=== PATIENT | male | born 1940 | race Caucasian/White ===

== ENCOUNTER 2023-06-21 17:24 | Emergency (ER) | payer MEDICARE, SELFPAY ==
[2023-06-21] VITALS (9 sets, daily range): BP systolic 111–124; BP diastolic 72–74; PULSE 56–84; RESP 16–24; O2SAT 83–96; BMI 40.3
--- NOTE | 2023-06-21 17:32 | ECG_ITS ---
The [facility] Test Date: 2023-06-21 Pat Name: KAEL PULIDO Department: Room: - Gender: Male Inpatient Pharmacist: : 1940 Requested By: JAKE VAUGHAN Order Number: [id number] Reading MD: JAKE VAUGHAN Measurements Intervals [place] Rate: 72 P: 21 SD: 174 QRS: 11 QRSD: 100 T: 65 QT: 404 QTc: 429 Interpretive Statements 1100 Sinus rhythm 9110 normal ECG No previous ECG available for comparison Electronically Signed On 06-23-2023 6:39:56 EST by JAKE VAUGHAN
--- NOTE | 2023-06-21 17:40 | ED_ITS ---
HPI - General Adult General Chief complaint: Neuro Symptoms/Deficit Stated complaint: poss cva Time Seen by Provider: 06/21/23 17:27 Source: patient Mode of arrival: Wheelchair History of Present Illness HPI narrative: Patient brought in by family from home, where he apparently became so weak he could not walk, his speech became slurred and slow and his behavior became altered. The patient's gives the HPI and ROS as the patient is unable. She told me that we was fine 2 days ago. Last night he was sluggish and had weakness in his legs and arms. had to help him get into bed. This morning he was still weak but the was able to help him walk and he was able to eat and move on his own and got better as the day progressed. She said that he was able to walk outside and feed the chickens and move on his own. But when he came back inside, he was confused again, speech was once again slow and he was having trouble walking or moving his arms. It got worse over time so the got him into the car and brought him to the ED for evaluation. On arrival patient is weight needing 100% assistance getting out of the car and cannot give HPI, ROS or answer questions, despite his eyes being open and him tracking his site to voice. said he had several previous strokes. Related Data Home Medications Medication Instructions Recorded Confirmed amlodipine 5 mg tablet 5 mg PO BID 06/21/23 06/21/23 glimepiride 1 mg tablet 1 mg PO DAILY 06/21/23 06/21/23 levothyroxine 50 mcg tablet 50 mcg PO DAILY 06/21/23 06/21/23 lisinopril 40 mg tablet 40 mg PO DAILY 06/21/23 06/21/23 pravastatin 40 mg tablet 40 mg PO DAILY 06/21/23 06/21/23 quetiapine 50 mg tablet 50 mg PO DAILY 06/21/23 06/21/23 Allergies Allergy/AdvReac Type Severity Reaction Status Date / Time No Known Drug Allergies Allergy Verified 06/21/23 17:39 Exam Narrative Exam Narrative: Nurses notes and vital signs reviewed and patient is not hypoxic. afebrile General: Well-appearing and in no apparent distress. Skin: Warm, dry, no pallor noted. Head: Normocephalic, atraumatic. Neck: Supple, non-tender. Eye: Pupils are equal, round and EOMI. No scleral icterus. Ears, Nose, Mouth, and Throat: Oral mucosa is moist Cardiovascular: Regular Rate and Rhythm without murmur, gallop or rub. Respiratory: No accessory muscle use or respiratory distress. Lungs are clear to auscultation, no wheezing, rales or rhonchi Musculoskeletal: normal ROM, no calf or popliteal tenderness, no lower extremity edema/swelling GI: Abdomen is soft, non-distended. Normal bowel sounds. No tenderness to palpation. No rebound, guarding, or rigidity noted. Neurological: A&O x4. No cranial nerve dysfunction observed. No truncal ataxia. Moves all extremities. Sensation intact. Psychiatric: Cooperative and interactive. Normal mood and affect. Constitutional Vital Signs, click to edit/add: Last Vital Signs Pulse 65 06/21/23 18:40 Resp 20 06/21/23 18:40 BP 111/72 06/21/23 18:31 Pulse Ox 94 L 06/21/23 18:31 O2 Del Method Room Air 06/21/23 17:29 Course Vital Signs Vital signs: Vital Signs Pulse Rate 70 06/21/23 17:29 Respiratory Rate 24 06/21/23 17:29 Blood Pressure 124/74 06/21/23 17:29 Pulse Oximetry 94 L 06/21/23 17:29 Oxygen Delivery Method Room Air 06/21/23 17:29 Pulse Rate 65 06/21/23 18:40 Respiratory Rate 20 06/21/23 18:40 Blood Pressure 111/72 06/21/23 18:31 Pulse Oximetry 94 L 06/21/23 18:31 Oxygen Delivery Method Room Air 06/21/23 17:29 Medical Decision Making [facility] Narrative Medical decision making narrative: The patient's blood glucose stick was only 46 - he received IV D50. The patient was placed on cafeteria monitor and EKG obtained. He was sent for head CT per stroke protocol. Blood drawn and sent for evaluation. After receiving IV D50, the patient returned to baseline mentation and was able to move normally. Head CT did not reveal any acute changes - he has evidence of prior CVAs. Workup otherwise notable for elevated BUN and CR, normal electrolytes, normal CBC, no evidence of worrisome findings on EKG or head CT. Patient behaving normally, able to sit up and move on his own. Patient's glucose increased to 74. He was given sugar drink in the ED and discharged home to the family who will feed him dinner. said she will watch his daily meals more closely. ED return if he worsens Lab Data Lab results reviewed: Yes I reviewed the patient's lab results Labs: Lab Results 06/21/23 06/21/23 06/21/23 Range/Units 17:32 17:55 18:34 WBC 7.4 (4.0-11.0) 10^3/uL RBC 4.24 L (4.70-6.10) 10^6/uL Hgb 14.0 (14.0-18.0) g/dL Hct 41.4 L (42.0-54.0) % MCV 97.6 H (80.0-94.0) fL MCH 33.0 (25.9-34.0) pg MCHC 33.8 (29.9-35.2) g/dL RDW 13.2 (11.0-15.0) % Plt Count 106 L (150-450) 10^3/uL MPV 10.7 (9.5-13.5) fL Neut % (Auto) 80.8 H (43.0-75.0) % Lymph % (Auto) 12.0 L (20.5-60.0) % [place] % (Auto) 6.0 (1.7-12.0) % Eos % (Auto) 0.5 L (0.9-7.0) % Baso % (Auto) 0.3 (0.2-2.0) % Neut # (Auto) 6.0 (1.4-6.5) 10^3/uL Lymph # (Auto) 0.9 L (1.2-3.8) 10^3/uL [place] # (Auto) 0.4 (0.3-0.8) 10^3/uL Eos # (Auto) 0.0 (0.0-0.7) 10^3/uL Baso # (Auto) 0.0 (0.0-0.1) 10^3/uL Abs Immat Gran (auto) 0.03 (0.00-0.03) 10^3/uL Imm/Tot Granulo (auto) 0.4 (0.0-0.5) % Sodium 144 (136-145) mmol/L Potassium 3.6 (3.5-5.1) mmol/L Chloride 108 H (98-107) mmol/L Carbon Dioxide 24.7 (21.0-32.0) mmol/L Anion Gap 14.9 BUN 36.0 H (7.0-18.0) mg/dL Creatinine 2.37 H (0.70-1.30) mg/dL Est GFR ( Amer) 32 L (>=60) Est GFR (Non-Af Amer) 26 L (>=60) BUN/Creatinine Ratio 15.2 Glucose 146 H (74-106) mg/dL Calcium 8.7 (8.5-10.1) mg/dL Total Bilirubin 0.4 (0.2-1.0) mg/dL AST 16 (15-37) U/L ALT 15 L (16-63) U/L Alkaline Phosphatase 76 (46-116) U/L Total Protein 7.1 (6.4-8.2) g/dL Albumin 3.4 (3.4-5.0) g/dL Globulin 3.7 g/dL Albumin/Globulin Ratio 0.9 POC Glucose 46 L* 72 L (74-106) mg/dL Imaging Data CT scan - head: Radiologist's impression: ITS Impressions Brain CT 06/21/23 17:50 IMPRESSION: 1. No acute intracranial process is identified. 2. Old bilateral basal ganglier and right thalamic lacunar infarcts. Old lacunar infarct left insular cortex. Mild bilateral chronic microvascular ischemic change. 3. Diffuse cerebral and cerebellar atrophy. Electronically authenticated by: CECILY KAPLAN Date: 06/21/2023 17:58 ECG Data Attestation: I personally reviewed and interpreted this ECG as follows: Interpretation: EKG interpretation: Emergency Department physician interpretation. Normal sinus rhythm at 72bpm. Normal axis, normal intervals and no ST segment elevation or depression. Normal EKG. Discharge Plan Discharge Chief Complaint: Neuro Symptoms/Deficit Clinical Impression: Hypoglycemic episode in patient with diabetes mellitus, Weakness Patient Disposition: Home, Self-Care Time of Disposition Decision: 18:55 Prescriptions / Home Meds: No Action amlodipine 5 mg tablet 5 mg PO BID glimepiride 1 mg tablet 1 mg PO DAILY levothyroxine 50 mcg tablet 50 mcg PO DAILY lisinopril 40 mg tablet 40 mg PO DAILY pravastatin 40 mg tablet 40 mg PO DAILY quetiapine 50 mg tablet 50 mg PO DAILY Instructions: Hypoglycemia in a Person with Diabetes (ED), Weakness (ED) Stand Alone Forms: Portal Instructions Referrals: Piter Chowdhury MD [Primary Care Provider] - 1 week
[2023-06-21] MEDS: DEXTROSE 50 %-WATER 25 GM/50 ML SYRINGE IV (17:41)
[2023-06-21 17:42] LABS: Glucometer 46 mg/dL (74-106)
--- NOTE | 2023-06-21 17:50 | CT_ITS ---
The [address] [address] Patient Name: KAEL PULIDO MRN: [id number] date: 1940 Sex: M Assigned Patient Location: ER Current Patient Location: ER Accession/Order Number: [id number] Exam Date: 06/21/2023 17:40 Report Date: 06/21/2023 17:58 At the request of: KELSEY NAVARRO Procedure: CT stroke head/brain wo con EXAM: CT stroke head/brain wo con HISTORY: altered mentation, weakness COMPARISON: None. TECHNIQUE: Unenhanced transaxial tomographic sections obtained from the vertex through the posterior fossa. FINDINGS: Old bilateral basal ganglia and old right thalamic lacunar infarcts. Old lacunar infarct left insular cortex. Mild bilateral chronic microvascular ischemic change. Diffuse cerebral and cerebellar atrophy. No midline shift, mass effect or intracranial hemorrhage. The mastoid air cells and visualized paranasal sinuses are clear. CT/CT stroke head/brain wo con IMPRESSION: 1. No acute intracranial process is identified. 2. Old bilateral basal ganglier and right thalamic lacunar infarcts. Old lacunar infarct left insular cortex. Mild bilateral chronic microvascular ischemic change. 3. Diffuse cerebral and cerebellar atrophy. Electronically authenticated by: CECILY KAPLAN Date: 06/21/2023 17:58
[2023-06-21] MEDS: 0.9 % SODIUM CHLORIDE 1,000 ML 999 ML IV (17:52)
[2023-06-21 18:14] LABS: Basophils Percent Auto 0.3 % (0.2-2.0); Eosinophils Percent Auto 0.5 % (0.9-7.0); Hematocrit 41.4 % (42.0-54.0); Immature Granulocytes Abs Auto 0.03 10^3/uL (0.00-0.03); Immature Granulocytes Pct Auto 0.4 % (0.0-0.5); Lymphocytes Absolute Auto 0.9 10^3/uL (1.2-3.8); Mean Corpuscular HGB Conc 33.8 g/dL (29.9-35.2); Mean Corpuscular Volume 97.6 fL (80.0-94.0); Mean Platelet Volume 10.7 fL (9.5-13.5); Monocytes Absolute Auto 0.4 10^3/uL (0.3-0.8); Neutrophils Percent Auto 80.8 % (43.0-75.0); Platelet Count 106 10^3/uL (150-450); Red Blood Count 4.24 10^6/uL (4.70-6.10); Red Cell Distribution Width 13.2 % (11.0-15.0); White Blood Count 7.4 10^3/uL (4.0-11.0)
[2023-06-21 18:26] LABS: Alanine Aminotransferase 15 U/L (16-63); Albumin Globulin Ratio 0.9; Albumin Level 3.4 g/dL (3.4-5.0); Alkaline Phosphatase 76 U/L (46-116); Anion Gap 14.9; Aspartate Amino Transferase 16 U/L (15-37); BUN Creatinine Ratio 15.2; Bilirubin Total 0.4 mg/dL (0.2-1.0); Calcium 8.7 mg/dL (8.5-10.1); Carbon Dioxide 24.7 mmol/L (21.0-32.0); Chloride 108 mmol/L (98-107); Estimated GFR (African America 32 (>=60); Estimated GFR (Non-African Ame 26 (>=60); Globulin 3.7 g/dL; Glucose 146 mg/dL (74-106); Potassium 3.6 mmol/L (3.5-5.1); Sodium 144 mmol/L (136-145); Total Protein 7.1 g/dL (6.4-8.2)
[2023-06-21 18:44] LABS: Glucometer 72 mg/dL (74-106)
== END 2023-06-21 19:19 | disposition home or self-care (01) ==
PROVIDERS: Emergency Provider Emergency Medicine; PCP Family Medicine
DX: E11.649 Type 2 diabetes mellitus with hypoglycemia without coma (principal); R53.1 Weakness; Z86.73 Personal history of transient ischemic attack (TIA), and cerebral infarction without residual deficits; Z79.899 Other long term (current) drug therapy; Z79.890 Hormone replacement therapy
CPT/HCPCS: 36415; 36416; 70450; 80053; 85025; 93005; 99285

== ENCOUNTER 2023-06-30 14:53 | Outpatient (OUT) | payer MEDICARE, SELFPAY ==
--- NOTE | 2023-06-30 15:06 | US_ITS ---
[address] [address] Patient Name: KAEL PULIDO MRN: [id number] date: 1940 Sex: M Assigned Patient Location: US Current Patient Location: Accession/Order Number: [id number] Exam Date: 06/30/2023 15:07 Report Date: 06/30/2023 15:49 At the request of: JAKE CHOWDHURY Procedure: US venous doppler UE RT EXAM: US venous doppler UE RT HISTORY: edema R60.9 COMPARISON: None. TECHNIQUE: Grayscale, color and Doppler ultrasound FINDINGS: Thrombus: Echogenic thrombus identified in the brachial vein proximal to the antecubital fossa and in the basilic vein from proximal to distal Flow: Decreased and absent flow corresponding to thrombus Compressibility: Noncompressibility corresponding to thrombus Other: Findings relayed to Dr. Chowdhury by the technologist at the time of exam US/US venous doppler UE RT IMPRESSION: Moderate amount of occlusive and nonocclusive deep vein thrombus in the brachial vein and superficial vein thrombus in the basilic vein Electronically authenticated by: RYAN FELDER Date: 06/30/2023 15:49
--- OUTSIDE RECORDS SUMMARY | 2023-06-30 15:08 | XMS_ITS | CCD ---
Author Name Unknown Address [address] [place] [address] Organization [facility] Care Team Providers Care Mobile Application Development Lead Name Role Phone REQUEST, DR ROA LISTED Attending Unavaila ble REQUEST, NONE LISTED Consulting Unavaila ble REQUEST, DR ROA LISTED Admitting Unavaila ble HOY, DR JOSEPH Primary Care Unavailable HOY, DR JOSEPH Primary Care Unavailable REQUEST, NONE LISTED Admitting Unavaila ble REQUEST, DR ROA LISTED Attending Unavaila ble REQUEST, DR ROA LISTED Consulting Unavaila ble HOY, DR JOSEPH Primary Care Unavailable HOY, DR JOSEPH Admitting Unavailable HOY, DR JOSEPH Attending Unavailable HOY, DR JOSEPH Consulting Unavailable TRAMAINE GOLDEN Admitting Unavailable ROSS, TRAMAINE Attending Unavailable TRAMAINE GOLDEN Consulting Unavailable CLEMENT, DR JOSEPH Primary Care Unavailable Problems Problem Classification Problem Date Documented Da te Episodic/Chronic Immunizations and screening for infectious disease (4 sources) Encounter for immunization; Translations: [ENCOUNTER FOR IMMUNIZATION] Onset: 04-29-2021 Episodic Results Test Name Value Interpretation Reference Range Facil ity CBC AUTO DIFFon 03-21-2021 BASO # 0.0 103/ul Normal 0.0-0.1 [facility] Comment on above: Performed By: #### C BC #### [facility] [address] [place] [address] Dr. Lukas Nino Basophils/100 WBC (Bld) 0.4 % Normal 0.2-2.0 [facility] Comment on above: Performed By: #### C BC #### [facility] [address] [place] [address] Dr. Lukas Nino EO # 0.1 103/ul Normal 0.0-0.7 [facility] Comment on above: Performed By: #### C BC #### [facility] [address] [place] [address] Dr. Lukas Nino Eosinophils/100 WBC (Bld) 1.4 % Normal 0.9-7.0 [facility] Comment on above: Performed By: #### C BC #### [facility] [address] [place] [address] Dr. Lukas Nino Erythrocyte distribution width (RBC) [Ratio] 13.0 % Normal 11.0-15.0 [facility] Comment on above: Performed By: #### C BC #### [facility] [address] [place] [address] Dr. Lukas Nino Hematocrit (Bld) [Volume fraction] 42.1 % Normal 42.0-54.0 [facility] Comment on above: Performed By: #### C BC #### [facility] [address] [place] [address] Dr. Lukas Nino Hemoglobin (Bld) [Mass/Vol] 14.5 g/dL Normal 14.0-18.0 [facility] Comment on above: Performed By: #### C BC #### [facility] [address] [place] [address] Dr. Lukas Nino IG # 0.03 10e3/ul Normal 0.00-0.03 [facility] Comment on above: Performed By: #### C BC #### [facility] [address] [place] [address] Dr. Lukas Nino IG % 0.4 % Normal 0.0-0.5 [facility] Comment on above: Performed By: #### C BC #### [facility] [address] [place] [address] Dr. Lukas Nino LYMPH # 1.7 103/ul Normal 1.2-3.8 [facility] Comment on above: Performed By: #### C BC #### [facility] [address] [place] [address] Dr. Lukas Nino Lymphocytes/100 WBC (Bld) 20.6 % Normal 20.5-60.0 [facility] Comment on above: Performed By: #### C BC #### [facility] [address] [place] [address] Dr. Lukas Nino MANUAL DIFF REQ NO Normal [facility] Comment on above: Performed By: #### C BC #### [facility] [address] [place] [address] Dr. Lukas Nino MCH (RBC) [Entitic mass] 33.0 pg Normal 25.9-34.0 [facility] Comment on above: Performed By: #### C BC #### [facility] [address] [place] [address] Dr. Lukas Nino MCHC (RBC) [Mass/Vol] 34.4 g/dL Normal 29.9-35.2 [facility] Comment on above: Performed By: #### C BC #### [facility] [address] [place] [address] Dr. Lukas Nino MCV (RBC) [Entitic vol] 95.9 fL Critically high 80.0-94.0 [facility] Comment on above: Performed By: #### C BC #### [facility] [address] [place] [address] Dr. Lukas Nino MONO # 0.6 103/ul Normal 0.3-0.8 [facility] Comment on above: Performed By: #### C BC #### [facility] [address] [place] [address] Dr. Lukas Nino Monocytes/100 WBC (Bld) 7.2 % Normal 1.7-12.0 [facility] Comment on above: Performed By: #### C BC #### [facility] [address] [place] [address] Dr. Lukas Nino NEUT # 5.6 103/ul Normal 1.4-6.5 [facility] Comment on above: Performed By: #### C BC #### [facility] [address] [place] [address] Dr. Lukas Nino Neutrophils/100 WBC (Bld) 70.0 % Normal 43.0-75.0 [facility] Comment on above: Performed By: #### C BC #### [facility] [address] [place] [address] Dr. Lukas Nino Platelet mean volume (Bld) [Entitic vol] 11.1 fL Normal 9.5-13.5 [facility] Comment on above: Performed By: #### C BC #### [facility] [address] [place] [address] Dr. Lukas Nino PLT 129 103/ul Critically low 150-450 [facility] Comment on above: Result Comment: few plt clumps Performed By: #### C BC #### [facility] [address] [address] [address] Lukas Nino RBC 4.39 106/ul Critically low 4.70-6.10 [facility] Comment on above: Performed By: #### C BC #### [facility] [address] [place] [address] Dr. Lukas Nino WBC 8.0 103/ul Normal 4.0-11.0 [facility] Comment on above: Performed By: #### C BC #### [facility] [address] [place] [address] Dr. Lukas Nino FREE THYROXINE INDEX T7on FTI 2.05 Normal [facility] Comment on above: Performed By: #### T SH, CMP, LIPID, URIC, T7 #### [facility] [address] [place] [address] Dr. Lukas Nino T3U 33.0 % Normal 23.5-40.5 [facility] Comment on above: Performed By: #### T SH, CMP, LIPID, URIC, T7 #### [facility] [address] [place] [address] Dr. Lukas Nino T4 [Mass/Vol] 6.20 ug/dL Normal 5.53-11.00 [facility] Comment on above: Performed By: #### T SH, CMP, LIPID, URIC, T7 #### [facility] [address] [place] [address] Dr. Luaks Nino GLYCOHEMOGLOBIN A1Con 2020 ADA RECOMMENDATION ADA THERAPEUTIC TARGET 6.0 - 7.0 ACTION SUGGESTED > 7.0 Normal [facility] Comment on above: Performed By: #### A 1C #### [facility] [address] [address] [address] Lukas Nino Glucose [Mass/Vol] 103 mg/dL Normal [facility] Comment on above: Performed By: #### A 1C #### [facility] [address] [place] [address] Dr. Lukas Nino HbA1c (Bld) [Mass fraction] 5.2 % Normal <=6.0 [facility] Comment on above: Performed By: #### A 1C #### [facility] [address] [place] [address] Dr. Lukas Nino LIPID PROFILEon 03-21-2021 CHOL-HDL RATIO NORM SEE BELOW Normal [facility] Comment on above: Result Comment: 3.3 - 4.4 LOW RISK 4.4 - 7.1 AVERAGE RISK 7.1 - 11.0 MODERATE RISK >11.0 HIGH RISK Performed By: #### T SH, CMP, LIPID, URIC, T7 #### [facility] [address] [address] [address] Lukas Nino Cholesterol [Mass/Vol] 121 mg/dL Normal <=200 [facility] Comment on above: Performed By: #### T SH, CMP, LIPID, URIC, T7 #### [facility] [address] [place] [address] Dr. Lukas Nino Cholesterol in HDL [Mass/Vol] 38 mg/dL Normal [facility] Comment on above: Performed By: #### T SH, CMP, LIPID, URIC, T7 #### [facility] [address] [address] [address] Lukas Nino Cholesterol in LDL [Mass/Vol] 66.4 mg/dL Normal [facility] Comment on above: Performed By: #### T SH, CMP, LIPID, URIC, T7 #### [facility] [address] [place] [address] Dr. Lukas Nino Cholesterol.total/Cho lesterol in HDL [Mass ratio] 3.2 {ratio} Normal [facility] Comment on above: Performed By: #### T SH, CMP, LIPID, URIC, T7 #### [facility] [address] [place] [address] Dr. Lukas Nino HDL NORMAL > or = 60 mg/dl - LOW CARDIOVASCULAR RISK <40 mg/dl - HIGH CARDIOVASCULAR RISK Normal [facility] Comment on above: Performed By: #### T SH, CMP, LIPID, URIC, T7 #### [facility] [address] [address] [address] Lukas Nino LDL CALC NORMAL SEE BELOW Normal [facility] Comment on above: Result Comment: <100 mg/dl OPTIMAL 100 - 129 mg/dl NEAR OR ABOVE OPTIMAL 130 - 159 mg/dl BORDERLINE HIGH 160 - 189 mg/dl HIGH >190 mg/dl VERY HIGH Performed By: #### T SH, CMP, LIPID, URIC, T7 #### [facility] [address] [address] [address] Lukas Nino Triglyceride [Mass/Vol] 83 mg/dL Normal <=150 [facility] Comment on above: Performed By: #### T SH, CMP, LIPID, URIC, T7 #### [facility] [address] [address] [address] Lukas Nino VLDL CALC 16.6 mg/dL Normal [facility] Comment on above: Performed By: #### T SH, CMP, LIPID, URIC, T7 #### [facility] [address] [address] [address] Lukas Nino PROF 14(COMP METB)on 021 Albumin [Mass/Vol] 3.7 g/dL Normal 3.5-5.0 [facility] Comment on above: Performed By: #### T SH, CMP, LIPID, URIC, T7 #### [facility] [address] [address] [address] Lukas Nino Albumin/Globulin [Mass ratio] 1.0 {ratio} Normal [facility] Comment on above: Performed By: #### T SH, CMP, LIPID, URIC, T7 #### [facility] [address] [address] [address] Lukas Nino ALP [Catalytic activity/Vol] 86 U/L Normal 38-126 [facility] Comment on above: Performed By: #### T SH, CMP, LIPID, URIC, T7 #### [facility] [address] [address] [address] Lukas Nino ALT [Catalytic activity/Vol] 18 U/L Critically low 21-72 [facility] Comment on above: Performed By: #### T SH, CMP, LIPID, URIC, T7 #### [facility] [address] [address] [address] Lukas Nino Anion gap [Moles/Vol] 9.5 mmol/L Normal [facility] Comment on above: Performed By: #### T SH, CMP, LIPID, URIC, T7 #### [facility] [address] [address] [address] Lukas Nino AST [Catalytic activity/Vol] 18 U/L Normal 17-59 [facility] Comment on above: Performed By: #### T SH, CMP, LIPID, URIC, T7 #### [facility] [address] [place] [address] Dr. Lukas Nino Bilirubin [Mass/Vol] 0.8 mg/dL Normal 0.2-1.3 [facility] Comment on above: Performed By: #### T SH, CMP, LIPID, URIC, T7 #### [facility] [address] [address] [address] Lukas Nino Calcium [Mass/Vol] 8.9 mg/dL Normal 8.4-10.2 [facility] Comment on above: Performed By: #### T SH, CMP, LIPID, URIC, T7 #### [facility] [address] [place] [address] Dr. Lukas Nino Chloride [Moles/Vol] 106 mmol/L Normal 98-107 [facility] Comment on above: Performed By: #### T SH, CMP, LIPID, URIC, T7 #### [facility] [address] [place] [address] Dr. Lukas Nino CO2 [Moles/Vol] 28.2 mmol/L Normal 22.0-30.0 [facility] Comment on above: Performed By: #### T SH, CMP, LIPID, URIC, T7 #### [facility] [address] [place] [address] Dr. Lukas Nino Creatinine [Mass/Vol] 1.26 mg/dL Critically high 0.66-1.25 [facility] Comment on above: Performed By: #### T SH, CMP, LIPID, URIC, T7 #### [facility] [address] [address] [address] Lukas Nino EGFR-AF SUDANESE >60 Normal >=60 [facility] Comment on above: Performed By: #### T SH, CMP, LIPID, URIC, T7 #### [facility] [address] [address] [address] Lukas Nino EGFR-NON AF SUDANESE 55 mL/min/1.73m2 Critically low >=60 [facility] Comment on above: Performed By: #### T SH, CMP, LIPID, URIC, T7 #### [facility] [address] [place] [address] Dr. Lukas Nino Globulin (S) [Mass/Vol] 3.7 g/dL Normal [facility] Comment on above: Performed By: #### T SH, CMP, LIPID, URIC, T7 #### [facility] [address] [address] [address] Lukas Nino Glucose [Mass/Vol] 76 mg/dL Normal 74-106 [facility] Comment on above: Performed By: #### T SH, CMP, LIPID, URIC, T7 #### [facility] [address] [address] [address] Lukas Nino Potassium [Moles/Vol] 3.7 mmol/L Normal 3.4-5.0 [facility] Comment on above: Performed By: #### T SH, CMP, LIPID, URIC, T7 #### [facility] [address] [address] [address] Lukas Nino Protein [Mass/Vol] 7.4 g/dL Normal 6.1-8.2 [facility] Comment on above: Performed By: #### T SH, CMP, LIPID, URIC, T7 #### [facility] [address] [address] [address] Lukas Nino Sodium [Moles/Vol] 140 mmol/L Normal 137-145 [facility] Comment on above: Performed By: #### T SH, CMP, LIPID, URIC, T7 #### [facility] [address] [address] [address] Lukas Nino Urea nitrogen [Mass/Vol] 15.0 mg/dL Normal 9.0-20.0 [facility] Comment on above: Performed By: #### T SH, CMP, LIPID, URIC, T7 #### [facility] [address] [address] [address] Lukas Nino Urea nitrogen/Creatinine [Mass ratio] 11.9 mg/mg Normal [facility] Comment on above: Performed By: #### T SH, CMP, LIPID, URIC, T7 #### [facility] [address] [address] [address] Lukas Nino TSHon 03-21-2021 TSH 2.594 uIU/mL Normal 0.470-4.680 [facility] Comment on above: Performed By: #### T SH, CMP, LIPID, URIC, T7 #### [facility] [address] [address] [address] Lukas Nino TSH RANGE SEE BELOW Normal [facility] Comment on above: Result Comment: <0.3 4 UIU/ml HYPERTHYROID 0.34-5.60 UIU/ml EUTHYROID >5.60 UIU/ml HYPOTHYROID Performed By: #### T SH, CMP, LIPID, URIC, T7 #### [facility] [address] [address] [address] Lukas Nino URIC ACID SERUMon 03-21-2021 Urate [Mass/Vol] 6.5 mg/dL Normal 3.5-8.5 [facility] Comment on above: Performed By: #### T SH, CMP, LIPID, URIC, T7 #### [facility] [address] [place] [address] Dr. Lukas Nino Encounters Encounter Date Encounter Type Care Provider Facility Start: 04-29-2021 End: 04-30-2021 ambulatory TRAMAINE GOLDEN Facility:[facility] Start: 03-21-2021 End: 03-21-[address] JAKE VAUGHAN Facility:[facility] Start: 08-27-2020 End: 08-28-[address] ROA LISTED REQUEST Facility:[facility] Start: 08-05-2020 End: 08-06-[address] JAKE VAUGHAN Facility:[facility] Procedures Date Procedure Procedure Detail Performing Clinician Start: 03-21-[address] ROA L ISTED REQUEST Comment on above: Performed By: #### P [facility] #### [facility] [address] [address] [address] Lukas Nino Payers Date Payer Category Payer Medicare [id number] 1958 Self-pay [id number] 1940 Unknown [id number] [id number] [id number] Unknown [id number] [id number] [id number] Unknown [id number] [id number] [id number] Unknown [id number] [id number] [id number] Summary Purpose Family History No Family History Records Found Advance Directives No Advanced Directives Records Found Additional Source Comments (unrecognized sect ion and content) No Status Records Found INFORMATION SOURCE (unrecogn ized section and content) DATE CREATED AUTHOR 05/23/2021 [facility] FOR RECORDS PERTAINING TO PATIENTS WHO ARE OR HAVE BEEN ENROLLED IN A CHEMICAL DEPENDENCY/SUBSTANCEABUSE PROGRAM, SOME INFORMATION MAY BE OMITTED. This clinical summary was aggregated from multiple sources. Caution should be exercised in using it in the provision of clinical care. This summary normalizes information from multiple sources, and as a consequence, information in this document may materially change the coding, format and clinical context of patient data. In addition, data may be omitted in some cases. CLINICAL DECISIONS SHOULD BE BASED ON THE PRIMARY CLINICAL RECORDS. [employer] provides no warranty or guarantee of the accuracy or completeness of information in this document.
== END 2023-06-30 14:54 | disposition home or self-care (01) ==
LOC: US 14:57
PROVIDERS: PCP Family Medicine; Visit Provider Family Medicine
DX: R60.0 Localized edema (principal); I82.621 Acute embolism and thrombosis of deep veins of right upper extremity
CPT/HCPCS: 93971

== ENCOUNTER 2023-10-12 12:52 | Outpatient (OUT) | payer MEDICARE, SELFPAY ==
--- NOTE | 2023-10-12 12:56 | US_ITS ---
The [address] [address] Patient Name: KAEL PULIDO MRN: [id number] date: 1940 Sex: M Assigned Patient Location: US Current Patient Location: Accession/Order Number: [id number] Exam Date: 10/12/2023 13:00 Report Date: 10/12/2023 14:46 At the request of: JAKE VAUGHAN Procedure: US venous doppler UE RT EXAMINATION: US venous doppler UE RT HISTORY: Acute Embolism and Thrombosis Deep Veins Right Extremity COMPARISON: Ultrasound venous Doppler upper extremity] 06/30/2023 FINDINGS: REGION: Right upper extremity THROMBI: None. COMPRESSIBILITY: Normal compressibility. FLOW: Normal waveform and antegrade flow between 5 and 20 cm/s. OTHER: None. US/US venous doppler UE RT IMPRESSION: 1. No deep vein thrombus within the right upper extremity. Clearing of previously seen thrombus. Electronically authenticated by: SHWETHA MARIE Date: 10/12/2023 14:46
--- OUTSIDE RECORDS SUMMARY | 2023-10-12 13:08 | XMS_ITS | CCD ---
Author Organization [facility] Care Team Providers Care Film Sound Coordinator Name Role Phone REQUEST, DR NONE LISTED Attending Unavaila ble REQUEST, NONE LISTED Consulting Unavaila ble REQUEST, NONE LISTED Admitting Unavaila ble HOY, DR JOSEPH Primary Care Unavailable HOY, DR JOSEPH Primary Care Unavailable REQUEST, NONE LISTED Admitting Unavaila ble REQUEST, NONE LISTED Attending Unavaila ble REQUEST, NONE LISTED Consulting Unavaila ble HOY, DR JOSEPH Primary Care Unavailable HOY, DR JOSEPH Admitting Unavailable HOY, DR JOSEPH Attending Unavailable HOY, DR JOSEPH Consulting Unavailable ROSSTRAMAINE Admitting Unavailable ROSS, TRAMAINE Attending Unavailable ROSS, TRAMAINE Consulting Unavailable HOY, DR JOSEPH Primary Care Unavailable Problems Problem Classification Problem Date Documented Da te Episodic/Chronic Immunizations and screening for infectious disease (4 sources) Encounter for immunization; Translations: [ENCOUNTER FOR IMMUNIZATION] Onset: 04-29-2021 Episodic Results Test Name Value Interpretation Reference Range Facil ity CBC AUTO DIFFon 03-21-2021 BASO # 0.0 103/ul Normal 0.0-0.1 [facility] Comment on above: Performed By: #### C BC #### [facility] [address] [address] [address] Lukas Nino Basophils/100 WBC (Bld) 0.4 % Normal 0.2-2.0 [facility] Comment on above: Performed By: #### C BC #### [facility] [address] [address] [address] Lukas Nino EO # 0.1 103/ul Normal 0.0-0.7 [facility] Comment on above: Performed By: #### C BC #### [facility] [address] [address] [address] Lukas Nino Eosinophils/100 WBC (Bld) 1.4 % Normal 0.9-7.0 [facility] Comment on above: Performed By: #### C BC #### [facility] [address] [place] [address] Dr. Lukas Nino Erythrocyte distribution width (RBC) [Ratio] 13.0 % Normal 11.0-15.0 [facility] Comment on above: Performed By: #### C BC #### [facility] [address] [place] [address] Dr. Lukas Nino Hematocrit (Bld) [Volume fraction] 42.1 % Normal 42.0-54.0 [facility] Comment on above: Performed By: #### C BC #### [facility] [address] [place] [address] Dr. Lukas Nino Hemoglobin (Bld) [Mass/Vol] 14.5 g/dL Normal 14.0-18.0 [facility] Comment on above: Performed By: #### C BC #### [facility] [address] [place] [address] Dr. Lukas Nino IG # 0.03 10e3/ul Normal 0.00-0.03 [facility] Comment on above: Performed By: #### C BC #### [facility] [address] [place] [address] Dr. Lukas Nino IG % 0.4 % Normal 0.0-0.5 [facility] Comment on above: Performed By: #### C BC #### [facility] [address] [place] [address] Dr. Lukas Nino LYMPH # 1.7 103/ul Normal 1.2-3.8 [facility] Comment on above: Performed By: #### C BC #### [facility] [address] [place] [address] Dr. Lukas Nino Lymphocytes/100 WBC (Bld) 20.6 % Normal 20.5-60.0 [facility] Comment on above: Performed By: #### C BC #### [facility] [address] [place] [address] Dr. Lukas Nino MANUAL DIFF REQ NO Normal [facility] Comment on above: Performed By: #### C BC #### [facility] [address] [address] [address] Lukas Nino MCH (RBC) [Entitic mass] 33.0 pg Normal 25.9-34.0 [facility] Comment on above: Performed By: #### C BC #### [facility] [address] [place] [address] Dr. Lukas Nino MCHC (RBC) [Mass/Vol] 34.4 g/dL Normal 29.9-35.2 [facility] Comment on above: Performed By: #### C BC #### [facility] [address] [place] [address] Dr. Lukas Nino MCV (RBC) [Entitic vol] 95.9 fL Critically high 80.0-94.0 [facility] Comment on above: Performed By: #### C BC #### [facility] [address] [place] [address] Dr. Lukas Nino MONO # 0.6 103/ul Normal 0.3-0.8 [facility] Comment on above: Performed By: #### C BC #### [facility] [address] [place] [address] Dr. Lukas Nino Monocytes/100 WBC (Bld) 7.2 % Normal 1.7-12.0 [facility] Comment on above: Performed By: #### C BC #### [facility] [address] [place] [address] Dr. Lukas Nino NEUT # 5.6 103/ul Normal 1.4-6.5 [facility] Comment on above: Performed By: #### C BC #### [facility] [address] [place] [address] Dr. Lukas Nino Neutrophils/100 WBC (Bld) 70.0 % Normal 43.0-75.0 [facility] Comment on above: Performed By: #### C BC #### [facility] [address] [place] [address] Dr. Lukas Nino Platelet mean volume (Bld) [Entitic vol] 11.1 fL Normal 9.5-13.5 [facility] Comment on above: Performed By: #### C BC #### [facility] [address] [address] [address] Lukas Nino PLT 129 103/ul Critically low 150-450 [facility] Comment on above: Result Comment: few plt clumps Performed By: #### C BC #### [facility] [address] [address] [address] Lukas Nino RBC 4.39 106/ul Critically low 4.70-6.10 [facility] Comment on above: Performed By: #### C BC #### [facility] [address] [address] [address] Lukas Nino WBC 8.0 103/ul Normal 4.0-11.0 [facility] Comment on above: Performed By: #### C BC #### [facility] [address] [address] [address] Lukas Nino FREE THYROXINE INDEX T7on FTI 2.05 Normal [facility] Comment on above: Performed By: #### T SH, CMP, LIPID, URIC, T7 #### [facility] [address] [address] [address] Lukas Nino T3U 33.0 % Normal 23.5-40.5 [facility] Comment on above: Performed By: #### T SH, CMP, LIPID, URIC, T7 #### [facility] [address] [address] [address] Lukas Nino T4 [Mass/Vol] 6.20 ug/dL Normal 5.53-11.00 [facility] Comment on above: Performed By: #### T SH, CMP, LIPID, URIC, T7 #### [facility] [address] [address] [address] Lukas Nino GLYCOHEMOGLOBIN A1Con 2020 ADA RECOMMENDATION ADA THERAPEUTIC TARGET 6.0 - 7.0 ACTION SUGGESTED > 7.0 Normal [facility] Comment on above: Performed By: #### A 1C #### [facility] [address] [address] [address] Lukas Nino Glucose [Mass/Vol] 103 mg/dL Normal [facility] [place] [facility] Comment on above: Performed By: #### A 1C #### [facility] [address] [address] [address] Lukas Nino HbA1c (Bld) [Mass fraction] 5.2 % Normal <=6.0 [facility] Comment on above: Performed By: #### A 1C #### [facility] [address] [address] [address] Lukas Nino LIPID PROFILEon 03-21-2021 CHOL-HDL RATIO NORM SEE BELOW Normal [facility] Comment on above: Result Comment: 3.3 - 4.4 LOW RISK 4.4 - 7.1 AVERAGE RISK 7.1 - 11.0 MODERATE RISK >11.0 HIGH RISK Performed By: #### T SH, CMP, LIPID, URIC, T7 #### [facility] [address] [place] [address] Dr. Lukas Nino Cholesterol [Mass/Vol] 121 mg/dL Normal <=200 [facility] Comment on above: Performed By: #### T SH, CMP, LIPID, URIC, T7 #### [facility] [address] [address] [address] Lukas Nino Cholesterol in HDL [Mass/Vol] 38 mg/dL Normal [facility] Comment on above: Performed By: #### T SH, CMP, LIPID, URIC, T7 #### [facility] [address] [address] [address] Lukas Nino Cholesterol in LDL [Mass/Vol] 66.4 mg/dL Normal [facility] Comment on above: Performed By: #### T SH, CMP, LIPID, URIC, T7 #### [facility] [address] [address] [address] Lukas Nino Cholesterol.total/Cho lesterol in HDL [Mass ratio] 3.2 {ratio} Normal [facility] Comment on above: Performed By: #### T SH, CMP, LIPID, URIC, T7 #### [facility] [address] [address] [address] Lukas Nino HDL NORMAL > or = 60 mg/dl - LOW CARDIOVASCULAR RISK <40 mg/dl - HIGH CARDIOVASCULAR RISK Normal [facility] Comment on above: Performed By: #### T SH, CMP, LIPID, URIC, T7 #### [facility] [address] [address] [address] Lukas Nino LDL CALC NORMAL SEE BELOW Normal [facility] Comment on above: Result Comment: <100 mg/dl OPTIMAL 100 - 129 mg/dl NEAR OR ABOVE OPTIMAL 130 - 159 mg/dl BORDERLINE HIGH 160 - 189 mg/dl HIGH >190 mg/dl VERY HIGH Performed By: #### T SH, CMP, LIPID, URIC, T7 #### [facility] [address] [address] [address] Lukas Nino Triglyceride [Mass/Vol] 83 mg/dL Normal <=150 [facility] Comment on above: Performed By: #### T SH, CMP, LIPID, URIC, T7 #### [facility] [address] [place] [address] Dr. Lukas Nino VLDL CALC 16.6 mg/dL Normal [facility] Comment on above: Performed By: #### T SH, CMP, LIPID, URIC, T7 #### [facility] [address] [place] [address] Dr. Lukas Nino PROF 14(COMP METB)on 021 Albumin [Mass/Vol] 3.7 g/dL Normal 3.5-5.0 [facility] [place] [facility] Comment on above: Performed By: #### T SH, CMP, LIPID, URIC, T7 #### [facility] [address] [place] [address] Dr. Lukas Nino Albumin/Globulin [Mass ratio] 1.0 {ratio} Normal [facility] Comment on above: Performed By: #### T SH, CMP, LIPID, URIC, T7 #### [facility] [address] [place] [address] Dr. Lukas Nino ALP [Catalytic activity/Vol] 86 U/L Normal 38-126 [facility] Comment on above: Performed By: #### T SH, CMP, LIPID, URIC, T7 #### [facility] [address] [place] [address] Dr. Lukas Nino ALT [Catalytic activity/Vol] 18 U/L Critically low 21-72 [facility] Comment on above: Performed By: #### T SH, CMP, LIPID, URIC, T7 #### [facility] [address] [address] [address] Lukas Nino Anion gap [Moles/Vol] 9.5 mmol/L Normal [facility] Comment on above: Performed By: #### T SH, CMP, LIPID, URIC, T7 #### [facility] [address] [address] [address] Lukas Nino AST [Catalytic activity/Vol] 18 U/L Normal 17-59 [facility] Comment on above: Performed By: #### T SH, CMP, LIPID, URIC, T7 #### [facility] [address] [place] [address] Dr. Lukas Nino Bilirubin [Mass/Vol] 0.8 mg/dL Normal 0.2-1.3 [facility] Comment on above: Performed By: #### T SH, CMP, LIPID, URIC, T7 #### [facility] [address] [place] [address] Dr. Lukas Nino Calcium [Mass/Vol] 8.9 mg/dL Normal 8.4-10.2 [facility] Comment on above: Performed By: #### T SH, CMP, LIPID, URIC, T7 #### [facility] [address] [place] [address] Dr. Lukas Nino Chloride [Moles/Vol] 106 mmol/L Normal 98-107 [facility] Comment on above: Performed By: #### T SH, CMP, LIPID, URIC, T7 #### [facility] [address] [place] [address] Dr. Lukas Nino CO2 [Moles/Vol] 28.2 mmol/L Normal 22.0-30.0 [facility] Comment on above: Performed By: #### T SH, CMP, LIPID, URIC, T7 #### [facility] [address] [place] [address] Dr. Lukas Nino Creatinine [Mass/Vol] 1.26 mg/dL Critically high 0.66-1.25 [facility] Comment on above: Performed By: #### T SH, CMP, LIPID, URIC, T7 #### [facility] [address] [address] [address] Lukas Nino EGFR-AF AUSTRIAN >60 Normal >=60 [facility] Comment on above: Performed By: #### T SH, CMP, LIPID, URIC, T7 #### [facility] [address] [place] [address] Dr. Lukas Nino EGFR-NON AF AUSTRIAN 55 mL/min/1.73m2 Critically low >=60 [facility] Comment on above: Performed By: #### T SH, CMP, LIPID, URIC, T7 #### [facility] [address] [place] [address] Dr. Lukas Nino Globulin (S) [Mass/Vol] 3.7 g/dL Normal [facility] Comment on above: Performed By: #### T SH, CMP, LIPID, URIC, T7 #### [facility] [address] [place] [address] Dr. Lukas Nino Glucose [Mass/Vol] 76 mg/dL Normal 74-106 [facility] Comment on above: Performed By: #### T SH, CMP, LIPID, URIC, T7 #### [facility] [address] [place] [address] Dr. Lukas Nino Potassium [Moles/Vol] 3.7 mmol/L Normal 3.4-5.0 [facility] Comment on above: Performed By: #### T SH, CMP, LIPID, URIC, T7 #### [facility] [address] [place] [address] Dr. Lukas Nino Protein [Mass/Vol] 7.4 g/dL Normal 6.1-8.2 [facility] Comment on above: Performed By: #### T SH, CMP, LIPID, URIC, T7 #### [facility] [address] [place] [address] Dr. Lukas Nino Sodium [Moles/Vol] 140 mmol/L Normal 137-145 [facility] Comment on above: Performed By: #### T SH, CMP, LIPID, URIC, T7 #### [facility] [address] [address] [address] Lukas Nino Urea nitrogen [Mass/Vol] 15.0 mg/dL Normal 9.0-20.0 [facility] Comment on above: Performed By: #### T SH, CMP, LIPID, URIC, T7 #### [facility] [address] [address] [address] Lukas Nino Urea nitrogen/Creatinine [Mass ratio] 11.9 mg/mg Normal [facility] Comment on above: Performed By: #### T SH, CMP, LIPID, URIC, T7 #### [facility] [address] [address] [address] Lukas Nino TSHon 03-21-2021 TSH 2.594 uIU/mL Normal 0.470-4.680 [facility] Comment on above: Performed By: #### T SH, CMP, LIPID, URIC, T7 #### [facility] [address] [address] [address] Lukas Nino TSH RANGE SEE BELOW Normal [facility] Comment on above: Result Comment: <0.3 4 UIU/ml HYPERTHYROID 0.34-5.60 UIU/ml EUTHYROID >5.60 UIU/ml HYPOTHYROID Performed By: #### T SH, CMP, LIPID, URIC, T7 #### [facility] [address] [address] [address] Lukas Nino URIC ACID SERUMon 03-21-2021 Urate [Mass/Vol] 6.5 mg/dL Normal 3.5-8.5 [facility] Comment on above: Performed By: #### T SH, CMP, LIPID, URIC, T7 #### [facility] [address] [address] [address] Lukas Nino Encounters Encounter Date Encounter Type Care Provider Facility Start: 04-29-2021 End: 04-30-2021 ambulatory TRAMAINE GOLDEN Facility:[facility] Start: 03-21-2021 End: 03-21-[address] JAKE VAUGHAN Facility:[facility] Start: 08-27-2020 End: 08-28-[address] ROA LISTED REQUEST Facility:[facility] Start: 08-05-2020 End: 08-06-[address] JAKE VAUGHAN Facility:[facility] Procedures Date Procedure Procedure Detail Performing Clinician Start: 03-21-[address] JANINA YITED REQUEST Comment on above: Performed By: #### P [facility] #### [facility] [address] [address] [address] Lukas Nino Payers Date Payer Category Payer Medicare [id number] 1958 Self-pay [id number] 1940 Unknown [id number] [id number] [id number] Unknown [id number] [id number] [id number] Unknown [id number] 2.16.84 [id number] Unknown [id number] [id number] [id number] Summary Purpose Family History No Family History Records Found Advance Directives No Advanced Directives Records Found Additional Source Comments (unrecognized sect ion and content) No Status Records Found INFORMATION SOURCE (unrecogn ized section and content) DATE CREATED AUTHOR 05/23/2021 [facility] FOR RECORDS PERTAINING TO PATIENTS WHO ARE [...] BE BASED ON THE PRIMARY CLINICAL RECORDS. [employer] provides no warranty or guarantee of the accuracy or completeness of information in this document.
== END 2023-10-12 12:53 | disposition home or self-care (01) ==
LOC: US 12:52
PROVIDERS: PCP Family Medicine; Visit Provider Family Medicine
DX: I82.621 Acute embolism and thrombosis of deep veins of right upper extremity (principal)
CPT/HCPCS: 93971

== ENCOUNTER 2023-11-14 17:30 | Outpatient (REF) | payer MEDICARE, SELFPAY ==
[2023-11-15 13:47] LABS: Bilirubin Urine SMALL (NEGATIVE); Blood Urine NEGATIVE (NEGATIVE); Clarity Urine SL CLOUDY (CLEAR); Color Urine DK. YELLOW (YELLOW); Glucose Urine UA NEGATIVE (NEGATIVE); Ketones Urine NEGATIVE (NEGATIVE); Leukocyte Esterase Urine TRACE (NEGATIVE); Nitrite Urine NEGATIVE (NEGATIVE); Protein Urine 30 mg/dL (NEG/TRACE); Specific Gravity Urine >=1.030 (1.005-1.025)
[2023-11-15 14:35] LABS: Bacteria Urine SMALL #/HPF (NONE SEEN); Cast Seen? NONE SEEN #/LPF (NONE SEEN); Crystals Seen? None Seen #/HPF (None Seen); Mucus Urine SMALL (NONE SEEN); RBC Urine 0-2 #/HPF (0-2); Squamous Epithelial Cell Urine MODERATE #/LPF (NONE/RARE); WBC Urine 20-50 #/HPF (NONE SEEN)
== END 2023-11-14 17:31 | disposition home or self-care (01) ==
LOC: LAB 17:30
PROVIDERS: PCP Family Medicine; Visit Provider Family Medicine
DX: R35.0 Frequency of micturition (principal)
CPT/HCPCS: 81001; 87086

== ENCOUNTER 2023-11-16 09:39 | Outpatient (OUT) | payer MEDICARE, SELFPAY ==
--- NOTE | 2023-11-16 09:41 | US_ITS ---
[address] [address] Patient Name: KAEL PULIDO MRN: [id number] date: 1940 Sex: M Assigned Patient Location: [place] Current Patient Location: Accession/Order Number: [id number] Exam Date: 11/16/2023 09:42 Report Date: 11/16/2023 10:49 At the request of: JAKE VAUGHAN Procedure: US renal bladder EXAMINATION: US renal bladder HISTORY: Urinary Frequency R35.0 COMPARISON: No relevant comparison available. TECHNIQUE: Ultrasound examination was performed of the bladder. FINDINGS: Right Kidney: Normal in size, contour and echotexture. 1.7 cm area of anechoic echogenicity upper pole, simple cyst. The cortex measures 1 cm. No solid mass or hydronephrosis. Height: 5.2 cm Length: 12.2 cm Width: 5.2 cm Left Kidney: Normal in size, contour and echotexture. 1.2 cm area of anechoic echogenicity lower pole, simple cyst. The cortex measures 0.8 cm. No solid mass or hydronephrosis Height: 4.6 cm Length: 10.7 cm Width: 4.7 cm Urinary bladder wall measures 2.8 mm. Prevoid volume 36 mL. Post void volume 3 mL Ureteral jets: Visualized bilaterally US/US renal bladder IMPRESSION: Bilateral renal cortical simple cysts Electronically authenticated by: RYAN FELDER Date: 11/16/2023 10:49
--- OUTSIDE RECORDS SUMMARY | 2023-11-16 10:03 | XMS_ITS ---
Patient Summarization (C-CDA 2.1 CCD) Created on: November 16, 2023 KAEL PULIDO : 1940 Sex: Male Author Organization Sample organization Care Team Providers Care Ged Instructor Name Role Phone REQUEST, DR NONE LISTED Attending Unavaila ble REQUEST, NONE LISTED Consulting Unavaila ble REQUEST, DR ROA LISTED Admitting Unavaila ble HOY, DR JOSEPH Primary Care Unavailable HOY, DR JOSEPH Primary Care Unavailable REQUEST, NONE LISTED Admitting Unavaila ble REQUEST, NONE LISTED Attending Unavaila ble REQUEST, DR ROA LISTED Consulting Unavaila ble HOY, DR JOSEPH Primary Care Unavailable HOY, DR JOSEPH Admitting Unavailable HOY, DR JOSEPH Attending Unavailable HOY, DR JOSEPH Consulting Unavailable ROSS, TRMAAINE Admitting Unavailable ROSS, TRAMAINE Attending Unavailable ROSS, TRAMAINE Consulting Unavailable CLEMENT, DR JOSEPH Primary Care Unavailable Encounters Encounter Date Encounter Type Care Provider Facility Start: 04-29-2021 End: 04-30-2021 ambulatory TRAMAINE GOLDEN Facility:[facility] Start: 03-21-2021 End: 03-21-[address] JAKE VAGUHAN Facility:[facility] Start: 08-27-2020 End: 08-28-[address] ROA LISTED REQUEST Facility:[facility] Start: 08-05-2020 End: 08-06-[address] JAKE VAUGHAN Facility:[facility] Payers Date Payer Category Payer Medicare [id number] 1958 Self-pay [id number] 1940 Unknown [id number] Unknown [id number] 07.23.84 [id number] Unknown [id number] Unknown [id number] 07.23.84 [id number] Problems Problem Classification Problem Date Documented Da te Episodic/Chronic Immunizations and screening for infectious disease (4 sources) Encounter for immunization; Translations: [ENCOUNTER FOR IMMUNIZATION] Onset: 04-29-2021 Episodic Procedures Date Procedure Procedure Detail Performing Clinician Start: 03-21-[address] JANINA YITED REQUEST Comment on above: Performed By: #### P SASC #### [facility] [address] [place] [address] Dr. Lukas Nino Results Test Name Value Interpretation Reference Range Facil ity CBC AUTO DIFFon 03-21-2021 BASO # 0.0 103/ul Normal 0.0-0.1 [facility] Comment on above: Performed By: #### C BC #### [facility] [address] [place] [address] Dr. Lukas Nion Basophils/100 WBC (Bld) 0.4 % Normal 0.2-2.0 [facility] Comment on above: Performed By: #### C BC #### [facility] [address] [place] [address] Dr. Lukas Nino EO # 0.1 103/ul Normal 0.0-0.7 [facility] Comment on above: Performed By: #### C BC #### [facility] [address] [address] [address] Lukas Nino Eosinophils/100 WBC (Bld) 1.4 % Normal 0.9-7.0 [facility] Comment on above: Performed By: #### C BC #### [facility] [address] [place] [address] Dr. Lukas Nino Erythrocyte distribution width (RBC) [Ratio] 13.0 % Normal 11.0-15.0 [facility] Comment on above: Performed By: #### C BC #### [facility] [address] [place] [address] Dr. Lukas Nino Hematocrit (Bld) [Volume fraction] 42.1 % Normal 42.0-54.0 [facility] Comment on above: Performed By: #### C BC #### [facility] [address] [place] [address] Dr. Lukas Nino Hemoglobin (Bld) [Mass/Vol] 14.5 g/dL Normal 14.0-18.0 [facility] Comment on above: Performed By: #### C BC #### [facility] [address] [place] [address] Dr. Lukas Nino IG # 0.03 10e3/ul Normal 0.00-0.03 [facility] Comment on above: Performed By: #### C BC #### [facility] [address] [place] [address] Dr. Lukas Nino IG % 0.4 % Normal 0.0-0.5 [facility] Comment on above: Performed By: #### C BC #### [facility] [address] [place] [address] Dr. Lukas Nino LYMPH # 1.7 103/ul Normal 1.2-3.8 [facility] Comment on above: Performed By: #### C BC #### [facility] [address] [place] [address] Dr. Lukas Nino Lymphocytes/100 WBC (Bld) 20.6 % Normal 20.5-60.0 [facility] Comment on above: Performed By: #### C BC #### [facility] [address] [place] [address] Dr. Lukas Nino MANUAL DIFF REQ NO Normal [facility] Comment on above: Performed By: #### C BC #### [facility] [address] [place] [address] Dr. Lukas Nino MCH (RBC) [Entitic mass] 33.0 pg Normal 25.9-34.0 [facility] Comment on above: Performed By: #### C BC #### [facility] [address] [place] [address] Dr. Lukas Nino MCHC (RBC) [Mass/Vol] 34.4 g/dL Normal 29.9-35.2 [facility] Comment on above: Performed By: #### C BC #### [facility] [address] [place] [address] Dr. Lukas Nino MCV (RBC) [Entitic vol] 95.9 fL Critically high 80.0-94.0 [facility] Comment on above: Performed By: #### C BC #### [facility] [address] [address] [address] Lukas Nino MONO # 0.6 103/ul Normal 0.3-0.8 [facility] Comment on above: Performed By: #### C BC #### [facility] [address] [address] [address] Lukas Nino Monocytes/100 WBC (Bld) 7.2 % Normal 1.7-12.0 [facility] Comment on above: Performed By: #### C BC #### [facility] [address] [address] [address] Lukas Nino NEUT # 5.6 103/ul Normal 1.4-6.5 [facility] Comment on above: Performed By: #### C BC #### [facility] [address] [place] [address] Dr. Lukas Nino Neutrophils/100 WBC (Bld) 70.0 % Normal 43.0-75.0 [facility] Comment on above: Performed By: #### C BC #### [facility] [address] [address] [address] Lukas Nino Platelet mean volume (Bld) [Entitic vol] 11.1 fL Normal 9.5-13.5 [facility] Comment on above: Performed By: #### C BC #### [facility] [address] [address] [address] Lukas Nino PLT 129 103/ul Critically low 150-450 [facility] Comment on above: Result Comment: few plt clumps Performed By: #### C BC #### [facility] [address] [address] [address] Lukas Nino RBC 4.39 106/ul Critically low 4.70-6.10 [facility] Comment on above: Performed By: #### C BC #### [facility] [address] [address] [address] Lukas Nino WBC 8.0 103/ul Normal 4.0-11.0 [facility] Comment on above: Performed By: #### C BC #### [facility] [address] [place] [address] Dr. Lukas Nino FREE THYROXINE INDEX T7on FTI 2.05 Normal [facility] Comment on above: Performed By: #### T SH, CMP, LIPID, URIC, T7 #### [facility] [address] [place] [address] Dr. Lukas Nino T3U 33.0 % Normal 23.5-40.5 [facility] Comment on above: Performed By: #### T SH, CMP, LIPID, URIC, T7 #### [facility] [address] [place] [address] Dr. Lukas Nino T4 [Mass/Vol] 6.20 ug/dL Normal 5.53-11.00 [facility] Comment on above: Performed By: #### T SH, CMP, LIPID, URIC, T7 #### [facility] [address] [place] [address] Dr. Lukas Nino GLYCOHEMOGLOBIN A1Con 2020 ADA RECOMMENDATION ADA THERAPEUTIC TARGET 6.0 - 7.0 ACTION SUGGESTED > 7.0 Normal [facility] Comment on above: Performed By: #### A 1C #### [facility] [address] [place] [address] Dr. Lukas Nino Glucose [Mass/Vol] 103 mg/dL Normal [facility] Comment on above: Performed By: #### A 1C #### [facility] [address] [place] [address] Dr. Lukas Nino HbA1c (Bld) [Mass fraction] 5.2 % Normal <=6.0 [facility] Comment on above: Performed By: #### A 1C #### [facility] [address] [place] [address] Dr. Lukas Nino LIPID PROFILEon 03-21-2021 CHOL-HDL RATIO NORM SEE BELOW Normal [facility] Comment on above: Result Comment: 3.3 - 4.4 LOW RISK 4.4 - 7.1 AVERAGE RISK 7.1 - 11.0 MODERATE RISK >11.0 HIGH RISK Performed By: #### T SH, CMP, LIPID, URIC, T7 #### [facility] [address] [address] [address] Lukas Nino Cholesterol [Mass/Vol] 121 mg/dL Normal <=200 [facility] Comment on above: Performed By: #### T SH, CMP, LIPID, URIC, T7 #### [facility] [address] [address] [address] Lukas Nino Cholesterol in HDL [Mass/Vol] 38 mg/dL Normal [facility] Comment on above: Performed By: #### T SH, CMP, LIPID, URIC, T7 #### [facility] [address] [address] [address] Lukas Nino Cholesterol in LDL [Mass/Vol] 66.4 mg/dL Normal [facility] Comment on above: Performed By: #### T SH, CMP, LIPID, URIC, T7 #### [facility] [address] [address] [address] Lukas Nino Cholesterol.total/Cho lesterol in HDL [Mass ratio] 3.2 {ratio} Normal [facility] Comment on above: Performed By: #### T SH, CMP, LIPID, URIC, T7 #### [facility] [address] [address] [address] Lukas Nino HDL NORMAL > or = 60 mg/dl - LOW CARDIOVASCULAR RISK <40 mg/dl - HIGH CARDIOVASCULAR RISK Normal [facility] Comment on above: Performed By: #### T SH, CMP, LIPID, URIC, T7 #### [facility] [address] [address] [address] Lukas Nino LDL CALC NORMAL SEE BELOW Normal [facility] Comment on above: Result Comment: <100 mg/dl OPTIMAL 100 - 129 mg/dl NEAR OR ABOVE OPTIMAL 130 - 159 mg/dl BORDERLINE HIGH 160 - 189 mg/dl HIGH >190 mg/dl VERY HIGH Performed By: #### T SH, CMP, LIPID, URIC, T7 #### [facility] [address] [address] [address] Lukas Nino Triglyceride [Mass/Vol] 83 mg/dL Normal <=150 [facility] Comment on above: Performed By: #### T SH, CMP, LIPID, URIC, T7 #### [facility] [address] [address] [address] Lukas Nino VLDL CALC 16.6 mg/dL Normal [facility] Comment on above: Performed By: #### T SH, CMP, LIPID, URIC, T7 #### [facility] [address] [address] [address] Lukas Nino PROF 14(COMP METB)on 021 Albumin [Mass/Vol] 3.7 g/dL Normal 3.5-5.0 [facility] Comment on above: Performed By: #### T SH, CMP, LIPID, URIC, T7 #### [facility] [address] [place] [address] Dr. Lukas Nino Albumin/Globulin [Mass ratio] 1.0 {ratio} Normal [facility] Comment on above: Performed By: #### T SH, CMP, LIPID, URIC, T7 #### [facility] [address] [place] [address] Dr. Lukas Nino ALP [Catalytic activity/Vol] 86 U/L Normal 38-126 [facility] Comment on above: Performed By: #### T SH, CMP, LIPID, URIC, T7 #### [facility] [address] [address] [address] Lukas Nino ALT [Catalytic activity/Vol] 18 U/L Critically low 21-72 [facility] Comment on above: Performed By: #### T SH, CMP, LIPID, URIC, T7 #### [facility] [address] [address] [address] Lukas Nino Anion gap [Moles/Vol] 9.5 mmol/L Normal [facility] Comment on above: Performed By: #### T SH, CMP, LIPID, URIC, T7 #### [facility] [address] [place] [address] Dr. Lukas Nino AST [Catalytic activity/Vol] 18 U/L Normal 17-59 [facility] Comment on above: Performed By: #### T SH, CMP, LIPID, URIC, T7 #### [facility] [address] [place] [address] Dr. Lukas Nino Bilirubin [Mass/Vol] 0.8 mg/dL Normal 0.2-1.3 [facility] Comment on above: Performed By: #### T SH, CMP, LIPID, URIC, T7 #### [facility] [address] [address] [address] Lukas Nino Calcium [Mass/Vol] 8.9 mg/dL Normal 8.4-10.2 [facility] Comment on above: Performed By: #### T SH, CMP, LIPID, URIC, T7 #### [facility] [address] [address] [address] Lukas Nino Chloride [Moles/Vol] 106 mmol/L Normal 98-107 [facility] Comment on above: Performed By: #### T SH, CMP, LIPID, URIC, T7 #### [facility] [address] [place] [address] Dr. Lukas Nino CO2 [Moles/Vol] 28.2 mmol/L Normal 22.0-30.0 [facility] Comment on above: Performed By: #### T SH, CMP, LIPID, URIC, T7 #### [facility] [address] [address] [address] Lukas Nino Creatinine [Mass/Vol] 1.26 mg/dL Critically high 0.66-1.25 [facility] Comment on above: Performed By: #### T SH, CMP, LIPID, URIC, T7 #### [facility] [address] [place] [address] Dr. Lukas Nino EGFR-AF [place]ER >60 Normal >=60 [facility] Comment on above: Performed By: #### T SH, CMP, LIPID, URIC, T7 #### [facility] [address] [address] [address] Lukas Nino EGFR-NON AF [place] 55 mL/min/1.73m2 Critically low >=60 [facility] Comment on above: Performed By: #### T SH, CMP, LIPID, URIC, T7 #### [facility] [address] [place] [address] Dr. Lukas Nino Globulin (S) [Mass/Vol] 3.7 g/dL Normal [facility] Comment on above: Performed By: #### T SH, CMP, LIPID, URIC, T7 #### [facility] [address] [place] [address] Dr. Lukas Nino Glucose [Mass/Vol] 76 mg/dL Normal 74-106 [facility] Comment on above: Performed By: #### T SH, CMP, LIPID, URIC, T7 #### [facility] [address] [place] [address] Dr. Lukas Nino Potassium [Moles/Vol] 3.7 mmol/L Normal 3.4-5.0 [facility] Comment on above: Performed By: #### T SH, CMP, LIPID, URIC, T7 #### [facility] [address] [place] [address] Dr. Lukas Nino Protein [Mass/Vol] 7.4 g/dL Normal 6.1-8.2 [facility] Comment on above: Performed By: #### T SH, CMP, LIPID, URIC, T7 #### [facility] [address] [place] [address] Dr. Lukas Nino Sodium [Moles/Vol] 140 mmol/L Normal 137-145 [facility] Comment on above: Performed By: #### T SH, CMP, LIPID, URIC, T7 #### [facility] [address] [place] [address] Dr. Lukas Nino Urea nitrogen [Mass/Vol] 15.0 mg/dL Normal 9.0-20.0 [facility] Comment on above: Performed By: #### T SH, CMP, LIPID, URIC, T7 #### [facility] [address] [place] [address] Dr. Lukas Nino Urea nitrogen/Creatinine [Mass ratio] 11.9 mg/mg Normal [facility] Comment on above: Performed By: #### T SH, CMP, LIPID, URIC, T7 #### [facility] [address] [place] [address] Dr. Lukas Nino TSHon 03-21-2021 TSH 2.594 uIU/mL Normal 0.470-4.680 [facility] Comment on above: Performed By: #### T SH, CMP, LIPID, URIC, T7 #### [facility] [address] [address] [address] Lukas Nino TSH RANGE SEE BELOW Normal [facility] Comment on above: Result Comment: <0.3 4 UIU/ml HYPERTHYROID 0.34-5.60 UIU/ml EUTHYROID >5.60 UIU/ml HYPOTHYROID Performed By: #### T SH, CMP, LIPID, URIC, T7 #### [facility] [address] [place], [place] [address] Dr. Lukas Nino URIC ACID SERUMon 03-21-2021 Urate [Mass/Vol] 6.5 mg/dL Normal 3.5-8.5 [facility] Comment on above: Performed By: #### T SH, CMP, LIPID, URIC, T7 #### [facility] [address] [place], [place] [address] Dr. Lukas Nino Summary Purpose Family History No Family History Records Found Advance Directives No Advanced Directives Records Found Additional Source Comments (unrecognized sect ion and content) No Status Records Found INFORMATION SOURCE (unrecogn ized section and content) DATE CREATED AUTHOR 05/23/2021 [facility] FOR RECORDS PERTAINING TO PATIENTS WHO [...] BE BASED ON THE PRIMARY CLINICAL RECORDS. [employer] provides no warranty or guarantee of the accuracy or completeness of information in this document.
== END 2023-11-16 09:40 | disposition home or self-care (01) ==
LOC: US 09:39
PROVIDERS: PCP Family Medicine; Visit Provider Family Medicine
DX: R35.0 Frequency of micturition (principal); N28.1 Cyst of kidney, acquired
CPT/HCPCS: 76770

== ENCOUNTER 2023-11-23 12:21 | Emergency (ER) | payer MEDICARE, SELFPAY ==
[2023-11-23] VITALS (55 sets, daily range): BP systolic 107–141; BP diastolic 59–95; PULSE 71–84; TEMP 37; O2SAT 89–100; BMI 29.1
--- NOTE | 2023-11-23 12:35 | CT_ITS ---
[address] [address] Patient Name: KAEL PULIDO MRN: [id number] date: 1940 Sex: M Assigned Patient Location: ER Current Patient Location: Accession/Order Number: [id number] Exam Date: 11/23/2023 12:39 Report Date: 11/23/2023 12:59 At the request of: LEDY TAN Procedure: CT stroke head/brain wo con EXAM: CT stroke head/brain wo con HISTORY: slurred speech COMPARISON: 06/21/2023 TECHNIQUE: Axial unenhanced CT images were obtained through the brain. Individualized dose optimization technique was used for the performed procedure by employing the following: Automated exposure control, adjustment of the mA and/or kV according to patient's size, and/or the use of the iterative construction technique. Coronal and sagittal reformats were performed. FINDINGS: No acute intracranial abnormality. No acute infarct, hemorrhage or mass. No midline shift. Murray-white matter differentiation is preserved. Old bilateral basal ganglia lacunar infarcts. Moderate cerebral volume loss. No acute osseous abnormality. Paranasal sinuses are clear. Mastoid air cells are open. Orbits are normal. CT/CT stroke head/brain wo con IMPRESSION: 1. No acute intracranial abnormality. No acute intracranial infarct visualized by this modality. (MRI is more sensitive). No acute intracranial hemorrhage Electronically authenticated by: ALONZO JAIMES Date: 11/23/2023 12:59
--- NOTE | 2023-11-23 12:36 | ECG_ITS ---
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
--- NOTE | 2023-11-23 12:36 | ECG_ITS ---
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
[2023-11-23 12:41] LABS: Glucometer 164 mg/dL (74-106)
[2023-11-23 13:00] LABS: Basophils Percent Auto 0.3 % (0.2-2.0); Eosinophils Absolute Auto 0.1 10^3/uL (0.0-0.7); Eosinophils Percent Auto 0.8 % (0.9-7.0); Hematocrit 39.6 % (42.0-54.0); Hemoglobin 13.4 g/dL (14.0-18.0); Immature Granulocytes Abs Auto 0.05 10^3/uL (0.00-0.03); Immature Granulocytes Pct Auto 0.5 % (0.0-0.5); Lymphocytes Absolute Auto 1.1 10^3/uL (1.2-3.8); Lymphocytes Percent Auto 9.9 % (20.5-60.0); Mean Corpuscular HGB Conc 33.8 g/dL (29.9-35.2); Mean Corpuscular Hemoglobin 32.1 pg (25.9-34.0); Mean Platelet Volume 10.5 fL (9.5-13.5); Monocytes Absolute Auto 0.5 10^3/uL (0.3-0.8); Monocytes Percent Auto 4.6 % (1.7-12.0); Neutrophils Percent Auto 83.9 % (43.0-75.0); Platelet Count 197 10^3/uL (150-450); Red Blood Count 4.17 10^6/uL (4.70-6.10); Red Cell Distribution Width 12.4 % (11.0-15.0); White Blood Count 10.7 10^3/uL (4.0-11.0)
--- NOTE | 2023-11-23 13:11 | ED.GENADUL1 ---
HPI HPI - General Adult General Chief complaint: Chest Pain Stated complaint: CHEST DISCOMFORT Time Seen by Provider: 11/23/23 13:11 Source: patient and family Mode of arrival: Wheelchair Limitations: no limitations History of Present Illness HPI narrative: This patient was brought to the emergency room by . They are at the primary care's doctor's office and they advised transporting to the emergency room for evaluation. The , who is the primary historian indicates that he has had a little bit of slurred speech recently. She also says he has been weak and has fallen a couple times last several days normally he is not that week. He denied any headache. He denied any shortness of breath. He also complained of some left-sided chest pain. Initially thought the discomfort was because the had fallen and he picked her up several days ago with his left arm and they thought that they strained the muscles on that left side. He is not running any fever. He has not had antibiotic use. He denies any abdominal discomfort but he is an extremely limited historian and does not really admit to anything being wrong. His states that he has had 4 previous strokes but she was not able to really identify any baseline problems but she says his speech seems to be a little bit different than usual. Because of this he was taken over to CT scan for imaging on his arrival here. Related Data Home Medications ?Medication ?Instructions ?Recorded ?Confirmed amlodipine 5 mg tablet 5 mg PO BID 06/21/23 11/23/23 levothyroxine 50 mcg tablet 50 mcg PO DAILY 06/21/23 11/23/23 lisinopril 40 mg tablet 40 mg PO DAILY 06/21/23 11/23/23 pravastatin 40 mg tablet 40 mg PO DAILY 06/21/23 11/23/23 quetiapine 50 mg tablet 50 mg PO DAILY 06/21/23 11/23/23 tamsulosin 0.4 mg capsule 0.4 mg PO DAILY 11/23/23 11/23/23 Allergies Allergy/AdvReac Type Severity Reaction Status Date / Time No Known Drug Allergies Allergy Verified 06/21/23 17:39 Opioid HPI Opioid Management Most Recent Opioid Data: Last Pain Scale 0 11/23/23 15:42 Last ED Pain Assessment 11/23/23 15:42 Exam Narrative Exam Narrative: Awake alert oriented x 3 not confused, not repeating himself. He does not have any teeth and his speech is very slightly slurred but I do not have a good baseline on him. On neurological examination he does not have any facial asymmetry. Cranial nerves II to XII are normal. He does not have any pronator drift. He is able to have antigravity muscles with his legs but he is quite weak bilaterally. On cardiovascular examination his lungs were clear heart sounds are regular do not hear a murmur. Do not hear rales or rhonchi on auscultation of the lungs. His pulse oximetry is 96%. Constitutional Vital Signs, click to edit/add: Last Vital Signs Temp 98.6 F 11/23/23 12:29 Pulse 84 11/23/23 12:29 Resp 28 H 11/23/23 12:29 BP 112/76 11/23/23 12:29 Pulse Ox 96 11/23/23 12:54 O2 Del Method Room Air 11/23/23 12:54 Course Vital Signs Vital signs: Vital Signs Temperature 98.6 F 11/23/23 12:29 Pulse Rate 84 11/23/23 12:29 Respiratory Rate 28 H 11/23/23 12:29 Blood Pressure 112/76 11/23/23 12:29 Pulse Oximetry 95 11/23/23 12:29 Oxygen Delivery Method Room Air 11/23/23 12:29 Temperature 98.6 F 11/23/23 12:29 Pulse Rate 84 11/23/23 12:29 Respiratory Rate 28 H 11/23/23 12:29 Blood Pressure 112/76 11/23/23 12:29 Pulse Oximetry 96 11/23/23 12:54 Oxygen Delivery Method Room Air 11/23/23 12:54 Medical Decision Making [facility] Narrative Medical decision making narrative: This patient's laboratory testing revealed that he had a markedly elevated troponin as well as some renal component. A 2-hour troponin was done and while it is trending downward it is still elevated at 950. He spoke with his primary care doctor who wanted us to consult with cardiology. [employer] was consulted and agrees with our recommendation of intravenous heparin, we have given him baby aspirin here and I have also applied a Transderm nitroglycerin patch. He is totally asymptomatic but appears he is in the subacute phase of a cardiac event. The generator worker in [place] Dr. Heard, would like him transferred up to [facility] for probable heart catheterization and further workup. This was explained to his and the patient and they are agreeable. Lab Data Labs: Lab Results 11/23/23 11/23/23 Range/Units 12:39 12:52 WBC 10.7 (4.0-11.0) 10^3/uL RBC 4.17 L (4.70-6.10) 10^6/uL Hgb 13.4 L (14.0-18.0) g/dL Hct 39.6 L (42.0-54.0) % MCV 95.0 H (80.0-94.0) fL MCH 32.1 (25.9-34.0) pg MCHC 33.8 (29.9-35.2) g/dL RDW 12.4 (11.0-15.0) % Plt Count 197 (150-450) 10^3/uL MPV 10.5 (9.5-13.5) fL Neut % (Auto) 83.9 H (43.0-75.0) % Lymph % (Auto) 9.9 L (20.5-60.0) % [place] % (Auto) 4.6 (1.7-12.0) % Eos % (Auto) 0.8 L (0.9-7.0) % Baso % (Auto) 0.3 (0.2-2.0) % Neut # (Auto) 9.0 H (1.4-6.5) 10^3/uL Lymph # (Auto) 1.1 L (1.2-3.8) 10^3/uL [place] # (Auto) 0.5 (0.3-0.8) 10^3/uL Eos # (Auto) 0.1 (0.0-0.7) 10^3/uL Baso # (Auto) 0.0 (0.0-0.1) 10^3/uL Abs Immat Gran (auto) 0.05 H (0.00-0.03) 10^3/uL Imm/Tot Granulo (auto) 0.5 (0.0-0.5) % POC Glucose 164 H (74-106) mg/dL Discharge Plan Discharge Chief Complaint: Chest Pain Clinical Impression: Non-ST elevated myocardial infarction (non-STEMI) Patient Disposition: [facility] Time of Disposition Decision: 16:14 Prescriptions / Home Meds: No Action amlodipine 5 mg tablet 5 mg PO BID levothyroxine 50 mcg tablet 50 mcg PO DAILY lisinopril 40 mg tablet 40 mg PO DAILY pravastatin 40 mg tablet 40 mg PO DAILY quetiapine 50 mg tablet 50 mg PO DAILY tamsulosin 0.4 mg capsule 0.4 mg PO DAILY Print Language: Hebrew Referrals: Piter Chowdhury MD [Primary Care Provider] - 1 week
--- NOTE | 2023-11-23 13:14 | XR_ITS ---
The [address] [address] Patient Name: KAEL PULIDO MRN: [id number] date: 1940 Sex: M Assigned Patient Location: ER Current Patient Location: ER Accession/Order Number: [id number] Exam Date: 11/23/2023 13:00 Report Date: 11/23/2023 13:51 At the request of: LEDY TAN Procedure: XR chest 1V EXAMINATION: XR chest 1V HISTORY: Weakness COMPARISON: No relevant comparison available. FINDINGS: LUNGS: Opacities obscuring the mid and lower left lung. Underexpanded lungs bilaterally. VASCULATURE: No increased pulmonary vasculature. PLEURA: No pneumothorax, effusion, or pleural thickening. CARDIAC: No cardiomegaly or cardiac silhouette abnormality. MEDIASTINUM: No visible mass or adenopathy. BONES: Degenerative change of the right acromioclavicular joint and glenohumeral joint. OTHER: Negative. XR/XR chest 1V IMPRESSION: 1. Low lung volume examination with moderate left basilar infiltrates. Follow-up chest x-ray to document clearing is recommended. Electronically authenticated by: SHWETHA MARIE Date: 11/23/2023 13:51
[2023-11-23 13:27] LABS: Alanine Aminotransferase 15 U/L (16-63); Albumin Globulin Ratio 0.5; Albumin Level 2.3 g/dL (3.4-5.0); Alkaline Phosphatase 100 U/L (46-116); Anion Gap 17.4; Aspartate Amino Transferase 23 U/L (15-37); BUN Creatinine Ratio 22.2; Bilirubin Total 0.6 mg/dL (0.2-1.0); Calcium 8.6 mg/dL (8.5-10.1); Carbon Dioxide 23.1 mmol/L (21.0-32.0); Chloride 104 mmol/L (98-107); Estimated GFR (African America 51 (>=60); Estimated GFR (Non-African Ame 42 (>=60); Globulin 4.8 g/dL; Glucose 159 mg/dL (74-106); Potassium 3.5 mmol/L (3.5-5.1); Sodium 141 mmol/L (136-145); Total Protein 7.1 g/dL (6.4-8.2)
[2023-11-23 13:31] LABS: Troponin I High Sensitivity 1042.4 pg/mL (4.0-76.1)
[2023-11-23] MEDS: 0.9 % SODIUM CHLORIDE 1,000 ML 999 ML IV (13:31)
[2023-11-23 13:47] LABS: Lactate/Lactic Acid 1.5 mmol/L (0.4-2.0)
[2023-11-23 14:01] LABS: Thyroid Stimulating Hormone 1.593 uIU/mL (0.358-3.740)
[2023-11-23] MEDS: HEPARIN SODIUM,PORCINE/D5W 25,000 UNIT/500 ML IV.SOLN 18 UNIT IV (14:14)
[2023-11-23] MEDS: HEPARIN SODIUM (PORCINE) 5,000 UNIT/ML VIAL 2700 UNIT IV (14:15)
[2023-11-23] MEDS: ASPIRIN 81 MG TAB.CHEW 162 MG PO (14:17)
[2023-11-23 14:56] LABS: Troponin I High Sensitivity 950.4 pg/mL (4.0-76.1)
[2023-11-23 14:59] LABS: Bilirubin Urine SMALL (NEGATIVE); Blood Urine NEGATIVE (NEGATIVE); Clarity Urine CLEAR (CLEAR); Color Urine YELLOW (YELLOW); Glucose Urine UA 100 mg/dL (NEGATIVE); Ketones Urine TRACE mg/dL (NEGATIVE); Leukocyte Esterase Urine NEGATIVE (NEGATIVE); Nitrite Urine NEGATIVE (NEGATIVE); Protein Urine TRACE mg/dL (NEG/TRACE); Specific Gravity Urine 1.015 (1.005-1.025); Urobilinogen Urine >=8.0 EU/dL (0.2-1.0)
[2023-11-23 15:01] LABS: Urine Microscopic Indicated NO
--- NOTE | 2023-11-23 16:07 | PC.NURSE ---
pt resting on ED cart, remains on lunchroom monitor, no distress noted. pt denies pain at this time. at bedside denies current needs.
[2023-11-23] MEDS: NITROGLYCERIN 0.1 MG/HR PATCH.TD24 1 EACH TD (16:18)
[2023-11-23 21:19] LABS: INR 1.07; Prothrombin Time 11.3 sec (9.0-11.6)
[2023-11-23 21:33] LABS: Partial Thromboplastin Time 52.1 sec (22.3-36.2)
== END 2023-11-23 23:31 | disposition short-term general hospital (02) ==
PROVIDERS: Physician Assistant; Emergency Provider Emergency Medicine Emergency Medical Services; PCP Family Medicine
DX: I21.4 Non-ST elevation (NSTEMI) myocardial infarction (principal); R47.81 Slurred speech; R53.1 Weakness; Z91.81 History of falling; Z86.73 Personal history of transient ischemic attack (TIA), and cerebral infarction without residual deficits
CPT/HCPCS: 36415; 70450; 71045; 80053; 81003; 82948; 83605; 84443; 84484; 85025; 85610; 85730; 93005; 99285; J1644

== ENCOUNTER 2023-12-03 11:58 | Outpatient (OUT) | payer MEDICARE, SELFPAY ==
--- OUTSIDE RECORDS SUMMARY | 2023-12-03 12:02 | XMS_ITS | CCD ---
Author Organization [facility] Care Team Providers Care Telegraphic Service Dispatcher Name Role Phone REQUEST, DR ROA LISTED Attending Unavaila ble REQUEST, DR ROA LISTED Consulting Unavaila ble REQUEST, DR ROA [...] Unavailable HOY, DR JOSEPH Consulting Unavailable ROSS, TRAMAINE Admitting Unavailable ROSS, TRAMAINE Attending Unavailable ROSS, TRAMAINE Consulting Unavailable HOY, DR JOSEPH Primary Care Unavailable HORANI, JOSHUA Referring Unavailable PIRKL, LESLEE Referring Unavailable CHAITANYA, FLORENTIN Referring Unavailable PIRKL, LESLEE Referring Unavailable JAYLYNMAGAN Referring Unavailable HORANI, JOSHUA Admitting Unavailable ALIYVROSE Attending Unavailable HORANI, JOSHUA Referring Unavailable HORANI, JOSHUA Referring Unavailable Allergies Allergy Classification Reported Allergen(s) Allergy Type Date of Onset Reaction(s) Facility (1 source) ALLERGIES NOT ON FILE; Translations: [ALLERGIES NOT ON FILE] Propensity to adverse reactions (disorder) [facility] Repository Problems Problem Classification Problem Date Documented Date Episodic/Chronic Coronary atherosclerosis and other heart disease (2 sources) Atherosclerotic heart disease of [place] coronary artery without angina pectoris; Translations: [Atherosclerotic heart disease of [place] coronary artery without angina pectoris] Onset: 11-24-2023 Chronic Disorders of lipid metabolism (2 sources) Hyperlipidemia, unspecified; Translations: [Hyperlipidemia, unspecified] Onset: 11-24-2023 Chronic Immunizations and screening for infectious disease (4 sources) Encounter for immunization; Translations: [ENCOUNTER FOR IMMUNIZATION] Onset: 04-29-2021 Episodic Nonspecific chest pain (2 sources) Chest pain, unspecified; Translations: [Chest pain, unspecified] Onset: 11-24-2023 Episodic Pneumonia (except that caused by tuberculosis or sexually transmitted disease) (2 sources) Pneumonia, unspecified organism; Translations: [Pneumonia, unspecified organism] Onset: 11-24-2023 Episodic Residual codes; unclassified (1 source) Pain, unspecified; Translations: [Pain, unspecified] Onset: 11-24-2023 Episodic Results Test Name Value Interpretation Reference Range Facility 30on 11-26-2023 30 Daily Case Managemen t Update Multidisciplinary rounds have been completed. Barriers to Discharge: Pending medical clearance for discharge. Patient underwent cardiac catheterization and TTE yesterday. Patient did have stent placed during cardiac cath. PT/OT evaluations and treatment ordered. Awaiting PT/OT eval's for discharge recommendations. Diet: Dietary Orders (From admission, onward) Start Ordered 11/25/23 1431 Regular Diet Heart Healthy/HTN, CABG,Stroke, (2gNA, low fat, low cholesterol) Diet effective now Question Answer Comment Room Service? Yes Fat restriction: Heart Healthy/HTN, CABG,Stroke, (2gNA, low fat, low cholesterol) 11/25/23 1430 Physician Expected Discharge Date: 11/25/2023 Discharge Delays: PT Six Click Score: 19 OT Six Click Score: PT Recommendations: OT Recommendations: Does patient understand post acute plan of care? Yes Is expected discharge disposition appropriate for patient?: Yes New Consults: Therapy Orders (From admission, onward) Start Ordered 11/26/23 0937 PT eval and treat Until therapy completed Question: Reason for PT? Answer: Discharge recommendations 11/26/23 0936 11/26/23 0937 OT eval and treat Until therapy completed Question: Reason for OT? Answer: Discharge recommendations 11/26/23 0936 Normal [facility] 30 The patient is Moderately Stable - Low risk of patient condition declining or worsening The patient's goals for the shift include Comfort The clinical goals for the shift include VSS, safety Problem: Pain - Adult Goal: Verbalizes/displays adequate comfort level or baseline comfort level Outcome: Progressing Flowsheets (Taken 11/26/2023 0720) Verbalizes/displays adequate comfort level or baseline comfort level: Encourage patient to monitor pain and request assistance Problem: Safety - Adult Goal: Free from fall injury Outcome: Progressing Flowsheets (Taken 11/26/2023 0735) Free from fall injury: Assess patient frequently for physical needs Normal [facility] APTTon 11-26-2023 ACTIVATED PARTIAL THROMBOPLASTIN TIME IN PPP BY COAGULATION ASSAY 31.6 Seconds Normal 25.0-35.0 [facility] Comment on above: Order Comment: Check aPTT every 6 hours while on heparin infusion, or per protocol. Result Comment: Clin ical significance of the APTT is questionable in the presence of heparin. Performed By: #### L [id number] #### [facility] (BEAKER) [address] [place] [address] BASIC METABOLIC PANELon 11-06 Anion gap [Moles/Vol] 12 mmol/L Normal 7-20 [facility] Comment on above: Performed By: #### L [id number] #### [facility] (BEAK[facility]) [address] [place] [address] Calcium [Mass/Vol] 8.2 mg/dL Low 8.6-10.3 [facility] Comment on above: Performed By: #### L [id number] #### [facility] (BEAKER) [address] [place] [place] [address] Chloride [Moles/Vol] 107 mmol/L Normal 98-107 [facility] Comment on above: Performed By: #### L [id number] #### [facility] ([facility]ER) [address] [place] [address] CO2 [Moles/Vol] 24 mmol/L Normal 21-31 [facility] Comment on above: Performed By: #### L [id number] #### [facility] (BEAK[facility]) [address] [place] [address] Creatinine [Mass/Vol] 1.24 mg/dL Normal 0.70-1.30 [facility] Comment on above: Performed By: #### L [id number] #### [facility] ([facility]) [address] [place] [address] GLOMERULAR FILTRATION RATE ML/MIN/1.73 SQ M.PREDICTED 58.0 mL/min/1.73m*2 Low >60.0 [facility] Comment on above: Result Comment: The [facility]???s estimated glomerular filtration rate (eGFR) will no longer include consideration of race in its calculation. The National Kidney Foundation???s eGFR Task Force developed new recommendations for the estimation of the glomerular filtration rate in the [place] They recommend immediate implementation of the new equation refit without the race variable in all laboratories because the calculation does not include race. In addition to not including race in the calculation and reporting, it included diversity in its development, and has acceptable performance characteristics and potential consequences that do not disproportionately affect any one group of individuals. Performed By: #### L [id number] #### [facility] ([facility]) [address] [place] [address] Glucose [Mass/Vol] 89 mg/dL Normal 70-100 [facility] Comment on above: Performed By: #### L [id number] #### [facility] ([facility]) [address] [place] [address] Potassium [Moles/Vol] 3.9 mmol/L Normal 3.5-5.1 [facility] Comment on above: Performed By: #### L [id number] #### [facility] ([facility]) [address] [place] [address] Sodium [Moles/Vol] 139 mmol/L Normal 136-145 [facility] Comment on above: Performed By: #### L [id number] #### [facility] ([facility]) [address] [facility] [place] [place] [address] Urea nitrogen [Mass/Vol] 17 mg/dL Normal 7-25 [facility] Comment on above: Performed By: #### L [id number] #### [facility] ([facility]) [address] [place] [address] UREA NITROGEN/CREATININE (MASS RATIO) IN SER/PLAS 13.7 Normal [facility] Comment on above: Performed By: #### L [id number] #### [facility] ([facility]) [address] [place] [address] CBC WITH AUTO DIFFERENTIALon 11-26-2023 Basophils (Bld) [#/Vol] 0.04 10*3/uL Normal 0.00-0.20 [facility] Comment on above: Performed By: #### L [id number] ####[facility] ([facility] [place] [address] Basophils/100 WBC (Bld) 0.5 % Normal 0.0-1.0 [facility] Comment on above: Performed By: #### L [id number] ####[facility] ([facility] [place] [address] Eosinophils (Bld) [#/Vol] 0.29 10*3/uL Normal 0.00-0.50 [facility] Comment on above: Performed By: #### L [id number] ####[facility] ([facility])[address] [place] [address] Eosinophils/100 WBC (Bld) 3.8 % Normal 0.0-6.0 [facility] Comment on above: Performed By: #### L [id number] ####[facility] ([facility])[address] [place] [address] Erythrocyte distribution width (RBC) [Ratio] 12.1 % Normal 11.5-15.0 [facility] Comment on above: Performed By: #### L [id number] ####[facility] ([facility] [place] [address] ERYTHROCYTE MEAN CORPUSCULAR HEMOGLOBIN CONCENTRATION (G/DL) BY AUTOMATED 34.4 g/dL Normal 32.0-35.0 [facility] Comment on above: Performed By: #### L [id number] ####[facility] ([facility] [place] [address] Hematocrit (Bld) [Volume fraction] 35.8 % Low 39.0-55.0 [facility] Comment on above: Performed By: #### L [id number] ####[facility] (BEAKER)[address] [place] [address] Hemoglobin (Bld) [Mass/Vol] 12.3 g/dL Low 13.0-17.0 [facility] Comment on above: Performed By: #### L [id number] ####[facility] ([facility]ER)[address] [place] [address] Immature granulocytes (Bld) [#/Vol] 0.20 10*3/uL Normal 0.00-0.20 [facility] Comment on above: Performed By: #### L [id number] ####[facility] (BE[facility]ER)[address] [place] [address] Immature granulocytes/100 WBC (Bld) 2.7 % High 0.0-1.0 [facility] Comment on above: Performed By: #### L [id number] ####[facility] (BE[facility]ER)[address] [place] [address] Lymphocytes (Bld) [#/Vol] 1.15 10*3/uL Low 1.20-4.00 [facility] Comment on above: Performed By: #### L [id number] ####[facility] ([facility])[address] [place] [address] Lymphocytes/100 WBC (Bld) 15.3 % Low 20.0-45.0 [facility] Comment on above: Performed By: #### L [id number] ####[facility] (BE[facility]ER)[address] [place] [address] MCH (RBC) [Entitic mass] 32.3 pg Normal 27.0-33.0 [facility] Comment on above: Performed By: #### L [id number] ####[facility] (BE[facility]ER)[address] [place] [address] MCV (RBC) [Entitic vol] 94.0 fL Normal 82.0-98.0 [facility] Comment on above: Performed By: #### L [id number] ####[facility] (BE[facility]ER)[address] [place] [address] Monocytes (Bld) [#/Vol] 0.56 10*3/uL Normal 0.10-1.00 [facility] Comment on above: Performed By: #### L [id number] ####[facility] ([facility])[address] [place] [address] Monocytes/100 WBC (Bld) 7.4 % Normal 5.0-12.0 [facility] Comment on above: Performed By: #### L [id number] ####[facility] ([facility])[address] [place] [address] Neutrophils (Bld) [#/Vol] 5.30 10*3/uL Normal 1.60-7.60 [facility] Comment on above: Performed By: #### L [id number] ####[facility] ([facility])[address] [place] [address] Neutrophils/100 WBC (Bld) 70.3 % Normal 40.0-72.0 [facility] Comment on above: Performed By: #### L [id number] ####[facility] ([facility])[address] [place] [address] NRBC (PER 100 WBCS) BY AUTOMATED COUNT 0.0 % Normal 0 [facility] Comment on above: Performed By: #### L [id number] ####[facility] ([facility])[address] [place] [address] PLATELETS (10*3/UL) IN BLOOD AUTOMATED COUNT 209 10*3/uL Normal 150-400 [facility] Comment on above: Performed By: #### L [id number] ####[facility] ([facility])[address] [place] [address] RBC (Bld) [#/Vol] 3.81 10*6/uL Low 4.20-5.70 [facility] Comment on above: Performed By: #### L [id number] ####[facility] ([facility] [place] [address] WBC (Bld) [#/Vol] 7.54 10*3/uL Normal 4.00-10.60 [facility] Comment on above: Performed By: #### L [id number] ####[facility] (BEAKER)[address] [place] [address] MAGNESIUMon 11-26-2023 Magnesium [Mass/Vol] 1.8 mg/dL Low 1.9-2.7 [facility] Comment on above: Performed By: #### L [id number] #### [facility] (BEAKER) [address] [place] [address] NURSNOTEon 11-26-2023 NURSNOTE RN informed primary FIELD ACCOUNT MANAGER Erin that PT/OT was unable to see pt for DC recommendations today. RN called family to update and was told pt would not go to SNF if recommended by PT/OT. RN spoke with pt and pt stated he would not go to a SNF regardless of recommendations and wanted to DC home. RN informed primary and told pt will DC home. Family and pt updated on plan of care. Family and pt refused SNF option. [facility] 30on 11-25-2023 30 The patient is Moderately Stable - Low risk of patient condition declining or worsening The patient's goals for the shift include comfort, rest The clinical goals for the shift include stable vitals, safety Problem: Pain - Adult Goal: Verbalizes/displays adequate comfort level or baseline comfort level Outcome: Progressing Problem: Safety - Adult Goal: Free from fall injury Outcome: Progressing Problem: Fall Risk Goal: STG-Ask for assistance before standing Outcome: Progressing Normal [facility] 30 The patient is Moderately Stable - Low risk of patient condition declining or worsening The patient's goals for the shift include Comfort The clinical goals for the shift include VSS, safety Problem: Pain - Adult Goal: Verbalizes/displays adequate comfort level or baseline comfort level Outcome: Progressing Flowsheets (Taken 11/25/2023 0725) Verbalizes/displays adequate comfort level or baseline comfort level: Encourage patient to monitor pain and request assistance Problem: Safety - Adult Goal: Free from fall injury Outcome: Progressing Flowsheets (Taken 11/25/2023 0757) Free from fall injury: Assess patient frequently for physical needs [facility] 30 Daily Case Managemen t Update Multidisciplinary rounds have been completed. Barriers to Discharge: Pending Clinical course. Direct admit from [facility] with elevated troponin and chest pain. NPO for possible Heart cath. CT head was completed due to concern with slurred speech showing no acute intracranial abnormality. History of CVA. Diet: Dietary Orders (From admission, onward) Start Ordered 11/25/23 0001 Diet NPO Diet effective midnight Comments: Sips with medications Question: Reason for NPO: Answer: Operation/Procedure 11/24/23923 Physician Expected Discharge Date: 11/25/2023 Discharge Delays: PT Six Click Score: 19 OT Six Click Score: PT Recommendations: OT Recommendations: New Consults: Ancillary Consults (From admission, onward) Start Ordered 11/24/23 0115 Inpatient consult to Social Work Once Provider: (Not yet assigned) Question Answer Comment Select all services needed for the patient [facility] (30 day convalescent stay) Please indicate your approval for this care by adding your name here: ISABELL ELLISON 11/24/23 0115 Normal [facility] APTTon 11-25-2023 ACTIVATED PARTIAL THROMBOPLASTIN TIME IN PPP BY COAGULATION ASSAY 78.4 Seconds High 25.0-35.0 [facility] Comment on above: Order Comment: Check aPTT every 6 hours while on heparin infusion, or per protocol. Result Comment: Clin ical significance of the APTT is questionable in the presence of heparin. Performed By: #### L [id number] ####[facility] ([facility])[address] [place] [address] ACTIVATED PARTIAL THROMBOPLASTIN TIME IN PPP BY COAGULATION ASSAY 80.8 Seconds High 25.0-35.0 [facility] Comment on above: Order Comment: Check aPTT every 6 hours while on heparin infusion, or per protocol. Result Comment: Clin ical significance of the APTT is questionable in the presence of heparin. Performed By: #### L [id number] #### [facility] ([facility]) [address] [place] [address] BASIC METABOLIC PANELon 11-06 Anion gap [Moles/Vol] 11 mmol/L Normal 7-20 [facility] Comment on above: Performed By: #### L [id number] #### [facility] ([facility]) [address] [place] [address] Calcium [Mass/Vol] 8.4 mg/dL Low 8.6-10.3 [facility] Comment on above: Performed By: #### L [id number] #### [facility] [address] [place] [address] Chloride [Moles/Vol] 107 mmol/L Normal 98-107 [facility] Comment on above: Performed By: #### L [id number] #### [facility] ([facility]) [address] [place] [address] CO2 [Moles/Vol] 24 mmol/L Normal 21-31 [facility] Comment on above: Performed By: #### L [id number] #### [facility] ([facility]) [address] [place] [place] [address] Creatinine [Mass/Vol] 1.24 mg/dL Normal 0.70-1.30 [facility] Comment on above: Performed By: #### L [id number] #### [facility] ([facility]) [address] [place] [address] GLOMERULAR FILTRATION RATE ML/MIN/1.73 SQ M.PREDICTED 58.0 mL/min/1.73m*2 Low >60.0 [facility] Comment on above: Result Comment: The [facility]???s estimated glomerular filtration rate (eGFR) will no longer include consideration of race in its calculation. The National Kidney Foundation???s eGFR Task Force developed new recommendations for the estimation of the glomerular filtration rate in the [place] They recommend immediate implementation of the new equation refit without the race variable in all laboratories because the calculation does not include race. In addition to not including race in the calculation and reporting, it included diversity in its development, and has acceptable performance characteristics and potential consequences that do not disproportionately affect any one group of individuals. Performed By: #### L [id number] #### [facility] ([facility]) [address] [place] [place] [address] Glucose [Mass/Vol] 97 mg/dL Normal 70-100 [facility] Comment on above: Performed By: #### L [id number] #### [facility] ([facility]) [address] [place] [address] Potassium [Moles/Vol] 3.7 mmol/L Normal 3.5-5.1 [facility] Comment on above: Performed By: #### L [id number] #### [facility] ([facility]) [address] [place] [address] Sodium [Moles/Vol] 138 mmol/L Normal 136-145 [facility] Comment on above: Performed By: #### L [id number] #### [facility] ([facility]) [address] [place] [address] Urea nitrogen [Mass/Vol] 23 mg/dL Normal 7-25 [facility] Comment on above: Performed By: #### L [id number] #### [facility] ([facility]) [address] [place] [address] UREA NITROGEN/CREATININE (MASS RATIO) IN SER/PLAS 18.5 Normal [facility] Comment on above: Performed By: #### L [id number] #### [facility] ([facility]) [address] [place] [address] CBC WITH AUTO DIFFERENTIALon 11-25-2023 Basophils (Bld) [#/Vol] 0.02 10*3/uL Normal 0.00-0.20 [facility] Comment on above: Performed By: #### L [id number] #### [facility] ([facility]) [address] [place] [address] Basophils/100 WBC (Bld) 0.2 % Normal 0.0-1.0 [facility] Comment on above: Performed By: #### L [id number] #### [facility] ([facility]) [address] [place] [address] Eosinophils (Bld) [#/Vol] 0.28 10*3/uL Normal 0.00-0.50 [facility] Comment on above: Performed By: #### L [id number] #### [facility] (BEAKER) [address] [place] [address] Eosinophils/100 WBC (Bld) 3.4 % Normal 0.0-6.0 [facility] Comment on above: Performed By: #### L [id number] #### [facility] ([facility]) [address] [place] [address] Erythrocyte distribution width (RBC) [Ratio] 12.5 % Normal 11.5-15.0 [facility] Comment on above: Performed By: #### L [id number] #### [facility] ([facility]) [address] [place] [address] ERYTHROCYTE MEAN CORPUSCULAR HEMOGLOBIN CONCENTRATION (G/DL) BY AUTOMATED 34.7 g/dL Normal 32.0-35.0 [facility] Comment on above: Performed By: #### L [id number] #### [facility] ([facility]) [address] [place] [address] Hematocrit (Bld) [Volume fraction] 35.2 % Low 39.0-55.0 [facility] Comment on above: Performed By: #### L [id number] #### [facility] (AKER) [address] [place] [address] Hemoglobin (Bld) [Mass/Vol] 12.2 g/dL Low 13.0-17.0 [facility] Comment on above: Performed By: #### L [id number] #### [facility] ([facility]ER) [address] [place] [address] Immature granulocytes (Bld) [#/Vol] 0.10 10*3/uL Normal 0.00-0.20 [facility] Comment on above: Performed By: #### L [id number] #### [facility] (BEAKER) [address] [place] [address] Immature granulocytes/100 WBC (Bld) 1.2 % High 0.0-1.0 [facility] Comment on above: Performed By: #### L [id number] #### [facility] (BEAKER) [address] [place] [address] Lymphocytes (Bld) [#/Vol] 1.57 10*3/uL Normal 1.20-4.00 [facility] Comment on above: Performed By: #### L [id number] #### [facility] [address] [place] [address] Lymphocytes/100 WBC (Bld) 18.9 % Low 20.0-45.0 [facility] Comment on above: Performed By: #### L [id number] #### [facility] ([facility]) [address] [place] [address] MCH (RBC) [Entitic mass] 32.7 pg Normal 27.0-33.0 [facility] Comment on above: Performed By: #### L [id number] #### [facility] ([facility]) [address] [place] [address] MCV (RBC) [Entitic vol] 94.4 fL Normal 82.0-98.0 [facility] Comment on above: Performed By: #### L [id number] #### [facility] ([facility] [address] [place] [address] Monocytes (Bld) [#/Vol] 0.73 10*3/uL Normal 0.10-1.00 [facility] Comment on above: Performed By: #### L [id number] #### [facility] ([facility]) [address] [place] [address] Monocytes/100 WBC (Bld) 8.8 % Normal 5.0-12.0 [facility] Comment on above: Performed By: #### L [id number] #### [facility] ([facility]) [address] [place] [address] Neutrophils (Bld) [#/Vol] 5.60 10*3/uL Normal 1.60-7.60 [facility] Comment on above: Performed By: #### L [id number] #### [facility] ([facility]) [address] [place] [address] Neutrophils/100 WBC (Bld) 67.5 % Normal 40.0-72.0 [facility] Comment on above: Performed By: #### L [id number] #### [facility] ([facility]) [address] [place] [address] NRBC (PER 100 WBCS) BY AUTOMATED COUNT 0.0 % Normal 0 [facility] Comment on above: Performed By: #### L [id number] #### [facility] ([facility]) [address] [place] [address] PLATELETS (10*3/UL) IN BLOOD AUTOMATED COUNT 209 10*3/uL Normal 150-400 [facility] Comment on above: Performed By: #### L [id number] #### [facility] ([facility]) [address] [place] [address] RBC (Bld) [#/Vol] 3.73 10*6/uL Low 4.20-5.70 [facility] Comment on above: Performed By: #### L [id number] #### [facility] ([facility]) [address] [place] [address] WBC (Bld) [#/Vol] 8.30 10*3/uL Normal 4.00-10.60 [facility] Comment on above: Performed By: #### L [id number] #### [facility] ([facility]) [address] [place] [address] HPon 11-25-2023 HP H&P reviewed. The patient was examined and there are no changes to the H&P. Would add that L Uriah test is normal, and pulses in DP and PT are strong. We discussed expected risks and benefits, he understands and consents to proceed. Normal [facility] MAGNESIUMon 11-25-2023 Magnesium [Mass/Vol] 1.7 mg/dL Low 1.9-2.7 [facility] Comment on above: Performed By: #### L [id number] ####[facility] ([facility])[address] [place] [address] 30on 11-24-2023 30 The patient is Moderately Stable - Low risk of patient condition declining or worsening The patient's goals for the shift include rest The clinical goals for the shift include VSS and comfort Over the shift, the patient did make progress toward the following goals. Barriers to progression include monitor alarms and hospital routine. Recommendations to address these barriers include give meds as ordered to assist with sleep and coordinate care with pt an acceptable routine plan for care for the night Problem: Pain - Adult Goal: Verbalizes/displays adequate comfort level or baseline comfort level Outcome: Progressing . Normal [facility] 30 The patient is Moderately Stable - Low risk of patient condition declining or worsening The patient's goals for the shift include Comfort The clinical goals for the shift include VSS, safety Problem: Pain - Adult Goal: Verbalizes/displays adequate comfort level or baseline comfort level Outcome: Progressing Flowsheets (Taken 11/24/2023 0730) Verbalizes/displays adequate comfort level or baseline comfort level: Encourage patient to monitor pain and request assistance Problem: Safety - Adult Goal: Free from fall injury Outcome: Progressing Normal [facility] 30 The patient is Moderately Stable - Low risk of patient condition declining or worsening The patient's goals for the shift include sleep The clinical goals for the shift include VSS Over the shift, the patient did make progress toward the following goals. Barriers to progression include newly admitted with monitor alarms and hospital environment. Recommendations to address these barriers include orient pt to room and maintain environment to promote sleep. Problem: Pain - Adult Goal: Verbalizes/displays adequate comfort level or baseline comfort level Outcome: Progressing Problem: Safety - Adult Goal: Free from fall injury Outcome: Progressing Problem: Discharge Planning Goal: Discharge to home or other facility with appropriate resources Outcome: Progressing Problem: Chronic Conditions and Co-morbidities Goal: Patient's chronic conditions and co-morbidity symptoms are monitored and maintained or improved Outcome: Progressing Problem: Fall Risk Goal: LTG-Increase mobility and strength Outcome: Progressing Goal: LTG-No falls Outcome: Progressing Goal: STG-Uses assitive devices properly Outcome: Progressing Goal: STG-Ask for assistance before standing Outcome: Progressing Goal: STG-Allows staff to assist prior to standing and ambulating Outcome: Progressing Goal: STG-Use call light prior to getting out of bed Outcome: Progressing Problem: Pain Goal: LTG-Verbalize decrease in pain Outcome: Progressing Goal: LTG-Demostrate that the pain does not impair ADLs Outcome: Progressing Goal: STG-Pt will verbalize decreased discomfort Outcome: Progressing Problem: Resident experiences pain/discomfort Goal: I will maintain an acceptable level of pain Outcome: Progressing Normal [facility] 30 The patient is Moderately Stable - Low risk of patient condition declining or worsening The patient's goals for the shift include sleep The clinical goals for the shift include VSS Over the shift, the patient did make progress toward the following goals. Barriers to progression include newly admitted with monitor alarms and hospital routine. Recommendations to address these barriers include orient pt to room and maintain environment to promote sleep. Normal [facility] 30 The patient is Moderately Stable - Low risk of patient condition declining or worsening The patient's goals for the shift include Go home The clinical goals for the shift include VSS Normal [facility] APTTon 11-24-2023 ACTIVATED PARTIAL THROMBOPLASTIN TIME IN PPP BY COAGULATION ASSAY 54.6 Seconds High 25.0-35.0 [facility] Comment on above: Order Comment: Check aPTT every 6 hours while on heparin infusion, or per protocol. Result Comment: Clin ical significance of the APTT is questionable in the presence of heparin. Performed By: #### L [id number] ####[facility] ([facility])[address] [place] [address] ACTIVATED PARTIAL THROMBOPLASTIN TIME IN PPP BY COAGULATION ASSAY 55.9 Seconds High 25.0-35.0 [facility] Comment on above: Order Comment: Check aPTT every 6 hours while on heparin infusion, or per protocol. Result Comment: Clin ical significance of the APTT is questionable in the presence of heparin. Performed By: #### L [id number] #### [facility] ([facility]) [address] [place] [address] ACTIVATED PARTIAL THROMBOPLASTIN TIME IN PPP BY COAGULATION ASSAY 48.6 Seconds High 25.0-35.0 [facility] Comment on above: Result Comment: Clin ical significance of the APTT is questionable in the presence of heparin. Performed By: #### L [id number] #### [facility] ([facility]) [address] [place] [address] B-TYPE NATRIURETIC PEPTIDEon 11-24-2023 Natriuretic peptide B (Bld) [Mass/Vol] 284 pg/mL High 0-100 [facility] Comment on above: Performed By: #### L [id number] #### [facility] ([facility]) [address] [place] [address] Natriuretic peptide B (Bld) [Mass/Vol] 308 pg/mL High 0-100 [facility] Comment on above: Performed By: #### L [id number] #### [facility] ([facility]) [address] [place] [address] CBC WITH AUTO DIFFERENTIALon 11-24-2023 Basophils (Bld) [#/Vol] 0.05 10*3/uL Normal 0.00-0.20 [facility] Comment on above: Performed By: #### L [id number] #### [facility] ([facility]) [address] [place] [address] Basophils/100 WBC (Bld) 0.6 % Normal 0.0-1.0 [facility] Comment on above: Performed By: #### L [id number] #### [facility] ([facility]) [address] [facility] [address] Eosinophils (Bld) [#/Vol] 0.09 10*3/uL Normal 0.00-0.50 [facility] Comment on above: Performed By: #### L [id number] #### [facility] ([facility]) [address] [place] [address] Eosinophils/100 WBC (Bld) 1.1 % Normal 0.0-6.0 [facility] Comment on above: Performed By: #### L [id number] #### [facility] ([facility]) [address] [place] [address] Erythrocyte distribution width (RBC) [Ratio] 12.6 % Normal 11.5-15.0 [facility] Comment on above: Performed By: #### L [id number] #### [facility] ([facility]) [address] [place] [address] ERYTHROCYTE MEAN CORPUSCULAR HEMOGLOBIN CONCENTRATION (G/DL) BY AUTOMATED 33.3 g/dL Normal 32.0-35.0 [facility] Comment on above: Performed By: #### L [id number] #### [facility] ([facility]) [address] [place] [address] Hematocrit (Bld) [Volume fraction] 42.6 % Normal 39.0-55.0 [facility] Comment on above: Performed By: #### L [id number] #### [facility] ([facility]) [address] [place] [address] Hemoglobin (Bld) [Mass/Vol] 14.2 g/dL Normal 13.0-17.0 [facility] Comment on above: Performed By: #### L [id number] #### [facility] ([facility]) [address] [place] [address] Immature granulocytes (Bld) [#/Vol] 0.08 10*3/uL Normal 0.00-0.20 [facility] Comment on above: Performed By: #### L [id number] #### [facility] ([facility]) [address] [place] [address] Immature granulocytes/100 WBC (Bld) 0.9 % Normal 0.0-1.0 [facility] Comment on above: Performed By: #### L [id number] #### [facility] ([facility]) [address] [place] [address] Lymphocytes (Bld) [#/Vol] 1.07 10*3/uL Low 1.20-4.00 [facility] Comment on above: Performed By: #### L [id number] #### [facility] ([facility]) [address] [place] [address] Lymphocytes/100 WBC (Bld) 12.7 % Low 20.0-45.0 [facility] Comment on above: Performed By: #### L [id number] #### [facility] ([facility]) [address] [place] [address] MCH (RBC) [Entitic mass] 32.4 pg Normal 27.0-33.0 [facility] Comment on above: Performed By: #### L [id number] #### [facility] ([facility]) [address] [place] [address] MCV (RBC) [Entitic vol] 97.3 fL Normal 82.0-98.0 [facility] Comment on above: Performed By: #### L [id number] #### [facility] ([facility]) [address] [place] [address] Monocytes (Bld) [#/Vol] 0.54 10*3/uL Normal 0.10-1.00 [facility] Comment on above: Performed By: #### L [id number] #### [facility] ([facility]) [address] [place] [address] Monocytes/100 WBC (Bld) 6.4 % Normal 5.0-12.0 [facility] Comment on above: Performed By: #### L [id number] #### [facility] ([facility]) [address] [place] [address] Neutrophils (Bld) [#/Vol] 6.60 10*3/uL Normal 1.60-7.60 [facility] Comment on above: Performed By: #### L [id number] #### [facility] ([facility]) [address] [place] [address] Neutrophils/100 WBC (Bld) 78.3 % High 40.0-72.0 [facility] Comment on above: Performed By: #### L [id number] #### [facility] ([facility]) [address] [place] [address] NRBC (PER 100 WBCS) BY AUTOMATED COUNT 0.0 % Normal 0 [facility] Comment on above: Performed By: #### L [id number] #### [facility] ([facility]) [address] [place] [address] PLATELETS (10*3/UL) IN BLOOD AUTOMATED COUNT 159 10*3/uL Normal 150-400 [facility] Comment on above: Performed By: #### L [id number] #### [facility] ([facility]) [address] [place] [address] RBC (Bld) [#/Vol] 4.38 10*6/uL Normal 4.20-5.70 [facility] Comment on above: Performed By: #### L [id number] #### [facility] ([facility]) [address] [place] [address] WBC (Bld) [#/Vol] 8.43 10*3/uL Normal 4.00-10.60 [facility] Comment on above: Performed By: #### L [id number] #### [facility] ([facility]) [address] [place] [address] COMPREHENSIVE METABOLIC PANE [facility] 11-24-2023 Albumin [Mass/Vol] 3.5 g/dL Normal 3.5-5.7 [facility] Comment on above: Performed By: #### L [id number] ####[facility] ([facility])[address] [place] [address] ALP [Catalytic activity/Vol] 87 U/L Normal 34-104 [facility] Comment on above: Performed By: #### L [id number] ####[facility] ([facility])[address] [place] [address] ALT [Catalytic activity/Vol] 16 U/L Normal 7-52 [facility] Comment on above: Performed By: #### L [id number] ####[facility] ([facility])[address] [place] [address] Anion gap [Moles/Vol] 18 mmol/L Normal 7-20 [facility] Comment on above: Performed By: #### L [id number] ####[facility] ([facility])[address] [place] [address] AST [Catalytic activity/Vol] 31 U/L Normal 13-39 [facility] Comment on above: Performed By: #### L [id number] ####[facility] ([facility])[address] [place] [address] Bilirubin [Mass/Vol] 0.6 mg/dL Normal 0.3-1.0 [facility] Comment on above: Performed By: #### L [id number] ####[facility] ([facility])[address] [place] [address] Calcium [Mass/Vol] 8.7 mg/dL Normal 8.6-10.3 [facility] Comment on above: Performed By: #### L [id number] ####[facility] ([facility])[address] [place] [address] Chloride [Moles/Vol] 108 mmol/L High 98-107 [facility] Comment on above: Performed By: #### L [id number] ####[facility] ([facility])[address] [place] [address] CO2 [Moles/Vol] 18 mmol/L Low 21-31 [facility] Comment on above: Performed By: #### L [id number] ####[facility] ([facility])[address] [place] [address] Creatinine [Mass/Vol] 1.25 mg/dL Normal 0.70-1.30 [facility] Comment on above: Performed By: #### L [id number] ####[facility] ([facility])[address] [place] [address] GLOMERULAR FILTRATION RATE ML/MIN/1.73 SQ M.PREDICTED 57.5 mL/min/1.73m*2 Low >60.0 [facility] Comment on above: Result Comment: The [facility]???s estimated glomerular filtration rate (eGFR) will no longer include consideration of race in its calculation. The National Kid[employer] Foundation???s eGFR Task Force developed new recommendations for the estimation of the glomerular filtration rate in the [place] They recommend immediate implementation of the new equation refit without the race variable in all laboratories because the calculation does not include race. In addition to not including race in the calculation and reporting, it included diversity in its development, and has acceptable performance characteristics and potential consequences that do not disproportionately affect any one group of individuals. Performed By: #### L [id number] ####[facility] ([facility])[address] [place] [address] Glucose [Mass/Vol] 97 mg/dL Normal 70-100 [facility] Comment on above: Performed By: #### L [id number] ####[facility] ([facility])[address] [place] [address] Potassium [Moles/Vol] 3.6 mmol/L Normal 3.5-5.1 [facility] Comment on above: Performed By: #### L [id number] ####[facility] ([facility])[address] [place] [address] Protein [Mass/Vol] 6.9 g/dL Normal 6.0-8.3 [facility] Comment on above: Performed By: #### L [id number] ####[facility] ([facility])[address] [place] [address] Sodium [Moles/Vol] 140 mmol/L Normal 136-145 [facility] Comment on above: Performed By: #### L [id number] ####[facility] ([facility])[address] [place] [address] Urea nitrogen [Mass/Vol] 28 mg/dL High 7-25 [facility] Comment on above: Performed By: #### L [id number] ####[facility] ([facility])[address] [place] [address] UREA NITROGEN/CREATININE (MASS RATIO) IN SER/PLAS 22.4 Normal [facility] Comment on above: Performed By: #### L [id number] ####[facility] ([facility])[address] [place] [address] CONSULTon 11-24-2023 CONSULT -- Attestation signed by Magan Bowles MD at 11/24/2023 2:21 PM I personally saw and examined the patient on the same date of service as resident/fellow Dr. Vasquez. I discussed the findings and therapeutic plan with the resident/fellow Dr. Vasquez. I agree with the documentation, except for any edits/updates below. Teaching Physician's Revisions: This is a very nice 83 years old with and stable angina. Cardiac enzymes are elevated consistent with NSTEMI. Also patient have ZAK on CKD with history of CVA. Also he had history of hypertension dyslipidemia and hypothyroidism. Based on his elevated cardiac enzyme he had NSTEMI and we are going to proceed with heart catheterization in the morning. Cardiology Consult Note REASON FOR CONSULT Reason for Consult: elevated trop SUBJECTIVE HPI: Jorgito Mayorga is a 83 y.o. male with a medical history significant for hypertension, hyperlipidemia, hypothyroidism, CVA who presented from [facility] with chief complains of central chest pain, described as sharp in character-rated at 4-5/10 in intensity, radiating to the upper chest/base of the neck, without relieving or aggravating factors. Patient reports that over the last week he has been having increased weakness and has fallen. He was seen at his PCPs office today who instructed him to go to the emergency department for further evaluation. 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 At [facility], initial labs were completed showing WBC 10.7, RBC 4.17, hemoglobin 13.4, hematocrit 39.6, platelet count 197, BUN 35, creatinine 1.58, lactate 1.5, calcium 8.6, AST 23, ALT 15, troponin 1042.4. EKG was completed showing sinus rhythm. CXR was completed showing low lung volume examination with moderate left basilar infiltrates. CT head was completed showing no acute intracranial abnormality, no acute infarct, no midline shift, garcia-white matter differentiation is preserved, old bilateral basal ganglia lacunar infarcts. Repeat troponin was completed which was still elevated at 950.4. Based on the above information, we were contacted. As per our recommendations the patient was transferred to our facility on heparin gtt and cardiac ischemia evaluation. Today, he was seen and examined this morning. Complained of mild chest heaviness. Reported feeling much better than yesterday. No dizziness, syncope/near syncope. Cardiology ROS: Review of Systems Constitutional: Positive for activity change and fatigue. Respiratory: Negative for cough, chest tightness, shortness of breath and wheezing. Cardiovascular: Positive for chest pain. Negative for palpitations and leg swelling. Gastrointestinal: Negative for abdominal distention and abdominal pain. Musculoskeletal: Negative for neck pain. Skin: Negative for pallor. Neurological: Positive for speech difficulty and weakness. Physical Examination: Physical Exam Constitutional: Appearance: Normal appearance. HENT: Head: Normocephalic and atraumatic. Mouth/Throat: Mouth: Mucous membranes are moist. Eyes: Extraocular Movements: Extraocular movements intact. Cardiovascular: Rate and Rhythm: Normal rate and regular rhythm. Pulses: Normal pulses. Heart sounds: Normal heart sounds. Pulmonary: Effort: Pulmonary effort is normal. Breath sounds: Normal breath sounds. Abdominal: General: Abdomen is flat. Palpations: Abdomen is soft. Musculoskeletal: General: Normal range of motion. Skin: General: Skin is warm. Neurological: Mental Status: He is alert. Mental status is at baseline. Psychiatric: Behavior: Behavior normal. Past Medical History He has a past medical history of Acquired hypothyroidism (11/24/2023), History of CVA (cerebrovascular accident) (11/24/2023), HLD (hyperlipidemia) (11/24/2023), and Primary hypertension (11/24/2023). Surgical History He has no past surgical history on file. Social History He reports that he has never smoked. He has never used smokeless tobacco. No history on file for alcohol use and drug use. Family History Family History Family history unknown: Yes Allergies Patient has no allergy information on record. Medications Current Outpatient Medications Medication Instructions amLODIPine (NORVASC) 5 mg, oral, Daily aspirin 81 mg, oral, Daily cefdinir (OMNICEF) 600 mg, oral, Every 24 hours levothyroxine (SYNTHROID, LEVOXYL) 50 mcg, oral, Daily before breakfast lisinopril 40 mg, oral, Daily pantoprazole (PROTONIX) 40 mg, oral, Daily before breakfast pravastatin (PRAVACHOL) 40 mg, oral, Every 24 hours QUEtiapine (SEROQUEL) 50 mg, oral, Nightly tamsulosin (FLOMAX) 0.4 mg, oral, Daily Medications Prior to Admission Medication Sig Dispense Refill Last Dose cefdinir (Omnicef) 300 mg ca (more content not included)... Normal [facility] HEMOGLOBIN A1Con 11-24-2023 Glucose [Mass/Vol] 114 mg/dL Normal [facility] Comment on above: Performed By: #### L [id number] ####[facility] ([facility])[address] [place] [address] HbA1c (Bld) [Mass fraction] 5.6 % Normal 4.0-6.0 [facility] Comment on above: Performed By: #### L [id number] ####[facility] ([facility])[address] [place] [address] HPon 11-24-2023 HP -- Attestation signed by Magan Bowles MD at 11/24/2023 2:21 PM I personally saw and examined the patient on the same date of service as resident/fellow Dr. Vasquez. I discussed the findings and therapeutic plan with the resident/fellow Dr. Vasquez. I agree with the documentation, except for any edits/updates below. Teaching Physician's Revisions: This is a very nice 83 years old with and stable angina. Cardiac enzymes are elevated consistent with NSTEMI. Also patient have ZAK on CKD with history of CVA. Also he had history of hypertension dyslipidemia and hypothyroidism. Based on his elevated cardiac enzyme he had NSTEMI and we are going to proceed with heart catheterization in the morning. Cardiology Consult Note REASON FOR CONSULT Reason for Consult: elevated trop SUBJECTIVE HPI: Jorgito Mayorga is a 83 y.o. male with a medical history significant for hypertension, hyperlipidemia, hypothyroidism, CVA who presented from [facility] with chief complains of central chest pain, described as sharp in character-rated at 4-5/10 in intensity, radiating to the upper chest/base of the neck, without relieving or aggravating factors. Patient reports that over the last week he has been having increased weakness and has fallen. He was seen at his PCPs office today who instructed him to go to the emergency department for further evaluation. 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 At [facility], initial labs were completed showing WBC 10.7, RBC 4.17, hemoglobin 13.4, hematocrit 39.6, platelet count 197, BUN 35, creatinine 1.58, lactate 1.5, calcium 8.6, AST 23, ALT 15, troponin 1042.4. EKG was completed showing sinus rhythm. CXR was completed showing low lung volume examination with moderate left basilar infiltrates. CT head was completed showing no acute intracranial abnormality, no acute infarct, no midline shift, garcia-white matter differentiation is preserved, old bilateral basal ganglia lacunar infarcts. Repeat troponin was completed which was still elevated at 950.4. Based on the above information, we were contacted. As per our recommendations the patient was transferred to our facility on heparin gtt and cardiac ischemia evaluation. Today, he was seen and examined this morning. Complained of mild chest heaviness. Reported feeling much better than yesterday. No dizziness, syncope/near syncope. Cardiology ROS: Review of Systems Constitutional: Positive for activity change and fatigue. Respiratory: Negative for cough, chest tightness, shortness of breath and wheezing. Cardiovascular: Positive for chest pain. Negative for palpitations and leg swelling. Gastrointestinal: Negative for abdominal distention and abdominal pain. Musculoskeletal: Negative for neck pain. Skin: Negative for pallor. Neurological: Positive for speech difficulty and weakness. Physical Examination: Physical Exam Constitutional: Appearance: Normal appearance. HENT: Head: Normocephalic and atraumatic. Mouth/Throat: Mouth: Mucous membranes are moist. Eyes: Extraocular Movements: Extraocular movements intact. Cardiovascular: Rate and Rhythm: Normal rate and regular rhythm. Pulses: Normal pulses. Heart sounds: Normal heart sounds. Pulmonary: Effort: Pulmonary effort is normal. Breath sounds: Normal breath sounds. Abdominal: General: Abdomen is flat. Palpations: Abdomen is soft. Musculoskeletal: General: Normal range of motion. Skin: General: Skin is warm. Neurological: Mental Status: He is alert. Mental status is at baseline. Psychiatric: Behavior: Behavior normal. Past Medical History He has a past medical history of Acquired hypothyroidism (11/24/2023), History of CVA (cerebrovascular accident) (11/24/2023), HLD (hyperlipidemia) (11/24/2023), and Primary hypertension (11/24/2023). Surgical History He has no past surgical history on file. Social History He reports that he has never smoked. He has never used smokeless tobacco. No history on file for alcohol use and drug use. Family History Family History Family history unknown: Yes Allergies Patient has no allergy information on record. Medications Current Outpatient Medications Medication Instructions amLODIPine (NORVASC) 5 mg, oral, Daily aspirin 81 mg, oral, Daily cefdinir (OMNICEF) 600 mg, oral, Every 24 hours levothyroxine (SYNTHROID, LEVOXYL) 50 mcg, oral, Daily before breakfast lisinopril 40 mg, oral, Daily pantoprazole (PROTONIX) 40 mg, oral, Daily before breakfast pravastatin (PRAVACHOL) 40 mg, oral, Every 24 hours QUEtiapine (SEROQUEL) 50 mg, oral, Nightly tamsulosin (FLOMAX) 0.4 mg, oral, Daily Medications Prior to Admission Medication Sig Dispense Refill Last Dose cefdinir (Omnicef) 300 mg ca (more content not included)... Normal [facility] LACTIC ACID, PLASMAon 2023 LACTATE (MMOL/L) IN SER/PLAS 1.0 mmol/L Normal 0.5-2.2 [facility] Comment on above: Performed By: #### L [id number] ####[facility] ([facility]AKER)[address] [place] [address] LIPID PANELon 11-24-2023 CHOL/HDL 3.4 mg/dL Normal [facility] Comment on above: Performed By: #### L [id number] ####[facility] ([facility])[address] [place] [address] Cholesterol [Mass/Vol] 71 mg/dL Low 120-200 [facility] Comment on above: Performed By: #### L [id number] ####[facility] [place] [address] Magnesium [Mass/Vol] 146 mg/dL Normal 40-149 [facility] Comment on above: Result Comment: TRIG LYCERIDE REFERENCE RANGE: 20 YEARS AND OLDER CARDIOVASCULAR RISK LESS THAN 150 mg/dL LOW RISK 150 TO 199 mg/dL BORDERLINE RISK 200 mg/dL AND GREATER HIGH RISK Performed By: #### L [id number] ####[facility] ([facility])[address] [facility] [address] Magnesium [Mass/Vol] 21 mg/dL Low 23-92 [facility] Comment on above: Performed By: #### L [id number] ####[facility] [place] [address] NON HDL CHOL. (LDL+VLDL) 50 Normal [facility] Comment on above: Performed By: #### L [id number] ####[facility] [facility] [address] TOTAL VLDL-C 29 mg/dL Normal 0-40 [facility] Comment on above: Performed By: #### L [id number] ####[facility] [place] [address] MAGNESIUMon 11-24-2023 Magnesium [Mass/Vol] 1.8 mg/dL Low 1.9-2.7 [facility] Comment on above: Performed By: #### L AB15 #### [facility] (BE[facility]ER) [address] [facility] [place] [address] Magnesium [Mass/Vol] 1.9 mg/dL Normal 1.9-2.7 [facility] Comment on above: Performed By: #### L [id number] #### [facility] ([facility]) [address] [place] [address] PHOSPHORUSon 11-24-2023 Magnesium [Mass/Vol] 2.8 mg/dL Normal 2.5-5.0 [facility] Comment on above: Performed By: #### L [id number] ####[facility] (BEAKER)[address] [place] [address] PROTIME-INRon 11-24-2023 INR IN PPP BY COAGULATION ASSAY 1.29 High 0.90-1.10 [facility] Comment on above: Result Comment: ACCC P RECOMMENDED INR FOR WARFARIN THERAPY CONDITION INR PROPHYLAXIS OF VENOUS THROMBOSIS 2-3 (HIGH-RISK SURGERY) TREATMENT OF VENOUS THROMBOSIS 2-3 TREATMENT OF PULMONARY EMBOLISM 2-3 PREVENTION OF SYSTEMIC EMBOLISM: 2-3 ACUTE MYOCARDIAL INFARCTION TISSUE HEART VALVES VALVULAR HEART DISEASE ATRIAL FIBRILLATION RECURRENT SYSTEMIC EMBOLISM MECHANICAL HEART VALVE 2.5-3.5 FROM: ORAL ANTICOAGULANTS. MECHANISM OF ACTION, CLINICAL EFFECTIVENESS, AND OPTIMAL THERAPEUTIC RANGE. CHEST 1995;108:231S-246S. Performed By: #### L [id number] ####[facility] (BEAKER)[address] [place] [address] PROTHROMBIN TIME (PT) IN PPP BY COAGULATION ASSAY 16.0 Seconds High 12.3-14.8 [facility] Comment on above: Performed By: #### L [id number] ####[facility] (BEAKER)[address] [place] [address] TROPONIN Ion 11-24-2023 Troponin I.cardiac [Mass/Vol] 0.26 ng/mL Critically high 0.00-0.04 [facility] Comment on above: Result Comment: M-CT EVIOUS CRITICAL RESULT Previous result verified on 11/24/2023 0604 on specimen/case [id number] called with component Troponin I for procedure Troponin I with value 0.35 ng/mL. Performed By: #### L [id number] ####[facility] ([facility])[address] [place] [address] Result Comment: Prev ious result verified on 11/24/2023 0604 on specimen/case [id number] called with component Troponin I for procedure Troponin I with value 0.35 ng/mL. Performed By: #### L [id number] #### [facility] ([facility]) [address] [place] [address] Troponin I.cardiac [Mass/Vol] 0.27 ng/mL Critically high 0.00-0.04 [facility] Comment on above: Result Comment: Prev ious result verified on 11/24/2023 0604 on specimen/case [id number] called with component Troponin I for procedure Troponin I with value 0.35 ng/mL. Performed By: #### L [id number] ####[facility] ([facility])[address] [place] [address] Troponin I.cardiac [Mass/Vol] 0.23 ng/mL Critically high 0.00-0.04 [facility] Comment on above: Result Comment: Prev ious result verified on 11/24/2023 0604 on specimen/case [id number] called with component Troponin I for procedure Troponin I with value 0.35 ng/mL. Performed By: #### L AB15 #### [facility] ([facility]) [address] [place] [address] Troponin I.cardiac [Mass/Vol] 0.35 ng/mL Critically high 0.00-0.04 [facility] Comment on above: Result Comment: M-TR OPONIN INITIAL CRITICAL HIGH; RESPUN AND RETESTED Performed By: #### L [id number] #### [facility] ([facility]) [address] [place] [address] CBC AUTO DIFFon 03-21-2021 BASO # 0.0 103/ul Normal 0.0-0.1 [facility] Comment on above: Performed By: #### C BC #### [facility] [address] [place] [address] Dr. Lukas Nino Basophils/100 WBC (Bld) 0.4 % Normal 0.2-2.0 [facility] Comment on above: Performed By: #### C BC #### [facility] [address] [place] [address] Dr. Lukas Nino EO # 0.1 103/ul Normal 0.0-0.7 [facility] Comment on above: Performed By: #### C BC #### [facility] [address] [place] [address] Dr. Lukas Nino Eosinophils/100 WBC (Bld) 1.4 % Normal 0.9-7.0 [facility] Comment on above: Performed By: #### C BC #### [facility] [address] [place] [address] Dr. Lukas Nino Erythrocyte distribution width (RBC) [Ratio] 13.0 % Normal 11.0-15.0 [facility] Comment on above: Performed By: #### C BC #### [facility] [address] [place] [address] Dr. Lukas Nino Hematocrit (Bld) [Volume fraction] 42.1 % Normal 42.0-54.0 [facility] Comment on above: Performed By: #### C BC #### [facility] [address] [place] [address] Dr. Lukas Nino Hemoglobin (Bld) [Mass/Vol] 14.5 g/dL Normal 14.0-18.0 [facility] Comment on above: Performed By: #### C BC #### [facility] [address] [place] [address] Dr. Lukas Nino IG # 0.03 10e3/ul Normal 0.00-0.03 [facility] Comment on above: Performed By: #### C BC #### [facility] [address] [place] [address] Dr. Lukas Nino IG % 0.4 % Normal 0.0-0.5 [facility] Comment on above: Performed By: #### C BC #### [facility] [address] [place] [address] Dr. Lukas Nino LYMPH # 1.7 103/ul Normal 1.2-3.8 [facility] Comment on above: Performed By: #### C BC #### [facility] [address] [place] [address] Dr. Lukas Nino Lymphocytes/100 WBC (Bld) 20.6 % Normal 20.5-60.0 [facility] Comment on above: Performed By: #### C BC #### [facility] [address] [place] [address] Dr. Lukas Nino MANUAL DIFF REQ NO Normal [facility] Comment on above: Performed By: #### C BC #### [facility] [address] [place] [address] Dr. Lukas Nino MCH (RBC) [Entitic mass] 33.0 pg Normal 25.9-34.0 [facility] Comment on above: Performed By: #### C BC #### [facility] [address] [place] [address] Dr. Lukas Nino MCHC (RBC) [Mass/Vol] 34.4 g/dL Normal 29.9-35.2 [facility] Comment on above: Performed By: #### C BC #### [facility] [address] [place] [address] Dr. Lukas Nino MCV (RBC) [Entitic vol] 95.9 fL Critically high 80.0-94.0 [facility] Comment on above: Performed By: #### C BC #### [facility] [address] [place] [address] Dr. Lukas Nino MONO # 0.6 103/ul Normal 0.3-0.8 [facility] Comment on above: Performed By: #### C BC #### [facility] [address] [place] [address] Dr. Lukas Nino Monocytes/100 WBC (Bld) 7.2 % Normal 1.7-12.0 [facility] Comment on above: Performed By: #### C BC #### [facility] [address] [address] [address] Lukas Nino NEUT # 5.6 103/ul Normal 1.4-6.5 [facility] Comment on above: Performed By: #### C BC #### [facility] [address] [address] [address] Lukas Nino Neutrophils/100 WBC (Bld) 70.0 % Normal 43.0-75.0 [facility] Comment on above: Performed By: #### C BC #### [facility] [address] [address] [address] Lukas Nino Platelet mean volume (Bld) [Entitic vol] 11.1 fL Normal 9.5-13.5 [facility] Comment on above: Performed By: #### C BC #### [facility] [address] [place] [address] Dr. Lukas Nino PLT 129 103/ul Critically low 150-450 [facility] Comment on above: Result Comment: few plt clumps Performed By: #### C BC #### [facility] [address] [place] [address] Dr. Lukas Nino RBC 4.39 106/ul Critically low 4.70-6.10 [facility] Comment on above: Performed By: #### C BC #### [facility] [address] [address] [address] Lukas Nino WBC 8.0 103/ul Normal 4.0-11.0 [facility] Comment on above: Performed By: #### C BC #### [facility] [address] [address] [address] Lukas Nino FREE THYROXINE INDEX T7on FTI 2.05 Normal [facility] Comment on above: Performed By: #### T SH, CMP, LIPID, URIC, T7 #### [facility] [address] [address] [address] Lukas Nino T3U 33.0 % Normal 23.5-40.5 [facility] Comment on above: Performed By: #### T SH, CMP, LIPID, URIC, T7 #### [facility] [address] [address] [address] Lukas Nino T4 [Mass/Vol] 6.20 ug/dL Normal 5.53-11.00 [facility] Comment on above: Performed By: #### T SH, CMP, LIPID, URIC, T7 #### [facility] [address] [address] [address] Lukas Nino GLYCOHEMOGLOBIN A1Con 2020 ADA RECOMMENDATION ADA THERAPEUTIC TARG ET 6.0 - 7.0 ACTION SUGGESTED > 7.0 Normal [facility] Comment on above: Performed By: #### A 1C #### [facility] [address] [place] [address] Dr. Lukas Nino Glucose [Mass/Vol] 103 mg/dL Normal [facility] Comment on above: Performed By: #### A 1C #### [facility] [address] [address] [address] Lukas Nino HbA1c (Bld) [Mass fraction] 5.2 % Normal <=6.0 [facility] Comment on above: Performed By: #### A 1C #### [facility] [address] [place] [address] Dr. Lukas Nino LIPID PROFILEon 03-21-2021 CHOL-HDL RATIO NORM SEE BELOW Normal [facility] Comment on above: Result Comment: 3.3 - 4.4 LOW RISK 4.4 - 7.1 AVERAGE RISK 7.1 - 11.0 MODERATE RISK >11.0 HIGH RISK Performed By: #### T SH, CMP, LIPID, URIC, T7 #### [facility] [address] [address] [address] Lukas Nino Cholesterol [Mass/Vol] 121 mg/dL Normal <=200 [facility] Comment on above: Performed By: #### T SH, CMP, LIPID, URIC, T7 #### [facility] [address] [address] [address] Lukas Nino Cholesterol in HDL [Mass/Vol] 38 mg/dL Normal [facility] Comment on above: Performed By: #### T SH, CMP, LIPID, URIC, T7 #### [facility] [address] [address] [address] Lukas Nino Cholesterol in LDL [Mass/Vol] 66.4 mg/dL Normal [facility] Comment on above: Performed By: #### T SH, CMP, LIPID, URIC, T7 #### [facility] [address] [address] [address] Lukas Nino Cholesterol.total/Ch olesterol in HDL [Mass ratio] 3.2 {ratio} Normal [facility] Comment on above: Performed By: #### T SH, CMP, LIPID, URIC, T7 #### [facility] [address] [address] [address] Lukas Nino HDL NORMAL > or = 60 mg/dl - LO W CARDIOVASCULAR RISK <40 mg/dl - HIGH CARDIOVASCULAR RISK Normal [facility] Comment on above: Performed By: #### T SH, CMP, LIPID, URIC, T7 #### [facility] [address] [address] [address] Lukas Nino LDL CALC NORMAL SEE BELOW Normal [facility] Comment on above: Result Comment: <100 mg/dl OPTIMAL 100 - 129 mg/dl NEAR OR ABOVE OPTIMAL 130 - 159 mg/dl BORDERLINE HIGH 160 - 189 mg/dl HIGH >190 mg/dl VERY HIGH Performed By: #### T SH, CMP, LIPID, URIC, T7 #### [facility] [address] [address] [address] Lukas Nino Triglyceride [Mass/Vol] 83 mg/dL Normal <=150 [facility] Comment on above: Performed By: #### T SH, CMP, LIPID, URIC, T7 #### [facility] [address] [address] [address] Lukas Nino VLDL CALC 16.6 mg/dL Normal [facility] Comment on above: Performed By: #### T SH, CMP, LIPID, URIC, T7 #### [facility] [address] [address] [address] Lukas Nino PROF 14(COMP METB)on 10-15-2 021 Albumin [Mass/Vol] 3.7 g/dL Normal 3.5-5.0 [facility] Comment on above: Performed By: #### T SH, CMP, LIPID, URIC, T7 #### [facility] [address] [address] [address] Lukas Nino Albumin/Globulin [Mass ratio] 1.0 {ratio} Normal [facility] Comment on above: Performed By: #### T SH, CMP, LIPID, URIC, T7 #### [facility] [address] [address] [address] Lukas Nino ALP [Catalytic activity/Vol] 86 U/L Normal 38-126 [facility] Comment on above: Performed By: #### T SH, CMP, LIPID, URIC, T7 #### [facility] [address] [place] [address] Dr. Lukas Nino ALT [Catalytic activity/Vol] 18 U/L Critically low 21-72 [facility] Comment on above: Performed By: #### T SH, CMP, LIPID, URIC, T7 #### [facility] [address] [place] [address] Dr. Lukas Nino Anion gap [Moles/Vol] 9.5 mmol/L Normal [facility] Comment on above: Performed By: #### T SH, CMP, LIPID, URIC, T7 #### [facility] [address] [place] [address] Dr. Lukas Nino AST [Catalytic activity/Vol] 18 U/L Normal 17-59 [facility] Comment on above: Performed By: #### T SH, CMP, LIPID, URIC, T7 #### [facility] [address] [place] [address] Dr. Lukas Nino Bilirubin [Mass/Vol] 0.8 mg/dL Normal 0.2-1.3 [facility] Comment on above: Performed By: #### T SH, CMP, LIPID, URIC, T7 #### [facility] [address] [place] [address] Dr. Lukas Nino Calcium [Mass/Vol] 8.9 mg/dL Normal 8.4-10.2 [facility] Comment on above: Performed By: #### T SH, CMP, LIPID, URIC, T7 #### [facility] [address] [address] [address] Lukas Nino Chloride [Moles/Vol] 106 mmol/L Normal 98-107 [facility] Comment on above: Performed By: #### T SH, CMP, LIPID, URIC, T7 #### [facility] [address] [address] [address] Lukas Nino CO2 [Moles/Vol] 28.2 mmol/L Normal 22.0-30.0 [facility] Comment on above: Performed By: #### T SH, CMP, LIPID, URIC, T7 #### [facility] [address] [place] [address] Dr. Lukas Nino Creatinine [Mass/Vol] 1.26 mg/dL Critically high 0.66-1.25 [facility] Comment on above: Performed By: #### T SH, CMP, LIPID, URIC, T7 #### [facility] [address] [address] [address] Lukas Nino EGFR-AF HAITIAN >60 Normal >=60 [facility] Comment on above: Performed By: #### T SH, CMP, LIPID, URIC, T7 #### [facility] [address] [place] [address] Dr. Lukas Nino EGFR-NON AF HAITIAN 55 mL/min/1.73m2 Critically low >=60 [facility] Comment on above: Performed By: #### T SH, CMP, LIPID, URIC, T7 #### [facility] [address] [place] [address] Dr. Lukas Nino Globulin (S) [Mass/Vol] 3.7 g/dL Normal [facility] Comment on above: Performed By: #### T SH, CMP, LIPID, URIC, T7 #### [facility] [address] [place] [address] Dr. Lukas Nino Glucose [Mass/Vol] 76 mg/dL Normal 74-106 [facility] Comment on above: Performed By: #### T SH, CMP, LIPID, URIC, T7 #### [facility] [address] [place] [address] Dr. Lukas Nino Potassium [Moles/Vol] 3.7 mmol/L Normal 3.4-5.0 [facility] Comment on above: Performed By: #### T SH, CMP, LIPID, URIC, T7 #### [facility] [address] [place] [address] Dr. Lukas Nino Protein [Mass/Vol] 7.4 g/dL Normal 6.1-8.2 [facility] Comment on above: Performed By: #### T SH, CMP, LIPID, URIC, T7 #### [facility] [address] [place] [address] Dr. Lukas Nino Sodium [Moles/Vol] 140 mmol/L Normal 137-145 [facility] Comment on above: Performed By: #### T SH, CMP, LIPID, URIC, T7 #### [facility] [address] [place] [address] Dr. Lukas Nino Urea nitrogen [Mass/Vol] 15.0 mg/dL Normal 9.0-20.0 [facility] Comment on above: Performed By: #### T SH, CMP, LIPID, URIC, T7 #### [facility] [address] [place] [address] Dr. Lukas Nino Urea nitrogen/Creatinine [Mass ratio] 11.9 mg/mg Normal [facility] Comment on above: Performed By: #### T SH, CMP, LIPID, URIC, T7 #### [facility] [address] [place] [address] Dr. Lukas Nino TSHon 03-21-2021 TSH 2.594 uIU/mL Normal 0.470-4.[address] [facility] Comment on above: Performed By: #### T SH, CMP, LIPID, URIC, T7 #### [facility] [address] [place] [address] Dr. Lukas Nino TSH RANGE SEE BELOW Normal [facility] Comment on above: Result Comment: <0.3 4 UIU/ml HYPERTHYROID 0.34-5.60 UIU/ml EUTHYROID >5.60 UIU/ml HYPOTHYROID Performed By: #### T SH, CMP, LIPID, URIC, T7 #### [facility] [address] [place], [place] [address] Dr. Lukas Nino URIC ACID SERUMon 03-21-2021 Urate [Mass/Vol] 6.5 mg/dL Normal 3.5-8.5 [facility] Comment on above: Performed By: #### T SH, CMP, LIPID, URIC, T7 #### [facility] [address] [place], [place] [address] Dr. Lukas Nino Encounters Encounter Date Encounter Type Care Provider Facility Start: 11-25-2023 Evaluation and management of inpatient FLORENTIN TAVARES [facility] Start: 11-25-2023 [facility]: 11-25-2023 Evaluation and management of inpatient [facility] Start: 11-24-2023 Evaluation and management of inpatient [facility] Start: 11-24-2023 ambulatory [facility] Start: 11-24-2023 End: 11-26-2023 Evaluation and management of inpatient ELISAJailyn Bradley [facility] Start: 04-29-2021 End: 04-30-2021 ambulatory TRAMAINE GOLDEN Facility:[facility] Start: 03-21-2021 End: 03-21-[address] JAKE CHOWDHURY Facility:[facility] Start: 08-27-2020 End: 08-28-[address] ROA LISTED REQUEST Facility:[facility] Start: 08-05-2020 End: 08-06-[address] JAKE CHOWDHURY Facility:[facility] Procedures Date Procedure Procedure Detail Performing Clinician Start: 03-21-[address] ROA L ISTED REQUEST Comment on above: Performed By: #### P SASC #### [facility] [id number] Lukas Nino Payers Date Payer Category Payer Medicare [id number] 1958 Self-pay [id number] 1940 Unknown [id number] 2.16.84 [id number] Unknown [id number] 2.16.84 [id number] Unknown [id number] 2.16.84 [id number] Unknown [id number] 2.16.84 [id number] Clinical Notes 11-24-2023 to 11-26-2023 Note Date & Type Note Facility 11-26-2023 Note Hospital Medicine Discharge Summary Final Discharge Diagnosis: Chest pain-resolved NSTEMI Coronary disease status post stent placement to LAD on 11/24 Hypertension Hyperlipidemia Acquired hypothyroidism ZAK Community acquired pneumonia Acute proximal respiratory failure-resolved Recent acute cystitis History of CVA-residual deficits of slurred speech Admission Diagnosis: Chest pain [R07.9] Hospital course: Jorgito Mayorga is an 83 y.o. male who came from home with past medical history of hypertension, hyperlipidemia, hypothyroidism, CVA presents to [facility] as a direct admission from [facility] with a chief complaint of chest pain and elevated troponin. Patient reports that over the last week he has been having increased weakness and has fallen. Patient's states that she thought she noticed some mildly garbled speech that was increased from his baseline. Patient reports that he does have some slurred speech at baseline as he has had 4 strokes in the past. Patient also reports that his had fallen a few days back and that he had helped her up from the ground. He reports that shortly after doing so he began to have left-sided, sharp chest pain without radiation. He rates the pain a 3/10. He initially thought that the pain was secondary to helping his up from the ground. He also reports associated dry cough. He was seen at his PCPs office today who instructed him to go to the emergency department for further evaluation. At [facility], initial labs were completed showing WBC 10.7, RBC 4.17, hemoglobin 13.4, hematocrit 39.6, platelet count 197, BUN 35, creatinine 1.58, lactate 1.5, calcium 8.6, AST 23, ALT 15, troponin 1042.4. EKG was completed showing sinus rhythm. CXR was completed showing low lung volume examination with moderate left basilar infiltrates. CT head was completed due to concern with slurred speech showing no acute intracranial abnormality, no acute infarct, no midline shift, garcia-white matter differentiation is preserved, old bilateral basal ganglia lacunar infarcts. Repeat troponin was completed which was still elevated at 950.4. Patient was transferred to [facility] for further cardiac workup. Patient's baseline kidney function is unknown he was administered IV fluids for his ZAK. He was evaluated by cardiology team for which he underwent cardiac catheterization on 12/02 with stent placed to his LAD without complication. Echo was also performed without any acute findings. Normal ejection fraction. Patient with recent falls at home for which PT OT was ordered, patient requested to go home on discharge with home care, he was not agreeable to any recommendations of SNF if he were to be evaluated by PT/OT. Patient was also started on low-dose beta-christian metoprolol succinate 12.5 mg daily provided his borderline bradycardia. Patient was treated with IV Rocephin during admission for pneumonia and was transition to oral antibiotics to complete his 7-day therapy. Patient was resumed on his aspirin Plavix and statin. He remained hemodynamically stable was transition to room air and discharged home in stable condition. Dear Dr. Trenton MD, Jorgito is advised to follow up with you within 1-2 weeks. Follow-up with: Cardiology Scheduled appointments: Future Appointments Date Time Provider Department Center 12/08/2023 9:20 AM Zuri Fowler NP [facility] Your medication list START taking these medications Instructions Last Dose Given Next Dose Due atorvastatin 80 mg tablet Commonly known as: Lipitor Take 1 tablet (80 mg) by mouth at bedtime. cefuroxime 500 mg tablet Commonly known as: Ceftin Take 1 tablet (500 mg) by mouth in the morning and at bedtime for 6 doses. clopidogrel 75 mg tablet Commonly known as: Plavix Start taking on: November 27, 2023 Take 1 tablet (75 mg) by mouth in the morning. Do not start before November 27, 2023. metoprolol succinate XL 25 mg 24 hr tablet Commonly known as: Toprol-XL Take 0.5 tablets (12.5 mg) by mouth in the evening. Do not crush or chew. CHANGE how you take these medications Instructions Last Dose Given Next Dose Due lisinopril 5 mg tablet Start taking on: November 27, 2023 What changed: medication strength how much to take Take 1 tablet (5 mg) by mouth in the morning for 98 doses. Do not start before November 27, 2023. CONTINUE taking these medications Instructions Last Dose Given Next Dose Due aspirin 81 mg chewable tablet levothyroxine 50 mcg tablet Commonly known as: Synthroid, Levoxyl pantoprazole 40 mg EC tablet Commonly known as: ProtoNix QUEtiapine 50 mg tablet Commonly known as: SEROquel tamsulosin 0.4 mg 24 hr capsule Commonly known as: Flomax STOP taking these medications amLODIPine 5 mg tablet Commonly known as: Norvasc cefdinir 300 mg capsule Commonly known as: Omnicef pravastatin 40 mg tablet Commonly known as: Pravachol Where to Get Your Medications (more content not included)... [facility] 11-26-2023 Note Final AVS completed, and uploaded to [employer]. Skid Man sent final AVS to [facility]. [facility] 11-26-2023 Note Hospital Medicine Daily Progress Note - 11/26/2023 1:03 PM; Room: [address] [place] [address] Admission: 11/24/2023 1:04 AM; Length of stay: 2 days THE HOSPITALIST TEAM PREFERS TO USE [employer] CHAT FOR COMMUNICATION 7AM-7PM. IF I DO NOT RESPOND WITHIN 15 MINUTES, PLEASE PAGE ME/CALL THROUGH THE FUND ACCOUNTING MANAGER. FROM 7PM-7AM, PLEASE PAGE [phone](COVR) Code Status: Full Code Barriers to Discharge: PT/OT eval Expected Discharge Date: Pending discharge location, patient cleared to discharge by cardiology team Discharge Destination: home vs snf Overview Patient is seen for evaluation and management of nstemi, cp Jorgito Mayorga is an 83 y.o. male who came from home with past medical history of hypertension, hyperlipidemia, hypothyroidism, CVA presents to [facility] as a direct admission from [facility] with a chief complaint of chest pain and elevated troponin. Subjective Patient resting in bed, he denies any overnight events, remains with some mild labored breathing, he states that he has chest pain that occurs with deep breathing, he denies any worsening shortness of breath, midsternal or left-sided chest pain or pressure, nausea, vomiting, fever, or chills. RN at bedside, without any reportable overnight concerns. Physical Exam Visit Vitals BP 131/79 (BP Location: Right arm, Patient Position: Lying) Pulse 62 Temp 36.8 ???C (98.2 ???F) (Temporal) Resp 24 Intake/Output Summary (Last 24 hours) at 11/26/2023 1303 Last data filed at 11/26/2023 0808 Gross per 24 hour Intake 707.66 ml Output 460 ml Net 247.66 ml Physical Exam Vitals and nursing note reviewed. Eyes: Pupils: Pupils are equal, round, and reactive to light. Cardiovascular: Rate and Rhythm: Normal rate and regular rhythm. Pulses: Normal pulses. Heart sounds: Normal heart sounds. Pulmonary: Breath sounds: Normal breath sounds. No wheezing. Comments: Increased work of breathing present Abdominal: General: There is no distension. Palpations: Abdomen is soft. Tenderness: There is no abdominal tenderness. Musculoskeletal: General: Normal range of motion. Cervical back: Normal range of motion. Right lower leg: No edema. Left lower leg: No edema. Skin: General: Skin is warm. Capillary Refill: Capillary refill takes less than 2 seconds. Neurological: Mental Status: He is alert and oriented to person, place, and time. Psychiatric: Speech: Speech is slurred (baseline). Estimated body mass index is 26.21 kg/m??? as calculated from the following: Height as of this encounter: 1.753 m (5' 9 ). Weight as of this encounter: 80.5 kg (177 lb 7.5 oz). Active Inpatient Problems Principal Problem: Chest pain Active Problems: Elevated troponin History of CVA (cerebrovascular accident) Primary hypertension HLD (hyperlipidemia) Acquired hypothyroidism Assessment and Plan Chest pain NSTEMI status post PCI to LAD on 11/24 Patient is without current chest pain Cardio following Lipid profil; cholesterol 71, HDL 21, LDL 21 Echocardiogram completed today; results pending Cath performed yesterday in which patient received a stent to his LAD BNP 308 Patient is on aspirin and Plavix, started on low-dose beta-christian metoprolol succinate 12.5 mg daily ZAK Unclear of patient's baseline creatinine Received fluids Creatinine 1.2; stable CAP Acute hypoxic respiratory failure requiring supplemental oxygen UTI-diagnosed outpatient by PCP-completed a total of 4-day therapy treatment for UTI Was initially prescribed Cefdinir by PCP CXR shows pneumonia Will start IV Rocephin and oral Azithromycin for CAP on chest xray rocephin will cover UTI Patient denies coughing with oral intake No productive cough, no fever patient continues with mild labored breathing Now on room air Patient can be transition to oral Cefuroxime History of CVA, residual deficits of mild slurred speech CT head negative Essential HTN Hyperlipidemia Acquired hypothyroidism Daily labs Monitor vitals closely PRN 02 to maintain sp02 >92% Protonix for GI prophylaxis Continue home seroquel, tamsulosin, atorvat PT/OT consulted, will await recommendations Addendum: Patient and family states that patient would like to be discharged home regardless of PT/OT evaluation and recommendations. Patient would refuse to go to a SNF. Will discharge patient home with home care and PT OT at home. Malnutrition Attestation: Comment: VTE Prophylaxis: IV heparin Scheduled Meds aspirin, 81 mg, oral, Daily atorvastatin, 80 mg, oral, Nightly cefuroxime, 500 mg, oral, BID clopidogrel, 75 mg, oral, Daily levothyroxine, 50 mcg, oral, Daily before breakfast lisinopril, 5 mg, oral, Daily metoprolol succinate XL, 12.5 mg, oral, q PM pantoprazole, 40 mg, oral, Daily before breakfast QUEtiapine, 50 mg, oral, Nightly tamsulosin, 0.4 mg, oral, Daily Oxygen Therapy, Pertinent Investigations Hematology: Results from last 7 days Lab (more content not included)... [facility] 11-26-2023 Note Cardiology Progress Note REASON FOR CONSULT Reason for Consult: NSTEMI SUBJECTIVE Interval History: Patient examined at bedside after coronary angiogram yesterday with successful PCI to LAD via radial artery approach. He denies cp, sob, edema, palpitations. He is eager to go home. No events to report from nursing. Tele overnight: SB/SR 59-71 bpm HPI: Jorgito Mayroga is a 83 y.o. male with a medical history significant for hypertension, hyperlipidemia, hypothyroidism, CVA who presented from [facility] with chief complains of central chest pain, described as sharp in character-rated at 4-5/10 in intensity, radiating to the upper chest/base of the neck, without relieving or aggravating factors. Patient reports that over the last week he has been having increased weakness and has fallen. He was seen at his PCPs office today who instructed him to go to the emergency department for further evaluation. 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 At [facility], initial labs were completed showing WBC 10.7, RBC 4.17, hemoglobin 13.4, hematocrit 39.6, platelet count 197, BUN 35, creatinine 1.58, lactate 1.5, calcium 8.6, AST 23, ALT 15, troponin 1042.4. EKG was completed showing sinus rhythm. CXR was completed showing low lung volume examination with moderate left basilar infiltrates. CT head was completed showing no acute intracranial abnormality, no acute infarct, no midline shift, garcia-white matter differentiation is preserved, old bilateral basal ganglia lacunar infarcts. Repeat troponin was completed which was still elevated at 950.4. OBJECTIVE Objective Objective: Visit Vitals BP 134/78 (BP Location: Right arm, Patient Position: Lying) Pulse 67 Temp 36.8 ???C (98.2 ???F) (Temporal) Resp 22 Physical Examination: Physical Exam Constitutional: Appearance: Normal appearance. HENT: Head: Normocephalic and atraumatic. Mouth/Throat: Mouth: Mucous membranes are moist. Eyes: Conjunctiva/sclera: Conjunctivae normal. Cardiovascular: Rate and Rhythm: Normal rate and regular rhythm. Pulses: Radial pulses are 2+ on the right side and 2+ on the left side. Heart sounds: Normal heart sounds. Pulmonary: Effort: Pulmonary effort is normal. Breath sounds: Normal breath sounds. Abdominal: General: Abdomen is flat. Palpations: Abdomen is soft. Musculoskeletal: Cervical back: Neck supple. Right lower leg: No edema. Left lower leg: No edema. Skin: General: Skin is dry. Capillary Refill: Capillary refill takes less than 2 seconds. Comments: Radial site post angiogram: clean, dry, soft. No hematoma or ecchymosis noted, nontender. Neurological: Mental Status: He is alert and oriented to person, place, and time. Psychiatric: Mood and Affect: Mood normal. Behavior: Behavior normal. Thought Content: Thought content normal. Current Meds: Current Facility-Administered Medications: acetaminophen (Tylenol) tablet 650 mg, 650 mg, oral, q6h PRN, Leslee Bansal NP aspirin EC tablet 81 mg, 81 mg, oral, Daily, Tessa Benavides MD, 81 mg at 11/25/23 0941 atorvastatin (Lipitor) tablet 80 mg, 80 mg, oral, Nightly, Tessa Benavides MD, 80 mg at 11/25/232117 azithromycin (Zithromax) tablet 500 mg, 500 mg, oral, Daily, [facility], 500 mg at 11/25/23 0941 cefTRIAXone (Rocephin) IVPB 2 g in NS 50 mL (Mini-Bag Plus), 2 g, intravenous, q24h, [facility], Stopped at 11/25/23 1423 clopidogrel (Plavix) tablet 75 mg, 75 mg, oral, Daily, Florentin Tavares MD levothyroxine (Synthroid, Levoxyl) tablet 50 mcg, 50 mcg, oral, Daily before breakfast, Leslee Bansal, FIELD ACCOUNT MANAGER, 50 mcg at 11/26/23 0537 magnesium nursing electrolyte replacement placeholder 1 each, 1 each, Does not apply, RX Placeholder, [facility] magnesium sulfate in D5W IVPB 1 g, 1 g, intravenous, q1h, Yvrose Catalan MD, Last Rate: 100 mL/hr at 11/26/23 0705, 1 g at 11/26/23 0705 melatonin tablet 5 mg, 5 mg, oral, Nightly PRN, Leslee Bansal NP nitroglycerin (Tridil) infusion 200 mcg/mL, 5-200 mcg/min, intravenous, Continuous, Tessa Benavides MD ondansetron ODT (Zofran-ODT) disintegrating tablet 4 mg, 4 mg, oral, q8h PRN OR ondansetron HCl (PF) (Zofran) injection 4 mg, 4 mg, intravenous, q6h PRN, Leslee Bansal NP Oxygen Therapy, , inhalation, Continuous PRN, [facility], Given at 11/24/23 1000 pantoprazole (ProtoNix) EC tablet 40 mg, 40 mg, oral, Daily before breakfast, Leslee Bansal, FIELD ACCOUNT MANAGER, 40 mg at 11/26/23 0536 potassium nursing electrolyte replacement placeholder, 1 each, Does not apply, RX Placeholder, [facility] QUEtiapine (SEROquel) tablet 50 mg, 50 mg, oral, Nightly, Leslee Bansal, FIELD ACCOUNT MANAGER, 50 mg at 11/25/238 tamsulosin (Flomax) 24 hr capsule 0.4 mg, 0.4 mg, oral, Daily, Leslee Bansal NP, 0.4 mg at 11/25/23 0941 Relevant Lab Results: Encounter Date: 11/24/23 ECG 12 lead Result Value Ventricular Rate 57 Atri (more content not included)... [facility] 11-25-2023 Note 11/25/23 1425 Referral Data Referral Source Physician Referral Reason Information Patient Information Accompanied by/Relationship /kids all at bedside. Activities of Daily Living Assistive Device Other (Comment) (Has a cane, rollator, build in shower chair.) Living Arrangement (Current/Prior to Hospitalization) Private residence (Multilevel home w/ 3+2 steps to enter. Lives on main level.) Ambulation Independent (Reports increased weakness w/ several falls recently.) Dressing Independent Feeding Independent Behavior Oriented Communication Talks;Understands speaking;Understands Vietnamese Income Information Income Source Unemployed (Retired, states he is able to afford basic needs.) Discharge Planning Support Systems Spouse/significant other;Children (Lives w/ , has 3 adult children w/ 2 being relatively local. has been falling at home as well.) Type of Residence Private residence Will patient need Precert for Post Acute needs? Yes Patient's goal for discharge Goal is home w/ HHC pending OT/PT recs. Does the patient need discharge transport arranged? Maybe Screened pt at bedside who is alert/ox4. Pt lives at home with his and has support from several children but only 1 lives nearby and they all work. Pt's has also been having mobility problems and reported several falls recently as well. Discussed w/ pt/family that OT/PT will be evaluating and there was potential they might recommend SNF placement and provided a list to review. Pt's goal is to return home and would be open to [facility] for home therapy. Family requested either [facility] or [facility]. Referrals sent. Will follow up after therapy sees pt. [facility] 11-25-2023 Note Patient: oJrgito Bhandari on Procedure Information Date/Time: 11/25/23 1210 Procedure: Coronary angiography Location: [facility] HANDBAG FRAMER 3 / [facility] (Cath) Providers: Florentin Tavares MD Clinical information reviewed: Tobacco Allergies Meds Med Hx Surg Hx Fam Hx Soc Hx Physical Exam Airway Mallampati: III TM distance: >3 FB Neck ROM: full Cardiovascular Rhythm: regular Rate: normal (-) murmur, friction rub, carotid bruits, peripheral edema, systolic click, JVD, weak pulses Dental Pulmonary Breath sounds clear to auscultation Abdominal (-) obese Abdomen: soft Bowel sounds: normal Other findings: Uriah's test normal L Pulses 2+ DP and PT Anesthesia Plan ASA 4 (Moderate sedation) Additional Equipment Requests [facility] 11-25-2023 Note ------ Attestation signed by Magan Bowles MD at 11/25/2023 2:45 PM I personally saw and examined the patient on the same date of service as resident/fellow Dr. Vasquez. I discussed the findings and therapeutic plan with the resident/fellow Dr. Vasquez. I agree with the documentation, except for any edits/updates below. Teaching Physician's Revisions: None ------ Cardiology Progress Note REASON FOR CONSULT Reason for Consult: SUBJECTIVE Interval History: Patient seen and examined at bedside. No overnight events. They have no complaints at this time and are doing well. Denied any chest pain, shortness of breath, orthopnea, pedal edema, PND. S/p C today. Patient is afebrile and hemodynamically stable. HPI: Jorgito Mayorga is a 83 y.o. male with a medical history significant for hypertension, hyperlipidemia, hypothyroidism, CVA who presented from [facility] with chief complains of central chest pain, described as sharp in character-rated at 4-5/10 in intensity, radiating to the upper chest/base of the neck, without relieving or aggravating factors. Patient reports that over the last week he has been having increased weakness and has fallen. He was seen at his PCPs office today who instructed him to go to the emergency department for further evaluation. 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 At [facility], initial labs were completed showing WBC 10.7, RBC 4.17, hemoglobin 13.4, hematocrit 39.6, platelet count 197, BUN 35, creatinine 1.58, lactate 1.5, calcium 8.6, AST 23, ALT 15, troponin 1042.4. EKG was completed showing sinus rhythm. CXR was completed showing low lung volume examination with moderate left basilar infiltrates. CT head was completed showing no acute intracranial abnormality, no acute infarct, no midline shift, garcia-white matter differentiation is preserved, old bilateral basal ganglia lacunar infarcts. Repeat troponin was completed which was still elevated at 950.4. OBJECTIVE Objective Objective: Visit Vitals BP 112/69 (BP Location: Left arm, Patient Position: Lying) Pulse 62 Temp 36.7 ???C (98.1 ???F) (Temporal) Resp 19 Physical Examination: Physical Exam Constitutional: Appearance: Normal appearance. HENT: Head: Normocephalic and atraumatic. Mouth/Throat: Mouth: Mucous membranes are moist. Cardiovascular: Rate and Rhythm: Normal rate and regular rhythm. Pulses: Normal pulses. Heart sounds: Normal heart sounds. Pulmonary: Effort: Pulmonary effort is normal. Breath sounds: Normal breath sounds. Abdominal: General: Abdomen is flat. Palpations: Abdomen is soft. Musculoskeletal: General: Normal range of motion. Skin: General: Skin is dry. Capillary Refill: Capillary refill takes less than 2 seconds. Neurological: Mental Status: He is alert and oriented to person, place, and time. Mental status is at baseline. Current Meds: Current Facility-Administered Medications: acetaminophen (Tylenol) tablet 650 mg, 650 mg, oral, q6h PRN, Leslee Bansal NP aspirin EC tablet 81 mg, 81 mg, oral, Daily, Tessa Benavides MD, 81 mg at 11/25/23 0941 atorvastatin (Lipitor) tablet 80 mg, 80 mg, oral, Nightly, Tessa Benavides MD, 80 mg at 11/24/23 3838 azithromycin (Zithromax) tablet 500 mg, 500 mg, oral, Daily, Erin Saravia CNP, 500 mg at 11/25/23 0941 cefTRIAXone (Rocephin) IVPB 2 g in NS 50 mL (Mini-Bag Plus), 2 g, intravenous, q24h, Erin Saravia CNP, Stopped at 11/24/23 1530 heparin infusion 100 units/mL in D5W, 0-28 Units/kg/hr, intravenous, Continuous, Leslee Bansal NP, Last Rate: 13.2 mL/hr at 11/24/23 2350, 16 Units/kg/hr at 11/24/23 2350 levothyroxine (Synthroid, Levoxyl) tablet 50 mcg, 50 mcg, oral, Daily before breakfast, Leslee Bansal NP, 50 mcg at 11/25/23 0530 magnesium nursing electrolyte replacement placeholder 1 each, 1 each, Does not apply, RX Placeholder, Erin Saravia CNP magnesium oxide (Mag-Ox) tablet 400 mg, 400 mg, oral, q8h, Joshua Brar MD, 400 mg at 11/25/23 0530 melatonin tablet 5 mg, 5 mg, oral, Nightly PRN, Leslee Bansal NP nitroglycerin (Tridil) infusion 200 mcg/mL, 5-200 mcg/min, intravenous, Continuous, Tessa Benavides MD ondansetron ODT (Zofran-ODT) disintegrating tablet 4 mg, 4 mg, oral, q8h PRN OR ondansetron HCl (PF) (Zofran) injection 4 mg, 4 mg, intravenous, q6h PRN, Leslee Bansal NP Oxygen Therapy, , inhalation, Continuous PRN, Erin Saravia CNP, Given at 11/24/23 1000 pantoprazole (ProtoNix) EC tablet 40 mg, 40 mg, oral, Daily before breakfast, Leslee Bansal, CANDIS, 40 mg at 11/25/23 0530 potassium nursing electrolyte replacement placeholder, 1 each, Does not apply, RX Placeholder, Erin Saravia CNP QUEtiapine (SEROquel) tablet 50 mg, 50 mg, oral, Nightly, Leslee Bansla, FIELD ACCOUNT MANAGER, 50 mg a (more content not included)... [facility] 11-25-2023 Note 11/25/23 0835 Admission Assessment Questions Verify insurance with patient Yes Do you understand medical disease or what brought you into the hospital? Yes Who is your current PCP? No PP listed-Updated PCP per pt stating his PCP is Jake Chowdhury Can I schedule a follow up appointment for you at the time of discharge? No Do you understand why you are taking your current medications? Yes Are you taking your medications as prescribed? Yes Did patient provide teach back? No Pharmacy Bedside Delivery Status Interested Does the patient have a correctional casework specialist assigned to them through their insurance? No Living Arrangement (Current/Prior to Hospitalization) Private residence Does the patient have history of HHC or SNF? No Assistive Device Cane Patient's goal for discharge return home with Was patient reminded that goal for discharge is 11am? Yes Does the patient have transportation at discharge? Yes (son) Type of Residence Private residence Is PT/OT appropriate? No Is PT/OT ordered? No Is SW consult appropriate? No Is SW consult ordered? No Do you understand the benefits of MyChart? Yes Were you able to send link and activate MyChart? Yes [facility] 11-25-2023 Note Hospital Medicine Daily Progress Note - 11/25/2023 7:23 AM; Room: [address] [place] [address] Admission: 11/24/2023 1:04 AM; Length of stay: 1 days THE HOSPITALIST TEAM PREFERS TO USE [employer] CHAT FOR COMMUNICATION 7AM-7PM. IF I DO NOT RESPOND WITHIN 15 MINUTES, PLEASE PAGE ME/CALL THROUGH THE FUND ACCOUNTING MANAGER. FROM 7PM-7AM, PLEASE PAGE [phone](COVR) Code Status: Full Code Barriers to Discharge: cath 11/24 Expected Discharge Date:pending cardio workup Discharge Destination: home Overview Patient is seen for evaluation and management of nstemi, cp Jorgito Mayorga is an 83 y.o. male who came from home with past medical history of hypertension, hyperlipidemia, hypothyroidism, CVA presents to [facility] as a direct admission from [facility] with a chief complaint of chest pain and elevated troponin. Subjective Patient resting in bed, family is at bedside. He denies any overnight chest pain or worsening shortness of breath. He remains on nasal cannula. He states he would like to go home. Discussed plan of care with family who states understanding. Physical Exam Visit Vitals BP 99/52 (BP Location: Left arm, Patient Position: Lying) Pulse 63 Temp 36.8 ???C (98.2 ???F) (Temporal) Resp 22 Intake/Output Summary (Last 24 hours) at 11/25/2023 0723 Last data filed at 11/25/2023 0500 Gross per 24 hour Intake 1240 ml Output 775 ml Net 465 ml Physical Exam Vitals and nursing note reviewed. Eyes: Pupils: Pupils are equal, round, and reactive to light. Cardiovascular: Rate and Rhythm: Normal rate and regular rhythm. Pulses: Normal pulses. Heart sounds: Normal heart sounds. Pulmonary: Breath sounds: Normal breath sounds. No wheezing. Comments: Increased work of breathing present Abdominal: General: There is no distension. Palpations: Abdomen is soft. Tenderness: There is no abdominal tenderness. Musculoskeletal: General: Normal range of motion. Cervical back: Normal range of motion. Right lower leg: No edema. Left lower leg: No edema. Skin: General: Skin is warm. Capillary Refill: Capillary refill takes less than 2 seconds. Neurological: Mental Status: He is alert and oriented to person, place, and time. Psychiatric: Speech: Speech is slurred (baseline). Estimated body mass index is 27.58 kg/m??? as calculated from the following: Height as of this encounter: 1.753 m (5' 9 ). Weight as of this encounter: 84.7 kg (186 lb 11.7 oz). Active Inpatient Problems Principal Problem: Chest pain Active Problems: Elevated troponin History of CVA (cerebrovascular accident) Primary hypertension HLD (hyperlipidemia) Acquired hypothyroidism Assessment and Plan Chest pain Elevated troponin Troponin 0.35, .23, 0.26, 0.27 Patient is without current chest pain Heparin gtt ordered Cardio following nitroglycerin gtt ordered Lipid profil; cholesterol 71, HDL 21, LDL 21 Echocardiogram completed today; results pending Cath planned for today BNP 308 ZAK Unclear of patient's baseline creatinine Received fluids Creatinine 1.2 today CAP Acute hypoxic respiratory failure requiring supplemental oxygen UTI-diagnosed outpatient by PCP Was initially prescribed Cefdinir by PCP CXR shows pneumonia Will start IV Rocephin and oral Azithromycin for CAP on chest xray rocephin will cover UTI Patient denies coughing with oral intake No productive cough, no fever patient continues with mild labored breathing On 2L nasal cannula History of CVA, residual deficits of mild slurred speech CT head negative Essential HTN Hyperlipidemia Acquired hypothyroidism Daily labs Monitor vitals closely PRN 02 to maintain sp02 >92% Protonix for GI prophylaxis Continue home seroquel, tamsulosin, atorvat Malnutrition Attestation: Comment: VTE Prophylaxis: IV heparin Scheduled Meds aspirin, 81 mg, oral, Daily atorvastatin, 80 mg, oral, Nightly azithromycin, 500 mg, oral, Daily cefTRIAXone, 2 g, intravenous, q24h levothyroxine, 50 mcg, oral, Daily before breakfast magnesium oxide, 400 mg, oral, q8h pantoprazole, 40 mg, oral, Daily before breakfast QUEtiapine, 50 mg, oral, Nightly tamsulosin, 0.4 mg, oral, Daily heparin, 0-28 Units/kg/hr, Last Rate: 16 Units/kg/hr (11/24/23 2350) nitroglycerin, 5-200 mcg/min Oxygen Therapy, Pertinent Investigations Hematology: Results from last 7 days Lab Units 11/25/23 0239 11/24/23 0440 11/24/23 0251 WBC AUTO 10*3/uL 8.30 -- 8.43 HEMOGLOBIN g/dL 12.2* -- 14.2 HEMATOCRIT % 35.2* -- 42.6 MCV fL 94.4 -- 97.3 PLATELETS AUTO 10*3/uL 209 -- 159 INR -- 1.29* -- Chemistry: Results from last 7 days Lab Units 11/25/23 0239 11/24/23 0825 11/24/23 0251 SODIUM mmol/L 138 -- 140 POTASSIUM mmol/L 3.7 -- 3.6 CHLORIDE mmol/L 107 -- 108* CO2 mmol/L 24 -- 18* BUN mg/dL 23 -- 28* CREATININE mg/dL 1.24 -- 1.25 GLUCOSE mg/dL 97 -- 97 MAGNESIUM mg/dL 1.7* 1.8* 1.9 CALCIUM mg/dL 8.4* -- 8.7 PHOSPHORUS mg/dL (more content not included)... [facility] 11-24-2023 Note Hospital Medicine Daily Progress Note - 11/24/2023 7:59 AM; Room: [address] [place] [address] Admission: 11/24/2023 1:04 AM; Length of stay: 0 days THE HOSPITALIST TEAM PREFERS TO USE [employer] FOR COMMUNICATION 7AM-7PM. IF I DO NOT RESPOND WITHIN 15 MINUTES, PLEASE PAGE ME/CALL THROUGH THE FUND ACCOUNTING MANAGER. FROM 7PM-7AM, PLEASE PAGE [phone](COVR) Code Status: Full Code Barriers to Discharge: cath 11/24 Expected Discharge Date:pending cardio workup Discharge Destination: home Overview Patient is seen for evaluation and management of nstemi, cp Jorgito Mayorga is an 83 y.o. male who came from home with past medical history of hypertension, hyperlipidemia, hypothyroidism, CVA presents to [facility] as a direct admission from [facility] with a chief complaint of chest pain and elevated troponin. Subjective Patient resting in bed, he is without any chest pain or distress. He does have labored breathing after repositioning in bed. Patient reports that he has been more fatigued lately and run down. Physical Exam Visit Vitals BP 102/59 (BP Location: Left arm, Patient Position: Lying) Pulse 66 Temp 36.2 ???C (97.2 ???F) (Temporal) Resp 20 Intake/Output Summary (Last 24 hours) at 11/24/2023 0759 Last data filed at 11/24/2023 0631 Gross per 24 hour Intake 217.58 ml Output 250 ml Net -32.42 ml Physical Exam Vitals and nursing note reviewed. Eyes: Pupils: Pupils are equal, round, and reactive to light. Cardiovascular: Rate and Rhythm: Normal rate and regular rhythm. Pulses: Normal pulses. Heart sounds: Normal heart sounds. Pulmonary: Breath sounds: Normal breath sounds. No wheezing. Comments: Increased work of breathing present Abdominal: General: There is no distension. Palpations: Abdomen is soft. Tenderness: There is no abdominal tenderness. Musculoskeletal: General: Normal range of motion. Cervical back: Normal range of motion. Right lower leg: No edema. Left lower leg: No edema. Skin: General: Skin is warm. Capillary Refill: Capillary refill takes less than 2 seconds. Neurological: Mental Status: He is alert and oriented to person, place, and time. Psychiatric: Speech: Speech is slurred (baseline). Estimated body mass index is 26.79 kg/m??? as calculated from the following: Height as of this encounter: 1.753 m (5' 9 ). Weight as of this encounter: 82.3 kg (181 lb 7 oz). Active Inpatient Problems Principal Problem: Chest pain Active Problems: Elevated troponin History of CVA (cerebrovascular accident) Primary hypertension HLD (hyperlipidemia) Acquired hypothyroidism Assessment and Plan Chest pain Elevated troponin Troponin 0.35, .23, 0.26, 0.27 Patient is without current chest pain Heparin gtt ordered Cardio following nitroglycerin gtt ordered Lipid profile Cath planned for tomorrow BNP 308 ZAK Unclear of patient's baseline creatinine Received fluids, will stop today to prevent fluid overload CAP Acute hypoxic respiratory failure requiring supplemental oxygen UTI-diagnosed outpatient by PCP Was initially prescribed Cefdinir by PCP CXR shows pneumonia Will start IV Rocephin and oral Azithromycin for CAP on chest xray rocephin will cover UTI Patient denies coughing with oral intake History of CVA, residual deficits of mild slurred speech CT head negative Essential HTN Hyperlipidemia Acquired hypothyroidism Daily labs Monitor vitals closely PRN 02 to maintain sp02 >92% Protonix for GI prophylaxis Continue home seroquel, tamsulosin, atorvat Malnutrition Attestation: Comment: VTE Prophylaxis: IV heparin Scheduled Meds amLODIPine, 5 mg, oral, Daily cefpodoxime, 200 mg, oral, BID levothyroxine, 50 mcg, oral, Daily before breakfast pantoprazole, 40 mg, oral, Daily before breakfast pravastatin, 40 mg, oral, Nightly QUEtiapine, 50 mg, oral, Nightly tamsulosin, 0.4 mg, oral, Daily heparin, 0-28 Units/kg/hr, Last Rate: 13 Units/kg/hr (11/24/23 0631) Pertinent Investigations Hematology: Results from last 7 days Lab Units 11/24/23 0440 11/24/23 0251 WBC AUTO 10*3/uL -- 8.43 HEMOGLOBIN g/dL -- 14.2 HEMATOCRIT % -- 42.6 MCV fL -- 97.3 PLATELETS AUTO 10*3/uL -- 159 INR 1.29* -- Chemistry: Results from last 7 days Lab Units 11/24/23 0251 SODIUM mmol/L 140 POTASSIUM mmol/L 3.6 CHLORIDE mmol/L 108* CO2 mmol/L 18* BUN mg/dL 28* CREATININE mg/dL 1.25 GLUCOSE mg/dL 97 MAGNESIUM mg/dL 1.9 CALCIUM mg/dL 8.7 PHOSPHORUS mg/dL 2.8 Results from last 7 days Lab Units 11/24/23 0251 AST U/L 31 ALT U/L 16 ALK PHOS U/L 87 BILIRUBIN TOTAL mg/dL 0.6 Historical Values: (Includes values prior to this admission) No results found for: PREALBUMIN , TSH , T3FREE , FREET4 , CORTISOL , FEV1 , APF6BPQ , DLCO , RVSP , HDL , LDL No results found for: RVIFZOGY60 , IRON , TIBC , C3 , C4 , RUBI , CANCA , ASO , PSA , CEA , CA125 , CA199 , AFP , CA153 Imaging (more content not included)... [facility] 11-24-2023 Note Hospital Medicine History and Physical 11/24/2023 2:05 AM THE HOSPITALIST TEAM PREFERS TO USE [employer] CHAT FOR COMMUNICATION 7AM-7PM. IF I DO NOT RESPOND WITHIN 15 MINUTES, PLEASE PAGE ME/CALL THROUGH THE FUND ACCOUNTING MANAGER. FROM 7PM-7AM, PLEASE PAGE [phone](COVR) Chief Complaint Direct admit from [facility] with elevated troponin and chest pain History of Present Illness Jorgito Mayorga is an 83 y.o. male who came from home with past medical history of hypertension, hyperlipidemia, hypothyroidism, CVA presents to [facility] as a direct admission from [facility] with a chief complaint of chest pain and elevated troponin. Patient reports that over the last week he has been having increased weakness and has fallen. Patient's states that she thought she noticed some mildly garbled speech that was increased from his baseline. Patient reports that he does have some slurred speech at baseline as he has had 4 strokes in the past. Patient also reports that his had fallen a few days back and that he had helped her up from the ground. He reports that shortly after doing so he began to have left-sided, sharp chest pain without radiation. He rates the pain a 3/10. He initially thought that the pain was secondary to helping his up from the ground. He also reports associated dry cough. He was seen at his PCPs office today who instructed him to go to the emergency department for further evaluation. At [facility], initial labs were completed showing WBC 10.7, RBC 4.17, hemoglobin 13.4, hematocrit 39.6, platelet count 197, BUN 35, creatinine 1.58, lactate 1.5, calcium 8.6, AST 23, ALT 15, troponin 1042.4. EKG was completed showing sinus rhythm. CXR was completed showing low lung volume examination with moderate left basilar infiltrates. CT head was completed due to concern with slurred speech showing no acute intracranial abnormality, no acute infarct, no midline shift, garcia-white matter differentiation is preserved, old bilateral basal ganglia lacunar infarcts. Repeat troponin was completed which was still elevated at 950.4. Cardiology team was contacted who recommended patient to be started on a heparin drip and transferred for possible cardiac cath in a.m. During my examination, patient is resting in bed comfortably and denying all chest pain and shortness of breath. He also denies fevers, chills, shortness of breath. Patient also reports that he was recently treated for a UTI, will continue his course of ABX. Review of System and Physical Exam Temp: [36.5 ???C (97.7 ???F)] 36.5 ???C (97.7 ???F) Heart Rate: [75] 75 Resp: [23] 23 BP: (133)/(82) 133/82 Physical Exam Vitals reviewed. Constitutional: Appearance: He is normal weight. HENT: Head: Normocephalic. Mouth/Throat: Mouth: Mucous membranes are dry. Pharynx: Oropharynx is clear. Eyes: Conjunctiva/sclera: Conjunctivae normal. Cardiovascular: Rate and Rhythm: Normal rate and regular rhythm. Pulmonary: Effort: Pulmonary effort is normal. Breath sounds: Normal breath sounds. Abdominal: General: Abdomen is flat. Bowel sounds are normal. Palpations: Abdomen is soft. Musculoskeletal: General: Normal range of motion. Cervical back: Normal range of motion. Skin: General: Skin is warm. Capillary Refill: Capillary refill takes less than 2 seconds. Neurological: General: No focal deficit present. Mental Status: He is alert. Mental status is at baseline. Psychiatric: Mood and Affect: Mood normal. Review of Systems Constitutional: Negative for appetite change and fatigue. HENT: Negative for congestion and dental problem. Eyes: Negative for discharge. Respiratory: Negative for chest tightness and shortness of breath. Cardiovascular: Positive for chest pain. Negative for palpitations. Gastrointestinal: Negative for abdominal pain, constipation, diarrhea, nausea and vomiting. Genitourinary: Negative for difficulty urinating and dysuria. Musculoskeletal: Negative for arthralgias and back pain. Skin: Negative for color change, pallor, rash and wound. Neurological: Positive for speech difficulty. Psychiatric/Behavioral: Negative for agitation and behavioral problems. Problem List Patient Active Problem List Diagnosis Date Noted Elevated troponin 11/24/2023 Chest pain 11/24/2023 History of CVA (cerebrovascular accident) 11/24/2023 Primary hypertension 11/24/2023 HLD (hyperlipidemia) 11/24/2023 Acquired hypothyroidism 11/24/2023 Assessment and Plan Jorgito Mayorga is an 83 y.o. male who came from home with past medical history of hypertension, hyperlipidemia, hypothyroidism, CVA presents to [facility] as a direct admission from [facility] with a chief complaint of chest pain and elevated troponin. #Elevated troponin #Chest pain -Troponin 1042.4->950.4 at OSH, repeat pending -EKG showed normal sinus rhythm -CXR showed moderate left basilar infiltrates, consider repeat CXR t (more content not included)... [facility] Summary Purpose Family History No Family History Records FoundNo Family History Records FoundNo Family History Records Found Advance Directives No Advanced Directives Records FoundNo Advanced Directives Records FoundNo Advanced Directives Records Found Additional Source Comments (unrecognized sect ion and content) No Status Records FoundNo Status Records FoundNo Status Records Found INFORMATION SOURCE (unrecogn ized section and content) DATE CREATED AUTHOR 05/23/2021 [facility] DATE CREATED AUTHOR AUTHOR'S ORGANIZ ATION 11/25/2023 [facility] DATE CREATED AUTHOR AUTHOR'S ORGANIZ ATION 11/30/2023 [facility] FOR RECORDS PERTAINING TO PATIENTS WHO ARE [...] BE BASED ON THE PRIMARY CLINICAL RECORDS. [facility] [employer]. provides no warranty or guarantee of the accuracy or completeness of information in this document.
[2023-12-03 12:32] LABS: Basophils Absolute Auto 0.1 10^3/uL (0.0-0.1); Basophils Percent Auto 0.5 % (0.2-2.0); Eosinophils Absolute Auto 0.2 10^3/uL (0.0-0.7); Eosinophils Percent Auto 2.3 % (0.9-7.0); Hematocrit 38.6 % (42.0-54.0); Hemoglobin 12.7 g/dL (14.0-18.0); Immature Granulocytes Abs Auto 0.05 10^3/uL (0.00-0.03); Immature Granulocytes Pct Auto 0.5 % (0.0-0.5); Lymphocytes Absolute Auto 1.7 10^3/uL (1.2-3.8); Lymphocytes Percent Auto 18.9 % (20.5-60.0); Mean Corpuscular HGB Conc 32.9 g/dL (29.9-35.2); Mean Corpuscular Hemoglobin 32.1 pg (25.9-34.0); Mean Corpuscular Volume 97.5 fL (80.0-94.0); Mean Platelet Volume 10.9 fL (9.5-13.5); Monocytes Absolute Auto 0.7 10^3/uL (0.3-0.8); Monocytes Percent Auto 7.7 % (1.7-12.0); Neutrophils Absolute Auto 6.4 10^3/uL (1.4-6.5); Neutrophils Percent Auto 70.1 % (43.0-75.0); Platelet Count 220 10^3/uL (150-450); Red Blood Count 3.96 10^6/uL (4.70-6.10); Red Cell Distribution Width 12.5 % (11.0-15.0); White Blood Count 9.1 10^3/uL (4.0-11.0)
[2023-12-03 13:47] LABS: Anion Gap 11.8; BUN Creatinine Ratio 17.7; Calcium 8.5 mg/dL (8.5-10.1); Carbon Dioxide 27.3 mmol/L (21.0-32.0); Chloride 105 mmol/L (98-107); Estimated GFR (African America 58 (>=60); Estimated GFR (Non-African Ame 48 (>=60); Glucose 100 mg/dL (74-106); Potassium 4.1 mmol/L (3.5-5.1); Sodium 140 mmol/L (136-145)
== END 2023-12-03 11:59 | disposition home or self-care (01) ==
LOC: LAB 11:59
PROVIDERS: PCP Family Medicine; Visit Provider Family Medicine
DX: I10 Essential (primary) hypertension (principal); I21.4 Non-ST elevation (NSTEMI) myocardial infarction
CPT/HCPCS: 36415; 80048; 85025

== ENCOUNTER 2023-12-12 13:09 | Emergency (ER) | payer MEDICARE, SELFPAY ==
[2023-12-12] VITALS (17 sets, daily range): BP systolic 110; BP diastolic 66; PULSE 48–60; TEMP 37; O2SAT 96–98; BMI 27.0
--- OUTSIDE RECORDS SUMMARY | 2023-12-12 13:16 | XMS_ITS | CCD ---
Author Organization [facility] Care Team Providers Care Temperature Control Inspector Name Role Phone REQUEST, DR ROA LISTED [...] Unavailable HOY, DR JOSEPH Primary Care Unavailable JATINDER, MARIA TERESA Attending Unavailable MAGAN DE LA O Referring Unavailable HORANI, JOSHUA Admitting Unavailable ALIYVROSE Attending Unavailable HORANI, JOSHUA Referring Unavailable HORANI, JOSHUA Referring Unavailable CHAITANYAFLORENTIN Referring Unavailable PIRKL, LESLEE Referring Unavailable HORANI, JOSHUA Referring Unavailable PIRKL, LESLEE Referring Unavailable Allergies Allergy Classification Reported Allergen(s) Allergy Type Date of Onset Reaction(s) Facility (1 source) ALLERGIES NOT ON FILE; Translations: [ALLERGIES NOT ON FILE] Propensity to adverse reactions (disorder) [facility] Repository Problems Problem Classification Problem Date Documented Date Episodic/Chronic Acute myocardial infarction (2 sources) Non-ST elevation (NSTEMI) myocardial infarction; Translations: [Non-ST elevation (NSTEMI) myocardial infarction] Onset: 12-08-2023 Chronic Coronary atherosclerosis and other heart disease (2 sources) Atherosclerotic heart disease of [place] coronary artery without angina pectoris; Translations: [Atherosclerotic heart disease of [place] coronary artery without angina pectoris] Onset: 12-08-2023 Chronic Disorders of lipid metabolism (4 sources) Mixed hyperlipidemia; Translations: [Hyperlipidemia, unspecified] Onset: 11-24-2023 Chronic Essential hypertension (2 sources) Essential (primary) hypertension; Translations: [Essential (primary) hypertension] Onset: 11-24-2023 Chronic Immunizations and screening for infectious disease (4 sources) Encounter for immunization; Translations: [ENCOUNTER FOR IMMUNIZATION] Onset: 04-29-2021 Episodic Nonspecific chest pain (2 sources) Chest pain, unspecified; Translations: [Chest pain, unspecified] Onset: 11-24-2023 Episodic Other and ill-defined heart disease (2 sources) Cardiomegaly; Translations: [Cardiomegaly] Onset: 12-08-2023 Chronic Pneumonia (except that caused by tuberculosis or sexually transmitted disease) (2 sources) Pneumonia, unspecified organism; Translations: [Pneumonia, unspecified organism] Onset: 11-24-2023 Episodic Residual codes; unclassified (1 source) Pain, unspecified; Translations: [Pain, unspecified] Onset: 11-24-2023 Episodic Results Test Name Value Interpretation Reference Range Facility 37on 12-08-2023 37 Stop lisinopril and monitor blood pressure 1-2 times a day, take 2 hours after morning medications Goal B/P is < 130/80 Call office for any concerns In 2-3 months (February or March have blood drawn to check liver function and cholesterol levels) must be fasting after midnight to get blood drawn Normal [facility] Follow-Upon 12-08-2023 Follow-Up [id number] Kamini Mayorga T 1940 M Date Provider Department Center 12/08/2023 MARIA TERESA GOLDMAN JANIE Rubio Family History Problem Relation Age of Onset No Known Problems Mother No Known Problems Father Family Status - Relation Status Age at Mother Father Level of Service:55595 MI OFFICE/OUTPATIENT ESTABLISHED MOD MDM 30 MIN Normal [facility] 30on 11-26-2023 30 Daily Case Managemen t [...] OT? Answer: Discharge recommendations 11/26/23 0936 Normal [facility] 30 The patient is Moderately [...] Assess patient frequently for physical needs Normal [facility] APTTon 11-26-2023 ACTIVATED PARTIAL THROMBOPLASTIN TIME IN PPP BY COAGULATION ASSAY 31.6 Seconds Normal 25.0-35.0 [facility] Comment on above: Order Comment: Check aPTT every 6 hours while on heparin infusion, or per protocol. Result Comment: Clin ical significance of the APTT is questionable in the presence of heparin. Performed By: #### L [id number] ####[facility] ([facility]AKER)[address] [place] [address] BASIC METABOLIC PANELon - Anion gap [Moles/Vol] 12 mmol/L Normal 7-20 [facility] Comment on above: Performed By: #### L [id number] #### [facility] (BEAKER) [address] [place] [address] Calcium [Mass/Vol] 8.2 mg/dL Low 8.6-10.3 [facility] Comment on above: Performed By: #### L [id number] #### [facility] (BEAKER) [address] [place] [address] Chloride [Moles/Vol] 107 mmol/L Normal 98-107 [facility] Comment on above: Performed By: #### L [id number] #### [facility] ([facility] [address] [place] [address] CO2 [Moles/Vol] 24 mmol/L Normal 21-31 [facility] Comment on above: Performed By: #### L [id number] #### [facility] ([facility]) [address] [place] [address] Creatinine [Mass/Vol] 1.24 mg/dL Normal 0.70-1.30 [facility] Comment on above: Performed By: #### L [id number] #### [facility] ([facility]) [address] [place] [address] GLOMERULAR FILTRATION RATE ML/MIN/1.73 SQ M.PREDICTED 58.0 mL/min/1.73m*2 Low >60.0 [facility] Comment on above: Result Comment: The [facility]???s estimated glomerular filtration rate (eGFR) [...] individuals. Performed By: #### L [id number] #### [facility] ([facility]) [address] [place] [address] Glucose [Mass/Vol] 89 mg/dL Normal 70-100 [facility] Comment on above: Performed By: #### L [id number] #### [facility] ([facility]) [address] [place] [address] Potassium [Moles/Vol] 3.9 mmol/L Normal 3.5-5.1 [facility] Comment on above: Performed By: #### L [id number] #### [facility] ([facility]) [address] [place] [address] Sodium [Moles/Vol] 139 mmol/L Normal 136-145 [facility] Comment on above: Performed By: #### L [id number] #### [facility] ([facility]) [address] [place] [address] Urea nitrogen [Mass/Vol] 17 mg/dL Normal 7-25 [facility] Comment on above: Performed By: #### L [id number] #### [facility] ([facility]) [address] [place] [address] UREA NITROGEN/CREATININE (MASS RATIO) IN SER/PLAS 13.7 Normal [facility] Comment on above: Performed By: #### L [id number] #### [facility] ([facility]) [address] [place] [address] CBC WITH AUTO DIFFERENTIALon 11-26-2023 Basophils (Bld) [#/Vol] 0.04 10*3/uL Normal 0.00-0.20 [facility] Comment on above: Performed By: #### L [id number] ####[facility] ([facility])[address] [place] [address] Basophils/100 WBC (Bld) 0.5 % Normal 0.0-1.0 [facility] Comment on above: Performed By: #### L [id number] ####[facility] ([facility])[address] [place] [address] Eosinophils (Bld) [#/Vol] 0.29 10*3/uL Normal 0.00-0.50 [facility] Comment on above: Performed By: #### L [id number] ####[facility] (BEAKER)[address] [place] [address] Eosinophils/100 WBC (Bld) 3.8 % Normal 0.0-6.0 [facility] Comment on above: Performed By: #### L [id number] ####[facility] (BEAKER)[address] [place] [address] Erythrocyte distribution width (RBC) [Ratio] 12.1 % Normal 11.5-15.0 [facility] Comment on above: Performed By: #### L [id number] ####[facility] ([facility])[address] [place] [address] ERYTHROCYTE MEAN CORPUSCULAR HEMOGLOBIN CONCENTRATION (G/DL) BY AUTOMATED 34.4 g/dL Normal 32.0-35.0 [facility] Comment on above: Performed By: #### L [id number] ####[facility] ([facility])[address] [place] [address] Hematocrit (Bld) [Volume fraction] 35.8 % Low 39.0-55.0 [facility] Comment on above: Performed By: #### L [id number] ####[facility] ([facility])[address] [place] [address] Hemoglobin (Bld) [Mass/Vol] 12.3 g/dL Low 13.0-17.0 [facility] Comment on above: Performed By: #### L [id number] ####[facility] ([facility])[address] [place] [address] Immature granulocytes (Bld) [#/Vol] 0.20 10*3/uL Normal 0.00-0.20 [facility] Comment on above: Performed By: #### L [id number] ####[facility] (BEAKER)[address] [place] [address] Immature granulocytes/100 WBC (Bld) 2.7 % High 0.0-1.0 [facility] Comment on above: Performed By: #### L [id number] ####[facility] (BE[facility]ER)[address] [place] [address] Lymphocytes (Bld) [#/Vol] 1.15 10*3/uL Low 1.20-4.00 [facility] Comment on above: Performed By: #### L [id number] ####[facility] (BEAKER)[address] [place] [address] Lymphocytes/100 WBC (Bld) 15.3 % Low 20.0-45.0 [facility] Comment on above: Performed By: #### L [id number] ####[facility] (BEAKER)[address] [place] [address] MCH (RBC) [Entitic mass] 32.3 pg Normal 27.0-33.0 [facility] Comment on above: Performed By: #### L [id number] ####[facility] (BEAKER)[address] [place] [address] MCV (RBC) [Entitic vol] 94.0 fL Normal 82.0-98.0 [facility] Comment on above: Performed By: #### L [id number] ####[facility] (BEAKER)[address] [place] [address] Monocytes (Bld) [#/Vol] 0.56 10*3/uL Normal 0.10-1.00 [facility] Comment on above: Performed By: #### L [id number] ####[facility] (BEAKER)[address] [place] [address] Monocytes/100 WBC (Bld) 7.4 % Normal 5.0-12.0 [facility] Comment on above: Performed By: #### L [id number] ####[facility] (BEAKER)[address] [place] [address] Neutrophils (Bld) [#/Vol] 5.30 10*3/uL Normal 1.60-7.60 [facility] Comment on above: Performed By: #### L [id number] ####[facility] (BEAKER)[address] [place] [address] Neutrophils/100 WBC (Bld) 70.3 % Normal 40.0-72.0 [facility] Comment on above: Performed By: #### L [id number] ####[facility] ([facility])[address] [place] [address] NRBC (PER 100 WBCS) BY AUTOMATED COUNT 0.0 % Normal 0 [facility] Comment on above: Performed By: #### L [id number] ####[facility] ([facility])[address] [place] [address] PLATELETS (10*3/UL) IN BLOOD AUTOMATED COUNT 209 10*3/uL Normal 150-400 [facility] Comment on above: Performed By: #### L [id number] ####[facility] ([facility])[address] [place] [address] RBC (Bld) [#/Vol] 3.81 10*6/uL Low 4.20-5.70 [facility] Comment on above: Performed By: #### L [id number] ####[facility] ([facility])[address] [place] [address] WBC (Bld) [#/Vol] 7.54 10*3/uL Normal 4.00-10.60 [facility] Comment on above: Performed By: #### L [id number] ####[facility] ([facility])[address] [place] [address] MAGNESIUMon 11-26-2023 Magnesium [Mass/Vol] 1.8 mg/dL Low 1.9-2.7 [facility] Comment on above: Performed By: #### L [id number] ####[facility] ([facility])[address] [place] [address] NURSNOTEon 11-26-2023 NURSNOTE RN informed primary [employer] TRAINEE Erin that PT/OT was unable to see [...] care. Family and pt refused SNF option. [facility] 30on 11-25-2023 30 The patient is Moderately [...] for assistance before standing Outcome: Progressing Normal [facility] 30 The patient is Moderately [...] injury: Assess patient frequently for physical needs [facility] 30 Daily Case Managemen t Update Multidisciplinary rounds have been completed. Barriers to Discharge: Pending Clinical course. Direct admit from [facility] with elevated troponin and chest pain. NPO [...] Ancillary Consults (From admission, onward) Start Ordered 11/24/23114 Inpatient consult to Social Work Once Provider: (Not yet assigned) Question Answer Comment Select all services needed for the patient Care Home Facility (30 day convalescent stay) Please indicate your approval for this care by adding your name here: ISABELL ELLISON 11/24/23 0115 Normal [facility] APTTon 11-25-2023 ACTIVATED PARTIAL THROMBOPLASTIN TIME IN PPP BY COAGULATION ASSAY 78.4 Seconds High 25.0-35.0 [facility] Comment on above: Order Comment: Check aPTT every 6 hours while on heparin infusion, or per protocol. Result Comment: Clin ical significance of the APTT is questionable in the presence of heparin. Performed By: #### L [id number] ####[facility] ([facility])[address] [place] [address] ACTIVATED PARTIAL THROMBOPLASTIN TIME IN PPP BY COAGULATION ASSAY 80.8 Seconds High 25.0-35.0 [facility] Comment on above: Order Comment: Check aPTT every 6 hours while on heparin infusion, or per protocol. Result Comment: Clin ical significance of the APTT is questionable in the presence of heparin. Performed By: #### L [id number] #### [facility] ([facility]) [address] [place] [address] BASIC METABOLIC PANELon 11-06 Anion gap [Moles/Vol] 11 mmol/L Normal 7-20 [facility] Comment on above: Performed By: #### L [id number] #### [facility] ([facility]) [address] [place] [address] Calcium [Mass/Vol] 8.4 mg/dL Low 8.6-10.3 [facility] Comment on above: Performed By: #### L [id number] #### [facility] ([facility]) [address] [place] [address] Chloride [Moles/Vol] 107 mmol/L Normal 98-107 [facility] Comment on above: Performed By: #### L [id number] #### [facility] ([facility]) [address] [place] [address] CO2 [Moles/Vol] 24 mmol/L Normal 21-31 [facility] Comment on above: Performed By: #### L [id number] #### [facility] ([facility]) [address] [place] [address] Creatinine [Mass/Vol] 1.24 mg/dL Normal 0.70-1.30 [facility] Comment on above: Performed By: #### L [id number] #### [facility] ([facility]) [address] [place] [address] GLOMERULAR FILTRATION RATE ML/MIN/1.73 SQ M.PREDICTED 58.0 mL/min/1.73m*2 Low >60.0 [facility] Comment on above: Result Comment: The [facility]???s estimated glomerular filtration rate (eGFR) [...] individuals. Performed By: #### L [id number] #### [facility] ([facility]) [address] [place] [address] Glucose [Mass/Vol] 97 mg/dL Normal 70-100 [facility] Comment on above: Performed By: #### L [id number] #### [facility] ([facility]) [address] [place] [address] Potassium [Moles/Vol] 3.7 mmol/L Normal 3.5-5.1 [facility] Comment on above: Performed By: #### L [id number] #### [facility] ([facility]) [address] [place] [address] Sodium [Moles/Vol] 138 mmol/L Normal 136-145 [facility] Comment on above: Performed By: #### L [id number] #### [facility] ([facility]) [address] [place] [address] Urea nitrogen [Mass/Vol] 23 mg/dL Normal 7-25 [facility] Comment on above: Performed By: #### L [id number] #### [facility] ([facility]) [address] [place] [address] UREA NITROGEN/CREATININE (MASS RATIO) IN SER/PLAS 18.5 Normal [facility] Comment on above: Performed By: #### L [id number] #### [facility] ([facility]) [address] [place] [address] CBC WITH AUTO DIFFERENTIALon 11-25-2023 Basophils (Bld) [#/Vol] 0.02 10*3/uL Normal 0.00-0.20 [facility] Comment on above: Performed By: #### L [id number] #### [facility] ([facility]) [address] [place] [address] Basophils/100 WBC (Bld) 0.2 % Normal 0.0-1.0 [facility] Comment on above: Performed By: #### L [id number] #### [facility] ([facility]) [address] [place] [address] Eosinophils (Bld) [#/Vol] 0.28 10*3/uL Normal 0.00-0.50 [facility] Comment on above: Performed By: #### L [id number] #### [facility] ([facility]) [address] [place] [address] Eosinophils/100 WBC (Bld) 3.4 % Normal 0.0-6.0 [facility] Comment on above: Performed By: #### L [id number] #### [facility] ([facility]) [address] [place] [address] Erythrocyte distribution width (RBC) [Ratio] 12.5 % Normal 11.5-15.0 [facility] Comment on above: Performed By: #### L [id number] #### [facility] ([facility]) [address] [place] [address] ERYTHROCYTE MEAN CORPUSCULAR HEMOGLOBIN CONCENTRATION (G/DL) BY AUTOMATED 34.7 g/dL Normal 32.0-35.0 [facility] Comment on above: Performed By: #### L [id number] #### [facility] (BEAKER) [address] [place] [address] Hematocrit (Bld) [Volume fraction] 35.2 % Low 39.0-55.0 [facility] Comment on above: Performed By: #### L [id number] #### [facility] (BEAKER) [address] [place] [address] Hemoglobin (Bld) [Mass/Vol] 12.2 g/dL Low 13.0-17.0 [facility] Comment on above: Performed By: #### L [id number] #### [facility] ([facility]) [address] [place] [address] Immature granulocytes (Bld) [#/Vol] 0.10 10*3/uL Normal 0.00-0.20 [facility] Comment on above: Performed By: #### L [id number] #### [facility] ([facility]) [address] [place] [address] Immature granulocytes/100 WBC (Bld) 1.2 % High 0.0-1.0 [facility] Comment on above: Performed By: #### L [id number] #### [facility] ([facility]) [address] [place] [address] Lymphocytes (Bld) [#/Vol] 1.57 10*3/uL Normal 1.20-4.00 [facility] Comment on above: Performed By: #### L [id number] #### [facility] (BEAKER) [address] [place] [address] Lymphocytes/100 WBC (Bld) 18.9 % Low 20.0-45.0 [facility] Comment on above: Performed By: #### L [id number] #### [facility] ([facility]) [address] [place] [address] MCH (RBC) [Entitic mass] 32.7 pg Normal 27.0-33.0 [facility] Comment on above: Performed By: #### L [id number] #### [facility] (BEAKER) [address] [place] [place] [address] MCV (RBC) [Entitic vol] 94.4 fL Normal 82.0-98.0 [facility] Comment on above: Performed By: #### L [id number] #### [facility] ([facility]) [address] [place] [place], [place] [address] Monocytes (Bld) [#/Vol] 0.73 10*3/uL Normal 0.10-1.00 [facility] Comment on above: Performed By: #### L [id number] #### [facility] ([facility]) [address] [place] [place] [address] Monocytes/100 WBC (Bld) 8.8 % Normal 5.0-12.0 [facility] Comment on above: Performed By: #### L [id number] #### [facility] ([facility]) [address] [place] [place] [address] Neutrophils (Bld) [#/Vol] 5.60 10*3/uL Normal 1.60-7.60 [facility] Comment on above: Performed By: #### L [id number] #### [facility] ([facility]) [address] [place] [place] [address] Neutrophils/100 WBC (Bld) 67.5 % Normal 40.0-72.0 [facility] Comment on above: Performed By: #### L [id number] #### [facility] ([facility]) [address] [place] [place] [address] NRBC (PER 100 WBCS) BY AUTOMATED COUNT 0.0 % Normal 0 [facility] Comment on above: Performed By: #### L [id number] #### [facility] ([facility]) [address] [place] [address] PLATELETS (10*3/UL) IN BLOOD AUTOMATED COUNT 209 10*3/uL Normal 150-400 [facility] Comment on above: Performed By: #### L [id number] #### [facility] ([facility]) [address] [place] [place] [address] RBC (Bld) [#/Vol] 3.73 10*6/uL Low 4.20-5.70 [facility] Comment on above: Performed By: #### L [id number] #### [facility] ([facility]) [address] [place] [address] WBC (Bld) [#/Vol] 8.30 10*3/uL Normal 4.00-10.60 [facility] Comment on above: Performed By: #### L [id number] #### [facility] ([facility]) [address] [place] [address] HPon 11-25-2023 HP H&P reviewed. The patient was examined and there are no changes to the H&P. Would add that L Uriah test is normal, and pulses in DP and PT are strong. We discussed expected risks and benefits, he understands and consents to proceed. Normal [facility] MAGNESIUMon 11-25-2023 Magnesium [Mass/Vol] 1.7 mg/dL Low 1.9-2.7 [facility] Comment on above: Performed By: #### L [id number] ####[facility] ([facility])[address] [place] [address] 30on 11-24-2023 30 The patient is Moderately [...] baseline comfort level Outcome: Progressing . Normal [facility] 30 The patient is Moderately [...] Free from fall injury Outcome: Progressing Normal [facility] 30 The patient is Moderately [...] acceptable level of pain Outcome: Progressing Normal [facility] 30 The patient is Moderately [...] and maintain environment to promote sleep. Normal [facility] 30 The patient is Moderately Stable - Low risk of patient condition declining or worsening The patient's goals for the shift include Go home The clinical goals for the shift include VSS Normal [facility] APTTon 11-24-2023 ACTIVATED PARTIAL THROMBOPLASTIN TIME IN PPP BY COAGULATION ASSAY 54.6 Seconds High 25.0-35.0 [facility] Comment on above: Order Comment: Check aPTT every 6 hours while on heparin infusion, or per protocol. Result Comment: Clin ical significance of the APTT is questionable in the presence of heparin. Performed By: #### L [id number] ####[facility] ([facility])[address] [place] [address] ACTIVATED PARTIAL THROMBOPLASTIN TIME IN PPP BY COAGULATION ASSAY 55.9 Seconds High 25.0-35.0 [facility] Comment on above: Order Comment: Check aPTT every 6 hours while on heparin infusion, or per protocol. Result Comment: Clin ical significance of the APTT is questionable in the presence of heparin. Performed By: #### L [id number] #### [facility] ([facility]) [address] [place] [address] ACTIVATED PARTIAL THROMBOPLASTIN TIME IN PPP BY COAGULATION ASSAY 48.6 Seconds High 25.0-35.0 [facility] Comment on above: Result Comment: Clin ical significance of the APTT is questionable in the presence of heparin. Performed By: #### L [id number] #### [facility] ([facility]) [address] [place] [address] B-TYPE NATRIURETIC PEPTIDEon 11-24-2023 Natriuretic peptide B (Bld) [Mass/Vol] 284 pg/mL High 0-100 [facility] Comment on above: Performed By: #### L [id number] #### [facility] ([facility]) [address] [place] [address] Natriuretic peptide B (Bld) [Mass/Vol] 308 pg/mL High 0-100 [facility] Comment on above: Performed By: #### L [id number] #### [facility] ([facility]) [address] [place] [address] CBC WITH AUTO DIFFERENTIALon 11-24-2023 Basophils (Bld) [#/Vol] 0.05 10*3/uL Normal 0.00-0.20 [facility] Comment on above: Performed By: #### L [id number] #### [facility] ([facility]) [address] [place] [address] Basophils/100 WBC (Bld) 0.6 % Normal 0.0-1.0 [facility] Comment on above: Performed By: #### L [id number] #### [facility] ([facility]) [address] [place] [address] Eosinophils (Bld) [#/Vol] 0.09 10*3/uL Normal 0.00-0.50 [facility] Comment on above: Performed By: #### L [id number] #### [facility] ([facility]) [address] [place] [address] Eosinophils/100 WBC (Bld) 1.1 % Normal 0.0-6.0 [facility] Comment on above: Performed By: #### L [id number] #### [facility] ([facility]) [address] [place] [address] Erythrocyte distribution width (RBC) [Ratio] 12.6 % Normal 11.5-15.0 [facility] Comment on above: Performed By: #### L [id number] #### [facility] ([facility]) [address] [place] [address] ERYTHROCYTE MEAN CORPUSCULAR HEMOGLOBIN CONCENTRATION (G/DL) BY AUTOMATED 33.3 g/dL Normal 32.0-35.0 [facility] Comment on above: Performed By: #### L [id number] #### [facility] ([facility]) [address] [place] [address] Hematocrit (Bld) [Volume fraction] 42.6 % Normal 39.0-55.0 [facility] Comment on above: Performed By: #### L [id number] #### [facility] ([facility]) [address] [place] [address] Hemoglobin (Bld) [Mass/Vol] 14.2 g/dL Normal 13.0-17.0 [facility] Comment on above: Performed By: #### L [id number] #### [facility] ([facility]) [address] [place] [address] Immature granulocytes (Bld) [#/Vol] 0.08 10*3/uL Normal 0.00-0.20 [facility] Comment on above: Performed By: #### L [id number] #### [facility] ([facility]) [address] [place] [address] Immature granulocytes/100 WBC (Bld) 0.9 % Normal 0.0-1.0 [facility] Comment on above: Performed By: #### L [id number] #### [facility] ([facility]) [address] [place] [address] Lymphocytes (Bld) [#/Vol] 1.07 10*3/uL Low 1.20-4.00 [facility] Comment on above: Performed By: #### L [id number] #### [facility] ([facility]) [address] [place] [address] Lymphocytes/100 WBC (Bld) 12.7 % Low 20.0-45.0 [facility] Comment on above: Performed By: #### L [id number] #### [facility] ([facility]) [address] [place] [address] MCH (RBC) [Entitic mass] 32.4 pg Normal 27.0-33.0 [facility] Comment on above: Performed By: #### L [id number] #### [facility] ([facility]) [address] [place] [address] MCV (RBC) [Entitic vol] 97.3 fL Normal 82.0-98.0 [facility] Comment on above: Performed By: #### L [id number] #### [facility] ([facility]) [address] [place] [address] Monocytes (Bld) [#/Vol] 0.54 10*3/uL Normal 0.10-1.00 [facility] Comment on above: Performed By: #### L [id number] #### [facility] ([facility]) [address] [place] [address] Monocytes/100 WBC (Bld) 6.4 % Normal 5.0-12.0 [facility] Comment on above: Performed By: #### L [id number] #### [facility] ([facility]) [address] [place] [place] [address] Neutrophils (Bld) [#/Vol] 6.60 10*3/uL Normal 1.60-7.60 [facility] Comment on above: Performed By: #### L [id number] #### [facility] ([facility]) [address] [place] [address] Neutrophils/100 WBC (Bld) 78.3 % High 40.0-72.0 [facility] Comment on above: Performed By: #### L [id number] #### [facility] ([facility]) [address] [place] [address] NRBC (PER 100 WBCS) BY AUTOMATED COUNT 0.0 % Normal 0 [facility] Comment on above: Performed By: #### L [id number] #### [facility] ([facility]) [address] [place] [address] PLATELETS (10*3/UL) IN BLOOD AUTOMATED COUNT 159 10*3/uL Normal 150-400 [facility] Comment on above: Performed By: #### L [id number] #### [facility] ([facility]) [address] [place] [place] [address] RBC (Bld) [#/Vol] 4.38 10*6/uL Normal 4.20-5.70 [facility] Comment on above: Performed By: #### L [id number] #### [facility] ([facility]) [address] [place] [place], [place] [address] WBC (Bld) [#/Vol] 8.43 10*3/uL Normal 4.00-10.60 [facility] Comment on above: Performed By: #### L [id number] #### [facility] ([facility]) [address] [place], [place] [address] COMPREHENSIVE METABOLIC PANE Chris 11-24-2023 Albumin [Mass/Vol] 3.5 g/dL Normal 3.5-5.7 [facility] Comment on above: Performed By: #### L [id number] ####[facility] ([facility])[address] [place] [address] ALP [Catalytic activity/Vol] 87 U/L Normal 34-104 [facility] Comment on above: Performed By: #### L [id number] ####[facility] ([facility])[address] [place] [address] ALT [Catalytic activity/Vol] 16 U/L Normal 7-52 [facility] Comment on above: Performed By: #### L [id number] ####[facility] ([facility])[address] [place] [address] Anion gap [Moles/Vol] 18 mmol/L Normal 7-20 [facility] Comment on above: Performed By: #### L [id number] ####[facility] ([facility])[address] [place] [address] AST [Catalytic activity/Vol] 31 U/L Normal 13-39 [facility] Comment on above: Performed By: #### L [id number] ####[facility] ([facility])[address] [place] [address] Bilirubin [Mass/Vol] 0.6 mg/dL Normal 0.3-1.0 [facility] Comment on above: Performed By: #### L [id number] ####[facility] ([facility])[address] [place] [address] Calcium [Mass/Vol] 8.7 mg/dL Normal 8.6-10.3 [facility] Comment on above: Performed By: #### L [id number] ####[facility] ([facility])[address] [place] [address] Chloride [Moles/Vol] 108 mmol/L High 98-107 [facility] Comment on above: Performed By: #### L [id number] ####[facility] ([facility])[address] [place] [address] CO2 [Moles/Vol] 18 mmol/L Low 21-31 [facility] Comment on above: Performed By: #### L [id number] ####[facility] ([facility])[address] [place] [address] Creatinine [Mass/Vol] 1.25 mg/dL Normal 0.70-1.30 [facility] Comment on above: Performed By: #### L [id number] ####[facility] ([facility])[address] [place] [address] GLOMERULAR FILTRATION RATE ML/MIN/1.73 SQ M.PREDICTED 57.5 mL/min/1.73m*2 Low >60.0 [facility] Comment on above: Result Comment: [facility]???s estimated glomerular filtration rate (eGFR) [...] of individuals. Performed By: #### L [id number] ####[facility] ([facility])[address] [place] [address] Glucose [Mass/Vol] 97 mg/dL Normal 70-100 [facility] Comment on above: Performed By: #### L [id number] ####[facility] ([facility])[address] [place] [address] Potassium [Moles/Vol] 3.6 mmol/L Normal 3.5-5.1 [facility] Comment on above: Performed By: #### L [id number] ####[facility] ([facility])[address] [place] [address] Protein [Mass/Vol] 6.9 g/dL Normal 6.0-8.3 [facility] Comment on above: Performed By: #### L [id number] ####[facility] ([facility])[address] [place] [address] Sodium [Moles/Vol] 140 mmol/L Normal 136-145 [facility] Comment on above: Performed By: #### L [id number] ####[facility] ([facility])[address] [place] [address] Urea nitrogen [Mass/Vol] 28 mg/dL High 7-25 [facility] Comment on above: Performed By: #### L [id number] ####[facility] (AKER)[address] [place] [address] UREA NITROGEN/CREATININE (MASS RATIO) IN SER/PLAS 22.4 Normal [facility] Comment on above: Performed By: #### L [id number] ####[facility] ([facility])[address] [place] [address] CONSULTon 11-24-2023 CONSULT -- Attestation signed by Mgaan De La O MD at 11/24/2023 2:21 PM I personally [...] hypertension, hyperlipidemia, hypothyroidism, CVA who presented from [facility] with chief complains of central chest pain, [...] x 4 with mild slurred speech. At [facility], initial labs were completed showing WBC [...] mg ca (more content not included)... Normal [facility] HEMOGLOBIN A1Con 11-24-2023 Glucose [Mass/Vol] 114 mg/dL Normal [facility] Comment on above: Performed By: #### L [id number] #### [facility] ([facility]) [address] [place] [address] HbA1c (Bld) [Mass fraction] 5.6 % Normal 4.0-6.0 [facility] Comment on above: Performed By: #### L [id number] #### [facility] ([facility]) [address] [place] [address] HPon 11-24-2023 -- Attestation signed by Magan De La O MD at 11/24/2023 2:21 PM I personally [...] hypertension, hyperlipidemia, hypothyroidism, CVA who presented from [facility] with chief complains of central chest pain, [...] x 4 with mild slurred speech. At [facility], initial labs were completed showing WBC [...] mg ca (more content not included)... Normal [facility] LACTIC ACID, PLASMAon 2023 LACTATE (MMOL/L) IN SER/PLAS 1.0 mmol/L Normal 0.5-2.2 [facility] Comment on above: Performed By: #### L [id number] ####[facility] ([facility])[address] [place] [address] LIPID PANELon 11-24-2023 CHOL/HDL 3.4 mg/dL Normal [facility] Comment on above: Performed By: #### L [id number] #### [facility] ([facility]) [address] [place] [address] Cholesterol [Mass/Vol] 71 mg/dL Low 120-200 [facility] Comment on above: Performed By: #### L [id number] #### [facility] ([facility]) [address] [place] [address] Magnesium [Mass/Vol] 146 mg/dL Normal 40-149 [facility] Comment on above: Result Comment: TRIG LYCERIDE REFERENCE RANGE: 20 YEARS AND OLDER CARDIOVASCULAR RISK LESS THAN 150 mg/dL LOW RISK 150 TO 199 mg/dL BORDERLINE RISK 200 mg/dL AND GREATER HIGH RISK Performed By: #### L [id number] #### [facility] ([facility]) [address] [place] [address] Magnesium [Mass/Vol] 21 mg/dL Low 23-92 [facility] Comment on above: Performed By: #### L [id number] #### [facility] ([facility]) [address] [place] [address] NON HDL CHOL. (LDL+VLDL) 50 Normal [facility] Comment on above: Performed By: #### L [id number] #### [facility] ([facility]) [address] [place] [address] TOTAL VLDL-C 29 mg/dL Normal 0-40 [facility] Comment on above: Performed By: #### L [id number] #### [facility] ([facility]) [address] [place] [address] MAGNESIUMon 11-24-2023 Magnesium [Mass/Vol] 1.8 mg/dL Low 1.9-2.7 [facility] Comment on above: Performed By: #### L [id number] #### [facility] ([facility]) [address] [place] [address] Magnesium [Mass/Vol] 1.9 mg/dL Normal 1.9-2.7 [facility] Comment on above: Performed By: #### L [id number] #### [facility] ([facility]) [address] [place] [address] PHOSPHORUSon 11-24-2023 Magnesium [Mass/Vol] 2.8 mg/dL Normal 2.5-5.0 [facility] Comment on above: Performed By: #### L [id number] ####[facility] ([facility])[address] [place] [address] PROTIME-INRon 11-24-2023 INR IN PPP BY COAGULATION ASSAY 1.29 High 0.90-1.10 [facility] Comment on above: Result Comment: [facility] P RECOMMENDED INR FOR WARFARIN THERAPY CONDITION [...] CHEST 1995;[id number]. Performed By: #### L [id number] ####[facility] Tip or [facility])[address] [place] [address] PROTHROMBIN TIME (PT) IN PPP BY COAGULATION ASSAY 16.0 Seconds High 12.3-14.8 [facility] Comment on above: Performed By: #### L [id number] ####[facility] ([facility])[address] [place] [address] TROPONIN Ion 11-24-2023 Troponin I.cardiac [Mass/Vol] 0.26 ng/mL Critically high 0.00-0.04 [facility] Comment on above: Result Comment: M-MI EVIOUS CRITICAL RESULT Previous result verified on 11/24/2023603 on specimen/case [id number] called with component Troponin I for procedure Troponin I with value 0.35 ng/mL. Performed By: #### L [id number] ####[facility] [employer])[address] [place] [address] Result Comment: Prev ious result verified on 11/24/2023603 on specimen/case [id number] called with component Troponin I for procedure Troponin I with value 0.35 ng/mL. Performed By: #### L [id number] #### [facility] Tip or [facility]) [address] [place] [address] Troponin I.cardiac [Mass/Vol] 0.27 ng/mL Critically high 0.00-0.04 [facility] Comment on above: Result Comment: Prev ious result verified on 11/24/2023 0604 on specimen/case [id number] called with component Troponin I for procedure Troponin I with value 0.35 ng/mL. Performed By: #### L [id number] ####[facility] ([facility])[address] [place] [address] Troponin I.cardiac [Mass/Vol] 0.23 ng/mL Critically high 0.00-0.04 [facility] Comment on above: Result Comment: Prev ious result verified on 11/24/2023 0604 on specimen/case [id number] called with component Troponin I for procedure Troponin I with value 0.35 ng/mL. Performed By: #### L [id number] #### [facility] ([facility]) [address] [place] [address] Troponin I.cardiac [Mass/Vol] 0.35 ng/mL Critically high 0.00-0.04 [facility] Comment on above: Result Comment: M-TR OPONIN INITIAL CRITICAL HIGH; RESPUN AND RETESTED Performed By: #### L [id number] #### [facility] ([facility]) [address] [place] [address] CBC AUTO DIFFon 03-21-2021 BASO # 0.0 103/ul Normal 0.0-0.1 [facility] Comment on above: Performed By: #### C BC #### [facility] [address] [place] [address] Dr. Lukas Nino Basophils/100 WBC (Bld) 0.4 % Normal 0.2-2.0 [facility] Comment on above: Performed By: #### C BC #### [facility] [address] [place] [address] Dr. Lukas Nino EO # 0.1 103/ul Normal 0.0-0.7 [facility] Comment on above: Performed By: #### C BC #### [facility] [address] [place] [address] Dr. Lukas Nino Eosinophils/100 WBC (Bld) 1.4 % Normal 0.9-7.0 [facility] Comment on above: Performed By: #### C BC #### [facility] [address] [place] [address] Dr. Lukas Nino Erythrocyte distribution width (RBC) [Ratio] 13.0 % Normal 11.0-15.0 [facility] Comment on above: Performed By: #### C BC #### [facility] [address] [place] [address] Dr. Lukas Nino Hematocrit (Bld) [Volume fraction] 42.1 % Normal 42.0-54.0 [facility] Comment on above: Performed By: #### C BC #### [facility] [address] [place] [address] Dr. Lukas Nino Hemoglobin (Bld) [Mass/Vol] 14.5 g/dL Normal 14.0-18.0 [facility] Comment on above: Performed By: #### C BC #### [facility] [address] [place] [address] Dr. Lukas Nino IG # 0.03 10e3/ul Normal 0.00-0.03 [facility] Comment on above: Performed By: #### C BC #### [facility] [address] [place] [address] Dr. Lukas Nino IG % 0.4 % Normal 0.0-0.5 [facility] Comment on above: Performed By: #### C BC #### [facility] [address] [place] [address] Dr. Lukas Nino LYMPH # 1.7 103/ul Normal 1.2-3.8 [facility] Comment on above: Performed By: #### C BC #### [facility] [address] [place] [address] Dr. Lukas Nino Lymphocytes/100 WBC (Bld) 20.6 % Normal 20.5-60.0 [facility] Comment on above: Performed By: #### C BC #### [facility] [address] [place] [address] Dr. Lukas Nino MANUAL DIFF REQ NO Normal [facility] Comment on above: Performed By: #### C BC #### [facility] [address] [place] [address] [address] Lukas Nino MCH (RBC) [Entitic mass] 33.0 pg Normal 25.9-34.0 [facility] Comment on above: Performed By: #### C BC #### [facility] [address] [address] [address] Lukas Nino MCHC (RBC) [Mass/Vol] 34.4 g/dL Normal 29.9-35.2 [facility] Comment on above: Performed By: #### C BC #### [facility] [address] [place] [address] Dr. Lukas Nino MCV (RBC) [Entitic vol] 95.9 fL Critically high 80.0-94.0 [facility] Comment on above: Performed By: #### C BC #### [facility] [address] [place] [address] Dr. Lukas Nino MONO # 0.6 103/ul Normal 0.3-0.8 [facility] Comment on above: Performed By: #### C BC #### [facility] [address] [place] [address] Dr. Lukas Nino Monocytes/100 WBC (Bld) 7.2 % Normal 1.7-12.0 [facility] Comment on above: Performed By: #### C BC #### [facility] [address] [place] [address] Dr. Lukas Nino NEUT # 5.6 103/ul Normal 1.4-6.5 [facility] Comment on above: Performed By: #### C BC #### [facility] [address] [place] [address] Dr. Lukas Nino Neutrophils/100 WBC (Bld) 70.0 % Normal 43.0-75.0 [facility] Comment on above: Performed By: #### C BC #### [facility] [address] [place] [address] Dr. Lukas Nino Platelet mean volume (Bld) [Entitic vol] 11.1 fL Normal 9.5-13.5 [facility] Comment on above: Performed By: #### C BC #### [facility] [address] [address] [address] Lukas Nino PLT 129 103/ul Critically low 150-450 [facility] Comment on above: Result Comment: few plt clumps Performed By: #### C BC #### [facility] [address] [address] [address] Lukas Nino RBC 4.39 106/ul Critically low 4.70-6.10 [facility] Comment on above: Performed By: #### C BC #### [facility] [address] [address] [address] Lukas Nino WBC 8.0 103/ul Normal 4.0-11.0 [facility] Comment on above: Performed By: #### C BC #### [facility] [address] [address] [address] Lukas Nino FREE THYROXINE INDEX T7on FTI 2.05 Normal [facility] Comment on above: Performed By: #### T SH, CMP, LIPID, URIC, T7 #### [facility] [address] [address] [address] Lukas Nino T3U 33.0 % Normal 23.5-40.5 [facility] Comment on above: Performed By: #### T SH, CMP, LIPID, URIC, T7 #### [facility] [address] [address] [address] Lukas Nino T4 [Mass/Vol] 6.20 ug/dL Normal 5.53-11.00 [facility] Comment on above: Performed By: #### T SH, CMP, LIPID, URIC, T7 #### [facility] [address] [address] [address] Lukas Nino GLYCOHEMOGLOBIN A1Con 2020 ADA RECOMMENDATION ADA THERAPEUTIC TARG ET 6.0 - 7.0 ACTION SUGGESTED > 7.0 Normal [facility] Comment on above: Performed By: #### A 1C #### [facility] [address] [address] [address] Lukas Nino Glucose [Mass/Vol] 103 mg/dL Normal [facility] Comment on above: Performed By: #### A 1C #### [facility] [address] [address] [address] Lukas Nino HbA1c (Bld) [Mass fraction] 5.2 % Normal <=6.0 [facility] Comment on above: Performed By: #### A 1C #### [facility] [address] [address] [address] Lukas Nino LIPID PROFILEon 03-21-2021 CHOL-HDL RATIO NORM SEE BELOW Normal [facility] Comment on above: Result Comment: 3.3 - 4.4 LOW RISK 4.4 - 7.1 AVERAGE RISK 7.1 - 11.0 MODERATE RISK >11.0 HIGH RISK Performed By: #### T SH, CMP, LIPID, URIC, T7 #### [facility] [address] [address] [address] Lukas Nino Cholesterol [Mass/Vol] 121 mg/dL Normal <=200 [facility] Comment on above: Performed By: #### T SH, CMP, LIPID, URIC, T7 #### [facility] [address] [address] [address] Lukas Nino Cholesterol in HDL [Mass/Vol] 38 mg/dL Normal [facility] Comment on above: Performed By: #### T SH, CMP, LIPID, URIC, T7 #### [facility] [address] [address] [address] Lukas Nino Cholesterol in LDL [Mass/Vol] 66.4 mg/dL Normal [facility] Comment on above: Performed By: #### T SH, CMP, LIPID, URIC, T7 #### [facility] [address] [address] [address] Lukas Nino Cholesterol.total/Ch olesterol in HDL [Mass ratio] 3.2 {ratio} Normal [facility] Comment on above: Performed By: #### T SH, CMP, LIPID, URIC, T7 #### [facility] [address] [address] [address] Lukas Nino HDL NORMAL > or = 60 mg/dl - LO W CARDIOVASCULAR RISK <40 mg/dl - HIGH CARDIOVASCULAR RISK Normal [facility] Comment on above: Performed By: #### T SH, CMP, LIPID, URIC, T7 #### [facility] [address] [address] [address] Lukas Nino LDL CALC NORMAL SEE BELOW Normal [facility] Comment on above: Result Comment: <100 mg/dl OPTIMAL 100 - 129 mg/dl NEAR OR ABOVE OPTIMAL 130 - 159 mg/dl BORDERLINE HIGH 160 - 189 mg/dl HIGH >190 mg/dl VERY HIGH Performed By: #### T SH, CMP, LIPID, URIC, T7 #### [facility] [address] [address] [address] Lukas Nino Triglyceride [Mass/Vol] 83 mg/dL Normal <=150 [facility] Comment on above: Performed By: #### T SH, CMP, LIPID, URIC, T7 #### [facility] [address] [address] [address] Lukas Nino VLDL CALC 16.6 mg/dL Normal [facility] Comment on above: Performed By: #### T SH, CMP, LIPID, URIC, T7 #### [facility] [address] [address] [address] Lukas Nino PROF 14(COMP METB)on 03-21- 021 Albumin [Mass/Vol] 3.7 g/dL Normal 3.5-5.0 [facility] Comment on above: Performed By: #### T SH, CMP, LIPID, URIC, T7 #### [facility] [address] [address] [address] Lukas Nino Albumin/Globulin [Mass ratio] 1.0 {ratio} Normal [facility] Comment on above: Performed By: #### T SH, CMP, LIPID, URIC, T7 #### [facility] [address] [address] [address] Lukas Nino ALP [Catalytic activity/Vol] 86 U/L Normal 38-126 [facility] Comment on above: Performed By: #### T SH, CMP, LIPID, URIC, T7 #### [facility] [address] [address] [address] Lukas Nino ALT [Catalytic activity/Vol] 18 U/L Critically low 21-72 [facility] Comment on above: Performed By: #### T SH, CMP, LIPID, URIC, T7 #### [facility] [address] [address] [address] Lukas Nino Anion gap [Moles/Vol] 9.5 mmol/L Normal [facility] Comment on above: Performed By: #### T SH, CMP, LIPID, URIC, T7 #### [facility] [address] [place] [address] Dr. Lukas Nino AST [Catalytic activity/Vol] 18 U/L Normal 17-59 [facility] Comment on above: Performed By: #### T SH, CMP, LIPID, URIC, T7 #### [facility] [address] [place] [address] Dr. Lukas Nino Bilirubin [Mass/Vol] 0.8 mg/dL Normal 0.2-1.3 [facility] Comment on above: Performed By: #### T SH, CMP, LIPID, URIC, T7 #### [facility] [address] [place] [address] Dr. Lukas Nino Calcium [Mass/Vol] 8.9 mg/dL Normal 8.4-10.2 [facility] Comment on above: Performed By: #### T SH, CMP, LIPID, URIC, T7 #### [facility] [address] [place] [address] Dr. Lukas Nino Chloride [Moles/Vol] 106 mmol/L Normal 98-107 [facility] Comment on above: Performed By: #### T SH, CMP, LIPID, URIC, T7 #### [facility] [address] [address] [address] Lukas Nino CO2 [Moles/Vol] 28.2 mmol/L Normal 22.0-30.0 [facility] Comment on above: Performed By: #### T SH, CMP, LIPID, URIC, T7 #### [facility] [address] [address] [address] Lukas Nino Creatinine [Mass/Vol] 1.26 mg/dL Critically high 0.66-1.25 [facility] Comment on above: Performed By: #### T SH, CMP, LIPID, URIC, T7 #### [facility] [address] [place] [address] Dr. Lukas Nino EGFR-AF AUSTRIAN >60 Normal >=60 [facility] Comment on above: Performed By: #### T SH, CMP, LIPID, URIC, T7 #### [facility] [address] [place] [address] Dr. Lukas Nino EGFR-NON AF AUSTRIAN 55 mL/min/1.73m2 Critically low >=60 [facility] Comment on above: Performed By: #### T SH, CMP, LIPID, URIC, T7 #### [facility] [address] [place] [address] Dr. Lukas Nino Globulin (S) [Mass/Vol] 3.7 g/dL Normal [facility] Comment on above: Performed By: #### T SH, CMP, LIPID, URIC, T7 #### [facility] [address] [place] [address] Dr. Lukas Nino Glucose [Mass/Vol] 76 mg/dL Normal 74-106 [facility] Comment on above: Performed By: #### T SH, CMP, LIPID, URIC, T7 #### [facility] [address] [place] [address] Dr. Lukas Nino Potassium [Moles/Vol] 3.7 mmol/L Normal 3.4-5.0 [facility] Comment on above: Performed By: #### T SH, CMP, LIPID, URIC, T7 #### [facility] [address] [place] [address] Dr. Lukas Nino Protein [Mass/Vol] 7.4 g/dL Normal 6.1-8.2 [facility] Comment on above: Performed By: #### T SH, CMP, LIPID, URIC, T7 #### [facility] [address] [place] [address] Dr. Lukas Nino Sodium [Moles/Vol] 140 mmol/L Normal 137-145 [facility] Comment on above: Performed By: #### T SH, CMP, LIPID, URIC, T7 #### [facility] [address] [address] [address] Lukas Nino Urea nitrogen [Mass/Vol] 15.0 mg/dL Normal 9.0-20.0 [facility] Comment on above: Performed By: #### T SH, CMP, LIPID, URIC, T7 #### [facility] [address] [address] [address] Lukas Nino Urea nitrogen/Creatinine [Mass ratio] 11.9 mg/mg Normal [facility] Comment on above: Performed By: #### T SH, CMP, LIPID, URIC, T7 #### [facility] [address] [address] [address] Lukas Nino TSHon 03-21-2021 TSH 2.594 uIU/mL Normal 0.470-4.680 [facility] Comment on above: Performed By: #### T SH, CMP, LIPID, URIC, T7 #### [facility] [address] [address] [address] Lukas Nino TSH RANGE SEE BELOW Normal [facility] Comment on above: Result Comment: <0.3 4 UIU/ml HYPERTHYROID 0.34-5.60 UIU/ml EUTHYROID >5.60 UIU/ml HYPOTHYROID Performed By: #### T SH, CMP, LIPID, URIC, T7 #### [facility] [address] [address] [address] Lukas Nino URIC ACID SERUMon 03-21-2021 Urate [Mass/Vol] 6.5 mg/dL Normal 3.5-8.5 [facility] Comment on above: Performed By: #### T SH, CMP, LIPID, URIC, T7 #### [facility] [address] [address] [address] Lukas Nino Encounters Encounter Date Encounter Type Care Provider Facility Start: 12-08-2023 End: 12-08-2023 ambulatory MARIA TERESA TOBIAS [facility] Start: 11-25-2023 Evaluation and management of inpatient RONALDOKENTRELL CHAITANYA [facility] Start: 11-25-2023 Evaluation and management of inpatient LESLEE PIRKL [facility] Start: 11-25-2023 Evaluation and management of inpatient JOSHUA BRAR [facility] Start: 11-24-2023 Evaluation and management of inpatient JOSHUA BRAR [facility] Start: 11-24-2023 ambulatory [facility] Start: 11-24-2023 End: 11-26-2023 Evaluation and management of inpatient MAGAN DE LA O [facility] Start: 04-29-2021 End: 04-30-2021 ambulatory TRAMAINE GOLDEN Facility:[facility] Start: 03-21-2021 End: 03-21-[address] JAKE CHOWDHURY Facility:[facility] Start: 08-27-2020 End: 08-28-[address] ROA LISTED REQUEST Facility:[facility] Start: 08-05-2020 End: 08-06-[address] JAKE CHOWDHURY Facility:[facility] Procedures Date Procedure Procedure Detail Performing Clinician Start: 03-21-[address] ROA L ISTED REQUEST Comment on above: Performed By: #### P [facility] #### [facility] [address] [place] [address] Dr. Lukas Nino Payers Date Payer Category Payer Medicare [id number] 1958 Self-pay [id number] 1940 Unknown [id number] [id number] [id number] Unknown [id number] 2.16.84 [id number] Unknown [id number] [id number] [id number] Unknown [id number] [id number] [id number] Clinical Notes 11-24-2023 to 12-08-2023 Note Date & Type Note Facility 12-08-2023 Note Will monitor with Ec hocardiogram and symptoms No fluid overload symptoms noted today [facility] 12-08-2023 Note Will repeat lipid le nalini and LFT in 2-3 months since starting lipitor as inpt from simvastatin. Of Note as inpt at [facility] Chol was 71 and LDL was 21 [facility] 12-08-2023 Note No c/o chest pain/SO B but he remains fatigued s/p NSTEMI May be r/t hypotension- will hold lisinopril [facility] 12-08-2023 Note Currently b/p is lab ile today with noted fatigue s/p hospitalization Will stop lisinopril, instructed pt and to monitor b/p at home and if > 130/80 may need lisinopril 2.5 mg added- they voiced understanding Continue toprol [facility] 12-08-2023 Note Patient here for [facility] for NSTEMI. Still weak and tired s/p hospital stay. Denies chest pain, SOB, palpitations, and lightheadedness/syncope. says the home health nurse saw him yesterday morning and said his HR was 47. He was told his BP was ok. Review of Systems Constitutional: Positive for malaise/fatigue. Respiratory: Positive for cough. Musculoskeletal: Positive for muscle weakness. Neurological: Positive for focal weakness and weakness. All other systems reviewed and are negative. [facility] 12-08-2023 Note UTP CARDIOLOGY PROGR ESS NOTE HPI: Jorgito Mayorga is a 83 y.o. male here for hospital f/U HPI 83 yo male presents today for f/U after recent hospitalization with transfer to [facility] for DC and cardiac cath with PCI to LAD. He presented initially to [facility] with chest pain and was noted to have very elevated troponin levels and then transferred to [facility]. Known past medical history of hypertension, hyperlipidemia, hypothyroidism, CVA Reports that home health nurse reported his HR was 47 yesterday, and b/p was OK. Review of Systems Constitutional: Positive for malaise/fatigue. Respiratory: Positive for cough. Musculoskeletal: Positive for muscle weakness. Neurological: Positive for focal weakness and weakness. All other systems reviewed and are negative. 11/23-11/26/23 Discharge Summary Final Discharge Diagnosis: Chest pain-resolved [...] of hypertension, hyperlipidemia, hypothyroidism, CVA presents to [facility] as a direct admission from [facility] with a chief complaint of chest [...] the emergency department for further evaluation. At [facility], initial labs were completed showing WBC [...] elevated at 950.4. Patient was transferred to [facility] for further cardiac workup. Patient's baseline kidney [...] air and discharged home in stable condition. Visit Vitals BP 94/60 (BP Location: Right arm, Patient Position: Sitting) Pulse 62 Ht 1.753 m (5' 9 ) Wt 83 kg (183 lb) Comment: stated SpO2 (!) 88% BMI 27.02 kg/m??? Smoking Status Never BSA 2.01 m??? No Known Allergies Medications: Current Outpatient Medications on File Prior to Visit Medication Sig Dispense Refill aspirin 81 mg chewable tablet Chew 81 mg in the morning. atorvastatin (Lipitor) 80 mg tablet Take 1 tablet (80 mg) by mouth at bedtime. 30 tablet 0 clopidogrel (Plavix) 75 mg tablet Take 1 tablet (75 mg) by mouth in the morning. Do not start before November 27, 2023. 30 tablet 0 levothyroxine (Synthroid, Levoxyl) 50 mcg tablet Take 50 mcg by mouth before breakfast. metoprolol succinate XL (Toprol-XL) 25 mg 24 hr tablet Take 0.5 tablets (12.5 mg) by mouth in the evening. Do not crush or chew. 15 tablet 0 pantoprazole (ProtoNix) 40 mg EC tablet Take 40 mg by mouth before breakfast. QUEtiapine (SEROquel) 50 mg tablet Take 50 mg by mouth at bedtime. t (more content not included)... [facility] 12-08-2023 Note Continue GDMT- DAPT x1 year, continue plavix x 1 year, ASA and statin lifelong- lipitor, toprol and lisinopril. continue risk factor modifications- heart healthy diet, regular exercise as tolerated and continue all medications. [facility] 11-26-2023 Note Hospital Medicine Discharge Summary Final [...] of hypertension, hyperlipidemia, hypothyroidism, CVA presents to [facility] as a direct admission from [facility] with a chief complaint of chest [...] the emergency department for further evaluation. At [facility], initial labs were completed showing WBC [...] elevated at 950.4. Patient was transferred to [facility] for further cardiac workup. Patient's baseline kidney [...] Time Provider Department Center 12/08/2023 9:20 AM Maria Teresa Tobias NP [facility] Your medication list [...] Get Your Medications (more content not included)... [facility] 11-26-2023 Note Final [facility]S completed[facility] Pe[employer]ator sent final AVS to [facility]. [facility] 11-26-2023 Note Hospital Medicine Daily Progress Note - 11/26/2023 1:03 PM; Room: [address] [place] [address] Admission: 11/24/2023 1:04 AM; Length of stay: 2 days THE HOSPITALIST TEAM PREFERS TO USE [employer] CHAT FOR COMMUNICATION 7AM-7PM. IF I DO NOT RESPOND WITHIN 15 MINUTES, PLEASE PAGE ME/CALL THROUGH THE ROTOR PILOT. FROM 7PM-7AM, PLEASE PAGE [phone](COVR) Code Status: Full Code Barriers to Discharge: PT/OT eval Expected Discharge Date: Pending discharge location, patient cleared to discharge by cardiology team Discharge Destination: home vs snf Overview Patient is seen for evaluation and management of nstemi, cp Jorgito Mayorga is an 83 y.o. male who came from home with past medical history of hypertension, hyperlipidemia, hypothyroidism, CVA presents to [facility] as a direct admission from [facility] with a chief complaint of chest [...] 7 days Lab (more content not included)... [facility] 11-26-2023 Note Cardiology Progress Note REASON FOR CONSULT Reason for Consult: NSTEMI SUBJECTIVE Interval History: Patient examined at bedside after coronary angiogram yesterday with successful PCI to LAD via radial artery approach. He denies cp, sob, edema, palpitations. He is eager to go home. No events to report from nursing. Tele overnight: SB/SR 59-71 bpm HPI: Jorgito Mayorga is a 83 y.o. male with a medical history significant for hypertension, hyperlipidemia, hypothyroidism, CVA who presented from [facility] with chief complains of central chest pain, [...] x 4 with mild slurred speech. At [facility], initial labs were completed showing WBC [...] Nightly, Tessa Benavides MD, 80 mg at 11/25/23 2118 azithromycin (Zithromax) tablet 500 mg, 500 mg, oral, Daily, [facility], 500 mg at 11/25/23 0941 cefTRIAXone (Rocephin) IVPB 2 g in NS 50 mL (Mini-Bag Plus), 2 g, intravenous, q24h, [facility], Stopped at 11/25/23 1423 clopidogrel (Plavix) tablet 75 mg, 75 mg, oral, Daily, Florentin Christie MD levothyroxine (Synthroid, Levoxyl) tablet 50 mcg, 50 mcg, oral, Daily before breakfast, Leslee Bansal NP, 50 mcg at 11/26/23 0537 magnesium nursing electrolyte replacement placeholder 1 each, 1 each, Does not apply, RX Placeholder, [facility] magnesium sulfate in D5W IVPB 1 g, 1 g, intravenous, q1h, Yvrose Catalan MD, Last Rate: 100 mL/hr at 11/26/23 0705, 1 g at 11/26/23 0705 melatonin tablet 5 mg, 5 mg, oral, Nightly PRN, Leslee Bansal, [employer] nitroglycerin (Tridil) infusion 200 mcg/mL, 5-200 mcg/min, intravenous, Continuous, Tessa Benavides MD ondansetron ODT (Zofran-ODT) disintegrating tablet 4 mg, 4 mg, oral, q8h PRN OR ondansetron HCl (PF) (Zofran) injection 4 mg, 4 mg, intravenous, q6h PRN, Leslee Bansal, [employer] Oxygen Therapy, , inhalation, Continuous PRN, Erin Saravia CNP, Given at 11/24/23 1000 pantoprazole (ProtoNix) EC tablet 40 mg, 40 mg, oral, Daily before breakfast, Leslee Pirkl, [employer], 40 mg at 11/26/23 0536 potassium nursing electrolyte replacement placeholder, 1 each, Does not apply, RX Placeholder, Erin Saravia CNP QUEtiapine (SEROquel) tablet 50 mg, 50 mg, oral, Nightly, Leslee Pirkl, [employer], 50 mg at 11/25/23 2118 tamsulosin (Flomax) 24 hr capsule 0.4 mg, 0.4 mg, oral, Daily, Leslee Pirkl, [employer], 0.4 mg at 11/25/23 0941 Relevant Lab Results: Encounter Date: 11/24/23 ECG 12 lead Result Value Ventricular Rate 57 Atri (more content not included)... [facility] 11-25-2023 Note 11/25/23 1425 Referral [...] Feeding Independent Behavior Oriented Communication Talks;Understands speaking;Understands [place] Income Information Income Source Unemployed (Retired, states [...] return home and would be open to [facility] for home therapy. Family requested either [facility] or [facility]. Referrals sent. Will follow up after therapy sees pt. [facility] 11-25-2023 Note Patient: Jorgito Bhandari on Procedure Information Date/Time: 11/25/23 1210 Procedure: Coronary angiography Location: [facility] / [facility] (Cath) Providers: Florentin Christie MD Clinical information reviewed: Tobacco Allergies Meds [...] ASA 4 (Moderate sedation) Additional Equipment Requests [facility] 11-25-2023 Note ------ Attestation signed by Magan De La O MD at 11/25/2023 2:45 PM I personally [...] of breath, orthopnea, pedal edema, PND. S/p LHC today. Patient is afebrile and hemodynamically stable. HPI: Jorgito Mayorga is a 83 y.o. male with a medical history significant for hypertension, hyperlipidemia, hypothyroidism, CVA who presented from [facility] with chief complains of central chest pain, [...] x 4 with mild slurred speech. At [facility], initial labs were completed showing WBC [...] Tessa Benavides MD, 80 mg at 11/24/23 2137 azithromycin (Zithromax) tablet 500 mg, 500 mg, [...] mg, 5 mg, oral, Nightly PRN, Leslee Bansal, [employer] nitroglycerin (Tridil) infusion 200 mcg/mL, 5-200 mcg/min, intravenous, Continuous, Tessa Benavides MD ondansetron ODT (Zofran-ODT) disintegrating tablet 4 mg, 4 mg, oral, q8h PRN OR ondansetron HCl (PF) (Zofran) injection 4 mg, 4 mg, intravenous, q6h PRN, Leslee Bansal, [employer] Oxygen Therapy, , inhalation, Continuous PRN, Erin Sarvaia CNP, Given at 11/24/23 1000 pantoprazole (ProtoNix) EC tablet 40 mg, 40 mg, oral, Daily before breakfast, Leslee Bansal, [employer], 40 mg at 11/25/23 0530 potassium nursing electrolyte replacement placeholder, 1 each, Does not apply, RX Placeholder, Erin Saravia CNP QUEtiapine (SEROquel) tablet 50 mg, 50 mg, oral, Nightly, Leslee Bansal, [employer], 50 mg a (more content not included)... [facility] 11-25-2023 Note 11/25/23 0835 Admission [...] Status Interested Does the patient have a case management coordinator assigned to them through their insurance? No [...] to send link and activate MyChart? Yes [facility] 11-25-2023 Note Hospital Medicine Daily Progress Note - 11/25/2023 7:23 AM; Room: 3185/3185-01 Admission: 11/24/2023 1:04 AM; Length of stay: 1 days THE HOSPITALIST TEAM PREFERS TO USE [employer] CHAT FOR COMMUNICATION 7AM-7PM. IF I DO NOT RESPOND WITHIN 15 MINUTES, PLEASE PAGE ME/CALL THROUGH THE ROTOR PILOT. FROM 7PM-7AM, PLEASE PAGE [phone](COVR) Code Status: Full Code Barriers to Discharge: cath 11/24 Expected Discharge Date:pending cardio workup Discharge Destination: home Overview Patient is seen for evaluation and management of nstemi, cp Jorgito Mayorga is an 83 y.o. male who came from home with past medical history of hypertension, hyperlipidemia, hypothyroidism, CVA presents to [facility] as a direct admission from [facility] with a chief complaint of chest [...] from last 7 days Lab Units 11/25/23 02311/24/23 0440 11/24/23 0251 WBC AUTO 10*3/uL 8.30 [...] 8.7 PHOSPHORUS mg/dL (more content not included)... [facility] 11-24-2023 Note Hospital Medicine Daily Progress Note - 11/24/2023 7:59 AM; Room: [address] [place] [address] Admission: 11/24/2023 1:04 AM; Length of stay: 0 days THE HOSPITALIST TEAM PREFERS TO USE [employer] CHAT FOR COMMUNICATION 7AM-7PM. IF I DO NOT RESPOND WITHIN 15 MINUTES, PLEASE PAGE ME/CALL THROUGH THE ROTOR PILOT. FROM 7PM-7AM, PLEASE PAGE [phone](COVR) Code Status: Full Code Barriers to Discharge: cath 11/24 Expected Discharge Date:pending cardio workup Discharge Destination: home Overview Patient is seen for evaluation and management of nstemi, cp Jorgito Mayorga is an 83 y.o. male who came from home with past medical history of hypertension, hyperlipidemia, hypothyroidism, CVA presents to [facility] as a direct admission from [facility] with a chief complaint of chest [...] , FREET4 , CORTISOL , FEV1 , XFC2IAK , DLCO , RVSP , HDL , LDL No results found for: ABAUCFCT00 , IRON , TIBC , C3 , C4 , RUBI , CANCA , ASO , PSA , CEA , CA125 , CA199 , AFP , CA153 Imaging (more content not included)... [facility] 11-24-2023 Note Hospital Medicine History and Physical 11/24/2023 2:05 AM THE HOSPITALIST TEAM PREFERS TO USE [employer] CHAT FOR COMMUNICATION 7AM-7PM. IF I DO NOT RESPOND WITHIN 15 MINUTES, PLEASE PAGE ME/CALL THROUGH THE ROTOR PILOT. FROM 7PM-7AM, PLEASE PAGE [phone](COVR) Chief Complaint Direct admit from [facility] with elevated troponin and chest pain History of Present Illness Jorgito Mukesh is an 83 y.o. male who came from home with past medical history of hypertension, hyperlipidemia, hypothyroidism, CVA presents to [facility] as a direct admission from [facility] with a chief complaint of chest [...] the emergency department for further evaluation. At [facility], initial labs were completed showing WBC [...] of hypertension, hyperlipidemia, hypothyroidism, CVA presents to [facility] as a direct admission from [facility] with a chief complaint of chest pain and elevated troponin. #Elevated troponin #Chest pain -Troponin 1042.4->950.4 at OSH, repeat pending -EKG showed normal sinus rhythm -CXR showed moderate left basilar infiltrates, consider repeat CXR t (more content not included)... [facility] Summary Purpose Family History No [...] and content) DATE CREATED AUTHOR 05/23/2021 [facility] DATE CREATED AUTHOR AUTHOR'S ORGANIZ ATION 11/25/2023 [facility] DATE CREATED AUTHOR AUTHOR'S ORGANIZ ATION 12/09/2023 [facility] FOR RECORDS PERTAINING TO PATIENTS WHO [...] BE BASED ON THE PRIMARY CLINICAL RECORDS. [employer] [facility]. provides no warranty or guarantee of the accuracy or completeness of information in this document.
--- NOTE | 2023-12-12 14:35 | ECG_ITS ---
The [facility] Test Date: 2023-12-12 Pat Name: KAEL PULIDO Department: Room: - Gender: Male [employer]: : 1940 Requested By: JAKE VAUGHAN Order Number: [id number] Reading MD: JAKE VAUGHAN Measurements Intervals [place] Rate: 49 P: 8 PA: 158 QRS: 28 QRSD: 96 T: 45 QT: 438 QTc: 407 Interpretive Statements 1130 Sinus bradycardia 9140 abnormal rhythm ECG Compared to ECG 11/23/2023 16:04:00 Sinus rhythm no longer present Electronically Signed On 12-13-2023 7:46:37 EDT by JAKE VAUGHAN
--- NOTE | 2023-12-12 14:35 | XR_ITS ---
The [address] [address] Patient Name: KAEL PULIDO MRN: [id number] date: 1940 Sex: M Assigned Patient Location: ER Current Patient Location: ER Accession/Order Number: [id number] Exam Date: 12/12/2023 15:00 Report Date: 12/12/2023 15:26 At the request of: DANNIELLE WASHINGTON Procedure: XR foot RT min 3V EXAM: XR foot RT min 3V HISTORY: swelling COMPARISON: Right ankle x-ray 12/12/2023 TECHNIQUE: AP, oblique, lateral x-ray right foot. FINDINGS: No fracture or healing fracture. No bony erosion or destruction or periosteal reaction. Joints unremarkable. Distal phalanges and mid phalanges somewhat difficult to visualize in profile but appeared normal on the lateral view. Minor spurring including small posterior plantar calcaneal spurs. Dorsal soft tissue swelling at the metatarsal level.. Body. XR/XR foot RT min 3V IMPRESSION: Dorsal soft tissue injury without fracture or bony destruction. No foreign body. Minor spurring. Electronically authenticated by: TRACI GALLAGHER Date: 12/12/2023 15:26
--- NOTE | 2023-12-12 14:35 | XR_ITS ---
The [address] [address] Patient Name: KAEL PULIDO MRN: [id number] date: 1940 Sex: M Assigned Patient Location: ER Current Patient Location: ER Accession/Order Number: [id number] Exam Date: 12/12/2023 15:00 Report Date: 12/12/2023 15:28 At the request of: DANNIELLE WASHINGTON Procedure: XR ankle RT min 3V EXAM: XR ankle RT min 3V HISTORY: pain COMPARISON: Right foot x-ray 12/12/2023. TECHNIQUE: AP, oblique, lateral x-ray right ankle. FINDINGS: No fracture or healing fracture. Normal symmetric mortise. Minor spurring. Edema noted medially and laterally. XR/XR ankle RT min 3V IMPRESSION: Negative for fracture. Medial and lateral edema. Calcaneal spurs. Electronically authenticated by: TRACI GALLAGHER Date: 12/12/2023 15:28
[2023-12-12 15:13] LABS: Basophils Percent Auto 0.5 % (0.2-2.0); Eosinophils Absolute Auto 0.2 10^3/uL (0.0-0.7); Eosinophils Percent Auto 2.6 % (0.9-7.0); Hematocrit 37.9 % (42.0-54.0); Hemoglobin 12.8 g/dL (14.0-18.0); Immature Granulocytes Abs Auto 0.03 10^3/uL (0.00-0.03); Immature Granulocytes Pct Auto 0.4 % (0.0-0.5); Lymphocytes Absolute Auto 1.4 10^3/uL (1.2-3.8); Lymphocytes Percent Auto 18.2 % (20.5-60.0); Mean Corpuscular HGB Conc 33.8 g/dL (29.9-35.2); Mean Corpuscular Hemoglobin 32.4 pg (25.9-34.0); Mean Corpuscular Volume 95.9 fL (80.0-94.0); Mean Platelet Volume 11.3 fL (9.5-13.5); Monocytes Absolute Auto 0.7 10^3/uL (0.3-0.8); Monocytes Percent Auto 9.7 % (1.7-12.0); Neutrophils Absolute Auto 5.2 10^3/uL (1.4-6.5); Neutrophils Percent Auto 68.6 % (43.0-75.0); Platelet Count 132 10^3/uL (150-450); Red Blood Count 3.95 10^6/uL (4.70-6.10); Red Cell Distribution Width 13.1 % (11.0-15.0); White Blood Count 7.6 10^3/uL (4.0-11.0)
[2023-12-12 15:14] LABS: Alanine Aminotransferase 16 U/L (16-63); Albumin Globulin Ratio 0.7; Albumin Level 2.8 g/dL (3.4-5.0); Alkaline Phosphatase 117 U/L (46-116); Anion Gap 12.1; Aspartate Amino Transferase 18 U/L (15-37); BUN Creatinine Ratio 14.3; Bilirubin Total 0.6 mg/dL (0.2-1.0); Calcium 8.4 mg/dL (8.5-10.1); Carbon Dioxide 25.9 mmol/L (21.0-32.0); Chloride 107 mmol/L (98-107); Estimated GFR (African America >60 (>=60); Estimated GFR (Non-African Ame 51 (>=60); Globulin 3.9 g/dL; Glucose 131 mg/dL (74-106); Sodium 141 mmol/L (136-145); Total Protein 6.7 g/dL (6.4-8.2)
--- NOTE | 2023-12-12 16:07 | ED_ITS ---
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 spring and he stopped taking his anticoagulation after his primary care told him he does not need it anymore, is coming to the ER with this right foot pain and swelling that he noted over the last 3 to 4 days, there is mild tenderness on movement and the patient denies any fall or trauma He also had a history of stent placement in the left lower extremity not long time ago No chest pain no shortness of breath Related Data Home Medications ?Medication ?Instructions ?Recorded ?Confirmed levothyroxine 50 mcg tablet 50 mcg PO DAILY 06/21/23 12/12/23 lisinopril 40 mg tablet 40 mg PO DAILY 06/21/23 12/12/23 pravastatin 40 mg tablet 40 mg PO DAILY 06/21/23 12/12/23 quetiapine 50 mg tablet 50 mg PO DAILY 06/21/23 12/12/23 tamsulosin 0.4 mg capsule 0.4 mg PO DAILY 11/23/23 12/12/23 clopidogrel 75 mg tablet 75 mg PO DAILY 12/12/23 12/12/23 metoprolol succinate 25 mg 25 mg PO DAILY 12/12/23 12/12/23 tablet,extended release 24 hr Previous Rx's ?Medication ?Instructions ?Recorded acetaminophen 650 mg 650 mg PO Q8H PRN pain #20 tabs 12/12/23 tablet,extended release (Tylenol 8 Hour) prednisone 20 mg tablet 40 mg (2 x 20 mg) PO DAILY 3 days 12/12/23 #6 tabs Allergies Allergy/AdvReac Type Severity Reaction Status Date / Time No Known Drug Allergies Allergy Verified 12/12/23 13:34 Review of Systems ROS Status of ROS 10 or more systems reviewed and unremark able except as noted in history and below Exam Narrative Exam Narrative: Nurses notes and vital signs reviewed and patient is not hypoxic. General: Well-appearing and in no apparent distress. Skin: Warm, dry, no pallor noted. No rash. Head: Normocephalic, atraumatic. Neck: Supple, non-tender. Eye: Pupils are equal, round and EOMI. No scleral icterus. Ears, Nose, Mouth, and Throat: TM are clear, no nasal mucosal hypertrophy. Oral mucosa is moist, no posterior oropharynx erythema, uvula is mid-line Cardiovascular: Regular Rate and Rhythm without murmur, gallop or rub. Respiratory: No accessory muscle use or respiratory distress. Lungs are clear to auscultation, no wheezing, rales or rhonchi Chest Wall: no tenderness Back: No midline thoracic or lumbar vertebral tenderness. No CVA tenderness Musculoskeletal: The patient have Doppler pulses in both lower extremities and no signs of vascular injury, It was noted that the patient have tenderness upon palpation of the right foot mostly toward the ankle as well at the foot approximately. There is no redness no hotness Mild swelling up to the calf area but no tenderness to palpation of the calf and the patient have a good femoral pulse bilaterally and equal GI: Abdomen is soft, non-distended. Normal bowel sounds. No masses appreciated. No tenderness to palpation. No rebound, guarding, or rigidity noted. Neurological: A&O x4. No cranial nerve dysfunction observed. No truncal ataxia. Moves all extremities. Sensation intact. Psychiatric: Cooperative and interactive. Normal mood and affect. Constitutional Vital Signs, click to edit/add: Last Vital Signs Temp 98.6 F 12/12/23 13:31 Pulse 52 L 12/12/23 15:50 Resp 24 H 12/12/23 15:50 BP 110/66 12/12/23 13:31 Pulse Ox 96 12/12/23 14:03 O2 Del Method Room Air 12/12/23 13:31 Course Vital Signs Vital signs: Vital Signs Temperature 98.6 F 12/12/23 13:31 Pulse Rate 51 L 12/12/23 13:31 Respiratory Rate 18 12/12/23 13:31 Blood Pressure 110/66 12/12/23 13:31 Pulse Oximetry 98 12/12/23 13:31 Oxygen Delivery Method Room Air 12/12/23 13:31 Temperature 98.6 F 12/12/23 13:31 Pulse Rate 52 L 12/12/23 15:50 Respiratory Rate 24 H 12/12/23 15:50 Blood Pressure 110/66 12/12/23 13:31 Pulse Oximetry 96 12/12/23 14:03 Oxygen Delivery Method Room Air 12/12/23 13:31 MDM - Extremity (Nontraumatic) MDM Narrative Medical decision making narrative: The patient EKG showing sinus bradycardia with a heart rate of [address] elevation or depression CBC and chemistry showed only elevated D-dimer With the patient presentation and the fact that he does not have any chest pain or shortness of breath The patient will be covered with Lovenox for possible DVT although less likely but he will have a duplex done tomorrow The patient result will be referred to the primary care The patient also was provided with a steroid. For possible gout or inflammation Discharged home with Jack wrap Tylenol as well as prednisone for the next few days The patient is to follow up with primary care physician in next 2-3 days or to return to the emergency department should any of the signs or symptoms worsen or new symptoms develop. The patient agrees with the following Diagnosis and Treatment plan and the patient will be discharged home. Lab Data Labs: Lab Results 12/12/23 Range/Units 14:30 WBC 7.6 (4.0-11.0) 10^3/uL RBC 3.95 L (4.70-6.10) 10^6/uL Hgb 12.8 L (14.0-18.0) g/dL Hct 37.9 L (42.0-54.0) % MCV 95.9 H (80.0-94.0) fL MCH 32.4 (25.9-34.0) pg MCHC 33.8 (29.9-35.2) g/dL RDW 13.1 (11.0-15.0) % Plt Count 132 L (150-450) 10^3/uL MPV 11.3 (9.5-13.5) fL Neut % (Auto) 68.6 (43.0-75.0) % Lymph % (Auto) 18.2 L (20.5-60.0) % Saunders % (Auto) 9.7 (1.7-12.0) % Eos % (Auto) 2.6 (0.9-7.0) % Baso % (Auto) 0.5 (0.2-2.0) % Neut # (Auto) 5.2 (1.4-6.5) 10^3/uL Lymph # (Auto) 1.4 (1.2-3.8) 10^3/uL Saunders # (Auto) 0.7 (0.3-0.8) 10^3/uL Eos # (Auto) 0.2 (0.0-0.7) 10^3/uL Baso # (Auto) 0.0 (0.0-0.1) 10^3/uL Abs Immat Gran (auto) 0.03 (0.00-0.03) 10^3/uL Imm/Tot Granulo (auto) 0.4 (0.0-0.5) % D-Dimer 4.10 H* (<=0.59) mg/L FEU Sodium 141 (136-145) mmol/L Potassium 4.0 (3.5-5.1) mmol/L Chloride 107 (98-107) mmol/L Carbon Dioxide 25.9 (21.0-32.0) mmol/L Anion Gap 12.1 BUN 19.0 H (7.0-18.0) mg/dL Creatinine 1.33 H (0.70-1.30) mg/dL Est GFR ( Amer) >60 (>=60) Est GFR (Non-Af Amer) 51 L (>=60) BUN/Creatinine Ratio 14.3 Glucose 131 H (74-106) mg/dL Calcium 8.4 L (8.5-10.1) mg/dL Total Bilirubin 0.6 (0.2-1.0) mg/dL AST 18 (15-37) U/L ALT 16 (16-63) U/L Alkaline Phosphatase 117 H (46-116) U/L Total Protein 6.7 (6.4-8.2) g/dL Albumin 2.8 L (3.4-5.0) g/dL Globulin 3.9 g/dL Albumin/Globulin Ratio 0.7 Discharge Plan Discharge Stand Alone Forms: Portal Instructions Chief Complaint: Extremity Problem, Nontraumatic Clinical Impression: Leg swelling Acute foot pain Qualifiers: Laterality: right Qualified Code(s): M79.671 - Pain in right foot Patient Disposition: Home, Self-Care Time of Disposition Decision: 16:08 Condition: Good Prescriptions / Home Meds: New prednisone 20 mg tablet 40 mg PO DAILY 3 Days Qty: 6 0RF acetaminophen [Tylenol 8 Hour] 650 mg tablet extended release 650 mg PO Q8H PRN (Reason: pain) Qty: 20 0RF No Action clopidogrel 75 mg tablet 75 mg PO DAILY metoprolol succinate 25 mg tablet extended release 24 hr 25 mg PO DAILY levothyroxine 50 mcg tablet 50 mcg PO DAILY lisinopril 40 mg tablet 40 mg PO DAILY pravastatin 40 mg tablet 40 mg PO DAILY quetiapine 50 mg tablet 50 mg PO DAILY tamsulosin 0.4 mg capsule 0.4 mg PO DAILY Print Language: Bengali Instructions: Arthralgia (ED) Referrals: Piter Chowdhury MD [Primary Care Provider] - 1 week
[2023-12-12] MEDS: METHYLPREDNISOLONE SOD SUCC PF 40 MG/ML VIAL IVP (16:20)
[2023-12-12] MEDS: ENOXAPARIN SODIUM 80 MG/0.8 ML SYRINGE SUBQ (16:20)
== END 2023-12-12 16:40 | disposition home or self-care (01) ==
PROVIDERS: Emergency Provider Emergency Medicine; PCP Family Medicine
DX: M79.89 Other specified soft tissue disorders (principal); M79.671 Pain in right foot; Z86.718 Personal history of other venous thrombosis and embolism
CPT/HCPCS: 36415; 73610; 73630; 80053; 85025; 85378; 93005; 96372; 96374; 99285; J1650; J2919

== ENCOUNTER 2023-12-13 07:53 | Outpatient (OUT) | payer MEDICARE, SELFPAY ==
--- NOTE | 2023-12-13 07:57 | US_ITS ---
[place] [id number] Patient Name: KAEL PULIDO MRN: [id number] date: 1940 Sex: M Assigned Patient Location: RAD Current Patient Location: [facility] Accession/Order Number: [id number] Exam Date: 12/13/2023 08:00 Report Date: 12/13/2023 09:35 At the request of: JAKE VAUGHAN Procedure: US venous doppler LE RT EXAM: US venous doppler LE RT HISTORY: Right Leg Pain COMPARISON: None. TECHNIQUE: Grayscale, color and Doppler FINDINGS: Region: Right leg Thrombus: None Flow: Normal Augmentation: Normal Compressibility: Normal US/US venous doppler LE RT IMPRESSION: No deep or superficial vein thrombus identified in the right leg Electronically authenticated by: RYAN FELDER Date: 12/13/2023 09:35
--- OUTSIDE RECORDS SUMMARY | 2023-12-13 07:58 | XMS_ITS ---
Patient Summarization (C-CDA 2.1 CCD) Created on: December 13, 2023 JORGITO MAYORGA : 1940 Sex: Male Author Organization Sample organization Care Team Providers Care School Psychological Examiner Name Role Phone REQUEST, DR NONE LISTED [...] Unavailable HOY, DR JOSEPH Primary Care Unavailable JATINDERMARIA TERESA Attending Unavailable MAGAN DE LA O Referring Unavailable HORANI, JOSHUA Admitting Unavailable ALI, YVROSE D ELA CRUZ Attending Unavailable HORANI, JOSHUA Referring Unavailable HORANI, JOSHUA Referring Unavailable CHAITANYA, FLORENTIN Referring Unavailable PIRKL, LESLEE Referring Unavailable HORANI, JOSHUA Referring Unavailable PIRKL, LESLEE Referring Unavailable Allergies Allergy Classification Reported Allergen(s) Allergy Type Date of Onset Reaction(s) Facility (1 source) ALLERGIES NOT ON FILE; Translations: [ALLERGIES NOT ON FILE] Propensity to adverse reactions (disorder) [facility] Repository Encounters Encounter Date Encounter Type Care Provider Facility Start: 12-08-2023 End: 12-08-2023 amb[address]AS [facility] Start: 11-25-2023 Evaluation and management of inpatient FLORENTIN TAVARES [facility] Start: 11-25-2023 Evaluation and management of inpatient LESLEE PIRKL [facility] Start: 11-25-2023 Evaluation and management of inpatient JOSHUA HORANI [facility] Start: 11-24-2023 Evaluation and management of inpatient JOSHUA BRAR [facility] Start: 11-24-2023 ambulatory [facility] Start: 11-24-2023 End: 11-26-2023 Evaluation and management of inpatient MAGAN DE LA O [facility] Start: 04-29-2021 End: 04-30-2021 ambulatory TRAMAINE CHANTEL Facility:[facility] Start: 03-21-2021 End: 03-21-[address] JAKE CHOWDHURY Facility:[facility] Start: 08-27-2020 End: 08-28-2020 ambulatory NONE LISTED REQUEST Facility:[facility] Start: 08-05-2020 End: 08-06-[address] JAKE CHOWDHURY Facility:[facility]1 Payers Date Payer Category Payer Medicare [id number] 1958 Self-pay [id number] 1940 Unknown [id number] [id number] Unknown [id number] [id number] [id number] Unknown [id number] [id number] [id number] Unknown [id number] [id number] [id number] Problems Problem Classification Problem Date Documented Date Episodic/Chronic Acute myocardial infarction (2 sources) Non-ST elevation (NSTEMI) myocardial infarction; Translations: [Non-ST elevation (NSTEMI) myocardial infarction] Onset: 12-08-2023 Chronic 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 Lukas Nino Results Test Name Value [...] after midnight to get blood drawn Normal [facility] Follow-Upon 12-08-2023 Follow-Up [id number] Kamini Mayorga T 1940 M Date Provider Department Center 12/08/2023 MARIA TERESA GOLDMAN [facility] Family History Problem Relation Age of Onset No Known Problems Mother No Known Problems Father Family Status - Relation Status Age at Mother Father Level of Service:35690 [place] OFFICE/OUTPATIENT ESTABLISHED MOD MDM [address] [facility] 30on 11-26-2023 30 The patient is Moderately Stable - [...] Assess patient frequently for physical needs Normal [facility] 30 Daily Case Managemen t Update Multidisciplinary [...] OT? Answer: Discharge recommendations 11/26/[address] [facility] APTTon 11-26-2023 ACTIVATED PARTIAL THROMBOPLASTIN TIME IN PPP BY COAGULATION ASSAY 31.6 Seconds Normal 25.0-35.0 [facility] Comment on above: Order Comment: Check aPTT every 6 hours while on heparin infusion, or per protocol. Result Comment: Clin ical significance of the APTT is questionable in the presence of heparin. Performed By: #### L [id number] ####[facility] ([employer])[address] [place] [address] BASIC METABOLIC PANELon 11-06 Anion gap [Moles/Vol] 12 mmol/L Normal 7-20 [facility] Comment on above: Performed By: #### L [id number] #### [facility] ([employer]) [address] [place] [address] Calcium [Mass/Vol] 8.2 mg/dL Low 8.6-10.3 [facility] Comment on above: Performed By: #### L [id number] #### [facility] ([facility]) [address] [place] [place] [address] Chloride [Moles/Vol] 107 mmol/L Normal 98-107 [facility] Comment on above: Performed By: #### L [id number] #### [facility] ([facility]) [address] [place] [place] [address] CO2 [Moles/Vol] 24 mmol/L Normal 21-31 [facility] Comment on above: Performed By: #### L [id number] #### [facility] ([facility]) [address] [place] [place] [address] Creatinine [Mass/Vol] 1.24 mg/dL Normal 0.70-1.30 [facility] Comment on above: Performed By: #### L [id number] #### [facility] ([facility]) [address] [place] [place] [address] GLOMERULAR FILTRATION RATE ML/MIN/1.73 SQ M.PREDICTED 58.0 mL/min/1.73m*2 Low >60.0 [facility] Comment on above: Result Comment: The [facility]???s estimated glomerular filtration rate (eGFR) will [...] individuals. Performed By: #### L [id number] #### [facility] ([facility]) [address] [place] [place] [address] Glucose [Mass/Vol] 89 mg/dL Normal 70-100 [facility] Comment on above: Performed By: #### L [id number] #### [facility] ([facility]) [address] [place] [address] Potassium [Moles/Vol] 3.9 mmol/L Normal 3.5-5.1 [facility] Comment on above: Performed By: #### L [id number] #### [facility] ([facility]) [address] [place] [address] Sodium [Moles/Vol] 139 mmol/L Normal 136-145 [facility] Comment on above: Performed By: #### L [id number] #### [facility] ([facility]) [address] [place] [address] Urea nitrogen [Mass/Vol] 17 mg/dL Normal 7-25 [facility] Comment on above: Performed By: #### L [id number] #### [facility] ([facility]) [address] [place] [address] UREA NITROGEN/CREATININE (MASS RATIO) IN SER/PLAS 13.[address] [facility] Comment on above: Performed By: #### L [id number] #### [facility] ([facility]) [address] [place] [address] CBC WITH AUTO DIFFERENTIALon 11-26-2023 Basophils (Bld) [#/Vol] 0.04 10*3/uL Normal 0.00-0.20 [facility] Comment on above: Performed By: #### L [id number] ####[facility] ([facility])[address] [place] [address] Basophils/100 WBC (Bld) 0.5 % Normal 0.0-1.0 [facility] Comment on above: Performed By: #### L [id number] ####[facility] ([facility])[address] [place] [address] Eosinophils (Bld) [#/Vol] 0.29 10*3/uL Normal 0.00-0.50 [facility] Comment on above: Performed By: #### L [id number] ####[facility] ([facility])[address] [place] [address] Eosinophils/100 WBC (Bld) 3.8 % Normal 0.0-6.0 [facility] Comment on above: Performed By: #### L [id number] ####[facility] ([facility])[address] [place] [address] Erythrocyte distribution width (RBC) [Ratio] 12.1 % Normal 11.5-15.0 [facility] Comment on above: Performed By: #### L [id number] ####[facility] ([facility])[address] [place] [address] ERYTHROCYTE MEAN CORPUSCULAR HEMOGLOBIN CONCENTRATION (G/DL) BY AUTOMATED 34.4 g/dL Normal 32.0-35.0 [facility] Comment on above: Performed By: #### L [id number] ####[facility] ([facility])[address] [place] [address] Hematocrit (Bld) [Volume fraction] 35.8 % Low 39.0-55.0 [facility] Comment on above: Performed By: #### L [id number] ####[facility] ([facility])[address] [place] [address] Hemoglobin (Bld) [Mass/Vol] 12.3 g/dL Low 13.0-17.0 [facility] Comment on above: Performed By: #### L [id number] ####[facility] ([facility])[address] [place] [address] Immature granulocytes (Bld) [#/Vol] 0.20 10*3/uL Normal 0.00-0.20 [facility] Comment on above: Performed By: #### L [id number] ####[facility] ([facility])[address] [place] [address] Immature granulocytes/100 WBC (Bld) 2.7 % High 0.0-1.0 [facility] Comment on above: Performed By: #### L [id number] ####[facility] ([facility])[address] [place] [address] Lymphocytes (Bld) [#/Vol] 1.15 10*3/uL Low 1.20-4.00 [facility] Comment on above: Performed By: #### L [id number] ####[facility] ([facility])[address] [place] [address] Lymphocytes/100 WBC (Bld) 15.3 % Low 20.0-45.0 [facility] Comment on above: Performed By: #### L [id number] ####[facility] ([facility])[address] [place] [address] MCH (RBC) [Entitic mass] 32.3 pg Normal 27.0-33.0 [facility] Comment on above: Performed By: #### L [id number] ####[facility] ([facility])[address] [place] [address] MCV (RBC) [Entitic vol] 94.0 fL Normal 82.0-98.0 [facility] Comment on above: Performed By: #### L [id number] ####[facility] ([facility])[address] [place] [address] Monocytes (Bld) [#/Vol] 0.56 10*3/uL Normal 0.10-1.00 [facility] Comment on above: Performed By: #### L [id number] ####[facility] ([facility])[address] [place] [address] Monocytes/100 WBC (Bld) 7.4 % Normal 5.0-12.0 [facility] Comment on above: Performed By: #### L [id number] ####[facility] ([facility])[address] [place] [address] Neutrophils (Bld) [#/Vol] 5.30 10*3/uL Normal 1.60-7.60 [facility] Comment on above: Performed By: #### L [id number] ####[facility] ([facility])[address] [place] [address] Neutrophils/100 WBC (Bld) 70.3 % Normal 40.0-72.0 [facility] Comment on above: Performed By: #### L [id number] ####[facility] ([facility])[address] [place] [address] NRBC (PER 100 WBCS) BY AUTOMATED COUNT 0.0 % Normal 0 [facility] Comment on above: Performed By: #### L [id number] ####[facility] ([facility])[address] [place] [address] PLATELETS (10*3/UL) IN BLOOD AUTOMATED COUNT 209 10*3/uL Normal 150-400 [facility] Comment on above: Performed By: #### L [id number] ####[facility] ([facility])[address] [place] [address] RBC (Bld) [#/Vol] 3.81 10*6/uL Low 4.20-5.70 [facility] Comment on above: Performed By: #### L [id number] ####[facility] ([facility])[address] [place] [address] WBC (Bld) [#/Vol] 7.54 10*3/uL Normal 4.00-10.60 [facility] Comment on above: Performed By: #### L [id number] ####[facility] ([facility])[address] [place] [address] MAGNESIUMon 11-26-2023 Magnesium [Mass/Vol] 1.8 mg/dL Low 1.9-2.7 [facility] Comment on above: Performed By: #### L [id number] ####[facility] ([facility])[address] [place] [address] NURSNOTEon 11-26-2023 NURSNOTE RN informed primary RETIREMENT BENEFITS SPECIALIST Erin that PT/OT was unable to see [...] care. Family and pt refused SNF option. Normal [facility] 30on 11-25-2023 30 Daily Case Managemen t Update Multidisciplinary rounds have been completed. Barriers to Discharge: Pending Clinical course. Direct admit from [facility] with elevated troponin and chest pain. [...] Select all services needed for the patient Senior Care Facility (30 day convalescent stay) Please indicate your approval for this care by adding your name here: ISABELL ELLISON 11/24/23 0115 [facility] 30 The patient is Moderately Stable [...] injury: Assess patient frequently for physical needs [facility] 30 The patient is Moderately Stable [...] STG-Ask for assistance before standing Outcome: Progressing [facility] APTTon 11-25-2023 ACTIVATED PARTIAL THROMBOPLASTIN TIME IN PPP BY COAGULATION ASSAY 80.8 Seconds High 25.0-35.0 [facility] Comment on above: Order Comment: Check aPTT every 6 hours while on heparin infusion, or per protocol. Result Comment: Clin ical significance of the APTT is questionable in the presence of heparin. Performed By: #### L [id number] #### [facility] ([facility]) [address] [place] [address] ACTIVATED PARTIAL THROMBOPLASTIN TIME IN PPP BY COAGULATION ASSAY 78.4 Seconds High 25.0-35.0 [facility] Comment on above: Order Comment: Check aPTT every 6 hours while on heparin infusion, or per protocol. Result Comment: Clin ical significance of the APTT is questionable in the presence of heparin. Performed By: #### L [id number] ####[facility] ([facility])[address] [place] [address] BASIC METABOLIC PANELon 06-2 Anion gap [Moles/Vol] 11 mmol/L Normal 7-20 [facility] Comment on above: Performed By: #### L [id number] #### [facility] ([facility]) [address] [place] [address] Calcium [Mass/Vol] 8.4 mg/dL Low 8.6-10.3 [facility] Comment on above: Performed By: #### L [id number] #### [facility] ([facility]) [address] [place] [address] Chloride [Moles/Vol] 107 mmol/L Normal 98-107 [facility] Comment on above: Performed By: #### L [id number] #### [facility] ([facility]) [address] [place] [address] CO2 [Moles/Vol] 24 mmol/L Normal 21-31 [facility] Comment on above: Performed By: #### L [id number] #### [facility] ([facility]) [address] [place] [address] Creatinine [Mass/Vol] 1.24 mg/dL Normal 0.70-1.30 [facility] Comment on above: Performed By: #### L [id number] #### [facility] ([facility]) [address] [place] [address] GLOMERULAR FILTRATION RATE ML/MIN/1.73 SQ M.PREDICTED 58.0 mL/min/1.73m*2 Low >60.0 [facility] Comment on above: Result Comment: [facility]???s estimated glomerular filtration rate (eGFR) will [...] individuals. Performed By: #### L [id number] #### [facility] ([facility]) [address] [place] [address] Glucose [Mass/Vol] 97 mg/dL Normal 70-100 [facility] Comment on above: Performed By: #### L [id number] #### [facility] ([facility]) [address] [place] [address] Potassium [Moles/Vol] 3.7 mmol/L Normal 3.5-5.1 [facility] Comment on above: Performed By: #### L [id number] #### [facility] ([facility]) [address] [facility] [place] [address] Sodium [Moles/Vol] 138 mmol/L Normal 136-145 [facility] Comment on above: Performed By: #### L [id number] #### [facility] ([facility]) [address] [place] [address] Urea nitrogen [Mass/Vol] 23 mg/dL Normal 7-25 [facility] Comment on above: Performed By: #### L [id number] #### [facility] ([facility]) [address] [place] [address] UREA NITROGEN/CREATININE (MASS RATIO) IN SER/PLAS 18.[address] [facility] Comment on above: Performed By: #### L [id number] #### [facility] ([facility]) [address] [place] [place] [address] CBC WITH AUTO DIFFERENTIALon 11-25-2023 Basophils (Bld) [#/Vol] 0.02 10*3/uL Normal 0.00-0.20 [facility] Comment on above: Performed By: #### L [id number] #### [facility] ([facility]) [address] [place] [place] [address] Basophils/100 WBC (Bld) 0.2 % Normal 0.0-1.0 [facility] Comment on above: Performed By: #### L [id number] #### [facility] ([facility]) [address] [place] [place] [address] Eosinophils (Bld) [#/Vol] 0.28 10*3/uL Normal 0.00-0.50 [facility] Comment on above: Performed By: #### L [id number] #### [facility] ([facility]) [address] [place] [place] [address] Eosinophils/100 WBC (Bld) 3.4 % Normal 0.0-6.0 [facility] Comment on above: Performed By: #### L [id number] #### [facility] ([facility]) [address] [place] [place] [address] Erythrocyte distribution width (RBC) [Ratio] 12.5 % Normal 11.5-15.0 [facility] Comment on above: Performed By: #### L [id number] #### [facility] ([facility]) [address] [place] [address] ERYTHROCYTE MEAN CORPUSCULAR HEMOGLOBIN CONCENTRATION (G/DL) BY AUTOMATED 34.7 g/dL Normal 32.0-35.0 [facility] Comment on above: Performed By: #### L [id number] #### [facility] ([facility]) [address] [place] [place] [address] Hematocrit (Bld) [Volume fraction] 35.2 % Low 39.0-55.0 [facility] Comment on above: Performed By: #### L [id number] #### [facility] ([facility]) [address] [place] [place] [address] Hemoglobin (Bld) [Mass/Vol] 12.2 g/dL Low 13.0-17.0 [facility] Comment on above: Performed By: #### L [id number] #### [facility] ([facility]) [address] [place] [address] Immature granulocytes (Bld) [#/Vol] 0.10 10*3/uL Normal 0.00-0.20 [facility] Comment on above: Performed By: #### L [id number] #### [facility] ([facility]) [address] [place] [address] Immature granulocytes/100 WBC (Bld) 1.2 % High 0.0-1.0 [facility] Comment on above: Performed By: #### L [id number] #### [facility] ([facility]) [address] [place] [address] Lymphocytes (Bld) [#/Vol] 1.57 10*3/uL Normal 1.20-4.00 [facility] Comment on above: Performed By: #### L [id number] #### [facility] ([facility]) [address] [place] [place] [address] Lymphocytes/100 WBC (Bld) 18.9 % Low 20.0-45.0 [facility] Comment on above: Performed By: #### L [id number] #### [facility] ([facility]) [address] [place] [address] MCH (RBC) [Entitic mass] 32.7 pg Normal 27.0-33.0 [facility] Comment on above: Performed By: #### L [id number] #### [facility] ([facility]) [address] [place] [address] MCV (RBC) [Entitic vol] 94.4 fL Normal 82.0-98.0 [facility] Comment on above: Performed By: #### L [id number] #### [facility] ([facility]) [address] [place] [place] [address] Monocytes (Bld) [#/Vol] 0.73 10*3/uL Normal 0.10-1.00 [facility] Comment on above: Performed By: #### L [id number] #### [facility] ([facility]) [address] [place] [place] [address] Monocytes/100 WBC (Bld) 8.8 % Normal 5.0-12.0 [facility] Comment on above: Performed By: #### L [id number] #### [facility] ([facility]) [address] [place] [place] [address] Neutrophils (Bld) [#/Vol] 5.60 10*3/uL Normal 1.60-7.60 [facility] Comment on above: Performed By: #### L [id number] #### [facility] ([facility]) [address] [place] [place] [address] Neutrophils/100 WBC (Bld) 67.5 % Normal 40.0-72.0 [facility] Comment on above: Performed By: #### L [id number] #### [facility] ([facility]) [address] [place] [place] [address] NRBC (PER 100 WBCS) BY AUTOMATED COUNT 0.0 % Normal 0 [facility] Comment on above: Performed By: #### L [id number] #### [facility] ([facility]) [address] [place] [address] PLATELETS (10*3/UL) IN BLOOD AUTOMATED COUNT 209 10*3/uL Normal 150-400 [facility] Comment on above: Performed By: #### L [id number] #### [facility] ([facility]) [address] [place] [place] [address] RBC (Bld) [#/Vol] 3.73 10*6/uL Low 4.20-5.70 [facility] Comment on above: Performed By: #### L [id number] #### [facility] ([facility]) [address] [place] [address] WBC (Bld) [#/Vol] 8.30 10*3/uL Normal 4.00-10.60 [facility] Comment on above: Performed By: #### L [id number] #### [facility] ([facility]) [address] [place] [address] HPon 11-25-2023 HP H&P reviewed. The patient was examined and there are no changes to the H&P. Would add that L Uriah test is normal, and pulses in DP and PT are strong. We discussed expected risks and benefits, he understands and consents to proceed. Normal [facility] MAGNESIUMon 11-25-2023 Magnesium [Mass/Vol] 1.7 mg/dL Low 1.9-2.7 [facility] Comment on above: Performed By: #### L [id number] ####[facility] ([facility])[address] [place] [address] 30on 11-24-2023 30 The patient is Moderately Stable - Low risk of patient condition declining or worsening The patient's goals for the shift include Go home The clinical goals for the shift include VSS Normal [facility] 30 The patient is Moderately Stable [...] and maintain environment to promote sleep. Normal [facility] 30 The patient is Moderately Stable [...] acceptable level of pain Outcome: Progressing Normal [facility] 30 The patient is Moderately Stable [...] Free from fall injury Outcome: Progressing Normal [facility] 30 The patient is Moderately Stable [...] baseline comfort level Outcome: Progressing . Normal [facility] APTTon 11-24-2023 ACTIVATED PARTIAL THROMBOPLASTIN TIME IN PPP BY COAGULATION ASSAY 48.6 Seconds High 25.0-35.0 [facility] Comment on above: Result Comment: Clin ical significance of the APTT is questionable in the presence of heparin. Performed By: #### L [id number] #### [facility] ([facility]) [address] [place] [address] ACTIVATED PARTIAL THROMBOPLASTIN TIME IN PPP BY COAGULATION ASSAY 55.9 Seconds High 25.0-35.0 [facility] Comment on above: Order Comment: Check aPTT every 6 hours while on heparin infusion, or per protocol. Result Comment: Clin ical significance of the APTT is questionable in the presence of heparin. Performed By: #### L [id number] #### [facility] ([facility]) [address] [place] [address] ACTIVATED PARTIAL THROMBOPLASTIN TIME IN PPP BY COAGULATION ASSAY 54.6 Seconds High 25.0-35.0 [facility] Comment on above: Order Comment: Check aPTT every 6 hours while on heparin infusion, or per protocol. Result Comment: Clin ical significance of the APTT is questionable in the presence of heparin. Performed By: #### L [id number] ####[facility] ([facility])[address] [place] [address] B-TYPE NATRIURETIC PEPTIDEon 11-24-2023 Natriuretic peptide B (Bld) [Mass/Vol] 308 pg/mL High 0-100 [facility] Comment on above: Performed By: #### L [id number] #### [facility] ([facility]) [address] [place] [address] Natriuretic peptide B (Bld) [Mass/Vol] 284 pg/mL High 0-100 [facility] Comment on above: Performed By: #### L [id number] #### [facility] ([facility]) [address] [place] [address] CBC WITH AUTO DIFFERENTIALon 11-24-2023 Basophils (Bld) [#/Vol] 0.05 10*3/uL Normal 0.00-0.20 [facility] Comment on above: Performed By: #### L [id number] #### [facility] ([facility]) [address] [place] [address] Basophils/100 WBC (Bld) 0.6 % Normal 0.0-1.0 [facility] Comment on above: Performed By: #### L [id number] #### [facility] ([facility]) [address] [place] [address] Eosinophils (Bld) [#/Vol] 0.09 10*3/uL Normal 0.00-0.50 [facility] Comment on above: Performed By: #### L [id number] #### [facility] ([facility]) [address] [place] [address] Eosinophils/100 WBC (Bld) 1.1 % Normal 0.0-6.0 [facility] Comment on above: Performed By: #### L [id number] #### [facility] ([facility]) [address] [place] [address] Erythrocyte distribution width (RBC) [Ratio] 12.6 % Normal 11.5-15.0 [facility] Comment on above: Performed By: #### L [id number] #### [facility] ([facility]) [address] [place] [address] ERYTHROCYTE MEAN CORPUSCULAR HEMOGLOBIN CONCENTRATION (G/DL) BY AUTOMATED 33.3 g/dL Normal 32.0-35.0 [facility] Comment on above: Performed By: #### L [id number] #### [facility] ([facility]) [address] [place] [address] Hematocrit (Bld) [Volume fraction] 42.6 % Normal 39.0-55.0 [facility] Comment on above: Performed By: #### L [id number] #### [facility] ([facility]) [address] [place] [address] Hemoglobin (Bld) [Mass/Vol] 14.2 g/dL Normal 13.0-17.0 [facility] Comment on above: Performed By: #### L [id number] #### [facility] ([facility]) [address] [place] [address] Immature granulocytes (Bld) [#/Vol] 0.08 10*3/uL Normal 0.00-0.20 [facility] Comment on above: Performed By: #### L [id number] #### [facility] ([facility]) [address] [place] [address] Immature granulocytes/100 WBC (Bld) 0.9 % Normal 0.0-1.0 [facility] Comment on above: Performed By: #### L [id number] #### [facility] ([facility]) [address] [place] [address] Lymphocytes (Bld) [#/Vol] 1.07 10*3/uL Low 1.20-4.00 [facility] Comment on above: Performed By: #### L [id number] #### [facility] ([facility]) [address] [place] [address] Lymphocytes/100 WBC (Bld) 12.7 % Low 20.0-45.0 [facility] Comment on above: Performed By: #### L [id number] #### [facility] ([facility]) [address] [place] [address] MCH (RBC) [Entitic mass] 32.4 pg Normal 27.0-33.0 [facility] Comment on above: Performed By: #### L [id number] #### [facility] ([facility]) [address] [place] [address] MCV (RBC) [Entitic vol] 97.3 fL Normal 82.0-98.0 [facility] Comment on above: Performed By: #### L [id number] #### [facility] ([facility]) [address] [place] [address] Monocytes (Bld) [#/Vol] 0.54 10*3/uL Normal 0.10-1.00 [facility] Comment on above: Performed By: #### L [id number] #### [facility] ([facility]) [address] [place] [address] Monocytes/100 WBC (Bld) 6.4 % Normal 5.0-12.0 [facility] Comment on above: Performed By: #### L [id number] #### [facility] ([facility]) [address] [place] [address] Neutrophils (Bld) [#/Vol] 6.60 10*3/uL Normal 1.60-7.60 [facility] Comment on above: Performed By: #### L [id number] #### [facility] ([facility]) [address] [place] [place] [address] Neutrophils/100 WBC (Bld) 78.3 % High 40.0-72.0 [facility] Comment on above: Performed By: #### L [id number] #### [facility] ([facility]) [address] [place], [place] [address] NRBC (PER 100 WBCS) BY AUTOMATED COUNT 0.0 % Normal 0 [facility] Comment on above: Performed By: #### L [id number] #### [facility] ([facility]) [address] [place], [place] [address] PLATELETS (10*3/UL) IN BLOOD AUTOMATED COUNT 159 10*3/uL Normal 150-400 [facility] Comment on above: Performed By: #### L [id number] #### [facility] ([facility]) [address] [place], [place] [address] RBC (Bld) [#/Vol] 4.38 10*6/uL Normal 4.20-5.70 [facility] Comment on above: Performed By: #### L [id number] #### [facility] ([facility]) [address] [place], [place] [address] WBC (Bld) [#/Vol] 8.43 10*3/uL Normal 4.00-10.60 [facility] Comment on above: Performed By: #### L [id number] #### [facility] ([facility]) [address] [place] [address] COMPREHENSIVE METABOLIC PANE Chris 11-24-2023 Albumin [Mass/Vol] 3.5 g/dL Normal 3.5-5.7 [facility] Comment on above: Performed By: #### L [id number] ####[facility] ([facility])[address] [place] [address] ALP [Catalytic activity/Vol] 87 U/L Normal 34-104 [facility] Comment on above: Performed By: #### L [id number] ####[facility] ([facility])[address] [place] [address] ALT [Catalytic activity/Vol] 16 U/L Normal 7-52 [facility] Comment on above: Performed By: #### L [id number] ####[facility] ([facility])[address] [place] [address] Anion gap [Moles/Vol] 18 mmol/L Normal 7-20 [facility] Comment on above: Performed By: #### L [id number] ####[facility] ([facility])[address] [place] [address] AST [Catalytic activity/Vol] 31 U/L Normal 13-39 [facility] Comment on above: Performed By: #### L [id number] ####[facility] ([facility])[address] [place] [address] Bilirubin [Mass/Vol] 0.6 mg/dL Normal 0.3-1.0 [facility] Comment on above: Performed By: #### L [id number] ####[facility] ([facility])[address] [place] [address] Calcium [Mass/Vol] 8.7 mg/dL Normal 8.6-10.3 [facility] Comment on above: Performed By: #### L [id number] ####[facility] ([facility])[address] [place] [address] Chloride [Moles/Vol] 108 mmol/L High 98-107 [facility] Comment on above: Performed By: #### L [id number] ####[facility] ([facility])[address] [place] [address] CO2 [Moles/Vol] 18 mmol/L Low 21-31 [facility] Comment on above: Performed By: #### L [id number] ####[facility] ([facility])[address] [place] [address] Creatinine [Mass/Vol] 1.25 mg/dL Normal 0.70-1.30 [facility] Comment on above: Performed By: #### L [id number] ####[facility] ([facility])[address] [place] [address] GLOMERULAR FILTRATION RATE ML/MIN/1.73 SQ M.PREDICTED 57.5 mL/min/1.73m*2 Low >60.0 [facility] Comment on above: Result Comment: [facility]???s estimated glomerular filtration rate (eGFR) will [...] of individuals. Performed By: #### L [id number] ####[facility] ([facility])[address] [place] [address] Glucose [Mass/Vol] 97 mg/dL Normal 70-100 [facility] Comment on above: Performed By: #### L [id number] ####[facility] ([facility])[address] [place] [address] Potassium [Moles/Vol] 3.6 mmol/L Normal 3.5-5.1 [facility] Comment on above: Performed By: #### L [id number] ####[facility] ([facility])[address] [place] [address] Protein [Mass/Vol] 6.9 g/dL Normal 6.0-8.3 [facility] Comment on above: Performed By: #### L [id number] ####[facility] ([facility])[address] [place] [address] Sodium [Moles/Vol] 140 mmol/L Normal 136-145 [facility] Comment on above: Performed By: #### L [id number] ####[facility] ([facility])[address] [facility] [place] [address] Urea nitrogen [Mass/Vol] 28 mg/dL High 7-25 [facility] Comment on above: Performed By: #### L [id number] ####[facility] ([facility])[address] [place] [address] UREA NITROGEN/CREATININE (MASS RATIO) IN SER/PLAS 22.[address] [facility] Comment on above: Performed By: #### L [id number] ####[facility] ([facility])[address] [place] [address] CONSULTon 11-24-2023 CONSULT -- Attestation signed by Magan De La [...] hypertension, hyperlipidemia, hypothyroidism, CVA who presented from [facility] with chief complains of central chest pain, [...] x 4 with mild slurred speech. At [facility], initial labs were completed showing WBC [...] mg ca (more content not included)... Normal [facility] HEMOGLOBIN A1Con 11-24-2023 Glucose [Mass/Vol] 114 mg/dL Normal [facility] Comment on above: Performed By: #### L [id number] #### [facility] ([facility]) [address] [place] [address] HbA1c (Bld) [Mass fraction] 5.6 % Normal 4.0-6.0 [facility] Comment on above: Performed By: #### L [id number] #### [facility] ([facility]) [address] [place] [address] HPon 11-24-2023 HP -- Attestation signed by Magan De La [...] hypertension, hyperlipidemia, hypothyroidism, CVA who presented from [facility] with chief complains of central chest pain, [...] x 4 with mild slurred speech. At [facility], initial labs were completed showing WBC [...] mg ca (more content not included)... Normal [facility] LACTIC ACID, PLASMAon 2023 LACTATE (MMOL/L) IN SER/PLAS 1.0 mmol/L Normal 0.5-2.2 [facility] Comment on above: Performed By: #### L AB95 ####[facility] ([facility])[address] [place] [address] LIPID PANELon 11-24-2023 CHOL/HDL 3.4 mg/dL Normal [facility] Comment on above: Performed By: #### L [id number] #### [facility] ([facility]) [address] [place] [address] Cholesterol [Mass/Vol] 71 mg/dL Low 120-200 [facility] Comment on above: Performed By: #### L [id number] #### [facility] ([facility]) [address] [place] [address] Magnesium [Mass/Vol] 146 mg/dL Normal 40-149 [facility] Comment on above: Result Comment: TRIG LYCERIDE REFERENCE RANGE: 20 YEARS AND OLDER CARDIOVASCULAR RISK LESS THAN 150 mg/dL LOW RISK 150 TO 199 mg/dL BORDERLINE RISK 200 mg/dL AND GREATER HIGH RISK Performed By: #### L [id number] #### [facility] ([facility]) [address] [place] [address] Magnesium [Mass/Vol] 21 mg/dL Low 23-92 [facility] Comment on above: Performed By: #### L [id number] #### [facility] ([facility]) [address] [place] [address] NON HDL CHOL. (LDL+VLDL) [address] [facility] Comment on above: Performed By: #### L [id number] #### [facility] ([facility]) [address] [place] [address] TOTAL VLDL-C 29 mg/dL Normal 0-40 [facility] Comment on above: Performed By: #### L [id number] #### [facility] ([facility]) [address] [place] [address] MAGNESIUMon 11-24-2023 Magnesium [Mass/Vol] 1.9 mg/dL Normal 1.9-2.7 [facility] Comment on above: Performed By: #### L [id number] #### [facility] ([facility]) [address] [place] [address] Magnesium [Mass/Vol] 1.8 mg/dL Low 1.9-2.7 [facility] Comment on above: Performed By: #### L [id number] #### [facility] ([facility]) [address] [place] [address] PHOSPHORUSon 11-24-2023 Magnesium [Mass/Vol] 2.8 mg/dL Normal 2.5-5.0 [facility] Comment on above: Performed By: #### L [id number] ####[facility] ([facility])[address] [place] [address] PROTIME-INRon 11-24-2023 INR IN PPP BY COAGULATION ASSAY 1.29 High 0.90-1.10 [facility] Comment on above: Result Comment: ACCC [...] CHEST 1995;[id number]. Performed By: #### L [id number] ####[facility] ([facility])[address] [place] [address] PROTHROMBIN TIME (PT) IN PPP BY COAGULATION ASSAY 16.0 Seconds High 12.3-14.8 [facility] Comment on above: Performed By: #### L [id number] ####[facility] ([facility])[address] [place] [address] TROPONIN Ion 11-24-2023 Troponin I.cardiac [Mass/Vol] 0.35 ng/mL Critically high 0.00-0.04 [facility] Comment on above: Result Comment: MAKAYLA MIRELES INITIAL CRITICAL HIGH; RESPUN AND RETESTED Performed By: #### L [id number] #### [facility] [place] [facility] [address] [place] [address] Troponin I.cardiac [Mass/Vol] 0.23 ng/mL Critically high 0.00-0.04 [facility] Comment on above: Result Comment: Prev ious result verified on 11/24/2023 0604 on specimen/case [id number] called with component Troponin I for procedure Troponin I with value 0.35 ng/mL. Performed By: #### L [id number] #### [facility] ([facility]) [address] [place] [address] Troponin I.cardiac [Mass/Vol] 0.27 ng/mL Critically high 0.00-0.04 [facility] Comment on above: Result Comment: Prev ious result verified on 11/24/2023 0604 on specimen/case [id number] called with component Troponin I for procedure Troponin I with value 0.35 ng/mL. Performed By: #### L [id number] ####[facility] ([facility])[address] [place] [address] Troponin I.cardiac [Mass/Vol] 0.26 ng/mL Critically high 0.00-0.04 [facility] Comment on above: Result Comment: M-VA EVIOUS CRITICAL RESULT Previous result verified on 11/24/2023 0604 on specimen/case [id number] called with component Troponin I for procedure Troponin I with value 0.35 ng/mL. Performed By: #### L [id number] ####[facility] ([facility])[address] [place] [address] Result Comment: Prev ious result verified on 11/24/2023 0604 on specimen/case [id number] called with component Troponin I for procedure Troponin I with value 0.35 ng/mL. Performed By: #### L [id number] #### [facility] ([facility]) [address] [place] [address] CBC AUTO DIFFon 03-21-2021 BASO # 0.0 103/ul Normal 0.0-0.1 [facility] Comment on above: Performed By: #### C BC #### [facility] [address] [place] [address] Dr. Lukas Nino Basophils/100 WBC (Bld) 0.4 % Normal 0.2-2.0 [facility] Comment on above: Performed By: #### C BC #### [facility] [address] [place] [address] Dr. Lukas Nino EO # 0.1 103/ul Normal 0.0-0.7 [facility] Comment on above: Performed By: #### C BC #### [facility] [address] [place] [address] Dr. Lukas Nino Eosinophils/100 WBC (Bld) 1.4 % Normal 0.9-7.0 [facility] Comment on above: Performed By: #### C BC #### [facility] [address] [place] [address] Dr. Lukas Nino Erythrocyte distribution width (RBC) [Ratio] 13.0 % Normal 11.0-15.0 [facility] Comment on above: Performed By: #### C BC #### [facility] [address] [place] [address] Dr. Lukas Nino Hematocrit (Bld) [Volume fraction] 42.1 % Normal 42.0-54.0 [facility] Comment on above: Performed By: #### C BC #### [facility] [address] [place] [address] Dr. Lukas Nino Hemoglobin (Bld) [Mass/Vol] 14.5 g/dL Normal 14.0-18.0 [facility] Comment on above: Performed By: #### C BC #### [facility] [address] [place] [address] Dr. Lukas Nino IG # 0.03 10e3/ul Normal 0.00-0.03 [facility] Comment on above: Performed By: #### C BC #### [facility] [address] [place] [address] Dr. Lukas Nino IG % 0.4 % Normal 0.0-0.5 [facility] Comment on above: Performed By: #### C BC #### [facility] [address] [place] [address] Dr. Lukas Nino LYMPH # 1.7 103/ul Normal 1.2-3.8 [facility] Comment on above: Performed By: #### C BC #### [facility] [address] [place] [address] Dr. Lukas Nino Lymphocytes/100 WBC (Bld) 20.6 % Normal 20.5-60.0 [facility] Comment on above: Performed By: #### C BC #### [facility] [address] [place] [address] Dr. Lukas Nino MANUAL DIFF REQ NO Normal [facility] Comment on above: Performed By: #### C BC #### [facility] [address] [address] [address] Lukas Nino MCH (RBC) [Entitic mass] 33.0 pg Normal 25.9-34.0 [facility] Comment on above: Performed By: #### C BC #### [facility] [address] [place] [address] Dr. Lukas Nino MCHC (RBC) [Mass/Vol] 34.4 g/dL Normal 29.9-35.2 [facility] Comment on above: Performed By: #### C BC #### [facility] [address] [place] [address] Dr. Lukas Nino MCV (RBC) [Entitic vol] 95.9 fL Critically high 80.0-94.0 [facility] Comment on above: Performed By: #### C BC #### [facility] [address] [place] [address] Dr. Lukas Nino MONO # 0.6 103/ul Normal 0.3-0.8 [facility] Comment on above: Performed By: #### C BC #### [facility] [address] [place] [address] Dr. Lukas Nino Monocytes/100 WBC (Bld) 7.2 % Normal 1.7-12.0 [facility] Comment on above: Performed By: #### C BC #### [facility] [address] [place] [address] Dr. Lukas Nino NEUT # 5.6 103/ul Normal 1.4-6.5 [facility] Comment on above: Performed By: #### C BC #### [facility] [address] [place] [address] Dr. Lukas Nino Neutrophils/100 WBC (Bld) 70.0 % Normal 43.0-75.0 [facility] Comment on above: Performed By: #### C BC #### [facility] [address] [place] [address] Dr. Lukas Nino Platelet mean volume (Bld) [Entitic vol] 11.1 fL Normal 9.5-13.5 [facility] Comment on above: Performed By: #### C BC #### [facility] [address] [address] [address] Lukas Nino PLT 129 103/ul Critically low 150-450 [facility] Comment on above: Result Comment: few plt clumps Performed By: #### C BC #### [facility] [address] [address] [address] Lukas Nino RBC 4.39 106/ul Critically low 4.70-6.10 [facility] Comment on above: Performed By: #### C BC #### [facility] [address] [address] [address] Lukas Nino WBC 8.0 103/ul Normal 4.0-11.0 [facility] Comment on above: Performed By: #### C BC #### [facility] [address] [address] [address] Lukas Nino FREE THYROXINE INDEX T7on FTI 2.05 Normal [facility] Comment on above: Performed By: #### T SH, CMP, LIPID, URIC, T7 #### [facility] [address] [address] [address] Lukas Nino T3U 33.0 % Normal 23.5-40.5 [facility] Comment on above: Performed By: #### T SH, CMP, LIPID, URIC, T7 #### [facility] [address] [address] [address] Lukas Nino T4 [Mass/Vol] 6.20 ug/dL Normal 5.53-11.00 [facility] Comment on above: Performed By: #### T SH, CMP, LIPID, URIC, T7 #### [facility] [address] [address] [address] Lukas Nino GLYCOHEMOGLOBIN A1Con 2020 ADA RECOMMENDATION ADA THERAPEUTIC TARG ET 6.0 - 7.0 ACTION SUGGESTED > 7.0 Normal [facility] Comment on above: Performed By: #### A 1C #### [facility] [address] [address] [address] Lukas Nino Glucose [Mass/Vol] 103 mg/dL Normal [facility] Comment on above: Performed By: #### A 1C #### [facility] [address] [address] [address] Lukas Nino HbA1c (Bld) [Mass fraction] 5.2 % Normal <=6.0 [facility] Comment on above: Performed By: #### A 1C #### [facility] [address] [address] [address] Lukas Nino LIPID PROFILEon 03-21-2021 CHOL-HDL RATIO NORM SEE BELOW Normal [facility] Comment on above: Result Comment: 3.3 - 4.4 LOW RISK 4.4 - 7.1 AVERAGE RISK 7.1 - 11.0 MODERATE RISK >11.0 HIGH RISK Performed By: #### T SH, CMP, LIPID, URIC, T7 #### [facility] [address] [place] [address] Dr. Lukas Nino Cholesterol [Mass/Vol] 121 mg/dL Normal <=200 [facility] Comment on above: Performed By: #### T SH, CMP, LIPID, URIC, T7 #### [facility] [address] [address] [address] Lukas Nino Cholesterol in HDL [Mass/Vol] 38 mg/dL Normal [facility] Comment on above: Performed By: #### T SH, CMP, LIPID, URIC, T7 #### [facility] [address] [address] [address] Lukas Nino Cholesterol in LDL [Mass/Vol] 66.4 mg/dL Normal [facility] Comment on above: Performed By: #### T SH, CMP, LIPID, URIC, T7 #### [facility] [address] [address] [address] Lukas Nino Cholesterol.total/Ch olesterol in HDL [Mass ratio] 3.2 {ratio} Normal [facility] Comment on above: Performed By: #### T SH, CMP, LIPID, URIC, T7 #### [facility] [address] [address] [address] Lukas Nino HDL NORMAL > or = 60 mg/dl - LO W CARDIOVASCULAR RISK <40 mg/dl - HIGH CARDIOVASCULAR RISK Normal [facility] Comment on above: Performed By: #### T SH, CMP, LIPID, URIC, T7 #### [facility] [address] [address] [address] Lukas Nino LDL CALC NORMAL SEE BELOW Normal [facility] Comment on above: Result Comment: <100 mg/dl OPTIMAL 100 - 129 mg/dl NEAR OR ABOVE OPTIMAL 130 - 159 mg/dl BORDERLINE HIGH 160 - 189 mg/dl HIGH >190 mg/dl VERY HIGH Performed By: #### T SH, CMP, LIPID, URIC, T7 #### [facility] [address] [address] [address] Lukas Nino Triglyceride [Mass/Vol] 83 mg/dL Normal <=150 [facility] Comment on above: Performed By: #### T SH, CMP, LIPID, URIC, T7 #### [facility] [address] [address] [address] Lukas Nino VLDL CALC 16.6 mg/dL Normal [facility] Comment on above: Performed By: #### T SH, CMP, LIPID, URIC, T7 #### [facility] [address] [address] [address] Lukas Nino PROF 14(COMP METB)on 021 Albumin [Mass/Vol] 3.7 g/dL Normal 3.5-5.0 [facility] Comment on above: Performed By: #### T SH, CMP, LIPID, URIC, T7 #### [facility] [address] [address] [address] Lukas Nino Albumin/Globulin [Mass ratio] 1.0 {ratio} Normal [facility] Comment on above: Performed By: #### T SH, CMP, LIPID, URIC, T7 #### [facility] [address] [address] [address] Lukas Nino ALP [Catalytic activity/Vol] 86 U/L Normal 38-126 [facility] Comment on above: Performed By: #### T SH, CMP, LIPID, URIC, T7 #### [facility] [address] [address] [address] Lukas Nino ALT [Catalytic activity/Vol] 18 U/L Critically low 21-72 [facility] Comment on above: Performed By: #### T SH, CMP, LIPID, URIC, T7 #### [facility] [address] [address] [address] Lukas Nino Anion gap [Moles/Vol] 9.5 mmol/L Normal [facility] Comment on above: Performed By: #### T SH, CMP, LIPID, URIC, T7 #### [facility] [address] [place] [address] Dr. Lukas Nino AST [Catalytic activity/Vol] 18 U/L Normal 17-59 [facility] Comment on above: Performed By: #### T SH, CMP, LIPID, URIC, T7 #### [facility] [address] [place] [address] Dr. Lukas Nino Bilirubin [Mass/Vol] 0.8 mg/dL Normal 0.2-1.3 [facility] Comment on above: Performed By: #### T SH, CMP, LIPID, URIC, T7 #### [facility] Laboratory [address] [place] [address] Dr. Lukas Nino Calcium [Mass/Vol] 8.9 mg/dL Normal 8.4-10.2 [facility] Comment on above: Performed By: #### T SH, CMP, LIPID, URIC, T7 #### [facility] [address] [place] [address] Dr. Lukas Nino Chloride [Moles/Vol] 106 mmol/L Normal 98-107 The [facility] Comment on above: Performed By: #### T SH, CMP, LIPID, URIC, T7 #### [facility] [address] [place] [address] Dr. Lukas Nino CO2 [Moles/Vol] 28.2 mmol/L Normal 22.0-30.0 The [facility] Comment on above: Performed By: #### T SH, CMP, LIPID, URIC, T7 #### [facility] [address] [place] [address] Dr. Lukas Nino Creatinine [Mass/Vol] 1.26 mg/dL Critically high 0.66-1.25 [facility] Comment on above: Performed By: #### T SH, CMP, LIPID, URIC, T7 #### [facility] [address] [place] [address] Dr. Lukas Nino EGFR-AF KAZAKH >60 Normal >=60 [facility] Comment on above: Performed By: #### T SH, CMP, LIPID, URIC, T7 #### [facility] [address] [place] [address] Dr. Lukas Nino EGFR-NON AF KAZAKH 55 mL/min/1.73m2 Critically low >=60 The [facility] Comment on above: Performed By: #### T SH, CMP, LIPID, URIC, T7 #### [facility] [address] [place] [address] Dr. Lukas Nino Globulin (S) [Mass/Vol] 3.7 g/dL Normal [facility] Comment on above: Performed By: #### T SH, CMP, LIPID, URIC, T7 #### [facility] [address] [place] [address] Dr. Lukas Nino Glucose [Mass/Vol] 76 mg/dL Normal 74-106 [facility] Comment on above: Performed By: #### T SH, CMP, LIPID, URIC, T7 #### [facility] [address] [place] [address] Dr. Lukas Nino Potassium [Moles/Vol] 3.7 mmol/L Normal 3.4-5.0 [facility] Comment on above: Performed By: #### T SH, CMP, LIPID, URIC, T7 #### [facility] [address] [place] [address] Dr. Lukas Nino Protein [Mass/Vol] 7.4 g/dL Normal 6.1-8.2 [facility] Comment on above: Performed By: #### T SH, CMP, LIPID, URIC, T7 #### [facility] [address] [place] [address] Dr. Lukas Nino Sodium [Moles/Vol] 140 mmol/L Normal 137-145 [facility] Comment on above: Performed By: #### T SH, CMP, LIPID, URIC, T7 #### [facility] [address] [address] [address] Lukas Nino Urea nitrogen [Mass/Vol] 15.0 mg/dL Normal 9.0-20.0 The [facility] Comment on above: Performed By: #### T SH, CMP, LIPID, URIC, T7 #### [facility] [address] [address] [address] Lukas Nino Urea nitrogen/Creatinine [Mass ratio] 11.9 mg/mg Normal The [facility] Comment on above: Performed By: #### T SH, CMP, LIPID, URIC, T7 #### [facility] [address] [address] [address] Luaks Nino TSHon 03-21-2021 TSH 2.594 uIU/mL Normal 0.470-4.680 [facility] Comment on above: Performed By: #### T SH, CMP, LIPID, URIC, T7 #### [facility] [address] [place] [address] Dr. Lukas Nino TSH RANGE SEE BELOW Normal The [facility] Comment on above: Result Comment: <0.3 4 UIU/ml HYPERTHYROID 0.34-5.60 UIU/ml EUTHYROID >5.60 UIU/ml HYPOTHYROID Performed By: #### T SH, CMP, LIPID, URIC, T7 #### [facility] [address] [place] [address] Dr. Lukas Nino URIC ACID SERUMon 03-21-2021 Urate [Mass/Vol] 6.5 mg/dL Normal 3.5-8.5 [facility] Comment on above: Performed By: #### T SH, CMP, LIPID, URIC, T7 #### [facility] [address] [address] [address] Lukas Nino Clinical Notes 11-24-2023 to 12-08-2023 Note Date & Type Note Facility 12-08-2023 Note Will monitor with Ec hocardiogram and symptoms No fluid overload symptoms noted today [facility] 12-08-2023 Note Will repeat lipid le nalini and LFT in 2-3 months since starting lipitor as inpt from simvastatin. Of Note as inpt at [facility] Chol was 71 and LDL was 21 [facility] 12-08-2023 Note No c/o chest pain/SO B but he remains fatigued s/p NSTEMI May be r/t hypotension- will hold lisinopril [facility] 12-08-2023 Note Currently b/p is lab ile today with noted fatigue s/p hospitalization Will stop lisinopril, instructed pt and to monitor b/p at home and if > 130/80 may need lisinopril 2.5 mg added- they voiced understanding Continue toprol [facility] 12-08-2023 Note Patient here for [facility] for NSTEMI. Still weak and tired s/p [...] All other systems reviewed and are negative. [facility] 12-08-2023 Note UTP CARDIOLOGY PROGR ESS NOTE HPI: Jorgito Mayorga is a 83 y.o. male here for hospital f/U HPI 83 yo male presents today for f/U after recent hospitalization with transfer to [facility] for IL and cardiac cath with PCI to LAD. He presented initially to [facility] with chest pain and was noted to have very elevated troponin levels and then transferred to [facility]. Known past medical history of hypertension, hyperlipidemia, [...] of hypertension, hyperlipidemia, hypothyroidism, CVA presents to [facility] as a direct admission from [facility] with a chief complaint of chest [...] the emergency department for further evaluation. At [facility], initial labs were completed showing WBC [...] elevated at 950.4. Patient was transferred to [facility] for further cardiac workup. Patient's baseline kidney [...] at bedtime. t (more content not included)... [facility] 12-08-2023 Note Continue GDMT- DAPT x1 year, continue plavix x 1 year, ASA and statin lifelong- lipitor, toprol and lisinopril. continue risk factor modifications- heart healthy diet, regular exercise as tolerated and continue all medications. [facility] 11-26-2023 Note Hospital Medicine Discharge Summary [...] of hypertension, hyperlipidemia, hypothyroidism, CVA presents to [facility] as a direct admission from [facility] with a chief complaint of chest [...] the emergency department for further evaluation. At [facility], initial labs were completed showing WBC [...] elevated at 950.4. Patient was transferred to [facility] for further cardiac workup. Patient's baseline kidney [...] Get Your Medications (more content not included)... [facility] 11-26-2023 Note Final AVS completed, and uploaded to [facility]. [employer] sent final AVS to [facility]. [facility] 11-26-2023 Note Hospital Medicine Daily Progress Note - 11/26/2023 1:03 PM; Room: [address] [place] [address] Admission: 11/24/2023 1:04 AM; Length of stay: 2 days THE HOSPITALIST TEAM PREFERS TO USE [employer] CHAT FOR COMMUNICATION 7AM-7PM. IF I DO NOT RESPOND WITHIN 15 MINUTES, PLEASE PAGE ME/CALL THROUGH THE PURCHASING MANAGER/SALES. FROM 7PM-7AM, PLEASE PAGE [phone](COVR) Code Status: Full Code Barriers to Discharge: PT/OT eval Expected Discharge Date: Pending discharge location, patient cleared to discharge by cardiology team Discharge Destination: home vs snf Overview Patient is seen for evaluation and management of nstemi, cp Jorgito Myaorga is an 83 y.o. male who came from home with past medical history of hypertension, hyperlipidemia, hypothyroidism, CVA presents to [facility] as a direct admission from [facility] with a chief complaint of chest [...] 7 days Lab (more content not included)... [facility] 11-26-2023 Note Cardiology Progress Note REASON [...] hypertension, hyperlipidemia, hypothyroidism, CVA who presented from [facility] with chief complains of central chest pain, [...] x 4 with mild slurred speech. At [facility], initial labs were completed showing WBC [...] tablet 500 mg, 500 mg, oral, Daily, [facility], 500 mg at 11/25/23 0941 cefTRIAXone (Rocephin) IVPB 2 g in NS 50 mL (Mini-Bag Plus), 2 g, intravenous, q24h, [facility], Stopped at 11/25/23 1423 clopidogrel (Plavix) tablet 75 mg, 75 mg, oral, Daily, Florentin Tavares MD levothyroxine (Synthroid, Levoxyl) tablet 50 mcg, 50 mcg, oral, Daily before breakfast, Leslee Bansal NP, 50 mcg at 11/26/23 0537 magnesium nursing electrolyte replacement placeholder 1 each, 1 each, Does not apply, RX Placeholder, [facility] magnesium sulfate in D5W IVPB 1 g, 1 g, intravenous, q1h, Yvrose Catalan MD, Last Rate: 100 mL/hr at 11/26/23 0705, 1 g at 11/26/23 0705 melatonin tablet 5 mg, 5 mg, oral, Nightly PRN, Leslee Bansal, RETIREMENT BENEFITS SPECIALIST nitroglycerin (Tridil) infusion 200 mcg/mL, 5-200 mcg/min, intravenous, Continuous, Tessa Benavides MD ondansetron ODT (Zofran-ODT) disintegrating tablet 4 mg, 4 mg, oral, q8h PRN OR ondansetron HCl (PF) (Zofran) injection 4 mg, 4 mg, intravenous, q6h PRN, Leslee Bansal, RETIREMENT BENEFITS SPECIALIST Oxygen Therapy, , inhalation, Continuous PRN, Erin Saravia CNP, Given at 11/24/23 1000 pantoprazole (ProtoNix) EC tablet 40 mg, 40 mg, oral, Daily before breakfast, Leslee Pirkl, RETIREMENT BENEFITS SPECIALIST, 40 mg at 11/26/23 0536 potassium nursing electrolyte replacement placeholder, 1 each, Does not apply, RX Placeholder, Erin Saravia CNP QUEtiapine (SEROquel) tablet 50 mg, 50 mg, oral, Nightly, Leslee Pirkl, RETIREMENT BENEFITS SPECIALIST, 50 mg at 11/25/23 2118 tamsulosin (Flomax) 24 hr capsule 0.4 mg, 0.4 mg, oral, Daily, Leslee Pirkl, RETIREMENT BENEFITS SPECIALIST, 0.4 mg at 11/25/23 0941 Relevant Lab Results: Encounter Date: 11/24/23 ECG 12 lead Result Value Ventricular Rate 57 Atri (more content not included)... [facility] 11-25-2023 Note 11/25/23 1425 Referral Data [...] Feeding Independent Behavior Oriented Communication Talks;Understands speaking;Understands Congolese Income Information Income Source Unemployed (Retired, states [...] return home and would be open to [facility] for home therapy. Family requested either [facility] or [facility]. Referrals sent. Will follow up after therapy sees pt. [facility] 11-25-2023 Note Patient: Jorgito Bhandari on Procedure Information Date/Time: 11/25/23 1210 Procedure: Coronary angiography Location: [facility]ESP[facility] JEWELRY 3 / [facility] (Cath) Providers: Florentin Tavares MD [...] ASA 4 (Moderate sedation) Additional Equipment Requests [facility] 11-25-2023 Note ------ Attestation signed by [...] hypertension, hyperlipidemia, hypothyroidism, CVA who presented from [facility] with chief complains of central chest pain, [...] x 4 with mild slurred speech. At [facility], initial labs were completed showing WBC [...] Does not apply, RX Placeholder, Erin Saravia [facility] magnesium oxide (Mag-Ox) tablet 400 mg, 400 mg, oral, q8h, Joshua Brar MD, 400 mg at 11/25/23 0530 melatonin tablet 5 mg, 5 mg, oral, Nightly PRN, Leslee Bansal, RETIREMENT BENEFITS SPECIALIST nitroglycerin (Tridil) infusion 200 mcg/mL, 5-200 mcg/min, intravenous, Continuous, Tessa Benavides MD ondansetron ODT (Zofran-ODT) disintegrating tablet 4 mg, 4 mg, oral, q8h PRN OR ondansetron HCl (PF) (Zofran) injection 4 mg, 4 mg, intravenous, q6h PRN, Leslee Bansal RETIREMENT BENEFITS SPECIALIST Oxygen Therapy, , inhalation, Continuous PRN, Erin Saravia CNP, Given at 11/24/23 1000 pantoprazole (ProtoNix) EC tablet 40 mg, 40 mg, oral, Daily before breakfast, Leslee Bansal, RETIREMENT BENEFITS SPECIALIST, 40 mg at 11/25/23 0530 potassium nursing electrolyte replacement placeholder, 1 each, Does not apply, RX Placeholder, Erin Saravia CNP QUEtiapine (SEROquel) tablet 50 mg, 50 mg, oral, Nightly, Leslee Bansal, RETIREMENT BENEFITS SPECIALIST, 50 mg a (more content not included)... [facility] 11-25-2023 Note 11/25/23 0835 Admission Assessment [...] Status Interested Does the patient have a social work case manager assigned to them through their insurance? No [...] you able to send link and activate [employer]? Yes [facility] 11-25-2023 Note Hospital Medicine Daily Progress Note - 11/25/2023 7:23 AM; Room: 3185/3185-01 Admission: 11/24/2023 1:04 AM; Length of stay: 1 days THE HOSPITALIST TEAM PREFERS TO USE [employer] CHAT FOR COMMUNICATION 7AM-7PM. IF I DO NOT RESPOND WITHIN 15 MINUTES, PLEASE PAGE ME/CALL THROUGH THE PURCHASING MANAGER/SALES. FROM 7PM-7AM, PLEASE PAGE [phone](COVR) Code Status: Full Code Barriers to Discharge: cath 11/24 Expected Discharge Date:pending cardio workup Discharge Destination: home Overview Patient is seen for evaluation and management of nstemi, cp Jorgito Mayorga is an 83 y.o. male who came from home with past medical history of hypertension, hyperlipidemia, hypothyroidism, CVA presents to [facility] as a direct admission from [facility] with a chief complaint of chest [...] 8.7 PHOSPHORUS mg/dL (more content not included)... [facility] 11-24-2023 Note Hospital Medicine Daily Progress Note - 11/24/2023 7:59 AM; Room: [facility] Admission: 11/24/2023 1:04 AM; Length of stay: 0 days THE HOSPITALIST TEAM PREFERS TO USE [employer] CH[employer] FOR COMMUNICATION 7AM-7PM. IF I DO NOT RESPOND WITHIN 15 MINUTES, PLEASE PAGE ME/CALL THROUGH THE PURCHASING MANAGER/SALES. FROM 7PM-7AM, PLEASE PAGE [phone](COVR) Code Status: Full Code Barriers to Discharge: cath 11/24 Expected Discharge Date:pending cardio workup Discharge Destination: home Overview Patient is seen for evaluation and management of nstemi, cp Jorgito Mayorga is an 83 y.o. male who came from home with past medical history of hypertension, hyperlipidemia, hypothyroidism, CVA presents to [facility] as a direct admission from [facility] with a chief complaint of chest [...] , FREET4 , CORTISOL , FEV1 , PKC8WWS , DLCO , RVSP , HDL , LDL No results found for: [id number] , IRON , TIBC , C3 , C4 , RUBI , CANCA , ASO , PSA , CEA , CA125 , CA199 , AFP , CA153 Imaging (more content not included)... [facility] 11-24-2023 Note Hospital Medicine History and Physical 11/24/2023 2:05 AM THE HOSPITALIST TEAM PREFERS TO USE [employer] CH[employer] FOR COMMUNICATION 7AM-7PM. IF I DO NOT RESPOND WITHIN 15 MINUTES, PLEASE PAGE ME/CALL THROUGH THE PURCHASING MANAGER/SALES. FROM 7PM-7AM, PLEASE PAGE [phone](COVR) Chief Complaint Direct admit from [facility] with elevated troponin and chest pain History of Present Illness Jorgito Mukesh is an 83 y.o. male who came from home with past medical history of hypertension, hyperlipidemia, hypothyroidism, CVA presents to [facility] as a direct admission from [facility] with a chief complaint of chest [...] the emergency department for further evaluation. At [facility], initial labs were completed showing WBC [...] of hypertension, hyperlipidemia, hypothyroidism, CVA presents to [facility] as a direct admission from [facility] with a chief complaint of chest pain and elevated troponin. #Elevated troponin #Chest pain -Troponin 1042.4->950.4 at OSH, repeat pending -EKG showed normal sinus rhythm -CXR showed moderate left basilar infiltrates, consider repeat CXR t (more content not included)... [facility] Summary Purpose Family History No Family History Records FoundNo Family History Records FoundNo Family History Records Found Advance Directives No Advanced Directives Records FoundNo Advanced Directives Records FoundNo Advanced Directives Records Found Additional Source Comments (unrecognized sect ion and content) No Status Records FoundNo Status Records FoundNo Status Records Found INFORMATION SOURCE (unrecogn ized section and content) DATE CREATED AUTHOR 05/23/2021 [facility] DATE CREATED AUTHOR AUTHOR'S ORGANIZ ATION 11/25/2023 [facility] DATE CREATED AUTHOR AUTHOR'S ORGANIZ ATION 12/09/[address] [facility] FOR RECORDS PERTAINING TO PATIENTS WHO [...] BE BASED ON THE PRIMARY CLINICAL RECORDS. [facility] [employer] [facility]. provides no warranty or guarantee of the accuracy or completeness of information in this document.
== END 2023-12-13 07:54 | disposition home or self-care (01) ==
LOC: RAD 07:53
PROVIDERS: PCP Family Medicine; Visit Provider Family Medicine
DX: M79.604 Pain in right leg (principal); Z86.718 Personal history of other venous thrombosis and embolism
CPT/HCPCS: 93971

== ENCOUNTER 2023-12-30 12:34 | Outpatient (OUT) | payer MEDICARE, SELFPAY ==
--- OUTSIDE RECORDS SUMMARY | 2023-12-30 12:47 | XMS_ITS | CCD ---
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; Translations: [Atherosclerotic heart disease of hoh coronary artery without angina pectoris] Onset: 12-08-2023 [...] after midnight to get blood drawn Normal [facility] Follow-Upon 12-08-2023 Follow-Up [id number] Kamini Mayorga T 1940 M Date Provider Department Center 12/08/2023 MARIA TERESA GOLDMAN JANIE Rubio Family History Problem Relation Age of Onset No Known Problems Mother No Known Problems Father Family Status - Relation Status Age at Mother Father Level of Service:19527 OK OFFICE/OUTPATIENT ESTABLISHED MOD MDM 30 MIN Normal [facility] 30on 11-26-2023 30 Daily Case Managemen t [...] OT? Answer: Discharge recommendations 11/26/23 0936 Normal [facility] 30 The patient is Moderately Stable - [...] Assess patient frequently for physical needs Normal [facility] APTTon 11-26-2023 ACTIVATED PARTIAL THROMBOPLASTIN TIME IN PPP BY COAGULATION ASSAY 31.6 Seconds Normal 25.0-35.0 [facility] Comment on above: Order Comment: Check aPTT every 6 hours while on heparin infusion, or per protocol. Result Comment: Clin ical significance of the APTT is questionable in the presence of heparin. Performed By: #### L [id number] ####[facility] ([facility]AKER)[address] [place] [address] BASIC METABOLIC PANELon - Anion gap [Moles/Vol] 12 mmol/L Normal 7-20 [facility] Comment on above: Performed By: #### L [id number] #### [facility] ([facility]) [address] [place] [address] Calcium [Mass/Vol] 8.2 mg/dL Low 8.6-10.3 [facility] Comment on above: Performed By: #### L [id number] #### [facility] ([facility]) [address] [place] [address] Chloride [Moles/Vol] 107 mmol/L Normal 98-107 [facility] Comment on above: Performed By: #### L [id number] #### [facility] ([facility] [address] [place] [address] CO2 [Moles/Vol] 24 mmol/L Normal 21-31 [facility] Comment on above: Performed By: #### L [id number] #### [facility] ([facility] [address] [place] [address] Creatinine [Mass/Vol] 1.24 mg/dL Normal 0.70-1.30 [facility] Comment on above: Performed By: #### L [id number] #### [facility] ([facility]) [address] [place] [address] GLOMERULAR FILTRATION RATE ML/MIN/1.73 SQ M.PREDICTED 58.0 mL/min/1.73m*2 Low >60.0 [facility] Comment on above: Result Comment: The [facility]???s estimated glomerular filtration rate (eGFR) will no [...] individuals. Performed By: #### L [id number] #### [facility] ([facility] [address] [place] [address] Glucose [Mass/Vol] 89 mg/dL Normal 70-100 [facility] Comment on above: Performed By: #### L [id number] #### [facility] ([facility]) [address] [place] [address] Potassium [Moles/Vol] 3.9 mmol/L Normal 3.5-5.1 [facility] Comment on above: Performed By: #### L [id number] #### [facility] ([facility]) [address] [place] [address] Sodium [Moles/Vol] 139 mmol/L Normal 136-145 [facility] Comment on above: Performed By: #### L [id number] #### [facility] ([facility]) [address] [place] [address] Urea nitrogen [Mass/Vol] 17 mg/dL Normal 7-25 [facility] Comment on above: Performed By: #### L [id number] #### [facility] ([facility]) [address] [place] [address] UREA NITROGEN/CREATININE (MASS RATIO) IN SER/PLAS 13.7 Normal [facility] Comment on above: Performed By: #### L [id number] #### [facility] ([facility]) [address] [place] [address] CBC WITH AUTO DIFFERENTIALon 11-26-2023 Basophils (Bld) [#/Vol] 0.04 10*3/uL Normal 0.00-0.20 [facility] Comment on above: Performed By: #### L [id number] ####[facility] ([facility])[address] [place] [address] Basophils/100 WBC (Bld) 0.5 % Normal 0.0-1.0 [facility] Comment on above: Performed By: #### L [id number] ####[facility] ([facility])[address] [place] [address] Eosinophils (Bld) [#/Vol] 0.29 10*3/uL Normal 0.00-0.50 [facility] Comment on above: Performed By: #### L [id number] ####[facility] (BEAKER)[address] [place] [address] Eosinophils/100 WBC (Bld) 3.8 % Normal 0.0-6.0 [facility] Comment on above: Performed By: #### L [id number] ####[facility] (BEAKER)[address] [place] [address] Erythrocyte distribution width (RBC) [Ratio] 12.1 % Normal 11.5-15.0 [facility] Comment on above: Performed By: #### L [id number] ####[facility] ([facility] [place] [address] ERYTHROCYTE MEAN CORPUSCULAR HEMOGLOBIN CONCENTRATION (G/DL) BY AUTOMATED 34.4 g/dL Normal 32.0-35.0 [facility] Comment on above: Performed By: #### L [id number] ####[facility] ([facility])[address] [place] [address] Hematocrit (Bld) [Volume fraction] 35.8 % Low 39.0-55.0 [facility] Comment on above: Performed By: #### L [id number] ####[facility] ([facility] [place] [address] Hemoglobin (Bld) [Mass/Vol] 12.3 g/dL Low 13.0-17.0 [facility] Comment on above: Performed By: #### L [id number] ####[facility] ([facility] [place] [address] Immature granulocytes (Bld) [#/Vol] 0.20 10*3/uL Normal 0.00-0.20 [facility] Comment on above: Performed By: #### L [id number] ####[facility] (BEAKER)[address] [place] [address] Immature granulocytes/100 WBC (Bld) 2.7 % High 0.0-1.0 [facility] Comment on above: Performed By: #### L [id number] ####[facility] ([facility]ER)[address] [place] [address] Lymphocytes (Bld) [#/Vol] 1.15 10*3/uL Low 1.20-4.00 [facility] Comment on above: Performed By: #### L [id number] ####[facility] (BEAKER)[address] [place] [address] Lymphocytes/100 WBC (Bld) 15.3 % Low 20.0-45.0 [facility] Comment on above: Performed By: #### L [id number] ####[facility] (BEAKER)[address] [place] [address] MCH (RBC) [Entitic mass] 32.3 pg Normal 27.0-33.0 [facility] Comment on above: Performed By: #### L [id number] ####[facility] (BEAKER)[address] [place] [address] MCV (RBC) [Entitic vol] 94.0 fL Normal 82.0-98.0 [facility] Comment on above: Performed By: #### L [id number] ####[facility] (BEAKER)[address] [place] [address] Monocytes (Bld) [#/Vol] 0.56 10*3/uL Normal 0.10-1.00 [facility] Comment on above: Performed By: #### L [id number] ####[facility] (BEAKER)[address] [place] [address] Monocytes/100 WBC (Bld) 7.4 % Normal 5.0-12.0 [facility] Comment on above: Performed By: #### L [id number] ####[facility] (BEAKER)[address] [place] [address] Neutrophils (Bld) [#/Vol] 5.30 10*3/uL Normal 1.60-7.60 [facility] Comment on above: Performed By: #### L [id number] ####[facility] (BEAKER)[address] [place] [address] Neutrophils/100 WBC (Bld) 70.3 % Normal 40.0-72.0 [facility] Comment on above: Performed By: #### L [id number] ####[facility] ([facility])[address] [place] [address] NRBC (PER 100 WBCS) BY AUTOMATED COUNT 0.0 % Normal 0 [facility] Comment on above: Performed By: #### L [id number] ####[facility] ([facility])[address] [place] [address] PLATELETS (10*3/UL) IN BLOOD AUTOMATED COUNT 209 10*3/uL Normal 150-400 [facility] Comment on above: Performed By: #### L [id number] ####[facility] ([facility])[address] [place] [address] RBC (Bld) [#/Vol] 3.81 10*6/uL Low 4.20-5.70 [facility] Comment on above: Performed By: #### L [id number] ####[facility] ([facility])[address] [place] [address] WBC (Bld) [#/Vol] 7.54 10*3/uL Normal 4.00-10.60 [facility] Comment on above: Performed By: #### L [id number] ####[facility] ([facility])[address] [place] [address] MAGNESIUMon 11-26-2023 Magnesium [Mass/Vol] 1.8 mg/dL Low 1.9-2.7 [facility] Comment on above: Performed By: #### L [id number] ####[facility] ([facility])[address] [place] [address] NURSNOTEon 11-26-2023 NURSNOTE RN informed primary FINISHING MACHINE OPERATOR AUTOMATIC Erin that PT/OT was unable to see [...] care. Family and pt refused SNF option. [facility] 30on 11-25-2023 30 The patient is Moderately [...] for assistance before standing Outcome: Progressing Normal [facility] 30 The patient is Moderately Stable - [...] injury: Assess patient frequently for physical needs [facility] 30 Daily Case Managemen t Update Multidisciplinary rounds have been completed. Barriers to Discharge: Pending Clinical course[facility] and [facility] pain. [...] Select all services needed for the patient [facility] (30 day convalescent stay) Please indicate your approval for this care by adding your name here: ISABELL ELLISON 11/24/23 0115 Normal [facility] APTTon 11-25-2023 ACTIVATED PARTIAL THROMBOPLASTIN TIME IN PPP BY COAGULATION ASSAY 78.4 Seconds High 25.0-35.0 [facility] Comment on above: Order Comment: Check aPTT every 6 hours while on heparin infusion, or per protocol. Result Comment: Clin ical significance of the APTT is questionable in the presence of heparin. Performed By: #### L [id number] ####[facility] ([facility])[address] [place] [address] ACTIVATED PARTIAL THROMBOPLASTIN TIME IN PPP BY COAGULATION ASSAY 80.8 Seconds High 25.0-35.0 [facility] Comment on above: Order Comment: Check aPTT every 6 hours while on heparin infusion, or per protocol. Result Comment: Clin ical significance of the APTT is questionable in the presence of heparin. Performed By: #### L [id number] #### [facility] ([facility]) [address] [place] [address] BASIC METABOLIC PANELon 11-06 Anion gap [Moles/Vol] 11 mmol/L Normal 7-20 [facility] Comment on above: Performed By: #### L [id number] #### [facility] ([facility]) [address] [place] [address] Calcium [Mass/Vol] 8.4 mg/dL Low 8.6-10.3 [facility] Comment on above: Performed By: #### L [id number] #### [facility] ([facility]) [address] [place] [address] Chloride [Moles/Vol] 107 mmol/L Normal 98-107 [facility] Comment on above: Performed By: #### L [id number] #### [facility] ([facility]) [address] [place] [address] CO2 [Moles/Vol] 24 mmol/L Normal 21-31 [facility] Comment on above: Performed By: #### L [id number] #### [facility] ([facility]) [address] [place] [address] Creatinine [Mass/Vol] 1.24 mg/dL Normal 0.70-1.30 [facility] Comment on above: Performed By: #### L [id number] #### [facility] ([facility]) [address] [place] [address] GLOMERULAR FILTRATION RATE ML/MIN/1.73 SQ M.PREDICTED 58.0 mL/min/1.73m*2 Low >60.0 [facility] Comment on above: Result Comment: The [facility]???s estimated glomerular filtration rate (eGFR) will no [...] individuals. Performed By: #### L [id number] #### [facility] ([facility]) [address] [place] [address] Glucose [Mass/Vol] 97 mg/dL Normal 70-100 [facility] Comment on above: Performed By: #### L [id number] #### [facility] ([facility]) [address] [place] [address] Potassium [Moles/Vol] 3.7 mmol/L Normal 3.5-5.1 [facility] Comment on above: Performed By: #### L [id number] #### [facility] ([facility]) [address] [place] [address] Sodium [Moles/Vol] 138 mmol/L Normal 136-145 [facility] Comment on above: Performed By: #### L [id number] #### [facility] ([facility]) [address] [facility] [place] [address] Urea nitrogen [Mass/Vol] 23 mg/dL Normal 7-25 [facility] Comment on above: Performed By: #### L [id number] #### [facility] ([facility] [address] [place] [address] UREA NITROGEN/CREATININE (MASS RATIO) IN SER/PLAS 18.5 Normal [facility] Comment on above: Performed By: #### L [id number] #### [facility] ([facility]) [address] [place] [address] CBC WITH AUTO DIFFERENTIALon 11-25-2023 Basophils (Bld) [#/Vol] 0.02 10*3/uL Normal 0.00-0.20 [facility] Comment on above: Performed By: #### L [id number] #### [facility] ([facility]) [address] [place] [address] Basophils/100 WBC (Bld) 0.2 % Normal 0.0-1.0 [facility] Comment on above: Performed By: #### L [id number] #### [facility] ([facility]) [address] [place] [place] [address] Eosinophils (Bld) [#/Vol] 0.28 10*3/uL Normal 0.00-0.50 [facility] Comment on above: Performed By: #### L [id number] #### [facility] ([facility]) [address] [place] [address] Eosinophils/100 WBC (Bld) 3.4 % Normal 0.0-6.0 [facility] Comment on above: Performed By: #### L [id number] #### [facility] ([facility]) [address] [place] [address] Erythrocyte distribution width (RBC) [Ratio] 12.5 % Normal 11.5-15.0 [facility] Comment on above: Performed By: #### L [id number] #### [facility] ([facility]) [address] [place] [address] ERYTHROCYTE MEAN CORPUSCULAR HEMOGLOBIN CONCENTRATION (G/DL) BY AUTOMATED 34.7 g/dL Normal 32.0-35.0 [facility] Comment on above: Performed By: #### L [id number] #### [facility] (BEAKER) [address] [place] [address] Hematocrit (Bld) [Volume fraction] 35.2 % Low 39.0-55.0 [facility] Comment on above: Performed By: #### L [id number] #### [facility] ([facility]ER) [address] [place] [address] Hemoglobin (Bld) [Mass/Vol] 12.2 g/dL Low 13.0-17.0 [facility] Comment on above: Performed By: #### L [id number] #### [facility] [address] [place] [address] Immature granulocytes (Bld) [#/Vol] 0.10 10*3/uL Normal 0.00-0.20 [facility] Comment on above: Performed By: #### L [id number] #### [facility] ([facility]) [address] [place] [address] Immature granulocytes/100 WBC (Bld) 1.2 % High 0.0-1.0 [facility] Comment on above: Performed By: #### L [id number] #### [facility] ([facility]) [address] [place] [address] Lymphocytes (Bld) [#/Vol] 1.57 10*3/uL Normal 1.20-4.00 [facility] Comment on above: Performed By: #### L [id number] #### [facility] ([facility]) [address] [place] [address] Lymphocytes/100 WBC (Bld) 18.9 % Low 20.0-45.0 [facility] Comment on above: Performed By: #### L [id number] #### [facility] ([facility] [address] [place] [address] MCH (RBC) [Entitic mass] 32.7 pg Normal 27.0-33.0 [facility] Comment on above: Performed By: #### L [id number] #### [facility] ([facility]AKER) [address] [place] [place], [place] [address] MCV (RBC) [Entitic vol] 94.4 fL Normal 82.0-98.0 [facility] Comment on above: Performed By: #### L [id number] #### [facility] ([facility] [address] [place] [place], [place] [address] Monocytes (Bld) [#/Vol] 0.73 10*3/uL Normal 0.10-1.00 [facility] Comment on above: Performed By: #### L [id number] #### [facility] ([facility]) [address] [place] [place], [place] [address] Monocytes/100 WBC (Bld) 8.8 % Normal 5.0-12.0 [facility] Comment on above: Performed By: #### L [id number] #### [facility] ([facility]) [address] [place], [place] [address] Neutrophils (Bld) [#/Vol] 5.60 10*3/uL Normal 1.60-7.60 [facility] Comment on above: Performed By: #### L [id number] #### [facility] ([facility]) [address] [place], [place] [address] Neutrophils/100 WBC (Bld) 67.5 % Normal 40.0-72.0 [facility] Comment on above: Performed By: #### L [id number] #### [facility] ([facility]) [address] [place], [place] [address] NRBC (PER 100 WBCS) BY AUTOMATED COUNT 0.0 % Normal 0 [facility] Comment on above: Performed By: #### L [id number] #### [facility] ([facility]) [address] [place], [place] [address] PLATELETS (10*3/UL) IN BLOOD AUTOMATED COUNT 209 10*3/uL Normal 150-400 [facility] Comment on above: Performed By: #### L [id number] #### [facility] [address] [place], [place] [address] RBC (Bld) [#/Vol] 3.73 10*6/uL Low 4.20-5.70 [facility] Comment on above: Performed By: #### L [id number] #### [facility] ([facility]) [address] [place] [address] WBC (Bld) [#/Vol] 8.30 10*3/uL Normal 4.00-10.60 [facility] Comment on above: Performed By: #### L [id number] #### [facility] ([facility]) [address] [place] [address] HPon 11-25-2023 HP H&P reviewed. The patient was examined and there are no changes to the H&P. Would add that L Uriah test is normal, and pulses in DP and PT are strong. We discussed expected risks and benefits, he understands and consents to proceed. Normal [facility] MAGNESIUMon 11-25-2023 Magnesium [Mass/Vol] 1.7 mg/dL Low 1.9-2.7 [facility] Comment on above: Performed By: #### L [id number] ####[facility] ([facility])[address] [place] [address] 30on 11-24-2023 30 The patient is Moderately [...] baseline comfort level Outcome: Progressing . Normal [facility] 30 The patient is Moderately Stable - [...] Free from fall injury Outcome: Progressing Normal [facility] 30 The patient is Moderately Stable - [...] acceptable level of pain Outcome: Progressing Normal [facility] 30 The patient is Moderately Stable - [...] and maintain environment to promote sleep. Normal [facility] 30 The patient is Moderately Stable - Low risk of patient condition declining or worsening The patient's goals for the shift include Go home The clinical goals for the shift include VSS Normal [facility] APTTon 11-24-2023 ACTIVATED PARTIAL THROMBOPLASTIN TIME IN PPP BY COAGULATION ASSAY 54.6 Seconds High 25.0-35.0 [facility] Comment on above: Order Comment: Check aPTT every 6 hours while on heparin infusion, or per protocol. Result Comment: Clin ical significance of the APTT is questionable in the presence of heparin. Performed By: #### L [id number] ####[facility] ([facility])[address] [place] [address] ACTIVATED PARTIAL THROMBOPLASTIN TIME IN PPP BY COAGULATION ASSAY 55.9 Seconds High 25.0-35.0 [facility] Comment on above: Order Comment: Check aPTT every 6 hours while on heparin infusion, or per protocol. Result Comment: Clin ical significance of the APTT is questionable in the presence of heparin. Performed By: #### L [id number] #### [facility] ([facility]) [address] [place] [address] ACTIVATED PARTIAL THROMBOPLASTIN TIME IN PPP BY COAGULATION ASSAY 48.6 Seconds High 25.0-35.0 [facility] Comment on above: Result Comment: Clin ical significance of the APTT is questionable in the presence of heparin. Performed By: #### L [id number] #### [facility] ([facility]) [address] [place] [address] B-TYPE NATRIURETIC PEPTIDEon 11-24-2023 Natriuretic peptide B (Bld) [Mass/Vol] 284 pg/mL High 0-100 [facility] Comment on above: Performed By: #### L [id number] #### [facility] ([facility]) [address] [place] [address] Natriuretic peptide B (Bld) [Mass/Vol] 308 pg/mL High 0-100 [facility] Comment on above: Performed By: #### L [id number] #### [facility] ([facility]) [address] [place] [place], [place] [address] CBC WITH AUTO DIFFERENTIALon 11-24-2023 Basophils (Bld) [#/Vol] 0.05 10*3/uL Normal 0.00-0.20 [facility] Comment on above: Performed By: #### L [id number] #### [facility] ([facility]) [address] [place] [address] Basophils/100 WBC (Bld) 0.6 % Normal 0.0-1.0 [facility] Comment on above: Performed By: #### L [id number] #### [facility] [address] [place] [address] Eosinophils (Bld) [#/Vol] 0.09 10*3/uL Normal 0.00-0.50 [facility] Comment on above: Performed By: #### L [id number] #### [facility] ([facility]) [address] [place] [address] Eosinophils/100 WBC (Bld) 1.1 % Normal 0.0-6.0 [facility] Comment on above: Performed By: #### L [id number] #### [facility] ([facility]) [address] [place] [address] Erythrocyte distribution width (RBC) [Ratio] 12.6 % Normal 11.5-15.0 [facility] Comment on above: Performed By: #### L [id number] #### [facility] ([facility]) [address] [place] [address] ERYTHROCYTE MEAN CORPUSCULAR HEMOGLOBIN CONCENTRATION (G/DL) BY AUTOMATED 33.3 g/dL Normal 32.0-35.0 [facility] Comment on above: Performed By: #### L [id number] #### [facility] ([facility]) [address] [place] [address] Hematocrit (Bld) [Volume fraction] 42.6 % Normal 39.0-55.0 [facility] Comment on above: Performed By: #### L [id number] #### [facility] ([facility] [address] [place] [address] Hemoglobin (Bld) [Mass/Vol] 14.2 g/dL Normal 13.0-17.0 [facility] Comment on above: Performed By: #### L [id number] #### [facility] ([facility]) [address] [place] [address] Immature granulocytes (Bld) [#/Vol] 0.08 10*3/uL Normal 0.00-0.20 [facility] Comment on above: Performed By: #### L [id number] #### [facility] ([facility]) [address] [place] [address] Immature granulocytes/100 WBC (Bld) 0.9 % Normal 0.0-1.0 [facility] Comment on above: Performed By: #### L [id number] #### [facility] ([facility]) [address] [place] [address] Lymphocytes (Bld) [#/Vol] 1.07 10*3/uL Low 1.20-4.00 [facility] Comment on above: Performed By: #### L [id number] #### [facility] ([facility]) [address] [place] [address] Lymphocytes/100 WBC (Bld) 12.7 % Low 20.0-45.0 [facility] Comment on above: Performed By: #### L [id number] #### [facility] ([facility]) [address] [place] [address] MCH (RBC) [Entitic mass] 32.4 pg Normal 27.0-33.0 [facility] Comment on above: Performed By: #### L [id number] #### [facility] ([facility]) [address] [place] [address] MCV (RBC) [Entitic vol] 97.3 fL Normal 82.0-98.0 [facility] Comment on above: Performed By: #### L [id number] #### [facility] ([facility]) [address] [place] [address] Monocytes (Bld) [#/Vol] 0.54 10*3/uL Normal 0.10-1.00 [facility] Comment on above: Performed By: #### L [id number] #### [facility] ([facility]) [address] [place] [address] Monocytes/100 WBC (Bld) 6.4 % Normal 5.0-12.0 [facility] Comment on above: Performed By: #### L [id number] #### [facility] ([facility]) [address] [place] [address] Neutrophils (Bld) [#/Vol] 6.60 10*3/uL Normal 1.60-7.60 [facility] Comment on above: Performed By: #### L [id number] #### [facility] ([facility]) [address] [place] [address] Neutrophils/100 WBC (Bld) 78.3 % High 40.0-72.0 [facility] Comment on above: Performed By: #### L [id number] #### [facility] ([facility]) [address] [place] [address] NRBC (PER 100 WBCS) BY AUTOMATED COUNT 0.0 % Normal 0 [facility] Comment on above: Performed By: #### L [id number] #### [facility] ([facility]) [address] [place] [address] PLATELETS (10*3/UL) IN BLOOD AUTOMATED COUNT 159 10*3/uL Normal 150-400 [facility] Comment on above: Performed By: #### L [id number] #### [facility] ([facility]) [address] [place] [address] RBC (Bld) [#/Vol] 4.38 10*6/uL Normal 4.20-5.70 [facility] Comment on above: Performed By: #### L [id number] #### [facility] ([facility]) [address], [place] [address] WBC (Bld) [#/Vol] 8.43 10*3/uL Normal 4.00-10.60 [facility] Comment on above: Performed By: #### L [id number] #### [facility] ([facility]) [address] [place], [place] [address] COMPREHENSIVE METABOLIC PANE Chris 11-24-2023 Albumin [Mass/Vol] 3.5 g/dL Normal 3.5-5.7 [facility] Comment on above: Performed By: #### L [id number] ####[facility] ([facility] [place] [address] ALP [Catalytic activity/Vol] 87 U/L Normal 34-104 [facility] Comment on above: Performed By: #### L [id number] ####[facility] ([facility])[address] [place] [address] ALT [Catalytic activity/Vol] 16 U/L Normal 7-52 [facility] Comment on above: Performed By: #### L [id number] ####[facility] ([facility])[address] [place] [address] Anion gap [Moles/Vol] 18 mmol/L Normal 7-20 [facility] Comment on above: Performed By: #### L [id number] ####[facility] ([facility])[address] [place] [address] AST [Catalytic activity/Vol] 31 U/L Normal 13-39 [facility] Comment on above: Performed By: #### L [id number] ####[facility] ([facility])[address] [place] [address] Bilirubin [Mass/Vol] 0.6 mg/dL Normal 0.3-1.0 [facility] Comment on above: Performed By: #### L [id number] ####[facility] ([facility])[address] [place] [address] Calcium [Mass/Vol] 8.7 mg/dL Normal 8.6-10.3 [facility] Comment on above: Performed By: #### L [id number] ####[facility] ([facility])[address] [place] [address] Chloride [Moles/Vol] 108 mmol/L High 98-107 [facility] Comment on above: Performed By: #### L [id number] ####[facility] [place] [address] CO2 [Moles/Vol] 18 mmol/L Low 21-31 [facility] Comment on above: Performed By: #### L [id number] ####[facility] ([facility] [place] [address] Creatinine [Mass/Vol] 1.25 mg/dL Normal 0.70-1.30 [facility] Comment on above: Performed By: #### L [id number] ####[facility] ([facility])[address] [place] [address] GLOMERULAR FILTRATION RATE ML/MIN/1.73 SQ M.PREDICTED 57.5 mL/min/1.73m*2 Low >60.0 [facility] Comment on above: Result Comment: The [facility]???s estimated glomerular filtration rate (eGFR) will no [...] of individuals. Performed By: #### L [id number] ####[facility] ([facility])[address] [place] [address] Glucose [Mass/Vol] 97 mg/dL Normal 70-100 [facility] Comment on above: Performed By: #### L [id number] ####[facility] ([facility])[address] [place] [address] Potassium [Moles/Vol] 3.6 mmol/L Normal 3.5-5.1 [facility] Comment on above: Performed By: #### L [id number] ####[facility] ([facility] [place] [address] Protein [Mass/Vol] 6.9 g/dL Normal 6.0-8.3 [facility] Comment on above: Performed By: #### L [id number] ####[facility] ([facility] [place] [address] Sodium [Moles/Vol] 140 mmol/L Normal 136-145 [facility] Comment on above: Performed By: #### L [id number] ####[facility] ([facility])[address] [place] [address] Urea nitrogen [Mass/Vol] 28 mg/dL High 7-25 [facility] Comment on above: Performed By: #### L [id number] ####[facility] ([facility])[address] [place] [address] UREA NITROGEN/CREATININE (MASS RATIO) IN SER/PLAS 22.4 Normal [facility] Comment on above: Performed By: #### L [id number] ####[facility] ([facility])[address] [place] [address] CONSULTon 11-24-2023 CONSULT -- Attestation signed by [...] hypertension, hyperlipidemia, hypothyroidism, CVA who presented from [facility] with chief complains of central chest pain, [...] x 4 with mild slurred speech. At [facility], initial labs were completed showing WBC [...] mg ca (more content not included)... Normal [facility] HEMOGLOBIN A1Con 11-24-2023 Glucose [Mass/Vol] 114 mg/dL Normal [facility] Comment on above: Performed By: #### L [id number] #### [facility] ([facility]) [address] [place] [address] HbA1c (Bld) [Mass fraction] 5.6 % Normal 4.0-6.0 [facility] Comment on above: Performed By: #### L [id number] #### [facility] ([facility]) [address] [place] [address] HPon 11-24-2023 -- Attestation signed by Magan [...] hypertension, hyperlipidemia, hypothyroidism, CVA who presented from [facility] with chief complains of central chest pain, [...] x 4 with mild slurred speech. At [facility], initial labs were completed showing WBC [...] mg ca (more content not included)... Normal [facility] LACTIC ACID, PLASMAon 2023 LACTATE (MMOL/L) IN SER/PLAS 1.0 mmol/L Normal 0.5-2.2 [facility] Comment on above: Performed By: #### L [id number] ####[facility] ([facility])[address] [place] [address] LIPID PANELon 11-24-2023 CHOL/HDL 3.4 mg/dL Normal [facility] Comment on above: Performed By: #### L [id number] #### [facility] ([facility]) [address] [place] [address] Cholesterol [Mass/Vol] 71 mg/dL Low 120-200 [facility] Comment on above: Performed By: #### L [id number] #### [facility] ([facility] [address] [place] [address] Magnesium [Mass/Vol] 146 mg/dL Normal 40-149 [facility] Comment on above: Result Comment: TRIG LYCERIDE REFERENCE RANGE: 20 YEARS AND OLDER CARDIOVASCULAR RISK LESS THAN 150 mg/dL LOW RISK 150 TO 199 mg/dL BORDERLINE RISK 200 mg/dL AND GREATER HIGH RISK Performed By: #### L [id number] #### [facility] ([facility]) [address] [place] [address] Magnesium [Mass/Vol] 21 mg/dL Low 23-92 [facility] Comment on above: Performed By: #### L [id number] #### [facility] ([facility]) [address] [place] [address] NON HDL CHOL. (LDL+VLDL) 50 Normal [facility] Comment on above: Performed By: #### L [id number] #### [facility] ([facility]) [address] [place] [address] TOTAL VLDL-C 29 mg/dL Normal 0-40 [facility] Comment on above: Performed By: #### L [id number] #### [facility] ([facility]) [address] [place] [address] MAGNESIUMon 11-24-2023 Magnesium [Mass/Vol] 1.8 mg/dL Low 1.9-2.7 [facility] Comment on above: Performed By: #### L [id number] #### [facility] ([facility]) [address] [place] [address] Magnesium [Mass/Vol] 1.9 mg/dL Normal 1.9-2.7 [facility] Comment on above: Performed By: #### L [id number] #### [facility] ([facility]) [address] [address] PHOSPHORUSon 11-24-2023 Magnesium [Mass/Vol] 2.8 mg/dL Normal 2.5-5.0 [facility] Comment on above: Performed By: #### L [id number] ####[facility] ([facility])[address] [place] [address] PROTIME-INRon 11-24-2023 INR IN PPP BY COAGULATION ASSAY 1.29 High 0.90-1.10 [facility] Comment on above: Result Comment: [facility] P RECOMMENDED INR FOR WARFARIN THERAPY [...] 1995;108:[id number]. Performed By: #### L [id number] ####[facility] [place] [address] PROTHROMBIN TIME (PT) IN PPP BY COAGULATION ASSAY 16.0 Seconds High 12.3-14.8 [facility] Comment on above: Performed By: #### L [id number] ####[facility] ([facility])[address] [place] [address] TROPONIN Ion 11-24-2023 Troponin I.cardiac [Mass/Vol] 0.26 ng/mL Critically high 0.00-0.04 [facility] Comment on above: Result Comment: M-OK EVIOUS CRITICAL RESULT Previous result verified on 11/24/2023603 on specimen/case [id number] called with component Troponin I for procedure Troponin I with value 0.35 ng/mL. Performed By: #### L [id number] ####[facility] [employer])[address] [place] [address] Result Comment: Prev ious result verified on 11/24/2023603 on specimen/case [id number] called with component Troponin I for procedure Troponin I with value 0.35 ng/mL. Performed By: #### L [id number] #### [facility] [address] [place] [address] Troponin I.cardiac [Mass/Vol] 0.27 ng/mL Critically high 0.00-0.04 [facility] Comment on above: Result Comment: Prev ious result verified on 11/24/2023 0604 on specimen/case [id number] called with component Troponin I for procedure Troponin I with value 0.35 ng/mL. Performed By: #### L [id number] ####[facility] ([facility])[address] [place] [address] Troponin I.cardiac [Mass/Vol] 0.23 ng/mL Critically high 0.00-0.04 [facility] Comment on above: Result Comment: Prev ious result verified on 11/24/2023 0604 on specimen/case [id number] called with component Troponin I for procedure Troponin I with value 0.35 ng/mL. Performed By: #### L [id number] #### [facility] ([facility]) [address] [place] [address] Troponin I.cardiac [Mass/Vol] 0.35 ng/mL Critically high 0.00-0.04 [facility] Comment on above: Result Comment: M-TR OPONIN INITIAL CRITICAL HIGH; RESPUN AND RETESTED Performed By: #### L [id number] #### [facility] ([facility]) [address] [place] [address] CBC AUTO DIFFon 03-21-2021 BASO # 0.0 103/ul Normal 0.0-0.1 [facility] Comment on above: Performed By: #### C BC #### [facility] [address] [place] [address] Dr. Lukas Nino Basophils/100 WBC (Bld) 0.4 % Normal 0.2-2.0 [facility] Comment on above: Performed By: #### C BC #### [facility] [address] [place] [address] Dr. Lukas Nino EO # 0.1 103/ul Normal 0.0-0.7 [facility] Comment on above: Performed By: #### C BC #### [facility] [address] [place] [address] Dr. Lukas Nino Eosinophils/100 WBC (Bld) 1.4 % Normal 0.9-7.0 [facility] Comment on above: Performed By: #### C BC #### [facility] [address] [place] [address] Dr. Lukas Nino Erythrocyte distribution width (RBC) [Ratio] 13.0 % Normal 11.0-15.0 [facility] Comment on above: Performed By: #### C BC #### [facility] [address] [place] [address] Dr. Lukas Nino Hematocrit (Bld) [Volume fraction] 42.1 % Normal 42.0-54.0 [facility] Comment on above: Performed By: #### C BC #### [facility] [address] [place] [address] Dr. Lukas Nino Hemoglobin (Bld) [Mass/Vol] 14.5 g/dL Normal 14.0-18.0 [facility] Comment on above: Performed By: #### C BC #### [facility] [address] [place] [address] Dr. Lukas Nino IG # 0.03 10e3/ul Normal 0.00-0.03 [facility] Comment on above: Performed By: #### C BC #### [facility] [address] [place] [address] Dr. Lukas Nino IG % 0.4 % Normal 0.0-0.5 [facility] Comment on above: Performed By: #### C BC #### [facility] [address] [place] [address] Dr. Lukas Nino LYMPH # 1.7 103/ul Normal 1.2-3.8 [facility] Comment on above: Performed By: #### C BC #### [facility] [address] [place] [address] Dr. Lukas Nino Lymphocytes/100 WBC (Bld) 20.6 % Normal 20.5-60.0 [facility] Comment on above: Performed By: #### C BC #### [facility] [address] [place] [address] Dr. Lukas Nino MANUAL DIFF REQ NO Normal [facility] Comment on above: Performed By: #### C BC #### [facility] [address] [address] [address] Lukas Nino MCH (RBC) [Entitic mass] 33.0 pg Normal 25.9-34.0 [facility] Comment on above: Performed By: #### C BC #### [facility] [address] [address] [address] Lukas Nino MCHC (RBC) [Mass/Vol] 34.4 g/dL Normal 29.9-35.[address] [facility] Comment on above: Performed By: #### C BC #### [facility] [address] [place] [address] Dr. Lukas Nino MCV (RBC) [Entitic vol] 95.9 fL Critically high 80.0-94.0 [facility] Comment on above: Performed By: #### C BC #### [facility] [address] [place] [address] Dr. Lukas Nino MONO # 0.6 103/ul Normal 0.3-0.[address] [facility] Comment on above: Performed By: #### C BC #### [facility] [address] [place] [address] Dr. Lukas Nino Monocytes/100 WBC (Bld) 7.2 % Normal 1.7-12.0 [facility] Comment on above: Performed By: #### C BC #### [facility] [address] [place] [address] Dr. Lukas Nino NEUT # 5.6 103/ul Normal 1.4-6.[address] [facility] Comment on above: Performed By: #### C BC #### [facility] [address] [place] [address] Dr. Lukas Nino Neutrophils/100 WBC (Bld) 70.0 % Normal 43.0-75.[address] [facility] Comment on above: Performed By: #### C BC #### [facility] [address] [place] [address] Dr. Lukas Nino Platelet mean volume (Bld) [Entitic vol] 11.1 fL Normal 9.5-13.[address] [facility] Comment on above: Performed By: #### C BC #### [facility] [address] [address] [address] Lukas Nino PLT 129 103/ul Critically low 150-450 [facility] Comment on above: Result Comment: few plt clumps Performed By: #### C BC #### [facility] [address] [address] [address] Lukas Nino RBC 4.39 106/ul Critically low 4.70-6.10 [facility] Comment on above: Performed By: #### C BC #### [facility] [address] [address] [address] Lukas Nino WBC 8.0 103/ul Normal 4.0-11.0 [facility] Comment on above: Performed By: #### C BC #### [facility] [address] [address] [address] Lukas Nino FREE THYROXINE INDEX T7on FTI 2.05 Normal [facility] Comment on above: Performed By: #### T SH, CMP, LIPID, URIC, T7 #### [facility] [address] [address] [address] Lukas Nino T3U 33.0 % Normal 23.5-40.[address] [facility] Comment on above: Performed By: #### T SH, CMP, LIPID, URIC, T7 #### [facility] [address] [address] [address] Lukas Nino T4 [Mass/Vol] 6.20 ug/dL Normal 5.53-11.00 [facility] Comment on above: Performed By: #### T SH, CMP, LIPID, URIC, T7 #### [facility] [address] [address] [address] Lukas Nino GLYCOHEMOGLOBIN A1Con 2020 ADA RECOMMENDATION ADA THERAPEUTIC TARG ET 6.0 - 7.0 ACTION SUGGESTED > 7.0 Normal [facility] Comment on above: Performed By: #### A 1C #### [facility] [address] [address] [address] Lukas Nino Glucose [Mass/Vol] 103 mg/dL Normal [facility] Comment on above: Performed By: #### A 1C #### [facility] [address] [address] [address] Lukas Nino HbA1c (Bld) [Mass fraction] 5.2 % Normal <=6.0 [facility] Comment on above: Performed By: #### A 1C #### [facility] [address] [address] [address] Lukas Nino LIPID PROFILEon 03-21-2021 CHOL-HDL RATIO NORM SEE BELOW Normal [facility] Comment on above: Result Comment: 3.3 - 4.4 LOW RISK 4.4 - 7.1 AVERAGE RISK 7.1 - 11.0 MODERATE RISK >11.0 HIGH RISK Performed By: #### T SH, CMP, LIPID, URIC, T7 #### [facility] [address] [address] [address] Lukas Nino Cholesterol [Mass/Vol] 121 mg/dL Normal <=200 [facility] Comment on above: Performed By: #### T SH, CMP, LIPID, URIC, T7 #### [facility] [address] [address] [address] Lukas Nino Cholesterol in HDL [Mass/Vol] 38 mg/dL Normal [facility] Comment on above: Performed By: #### T SH, CMP, LIPID, URIC, T7 #### [facility] [address] [address] [address] Lukas Nino Cholesterol in LDL [Mass/Vol] 66.4 mg/dL Normal [facility] Comment on above: Performed By: #### T SH, CMP, LIPID, URIC, T7 #### [facility] [address] [address] [address] Lukas Nino Cholesterol.total/Ch olesterol in HDL [Mass ratio] 3.2 {ratio} Normal [facility] Comment on above: Performed By: #### T SH, CMP, LIPID, URIC, T7 #### [facility] [address] [address] [address] Lukas Nino HDL NORMAL > or = 60 mg/dl - LO W CARDIOVASCULAR RISK <40 mg/dl - HIGH CARDIOVASCULAR RISK Normal [facility] Comment on above: Performed By: #### T SH, CMP, LIPID, URIC, T7 #### [facility] [address] [address] [address] Lukas Nino LDL CALC NORMAL SEE BELOW Normal [facility] Comment on above: Result Comment: <100 mg/dl OPTIMAL 100 - 129 mg/dl NEAR OR ABOVE OPTIMAL 130 - 159 mg/dl BORDERLINE HIGH 160 - 189 mg/dl HIGH >190 mg/dl VERY HIGH Performed By: #### T SH, CMP, LIPID, URIC, T7 #### [facility] [address] [address] [address] Lukas Nino Triglyceride [Mass/Vol] 83 mg/dL Normal <=150 [facility] Comment on above: Performed By: #### T SH, CMP, LIPID, URIC, T7 #### [facility] [address] [address] [address] Lukas Nino VLDL CALC 16.6 mg/dL Normal [facility] Comment on above: Performed By: #### T SH, CMP, LIPID, URIC, T7 #### [facility] [address] [address] [address] Lukas Nino PROF 14(COMP METB)on 03-21- 021 Albumin [Mass/Vol] 3.7 g/dL Normal 3.5-5.0 [facility] Comment on above: Performed By: #### T SH, CMP, LIPID, URIC, T7 #### [facility] [address] [address] [address] Lukas Nino Albumin/Globulin [Mass ratio] 1.0 {ratio} Normal [facility] Comment on above: Performed By: #### T SH, CMP, LIPID, URIC, T7 #### [facility] [address] [address] [address] Lukas Nino ALP [Catalytic activity/Vol] 86 U/L Normal 38-126 [facility] Comment on above: Performed By: #### T SH, CMP, LIPID, URIC, T7 #### [facility] [address] [address] [address] Lukas Nino ALT [Catalytic activity/Vol] 18 U/L Critically low 21-72 [facility] Comment on above: Performed By: #### T SH, CMP, LIPID, URIC, T7 #### [facility] [address] [address] [address] Lukas Nino Anion gap [Moles/Vol] 9.5 mmol/L Normal [facility] Comment on above: Performed By: #### T SH, CMP, LIPID, URIC, T7 #### [facility] [address] [place] [address] Dr. Lukas Nino AST [Catalytic activity/Vol] 18 U/L Normal 17-59 [facility] Comment on above: Performed By: #### T SH, CMP, LIPID, URIC, T7 #### [facility] [address] [place] [address] Dr. Lukas Nino Bilirubin [Mass/Vol] 0.8 mg/dL Normal 0.2-1.[address] [facility] Comment on above: Performed By: #### T SH, CMP, LIPID, URIC, T7 #### [facility] [address] [place] [address] Dr. Lukas Nino Calcium [Mass/Vol] 8.9 mg/dL Normal 8.4-10.2 [facility] Comment on above: Performed By: #### T SH, CMP, LIPID, URIC, T7 #### [facility] [address] [place] [address] Dr. Lukas Nino Chloride [Moles/Vol] 106 mmol/L Normal 98-[address] [facility] Comment on above: Performed By: #### T SH, CMP, LIPID, URIC, T7 #### [facility] [address] [address] [address] Lukas Nino CO2 [Moles/Vol] 28.2 mmol/L Normal 22.0-30.0 [facility] Comment on above: Performed By: #### T SH, CMP, LIPID, URIC, T7 #### [facility] [address] [address] [address] Lukas Nino Creatinine [Mass/Vol] 1.26 mg/dL Critically high 0.66-1.25 [facility] Comment on above: Performed By: #### T SH, CMP, LIPID, URIC, T7 #### [facility] [address] [place] [address] Dr. Lukas Nino EGFR-AF NEW ZEALANDER >60 Normal >=60 [facility] Comment on above: Performed By: #### T SH, CMP, LIPID, URIC, T7 #### [facility] [address] [place] [address] Dr. Lukas Nino EGFR-NON AF NEW ZEALANDER 55 mL/min/1.73m2 Critically low >=[address] [facility] Comment on above: Performed By: #### T SH, CMP, LIPID, URIC, T7 #### [facility] [address] [place] [address] Dr. Lukas Nino Globulin (S) [Mass/Vol] 3.7 g/dL Normal [facility] Comment on above: Performed By: #### T SH, CMP, LIPID, URIC, T7 #### [facility] [address] [place] [address] Dr. Lukas Nino Glucose [Mass/Vol] 76 mg/dL Normal 74-106 The [facility] Comment on above: Performed By: #### T SH, CMP, LIPID, URIC, T7 #### [facility] [address] [place] [address] Dr. Lukas Nino Potassium [Moles/Vol] 3.7 mmol/L Normal 3.4-5.0 [facility] Comment on above: Performed By: #### T SH, CMP, LIPID, URIC, T7 #### [facility] [address] [place] [address] Dr. Lukas Nino Protein [Mass/Vol] 7.4 g/dL Normal 6.1-8.2 The [facility] Comment on above: Performed By: #### T SH, CMP, LIPID, URIC, T7 #### [facility] [address] [place] [address] Dr. Lukas Nino Sodium [Moles/Vol] 140 mmol/L Normal 137-145 [facility] Comment on above: Performed By: #### T SH, CMP, LIPID, URIC, T7 #### [facility] [address] [address] [address] Lukas Nino Urea nitrogen [Mass/Vol] 15.0 mg/dL Normal 9.0-20.0 [facility] Comment on above: Performed By: #### T SH, CMP, LIPID, URIC, T7 #### [facility] [address] [address] [address] Lukas Nino Urea nitrogen/Creatinine [Mass ratio] 11.9 mg/mg Normal [facility] Comment on above: Performed By: #### T SH, CMP, LIPID, URIC, T7 #### [facility] [address] [address] [address] Lukas Nino TSHon 03-21-2021 TSH 2.594 uIU/mL Normal 0.470-4.680 [facility] Comment on above: Performed By: #### T SH, CMP, LIPID, URIC, T7 #### [facility] [address] [address] [address] Lukas Nino TSH RANGE SEE BELOW Normal The [facility] Comment on above: Result Comment: <0.3 4 UIU/ml HYPERTHYROID 0.34-5.60 UIU/ml EUTHYROID >5.60 UIU/ml HYPOTHYROID Performed By: #### T SH, CMP, LIPID, URIC, T7 #### [facility] [address] [address] [address] Lukas Nino URIC ACID SERUMon 03-21-2021 Urate [Mass/Vol] 6.5 mg/dL Normal 3.5-8.5 [facility] Comment on above: Performed By: #### T SH, CMP, LIPID, URIC, T7 #### [facility] [address] [address] [address] Lukas Nino Encounters Encounter Date Encounter Type Care Provider Facility Start: 12-08-2023 End: 12-08-2023 ambulatory MARIA TERESA TOBIAS [facility] Start: 11-25-2023 Evaluation and management of inpatient RONALDOKENTRELL CHAITANYA [facility] Start: 11-25-2023 Evaluation and management of inpatient LESLEE PIRKL [facility] Start: 11-25-2023 Evaluation and management of inpatient JOSHUA BRAR [facility] Start: 11-24-2023 Evaluation and management of inpatient JOSHUA BRAR [facility] Start: 11-24-2023 ambulatory [facility] Start: 11-24-2023 End: 11-26-2023 Evaluation and management of inpatient MAGAN DE LA O [facility] Start: 04-29-2021 End: 04-30-2021 ambulatory TRAMAINE GOLDEN Facility:[facility] Start: 03-21-2021 End: 03-21-[address] JAKE CHOWDHURY Facility:[facility] Start: 08-27-2020 End: 08-28-[address] ROA LISTED REQUEST Facility:[facility] Start: 08-05-2020 End: 08-06-[address] JAKE CHOWDHURY Facility:[facility] Procedures Date Procedure Procedure Detail Performing Clinician Start: 03-21-[address] ROA L ISTED REQUEST Comment on above: Performed By: #### [facility] #### [facility] [address] [place] [address] Dr. Lukas Nino Payers Date Payer Category Payer Medicare [id number] 1958 Self-pay [id number] 1940 Unknown [id number] [id number] [id number] Unknown [id number] [id number] [id number] Unknown [id number] [id number] [id number] Unknown [id number] [id number] [id number] Clinical Notes 11-24-2023 to 12-08-2023 Note Date & Type Note Facility 12-08-2023 Note Will monitor with Ec hocardiogram and symptoms No fluid overload symptoms noted today [facility] 12-08-2023 Note Will repeat lipid le nalini and LFT in 2-3 months since starting lipitor as inpt from simvastatin. Of Note as inpt at [facility] Chol was 71 and LDL was 21 [facility] 12-08-2023 Note No c/o chest pain/SO B but he remains fatigued s/p NSTEMI May be r/t hypotension- will hold lisinopril [facility] 12-08-2023 Note Currently b/p is lab ile today with noted fatigue s/p hospitalization Will stop lisinopril, instructed pt and to monitor b/p at home and if > 130/80 may need lisinopril 2.5 mg added- they voiced understanding Continue toprol [facility] 12-08-2023 Note Patient here for [facility] for NSTEMI. Still weak and tired [...] All other systems reviewed and are negative. [facility] 12-08-2023 Note UTP CARDIOLOGY PROGR ESS NOTE HPI: Jorgito Mayorga is a 83 y.o. male here for hospital f/U HPI 83 yo male presents today for f/U after recent hospitalization with transfer to [facility] for DC and cardiac cath with PCI to LAD. He presented initially to [facility] with chest pain and was noted to [...] [facility] as a direct admission from [facility] with a chief complaint of chest [...] the emergency department for further evaluation. At [facility], initial labs were completed showing WBC [...] at bedtime. t (more content not included)... [facility] 12-08-2023 Note Continue GDMT- DAPT x1 year, continue plavix x 1 year, ASA and statin lifelong- lipitor, toprol and lisinopril. continue risk factor modifications- heart healthy diet, regular exercise as tolerated and continue all medications. [facility] 11-26-2023 Note Hospital Medicine Discharge Summary Final [...] [facility] as a direct admission from [facility] with a chief complaint of chest [...] the emergency department for further evaluation. At [facility], initial labs were completed showing WBC [...] Get Your Medications (more content not included)... [facility] 11-26-2023 Note Final AVS completed, and [facility] Occupational Therapy Program Director sent final AVS to [facility]. [facility] 11-26-2023 Note Hospital Medicine Daily Progress Note - 11/26/2023 1:03 PM; Room: [address] [place] [address] Admission: 11/24/2023 1:04 AM; Length of stay: 2 days THE HOSPITALIST TEAM PREFERS TO USE [employer] CHAT FOR COMMUNICATION 7AM-7PM. IF I DO NOT RESPOND WITHIN 15 MINUTES, PLEASE PAGE ME/CALL THROUGH THE AUTOMOBILE UPHOLSTERER APPRENTICE. FROM 7PM-7AM, PLEASE PAGE [phone](COVR) Code Status: Full Code Barriers to Discharge: [...] [facility] as a direct admission from [facility] with a chief complaint of chest [...] 7 days Lab (more content not included)... [facility] 11-26-2023 Note Cardiology Progress Note REASON FOR [...] hypertension, hyperlipidemia, hypothyroidism, CVA who presented from [facility] with chief complains of central chest pain, [...] x 4 with mild slurred speech. At [facility], initial labs were completed showing WBC [...] tablet 500 mg, 500 mg, oral, Daily, [facility], 500 mg at 11/25/23 0941 cefTRIAXone (Rocephin) IVPB 2 g in NS 50 mL (Mini-Bag Plus), 2 g, intravenous, q24h, [facility], Stopped at 11/25/23 1423 clopidogrel (Plavix) tablet 75 mg, 75 mg, oral, Daily, Florentin Christie MD levothyroxine (Synthroid, Levoxyl) tablet 50 mcg, 50 mcg, oral, Daily before breakfast, Leslee Bansal NP, 50 mcg at 11/26/23 0537 magnesium nursing electrolyte replacement placeholder 1 each, 1 each, Does not apply, RX Placeholder, [facility] magnesium sulfate in D5W IVPB 1 g, 1 g, intravenous, q1h, Yvrose Catalan MD, Last Rate: 100 mL/hr at 11/26/23 0705, 1 g at 11/26/23 0705 melatonin tablet 5 mg, 5 mg, oral, Nightly PRN, Leslee Bansal, FINISHING MACHINE OPERATOR AUTOMATIC nitroglycerin (Tridil) infusion 200 mcg/mL, 5-200 mcg/min, intravenous, Continuous, Tessa Benavides MD ondansetron ODT (Zofran-ODT) disintegrating tablet 4 mg, 4 mg, oral, q8h PRN OR ondansetron HCl (PF) (Zofran) injection 4 mg, 4 mg, intravenous, q6h PRN, Leslee Bansal, FINISHING MACHINE OPERATOR AUTOMATIC Oxygen Therapy, , inhalation, Continuous PRN, Erin Saravia CNP, Given at 11/24/23 1000 pantoprazole (ProtoNix) EC tablet 40 mg, 40 mg, oral, Daily before breakfast, Leslee Pirkl, FINISHING MACHINE OPERATOR AUTOMATIC, 40 mg at 11/26/23 0536 potassium nursing electrolyte replacement placeholder, 1 each, Does not apply, RX Placeholder, Erin Saravia CNP QUEtiapine (SEROquel) tablet 50 mg, 50 mg, oral, Nightly, Leslee Pirkl, FINISHING MACHINE OPERATOR AUTOMATIC, 50 mg at 11/25/23 2118 tamsulosin (Flomax) 24 hr capsule 0.4 mg, 0.4 mg, oral, Daily, Leslee Pirkl, FINISHING MACHINE OPERATOR AUTOMATIC, 0.4 mg at 11/25/23 0941 Relevant Lab Results: Encounter Date: 11/24/23 ECG 12 lead Result Value Ventricular Rate 57 Atri (more content not included)... [facility] 11-25-2023 Note 11/25/23 1425 Referral Data Referral [...] Feeding Independent Behavior Oriented Communication Talks;Understands speaking;Understands Beninese Income Information Income Source Unemployed (Retired, states [...] return home and would be open to [facility] for home therapy. Family requested either [facility] or [facility]. Referrals sent. Will follow up after therapy sees pt. [facility] 11-25-2023 Note Patient: Jorgito Bhandari on Procedure Information Date/Time: 11/25/23 1210 Procedure: Coronary angiography Location: [facility] 3 / [facility] (Cath) Providers: Florentin Christie [...] ASA 4 (Moderate sedation) Additional Equipment Requests [facility] 11-25-2023 Note ------ Attestation signed by Magan [...] hypertension, hyperlipidemia, hypothyroidism, CVA who presented from [facility] with chief complains of central chest pain, [...] x 4 with mild slurred speech. At [facility], initial labs were completed showing WBC [...] 5 mg, oral, Nightly PRN, Leslee Bansal, FINISHING MACHINE OPERATOR AUTOMATIC nitroglycerin (Tridil) infusion 200 mcg/mL, 5-200 mcg/min, intravenous, Continuous, Tessa Benavides MD ondansetron ODT (Zofran-ODT) disintegrating tablet 4 mg, 4 mg, oral, q8h PRN OR ondansetron HCl (PF) (Zofran) injection 4 mg, 4 mg, intravenous, q6h PRN, Leslee Bansal, FINISHING MACHINE OPERATOR AUTOMATIC Oxygen Therapy, , inhalation, Continuous PRN, Erin Saravia CNP, Given at 11/24/23 1000 pantoprazole (ProtoNix) EC tablet 40 mg, 40 mg, oral, Daily before breakfast, Leslee Bansal, FINISHING MACHINE OPERATOR AUTOMATIC, 40 mg at 11/25/23 0530 potassium nursing electrolyte replacement placeholder, 1 each, Does not apply, RX Placeholder, Erin Saravia CNP QUEtiapine (SEROquel) tablet 50 mg, 50 mg, oral, Nightly, Leslee Bansal, FINISHING MACHINE OPERATOR AUTOMATIC, 50 mg a (more content not included)... [facility] 11-25-2023 Note 11/25/23 0835 Admission Assessment Questions [...] Interested Does the patient have a case assembler assigned to them through their insurance? No [...] to send link and activate MyChart? Yes [facility] 11-25-2023 Note Hospital Medicine Daily Progress Note - 11/25/2023 7:23 AM; Room: 3185/3185-01 Admission: 11/24/2023 1:04 AM; Length of stay: 1 days THE HOSPITALIST TEAM PREFERS TO USE [employer] CHAT FOR COMMUNICATION 7AM-7PM. IF I DO NOT RESPOND WITHIN 15 MINUTES, PLEASE PAGE ME/CALL THROUGH THE AUTOMOBILE UPHOLSTERER APPRENTICE. FROM 7PM-7AM, PLEASE PAGE [phone](COVR) Code Status: Full Code Barriers to Discharge: cath 11/24 Expected Discharge Date:pending cardio workup Discharge Destination: home Overview Patient is seen for evaluation and management of nstemi, cp Jorgito Mayorga is an 83 y.o. male who came from home with past medical history of hypertension, hyperlipidemia, hypothyroidism, CVA presents to [facility] as a direct admission from [facility] with a chief complaint of chest [...] 8.7 PHOSPHORUS mg/dL (more content not included)... [facility] 11-24-2023 Note Hospital Medicine Daily Progress Note - 11/24/2023 7:59 AM; Room: [address] [place] [address] Admission: 11/24/2023 1:04 AM; Length of stay: 0 days THE HOSPITALIST TEAM PREFERS TO USE [employer] CHAT FOR COMMUNICATION 7AM-7PM. IF I DO NOT RESPOND WITHIN 15 MINUTES, PLEASE PAGE ME/CALL THROUGH THE AUTOMOBILE UPHOLSTERER APPRENTICE. FROM 7PM-7AM, PLEASE PAGE [phone](COVR) Code Status: Full Code Barriers to Discharge: cath 11/24 Expected Discharge Date:pending cardio workup Discharge Destination: home Overview Patient is seen for evaluation and management of nstemi, cp Jorgito Mayorga is an 83 y.o. male who came from home with past medical history of hypertension, hyperlipidemia, hypothyroidism, CVA presents to [facility] as a direct admission from [facility] with a chief complaint of chest [...] , FREET4 , CORTISOL , FEV1 , [id number] , DLCO , RVSP , HDL , LDL No results found for: [id number] , IRON , TIBC , C3 , C4 , RUBI , CANCA , ASO , PSA , CEA , CA125 , CA199 , AFP , CA153 Imaging (more content not included)... [facility] 11-24-2023 Note Hospital Medicine History and Physical 11/24/2023 2:05 AM THE HOSPITALIST TEAM PREFERS TO USE [employer] CHAT FOR COMMUNICATION 7AM-7PM. IF I DO NOT RESPOND WITHIN 15 MINUTES, PLEASE PAGE ME/CALL THROUGH THE AUTOMOBILE UPHOLSTERER APPRENTICE. FROM 7PM-7AM, PLEASE PAGE [phone](COVR) Chief Complaint Direct admit from [facility] with elevated troponin and chest pain History of Present Illness Jorgito Mukesh is an 83 y.o. male who came from home with past medical history of hypertension, hyperlipidemia, hypothyroidism, CVA presents to [facility] as a direct admission from [facility] with a chief complaint of chest [...] the emergency department for further evaluation. At [facility], initial labs were completed showing WBC [...] [facility] as a direct admission from [facility] with a chief complaint of chest pain and elevated troponin. #Elevated troponin #Chest pain -Troponin 1042.4->950.4 at OSH, repeat pending -EKG showed normal sinus rhythm -CXR showed moderate left basilar infiltrates, consider repeat CXR t (more content not included)... [facility] Summary Purpose Family History No Family History [...] DATE CREATED AUTHOR AUTHOR'S ORGANIZ ATION 12/09/2023 [facility] FOR RECORDS PERTAINING TO PATIENTS WHO [...] BE BASED ON THE PRIMARY CLINICAL RECORDS. [employer] [facility]. provides no warranty or guarantee of the accuracy or completeness of information in this document.
[2023-12-30 13:41] LABS: Anion Gap 16.3; BUN Creatinine Ratio 17.1; Carbon Dioxide 22.3 mmol/L (21.0-32.0); Chloride 104 mmol/L (98-107); Estimated GFR (African America >60 (>=60); Estimated GFR (Non-African Ame >60 (>=60); Glucose 105 mg/dL (74-106); Potassium 3.6 mmol/L (3.5-5.1); Sodium 139 mmol/L (136-145)
== END 2023-12-30 12:35 | disposition home or self-care (01) ==
LOC: LAB 12:36
PROVIDERS: PCP Family Medicine; Visit Provider Nurse Practitioner
DX: I51.7 Cardiomegaly (principal); I50.32 Chronic diastolic (congestive) heart failure
CPT/HCPCS: 36415; 80048

== ENCOUNTER 2024-05-09 15:56 | Outpatient (OUT) | payer MEDICARE, SELFPAY ==
--- OUTSIDE RECORDS SUMMARY | 2024-05-09 16:10 | XMS_ITS | CCD ---
Author Organization [facility] Care Team Providers Care Journal Entry Audit Clerk Name Role Phone REQUEST, NONE LISTED Attending Unavaila ble REQUEST, [...] DR JOSEPH Primary Care Unavailable HORANI, JOSHUA Admitting Unavailable JAYLYN, MAGAN Bradley Referring Unavailable ALIYVROSE Attending Unavailable HORANI, JOSHUA Referring Unavailable JATINDER, MARIA TERESA Attending Unavailable JATINDER, MARIA TERESA Attending Unavailable PIRKL, LESLEE Referring Unavailable HORANI, JOSHUA Referring Unavailable PIRKL, LESLEE Referring Unavailable CHAITANYA, FLORENTIN Referring Unavailable HORANI, JOSHUA Referring Unavailable Allergies Allergy Classification Reported Allergen(s) Allergy Type Date of Onset Reaction(s) Facility (1 source) ALLERGIES NOT ON FILE; Translations: [ALLERGIES NOT ON FILE] Propensity to adverse reactions (disorder) 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 Orders Onlyon 12-30-2023 Orders Only [id number] Kamini Mayorga T 1940 M Date Provider Department Center 12/30/[address] Family History Problem Relation Age of Onset No Known Problems Mother No Known Problems Father Family Status - Relation Status Age at Mother Father Normal [facility] 37on 12-08-2023 37 Stop lisinopril and monitor blood pressure 1-2 times a day, take 2 hours after morning medications Goal B/P is < 130/80 Call office for any concerns In 2-3 months (February or March have blood drawn to check liver function and cholesterol levels) must be fasting after midnight to get blood drawn Normal [facility] Follow-Upon 12-08-2023 Follow-Up [id number] Kamini Mayorga er T 1940 M Date Provider Department Center 12/08/2023 MARIA TERESA GOLDMAN [facility] Family History Problem Relation Age of Onset No Known Problems Mother No Known Problems Father Family Status - Relation Status Age at Mother Father Level of Service:52460 MO OFFICE/OUTPATIENT ESTABLISHED MOD MDM 30 MIN [facility] 30on 11-26-2023 30 Daily Case Managemen [...] Answer: Discharge recommendations 11/26/[address] [facility] 30 The patient is Moderately Stable [...] patient frequently for physical needs Normal [facility] APTTon 11-26-2023 ACTIVATED PARTIAL THROMBOPLASTIN TIME IN PPP BY COAGULATION ASSAY 31.6 Seconds Normal 25.0-35.0 [facility] Comment on above: Order Comment: Check aPTT every 6 hours while on heparin infusion, or per protocol. Result Comment: Clin ical significance of the APTT is questionable in the presence of heparin. Performed By: #### L [id number] ####[facility] (BEAKER)[address] [place] [address] BASIC METABOLIC PANELon 11-06 Anion gap [Moles/Vol] 12 mmol/L Normal 7-20 [facility] Comment on above: Performed By: #### L [id number] #### [facility] (BEAKER) [address] [place] [address] Calcium [Mass/Vol] 8.2 mg/dL Low 8.6-10.3 [facility] Comment on above: Performed By: #### L [id number] #### [facility] (BEAKER) [address] [place] [address] Chloride [Moles/Vol] 107 mmol/L Normal 98-107 [facility] Comment on above: Performed By: #### L [id number] #### [facility] (BEAKER) [address] [place] [address] CO2 [Moles/Vol] 24 mmol/L Normal 21-31 [facility] Comment on above: Performed By: #### L [id number] #### [facility] (BEAKER) [address] [place] [address] Creatinine [Mass/Vol] 1.24 mg/dL Normal 0.70-1.30 [facility] Comment on above: Performed By: #### L [id number] #### [facility] (BEAKER) [address] [place] [address] GLOMERULAR FILTRATION RATE ML/MIN/1.73 SQ M.PREDICTED 58.0 mL/min/1.73m*2 Low >60.0 [facility] Comment on above: Result Comment: [facility]???s estimated glomerular filtration rate (eGFR) will [...] individuals. Performed By: #### L [id number] #### [facility] ([facility]) [address] [place] [address] Glucose [Mass/Vol] 89 mg/dL Normal 70-100 [facility] Comment on above: Performed By: #### L [id number] #### [facility] ([facility]) [address] [place] [address] Potassium [Moles/Vol] 3.9 mmol/L Normal 3.5-5.1 [facility] Comment on above: Performed By: #### L [id number] #### [facility] ([facility]) [address] [place] [address] Sodium [Moles/Vol] 139 mmol/L Normal 136-145 [facility] Comment on above: Performed By: #### L [id number] #### [facility] ([facility]) [address] [place] [address] Urea nitrogen [Mass/Vol] 17 mg/dL Normal 7-25 [facility] Comment on above: Performed By: #### L [id number] #### [facility] ([facility]) [address] [place] [address] UREA NITROGEN/CREATININE (MASS RATIO) IN SER/PLAS 13.[address] [facility] Comment on above: Performed By: #### L [id number] #### [facility] ([facility]) [address] [place] [address] CBC WITH AUTO DIFFERENTIALon 11-26-2023 Basophils (Bld) [#/Vol] 0.04 10*3/uL Normal 0.00-0.20 [facility] Comment on above: Performed By: #### L [id number] ####[facility] (BEAKER)[address] [place] [address] Basophils/100 WBC (Bld) 0.5 % Normal 0.0-1.0 [facility] Comment on above: Performed By: #### L [id number] ####[facility] (BEAKER)[address] [place] [address] Eosinophils (Bld) [#/Vol] 0.29 10*3/uL Normal 0.00-0.50 [facility] Comment on above: Performed By: #### L [id number] ####[facility] (BEAKER)[address] [place] [address] Eosinophils/100 WBC (Bld) 3.8 % Normal 0.0-6.0 [facility] Comment on above: Performed By: #### L [id number] ####[facility] (BEAKER)[address] [place] [address] Erythrocyte distribution width (RBC) [Ratio] 12.1 % Normal 11.5-15.0 [facility] Comment on above: Performed By: #### L [id number] ####[facility] (BEAKER)[address] [place] [address] ERYTHROCYTE MEAN CORPUSCULAR HEMOGLOBIN CONCENTRATION (G/DL) BY AUTOMATED 34.4 g/dL Normal 32.0-35.0 [facility] Comment on above: Performed By: #### L [id number] ####[facility] (BEAKER)[address] [place] [address] Hematocrit (Bld) [Volume fraction] 35.8 % Low 39.0-55.0 [facility] Comment on above: Performed By: #### L [id number] ####[facility] (BEAKER)[address] [place] [address] Hemoglobin (Bld) [Mass/Vol] 12.3 g/dL Low 13.0-17.0 [facility] Comment on above: Performed By: #### L [id number] ####[facility] (BEAKER)[address] [place] [address] Immature granulocytes (Bld) [#/Vol] 0.20 10*3/uL Normal 0.00-0.20 [facility] Comment on above: Performed By: #### L [id number] ####[facility] (BEAKER)[address] [place] [address] Immature granulocytes/100 WBC (Bld) 2.7 % High 0.0-1.0 [facility] Comment on above: Performed By: #### L [id number] ####[facility] (BEAKER)[address] [place] [address] Lymphocytes (Bld) [#/Vol] 1.15 10*3/uL Low 1.20-4.00 [facility] Comment on above: Performed By: #### L [id number] ####[facility] (BEAKER)[address] [place] [address] Lymphocytes/100 WBC (Bld) 15.3 % Low 20.0-45.0 [facility] Comment on above: Performed By: #### L [id number] ####[facility] (BEAKER)[address] [place] [address] MCH (RBC) [Entitic mass] 32.3 pg Normal 27.0-33.0 [facility] Comment on above: Performed By: #### L [id number] ####[facility] (BEAKER)[address] [place] [address] MCV (RBC) [Entitic vol] 94.0 fL Normal 82.0-98.0 [facility] Comment on above: Performed By: #### L [id number] ####[facility] (BEAKER)[address] [place] [address] Monocytes (Bld) [#/Vol] 0.56 10*3/uL Normal 0.10-1.00 [facility] Comment on above: Performed By: #### L [id number] ####[facility] ([facility])[address] [place] [address] Monocytes/100 WBC (Bld) 7.4 % Normal 5.0-12.0 [facility] Comment on above: Performed By: #### L [id number] ####[facility] ([facility])[address] [address] Neutrophils (Bld) [#/Vol] 5.30 10*3/uL Normal 1.60-7.60 [facility] Comment on above: Performed By: #### L [id number] ####[facility] ([facility])[address] [place] [address] Neutrophils/100 WBC (Bld) 70.3 % Normal 40.0-72.0 [facility] Comment on above: Performed By: #### L [id number] ####[facility] ([facility])[address] [place] [address] NRBC (PER 100 WBCS) BY AUTOMATED COUNT 0.0 % Normal 0 [facility] Comment on above: Performed By: #### L [id number] ####[facility] ([facility])[address] [address] PLATELETS (10*3/UL) IN BLOOD AUTOMATED COUNT 209 10*3/uL Normal 150-400 [facility] Comment on above: Performed By: #### L [id number] ####[facility] ([facility])[address] [place] [address] RBC (Bld) [#/Vol] 3.81 10*6/uL Low 4.20-5.70 [facility] Comment on above: Performed By: #### L [id number] ####[facility] ([facility])[address] [place] [address] WBC (Bld) [#/Vol] 7.54 10*3/uL Normal 4.00-10.60 [facility] Comment on above: Performed By: #### L [id number] ####[facility] (BEAKER)[address] [place] [address] MAGNESIUMon 11-26-2023 Magnesium [Mass/Vol] 1.8 mg/dL Low 1.9-2.7 [facility] Comment on above: Performed By: #### L [id number] #### [facility] (BEAKER) [address] [place] [address] NURSNOTEon 11-26-2023 NURSNOTE RN informed primary LIEUTENANT COLONEL Erin that PT/OT was unable to see [...] care. Family and pt refused SNF option. [facility] 30on 11-25-2023 30 The patient is Moderately [...] for assistance before standing Outcome: Progressing Normal [facility] 30 The patient is Moderately Stable [...] injury: Assess patient frequently for physical needs [facility] 30 Daily Case Managemen t Update Multidisciplinary rounds have been completed. Barriers to Discharge: Pending Clinical course. Direct admit from [facility] with elevated troponin and chest pain. NPO [...] Consults (From admission, onward) Start Ordered 11/24/23 011 Inpatient consult to Social Work Once Provider: (Not yet assigned) Question Answer Comment Select all services needed for the patient Residential Facility (30 day convalescent stay) Please indicate your approval for this care by adding your name here: ISABELL ELLISON 11/24/[address] [facility] APTTon 11-25-2023 ACTIVATED PARTIAL THROMBOPLASTIN TIME IN PPP BY COAGULATION ASSAY 78.4 Seconds High 25.0-35.0 [facility] Comment on above: Order Comment: Check aPTT every 6 hours while on heparin infusion, or per protocol. Result Comment: Clin ical significance of the APTT is questionable in the presence of heparin. Performed By: #### L [id number] ####[facility] ([facility])[address] [place] [address] ACTIVATED PARTIAL THROMBOPLASTIN TIME IN PPP BY COAGULATION ASSAY 80.8 Seconds High 25.0-35.0 [facility] Comment on above: Order Comment: Check aPTT every 6 hours while on heparin infusion, or per protocol. Result Comment: Clin ical significance of the APTT is questionable in the presence of heparin. Performed By: #### L [id number] #### [facility] (Q.ME) [address] [place] [address] BASIC METABOLIC PANELon 11-06 Anion gap [Moles/Vol] 11 mmol/L Normal -20 [facility] Comment on above: Performed By: #### L [id number] ####[facility] ([facility])[address] [place] [address] Calcium [Mass/Vol] 8.4 mg/dL Low 8.6-10.3 [facility] Comment on above: Performed By: #### L [id number] ####[facility] ([facility])[address] [place] [address] Chloride [Moles/Vol] 107 mmol/L Normal 98-107 [facility] Comment on above: Performed By: #### L [id number] ####[facility] ([facility])[address] [place] [address] CO2 [Moles/Vol] 24 mmol/L Normal 21-31 [facility] Comment on above: Performed By: #### L [id number] ####[facility] ([facility])[address] [place] [address] Creatinine [Mass/Vol] 1.24 mg/dL Normal 0.70-1.30 [facility] Comment on above: Performed By: #### L [id number] ####[facility] ([facility])[address] [place] [address] GLOMERULAR FILTRATION RATE ML/MIN/1.73 SQ M.PREDICTED 58.0 mL/min/1.73m*2 Low >60.0 [facility] Comment on above: Result Comment: [facility]???s estimated glomerular filtration rate (eGFR) will [...] of individuals. Performed By: #### L [id number] ####[facility] ([facility])[address] [place] [address] Glucose [Mass/Vol] 97 mg/dL Normal 70-100 [facility] Comment on above: Performed By: #### L [id number] ####[facility] [place] [address] Potassium [Moles/Vol] 3.7 mmol/L Normal 3.5-5.1 [facility] Comment on above: Performed By: #### L [id number] ####[facility] ([facility])[address] [place] [address] Sodium [Moles/Vol] 138 mmol/L Normal 136-145 [facility] Comment on above: Performed By: #### L [id number] ####[facility] ([facility])[address] [place] [address] Urea nitrogen [Mass/Vol] 23 mg/dL Normal 7-25 [facility] Comment on above: Performed By: #### L [id number] ####[facility] ([facility])[address] [place] [address] UREA NITROGEN/CREATININE (MASS RATIO) IN SER/PLAS 18.[address] [facility] Comment on above: Performed By: #### L [id number] ####[facility] ([facility])[address] [place] [address] CBC WITH AUTO DIFFERENTIALon 11-25-2023 Basophils (Bld) [#/Vol] 0.02 10*3/uL Normal 0.00-0.20 [facility] Comment on above: Performed By: #### L [id number] #### [facility] ([facility]) [address] [place] [address] Basophils/100 WBC (Bld) 0.2 % Normal 0.0-1.0 [facility] Comment on above: Performed By: #### L [id number] #### [facility] [address] [place] [address] Eosinophils (Bld) [#/Vol] 0.28 10*3/uL Normal 0.00-0.50 [facility] Comment on above: Performed By: #### L [id number] #### [facility] [address] [place] [address] Eosinophils/100 WBC (Bld) 3.4 % Normal 0.0-6.0 [facility] Comment on above: Performed By: #### L [id number] #### [facility] ([facility]) [address] [place] [place] [address] Erythrocyte distribution width (RBC) [Ratio] 12.5 % Normal 11.5-15.0 [facility] Comment on above: Performed By: #### L [id number] #### [facility] ([facility]) [address] [place] [place] [address] ERYTHROCYTE MEAN CORPUSCULAR HEMOGLOBIN CONCENTRATION (G/DL) BY AUTOMATED 34.7 g/dL Normal 32.0-35.0 [facility] Comment on above: Performed By: #### L [id number] #### [facility] ([facility]) [address] [place] [place] [address] Hematocrit (Bld) [Volume fraction] 35.2 % Low 39.0-55.0 [facility] Comment on above: Performed By: #### L [id number] #### [facility] ([facility]) [address] [place] [address] Hemoglobin (Bld) [Mass/Vol] 12.2 g/dL Low 13.0-17.0 [facility] Comment on above: Performed By: #### L [id number] #### [facility] ([facility]) [address] [place] [place] [address] Immature granulocytes (Bld) [#/Vol] 0.10 10*3/uL Normal 0.00-0.20 [facility] Comment on above: Performed By: #### L [id number] #### [facility] ([facility]) [address] [place] [place] [address] Immature granulocytes/100 WBC (Bld) 1.2 % High 0.0-1.0 [facility] Comment on above: Performed By: #### L [id number] #### [facility] [address] [place] [place] [address] Lymphocytes (Bld) [#/Vol] 1.57 10*3/uL Normal 1.20-4.00 [facility] Comment on above: Performed By: #### L [id number] #### [facility] ([facility]) [address] [place] [place] [address] Lymphocytes/100 WBC (Bld) 18.9 % Low 20.0-45.0 [facility] Comment on above: Performed By: #### L [id number] #### [facility] ([facility]) [address] [place] [place] [address] MCH (RBC) [Entitic mass] 32.7 pg Normal 27.0-33.0 [facility] Comment on above: Performed By: #### L [id number] #### [facility] ([facility]) [address] [place] [place] [address] MCV (RBC) [Entitic vol] 94.4 fL Normal 82.0-98.0 [facility] Comment on above: Performed By: #### L [id number] #### [facility] ([facility]) [address] [place] [place] [address] Monocytes (Bld) [#/Vol] 0.73 10*3/uL Normal 0.10-1.00 [facility] Comment on above: Performed By: #### L [id number] #### [facility] ([facility]) [address] [place] [place] [address] Monocytes/100 WBC (Bld) 8.8 % Normal 5.0-12.0 [facility] Comment on above: Performed By: #### L [id number] #### [facility] ([facility]) [address] [place] [place] [address] Neutrophils (Bld) [#/Vol] 5.60 10*3/uL Normal 1.60-7.60 [facility] Comment on above: Performed By: #### L [id number] #### [facility] [address] [place] [place] [address] Neutrophils/100 WBC (Bld) 67.5 % Normal 40.0-72.0 [facility] Comment on above: Performed By: #### L [id number] #### [facility] ([facility]) [address] [place] [place] [address] NRBC (PER 100 WBCS) BY AUTOMATED COUNT 0.0 % Normal 0 [facility] Comment on above: Performed By: #### L [id number] #### [facility] ([facility]) [address] [place] [place] [address] PLATELETS (10*3/UL) IN BLOOD AUTOMATED COUNT 209 10*3/uL Normal 150-400 [facility] Comment on above: Performed By: #### L [id number] #### [facility] ([facility]) [address] [place] [place] [address] RBC (Bld) [#/Vol] 3.73 10*6/uL Low 4.20-5.70 [facility] Comment on above: Performed By: #### L [id number] #### [facility] ([facility]) [address] [place] [address] WBC (Bld) [#/Vol] 8.30 10*3/uL Normal 4.00-10.60 [facility] Comment on above: Performed By: #### L [id number] #### [facility] ([facility]) [address] [place] [address] HPon 11-25-2023 HP H&P reviewed. The patient was examined and there are no changes to the H&P. Would add that L Uriah test is normal, and pulses in DP and PT are strong. We discussed expected risks and benefits, he understands and consents to proceed. Normal [facility] MAGNESIUMon 11-25-2023 Magnesium [Mass/Vol] 1.7 mg/dL Low 1.9-2.7 [facility] Comment on above: Performed By: #### L [id number] ####[facility] ([facility])[address] [place] [address] 30on 11-24-2023 30 The patient is Moderately [...] comfort level Outcome: Progressing . Normal [facility] 30 The patient is Moderately Stable - Low risk of patient condition declining or worsening The patient's goals for the shift include Comfort The clinical goals for the shift include VSS, safety Problem: Pain - Adult Goal: Verbalizes/displays adequate comfort level or baseline comfort level Outcome: Progressing Flowsheets (Taken 11/24/2023 8230) Verbalizes/displays adequate comfort level or baseline comfort level: Encourage patient to monitor pain and request assistance Problem: Safety - Adult Goal: Free from fall injury Outcome: Progressing Normal [facility] 30 The patient is Moderately Stable [...] level of pain Outcome: Progressing Normal [facility] 30 The patient is Moderately Stable [...] maintain environment to promote sleep. Normal [facility] 30 The patient is Moderately Stable - Low risk of patient condition declining or worsening The patient's goals for the shift include Go home The clinical goals for the shift include VSS Normal [facility] APTTon 11-24-2023 ACTIVATED PARTIAL THROMBOPLASTIN TIME IN PPP BY COAGULATION ASSAY 54.6 Seconds High 25.0-35.0 [facility] Comment on above: Order Comment: Check aPTT every 6 hours while on heparin infusion, or per protocol. Result Comment: Clin ical significance of the APTT is questionable in the presence of heparin. Performed By: #### L [id number] ####[facility] ([facility])[address] [place] [address] ACTIVATED PARTIAL THROMBOPLASTIN TIME IN PPP BY COAGULATION ASSAY 55.9 Seconds High 25.0-35.0 [facility] Comment on above: Order Comment: Check aPTT every 6 hours while on heparin infusion, or per protocol. Result Comment: Clin ical significance of the APTT is questionable in the presence of heparin. Performed By: #### L [id number] #### [facility] ([facility]) [address] [place] [address] ACTIVATED PARTIAL THROMBOPLASTIN TIME IN PPP BY COAGULATION ASSAY 48.6 Seconds High 25.0-35.0 [facility] Comment on above: Result Comment: Clin ical significance of the APTT is questionable in the presence of heparin. Performed By: #### L [id number] #### [facility] ([facility]) [address] [place] [address] B-TYPE NATRIURETIC PEPTIDEon 11-24-2023 Natriuretic peptide B (Bld) [Mass/Vol] 284 pg/mL High 0-100 [facility] Comment on above: Performed By: #### L [id number] ####[facility] ([facility])[address] [place] [address] Natriuretic peptide B (Bld) [Mass/Vol] 308 pg/mL High 0-100 [facility] Comment on above: Performed By: #### L [id number] #### [facility] ([facility]) [address] [place] [address] CBC WITH AUTO DIFFERENTIALon 11-24-2023 Basophils (Bld) [#/Vol] 0.05 10*3/uL Normal 0.00-0.20 [facility] Comment on above: Performed By: #### L [id number] #### [facility] ([facility]) [address] [place] [address] Basophils/100 WBC (Bld) 0.6 % Normal 0.0-1.0 [facility] Comment on above: Performed By: #### L [id number] #### [facility] ([facility]) [address] [place] [address] Eosinophils (Bld) [#/Vol] 0.09 10*3/uL Normal 0.00-0.50 [facility] Comment on above: Performed By: #### L [id number] #### [facility] ([facility]) [address] [place] [address] Eosinophils/100 WBC (Bld) 1.1 % Normal 0.0-6.0 [facility] Comment on above: Performed By: #### L [id number] #### [facility] ([facility]) [address] [place] [address] Erythrocyte distribution width (RBC) [Ratio] 12.6 % Normal 11.5-15.0 [facility] Comment on above: Performed By: #### L [id number] #### [facility] [address] [place] [address] ERYTHROCYTE MEAN CORPUSCULAR HEMOGLOBIN CONCENTRATION (G/DL) BY AUTOMATED 33.3 g/dL Normal 32.0-35.0 [facility] Comment on above: Performed By: #### L [id number] #### [facility] ([facility]) [address] [place] [address] Hematocrit (Bld) [Volume fraction] 42.6 % Normal 39.0-55.0 [facility] Comment on above: Performed By: #### L [id number] #### [facility] ([facility]) [address] [place] [address] Hemoglobin (Bld) [Mass/Vol] 14.2 g/dL Normal 13.0-17.0 [facility] Comment on above: Performed By: #### L [id number] #### [facility] ([facility]) [address] [place] [place] [address] Immature granulocytes (Bld) [#/Vol] 0.08 10*3/uL Normal 0.00-0.20 [facility] Comment on above: Performed By: #### L [id number] #### [facility] ([facility]) [address] [place] [address] Immature granulocytes/100 WBC (Bld) 0.9 % Normal 0.0-1.0 [facility] Comment on above: Performed By: #### L [id number] #### [facility] [address] [place] [address] Lymphocytes (Bld) [#/Vol] 1.07 10*3/uL Low 1.20-4.00 [facility] Comment on above: Performed By: #### L [id number] #### [facility] ([facility] [address] [place] [address] Lymphocytes/100 WBC (Bld) 12.7 % Low 20.0-45.0 [facility] Comment on above: Performed By: #### L [id number] #### [facility] ([facility]) [address] [place] [address] MCH (RBC) [Entitic mass] 32.4 pg Normal 27.0-33.0 [facility] Comment on above: Performed By: #### L [id number] #### [facility] ([facility]) [address] [place] [place] [address] MCV (RBC) [Entitic vol] 97.3 fL Normal 82.0-98.0 [facility] Comment on above: Performed By: #### L [id number] #### [facility] ([facility]) [address] [place] [place] [address] Monocytes (Bld) [#/Vol] 0.54 10*3/uL Normal 0.10-1.00 [facility] Comment on above: Performed By: #### L [id number] #### [facility] ([facility]) [address] [place] [place] [address] Monocytes/100 WBC (Bld) 6.4 % Normal 5.0-12.0 [facility] Comment on above: Performed By: #### L [id number] #### [facility] ([facility]) [address] [place] [place] [address] Neutrophils (Bld) [#/Vol] 6.60 10*3/uL Normal 1.60-7.60 [facility] Comment on above: Performed By: #### L [id number] #### [facility] ([facility]) [address] [place] [place] [address] Neutrophils/100 WBC (Bld) 78.3 % High 40.0-72.0 [facility] Comment on above: Performed By: #### L [id number] #### [facility] ([facility]) [address] [place] [address] NRBC (PER 100 WBCS) BY AUTOMATED COUNT 0.0 % Normal 0 [facility] Comment on above: Performed By: #### L [id number] #### [facility] ([facility]) [address] [place] [address] PLATELETS (10*3/UL) IN BLOOD AUTOMATED COUNT 159 10*3/uL Normal 150-400 [facility] Comment on above: Performed By: #### L [id number] #### [facility] ([facility]) [address] [place] [place] [address] RBC (Bld) [#/Vol] 4.38 10*6/uL Normal 4.20-5.70 [facility] Comment on above: Performed By: #### L [id number] #### [facility] ([facility]) [address] [place] [place] [address] WBC (Bld) [#/Vol] 8.43 10*3/uL Normal 4.00-10.60 [facility] Comment on above: Performed By: #### L [id number] #### [facility] ([facility]) [address] [place] [address] COMPREHENSIVE METABOLIC PANE Chris 11-24-2023 Albumin [Mass/Vol] 3.5 g/dL Normal 3.5-5.7 [facility] Comment on above: Performed By: #### L [id number] #### [facility] ([facility]) [address] [place] [place] [address] ALP [Catalytic activity/Vol] 87 U/L Normal 34-104 [facility] Comment on above: Performed By: #### L [id number] #### [facility] ([facility]) [address] [place] [address] ALT [Catalytic activity/Vol] 16 U/L Normal 7-52 [facility] Comment on above: Performed By: #### L [id number] #### [facility] ([facility]) [address] [place] [address] Anion gap [Moles/Vol] 18 mmol/L Normal 7-20 [facility] Comment on above: Performed By: #### L [id number] #### [facility] ([facility]) [address] [place] [address] AST [Catalytic activity/Vol] 31 U/L Normal 13-39 [facility] Comment on above: Performed By: #### L [id number] #### [facility] ([facility]) [address] [place] [address] Bilirubin [Mass/Vol] 0.6 mg/dL Normal 0.3-1.0 [facility] Comment on above: Performed By: #### L [id number] #### [facility] ([facility]) [address] [place] [address] Calcium [Mass/Vol] 8.7 mg/dL Normal 8.6-10.3 [facility] Comment on above: Performed By: #### L [id number] #### [facility] ([facility]) [address] [place] [address] Chloride [Moles/Vol] 108 mmol/L High 98-107 [facility] Comment on above: Performed By: #### L [id number] #### [facility] ([facility]) [address] [facility] [place] [address] CO2 [Moles/Vol] 18 mmol/L Low 21-31 [facility] Comment on above: Performed By: #### L [id number] #### [facility] ([facility]) [address] [place] [address] Creatinine [Mass/Vol] 1.25 mg/dL Normal 0.70-1.30 [facility] Comment on above: Performed By: #### L [id number] #### [facility] ([facility]) [address] [place] [address] GLOMERULAR FILTRATION RATE ML/MIN/1.73 SQ M.PREDICTED 57.5 mL/min/1.73m*2 Low >60.0 [facility] Comment on above: Result Comment: [facility]???s estimated glomerular filtration rate (eGFR) will [...] of individuals. Performed By: #### L [id number] #### [facility] ([facility]) [address] [place] [place] [address] Glucose [Mass/Vol] 97 mg/dL Normal 70-100 [facility] Comment on above: Performed By: #### L [id number] #### [facility] ([facility]) [address] [place] [place] [address] Potassium [Moles/Vol] 3.6 mmol/L Normal 3.5-5.1 [facility] Comment on above: Performed By: #### L [id number] #### [facility] ([facility]) [address] [place] [address] Protein [Mass/Vol] 6.9 g/dL Normal 6.0-8.3 [facility] Comment on above: Performed By: #### L [id number] #### [facility] ([facility]) [address] [place] [address] Sodium [Moles/Vol] 140 mmol/L Normal 136-145 [facility] Comment on above: Performed By: #### L [id number] #### [facility] ([facility]) [address] [place] [place] [address] Urea nitrogen [Mass/Vol] 28 mg/dL High 7-25 [facility] Comment on above: Performed By: #### L [id number] #### [facility] ([facility]) [address] [place] [place] [address] UREA NITROGEN/CREATININE (MASS RATIO) IN SER/PLAS 22.[address] [facility] Comment on above: Performed By: #### L [id number] #### [facility] ([facility]) [address] [place] [address] CONSULTon 11-24-2023 CONSULT -- Attestation signed by [...] hypertension, hyperlipidemia, hypothyroidism, CVA who presented from [facility] with chief complains of central chest pain, [...] x 4 with mild slurred speech. At [facility], initial labs were completed showing WBC [...] ca (more content not included)... Normal [facility] HEMOGLOBIN A1Con 11-24-2023 Glucose [Mass/Vol] 114 mg/dL Normal [facility] Comment on above: Performed By: #### L [id number] #### [facility] ([facility]) [address] [place] [address] HbA1c (Bld) [Mass fraction] 5.6 % Normal 4.0-6.0 [facility] Comment on above: Performed By: #### L [id number] #### [facility] ([facility]) [address] [place] [address] HPon 11-24-2023 HP -- Attestation signed by [...] hypertension, hyperlipidemia, hypothyroidism, CVA who presented from [facility] with chief complains of central chest pain, [...] x 4 with mild slurred speech. At [facility], initial labs were completed showing WBC [...] ca (more content not included)... Normal [facility] LACTIC ACID, PLASMAon 2023 LACTATE (MMOL/L) IN SER/PLAS 1.0 mmol/L Normal 0.5-2.2 [facility] Comment on above: Performed By: #### L [id number] ####[facility] ([facility])[address] [place] [address] LIPID PANELon 11-24-2023 CHOL/HDL 3.4 mg/dL Normal [facility] Comment on above: Performed By: #### L [id number] #### [facility] ([facility]) [address] [place] [address] Cholesterol [Mass/Vol] 71 mg/dL Low 120-200 [facility] Comment on above: Performed By: #### L [id number] #### [facility] ([facility]) [address] [place] [address] Magnesium [Mass/Vol] 146 mg/dL Normal 40-149 [facility] Comment on above: Result Comment: TRIG LYCERIDE REFERENCE RANGE: 20 YEARS AND OLDER CARDIOVASCULAR RISK LESS THAN 150 mg/dL LOW RISK 150 TO 199 mg/dL BORDERLINE RISK 200 mg/dL AND GREATER HIGH RISK Performed By: #### L [id number] #### [facility] ([facility]) [address] [place] [address] Magnesium [Mass/Vol] 21 mg/dL Low 23-92 [facility] Comment on above: Performed By: #### L [id number] #### [facility] ([facility]) [address] [place] [address] NON HDL CHOL. (LDL+VLDL) [address] [facility] Comment on above: Performed By: #### L [id number] #### [facility] ([facility]) [address] [place] [address] TOTAL VLDL-C 29 mg/dL Normal 0-40 [facility] Comment on above: Performed By: #### L [id number] #### [facility] ([facility]) [address] [place] [address] MAGNESIUMon 11-24-2023 Magnesium [Mass/Vol] 1.8 mg/dL Low 1.9-2.7 [facility] Comment on above: Performed By: #### L [id number] #### [facility] [address] [place] [address] Magnesium [Mass/Vol] 1.9 mg/dL Normal 1.9-2.7 [facility] Comment on above: Performed By: #### L [id number] ####[facility] (Q.ME)[address] [place] [address] PHOSPHORUSon 11-24-2023 Magnesium [Mass/Vol] 2.8 mg/dL Normal 2.5-5.0 [facility] Comment on above: Performed By: #### L [id number] #### [facility] (Q.ME) [address] [place] [address] PROTIME-INRon 11-24-2023 INR IN PPP BY COAGULATION ASSAY 1.29 High 0.90-1.10 [facility] Comment on above: Result Comment: ACCC [...] CHEST 1995;108:[id number]. Performed By: #### L [id number] ####[facility] (Q.ME)[address] [place] [address] PROTHROMBIN TIME (PT) IN PPP BY COAGULATION ASSAY 16.0 Seconds High 12.3-14.8 [facility] Comment on above: Performed By: #### L [id number] ####[facility] ([facility])[address] [place] [address] TROPONIN Ion 11-24-2023 Troponin I.cardiac [Mass/Vol] 0.26 ng/mL Critically high 0.00-0.04 [facility] Comment on above: Result Comment: M-MO EVIOUS CRITICAL RESULT Previous result verified on 11/24/2023 0604 on specimen/case [id number] called with component Troponin I for procedure Troponin I with value 0.35 ng/mL. Performed By: #### L [id number] ####[facility] ([facility])[address] [place] [address] Result Comment: Prev ious result verified on 11/24/2023 0604 on specimen/case [id number] called with component Troponin I for procedure Troponin I with value 0.35 ng/mL. Performed By: #### L [id number] #### [facility] ([facility]) [address] [place] [address] Troponin I.cardiac [Mass/Vol] 0.27 ng/mL Critically high 0.00-0.04 [facility] Comment on above: Result Comment: Prev ious result verified on 11/24/2023 0604 on specimen/case [id number] called with component Troponin I for procedure Troponin I with value 0.35 ng/mL. Performed By: #### L [id number] ####[facility] ([facility])[address] [place] [address] Troponin I.cardiac [Mass/Vol] 0.23 ng/mL Critically high 0.00-0.04 [facility] Comment on above: Result Comment: Prev ious result verified on 11/24/2023 0604 on specimen/case [id number] called with component Troponin I for procedure Troponin I with value 0.35 ng/mL. Performed By: #### L [id number] #### [facility] ([facility]) [address] [place] [address] Troponin I.cardiac [Mass/Vol] 0.35 ng/mL Critically high 0.00-0.04 [facility] Comment on above: Result Comment: M-TR OPONIN INITIAL CRITICAL HIGH; RESPUN AND RETESTED Performed By: #### L [id number] #### [facility] ([facility]) [address] [place] [address] CBC AUTO DIFFon 03-21-2021 BASO # 0.0 103/ul Normal 0.0-0.1 [facility] Comment on above: Performed By: #### C BC #### [facility] [address] [place] [address] Dr. Lukas Nino Basophils/100 WBC (Bld) 0.4 % Normal 0.2-2.0 [facility] Comment on above: Performed By: #### C BC #### [facility] [address] [place] [address] Dr. Lukas Nino EO # 0.1 103/ul Normal 0.0-0.7 [facility] Comment on above: Performed By: #### C BC #### [facility] [address] [place] [address] Dr. Lukas Nino Eosinophils/100 WBC (Bld) 1.4 % Normal 0.9-7.0 [facility] Comment on above: Performed By: #### C BC #### [facility] [address] [place] [address] Dr. Lukas Nino Erythrocyte distribution width (RBC) [Ratio] 13.0 % Normal 11.0-15.0 [facility] Comment on above: Performed By: #### C BC #### [facility] [address] [place] [address] Dr. Lukas Nino Hematocrit (Bld) [Volume fraction] 42.1 % Normal 42.0-54.0 [facility] Comment on above: Performed By: #### C BC #### [facility] [address] [place] [address] Dr. Lukas Nino Hemoglobin (Bld) [Mass/Vol] 14.5 g/dL Normal 14.0-18.0 [facility] Comment on above: Performed By: #### C BC #### [facility] [address] [place] [address] Dr. Lukas Nino IG # 0.03 10e3/ul Normal 0.00-0.03 [facility] Comment on above: Performed By: #### C BC #### [facility] [address] [place] [address] Dr. Lukas Nino IG % 0.4 % Normal 0.0-0.5 [facility] Comment on above: Performed By: #### C BC #### [facility] [address] [place] [address] Dr. Lukas Nino LYMPH # 1.7 103/ul Normal 1.2-3.8 [facility] Comment on above: Performed By: #### C BC #### [facility] [address] [place] [address] Dr. Lukas Nino Lymphocytes/100 WBC (Bld) 20.6 % Normal 20.5-60.0 [facility] Comment on above: Performed By: #### C BC #### [facility] [address] [place] [address] Dr. Lukas Nnio MANUAL DIFF REQ NO [facility] Comment on above: Performed By: #### C BC #### [facility] [address] [place] [address] Dr. Lukas Nino MCH (RBC) [Entitic mass] 33.0 pg Normal 25.9-34.0 [facility] Comment on above: Performed By: #### C BC #### [facility] [address] [place] [address] Dr. Lukas Nino MCHC (RBC) [Mass/Vol] 34.4 g/dL Normal 29.9-35.2 [facility] Comment on above: Performed By: #### C BC #### [facility] [address] [place] [address] Dr. Lukas Nino MCV (RBC) [Entitic vol] 95.9 fL Critically high 80.0-94.0 [facility] Comment on above: Performed By: #### C BC #### [facility] [address] [place] [address] Dr. Lukas Nino MONO # 0.6 103/ul Normal 0.3-0.8 [facility] Comment on above: Performed By: #### C BC #### [facility] [address] [address] [address] Lukas Nino Monocytes/100 WBC (Bld) 7.2 % Normal 1.7-12.0 [facility] Comment on above: Performed By: #### C BC #### [facility] [address] [address] [address] Lukas Nino NEUT # 5.6 103/ul Normal 1.4-6.5 [facility] Comment on above: Performed By: #### C BC #### [facility] [address] [address] [address] Lukas Nino Neutrophils/100 WBC (Bld) 70.0 % Normal 43.0-75.0 [facility] Comment on above: Performed By: #### C BC #### [facility] [address] [place] [address] Dr. Lukas Nino Platelet mean volume (Bld) [Entitic vol] 11.1 fL Normal 9.5-13.5 [facility] Comment on above: Performed By: #### C BC #### [facility] [address] [address] [address] Lukas Nino PLT 129 103/ul Critically low 150-450 [facility] Comment on above: Result Comment: few plt clumps Performed By: #### C BC #### [facility] [address] [address] [address] Lukas Nino RBC 4.39 106/ul Critically low 4.70-6.10 [facility] Comment on above: Performed By: #### C BC #### [facility] [address] [address] [address] Lukas Nino WBC 8.0 103/ul Normal 4.0-11.0 [facility] Comment on above: Performed By: #### C BC #### [facility] [address] [address] [address] Lukas Nino FREE THYROXINE INDEX T7on FTI 2.05 Normal [facility] Comment on above: Performed By: #### T SH, CMP, LIPID, URIC, T7 #### [facility] [address] [address] [address] Lukas Nino T3U 33.0 % Normal 23.5-40.5 [facility] Comment on above: Performed By: #### T SH, CMP, LIPID, URIC, T7 #### [facility] [address] [place] [address] Dr. Lukas Nino T4 [Mass/Vol] 6.20 ug/dL Normal 5.53-11.00 [facility] Comment on above: Performed By: #### T SH, CMP, LIPID, URIC, T7 #### [facility] [address] [address] [address] Lukas Nino GLYCOHEMOGLOBIN A1Con 2020 ADA RECOMMENDATION ADA THERAPEUTIC TARG ET 6.0 - 7.0 ACTION SUGGESTED > 7.0 Normal [facility] Comment on above: Performed By: #### A 1C #### [facility] [address] [place] [address] Dr. Lukas Nino Glucose [Mass/Vol] 103 mg/dL Normal [facility] Comment on above: Performed By: #### A 1C #### [facility] [address] [place] [address] Dr. Lukas Nino HbA1c (Bld) [Mass fraction] 5.2 % Normal <=6.0 [facility] Comment on above: Performed By: #### A 1C #### [facility] [address] [place] [address] Dr. Lukas Nino LIPID PROFILEon 03-21-2021 CHOL-HDL RATIO NORM SEE BELOW Normal [facility] Comment on above: Result Comment: 3.3 - 4.4 LOW RISK 4.4 - 7.1 AVERAGE RISK 7.1 - 11.0 MODERATE RISK >11.0 HIGH RISK Performed By: #### T SH, CMP, LIPID, URIC, T7 #### [facility] [address] [place] [address] Dr. Lukas Nino Cholesterol [Mass/Vol] 121 mg/dL Normal <=200 [facility] Comment on above: Performed By: #### T SH, CMP, LIPID, URIC, T7 #### [facility] [address] [address] [address] Lukas Nino Cholesterol in HDL [Mass/Vol] 38 mg/dL Normal [facility] Comment on above: Performed By: #### T SH, CMP, LIPID, URIC, T7 #### [facility] [address] [address] [address] Lukas Nino Cholesterol in LDL [Mass/Vol] 66.4 mg/dL Normal [facility] Comment on above: Performed By: #### T SH, CMP, LIPID, URIC, T7 #### [facility] [address] [address] [address] Lukas Nino Cholesterol.total/Ch olesterol in HDL [Mass ratio] 3.2 {ratio} Normal [facility] Comment on above: Performed By: #### T SH, CMP, LIPID, URIC, T7 #### [facility] [address] [address] [address] Lukas Nino HDL NORMAL > or = 60 mg/dl - LO W CARDIOVASCULAR RISK <40 mg/dl - HIGH CARDIOVASCULAR RISK Normal [facility] Comment on above: Performed By: #### T SH, CMP, LIPID, URIC, T7 #### [facility] [address] [address] [address] Lukas Nino LDL CALC NORMAL SEE BELOW Normal [facility] Comment on above: Result Comment: <100 mg/dl OPTIMAL 100 - 129 mg/dl NEAR OR ABOVE OPTIMAL 130 - 159 mg/dl BORDERLINE HIGH 160 - 189 mg/dl HIGH >190 mg/dl VERY HIGH Performed By: #### T SH, CMP, LIPID, URIC, T7 #### [facility] [address] [address] [address] Lukas Nino Triglyceride [Mass/Vol] 83 mg/dL Normal <=150 [facility] Comment on above: Performed By: #### T SH, CMP, LIPID, URIC, T7 #### [facility] [address] [address] [address] Lukas Nino VLDL CALC 16.6 mg/dL Normal [facility] Comment on above: Performed By: #### T SH, CMP, LIPID, URIC, T7 #### [facility] [address] [place] [address] Dr. Lukas Nino PROF 14(COMP METB)on 021 Albumin [Mass/Vol] 3.7 g/dL Normal 3.5-5.0 [facility] Comment on above: Performed By: #### T SH, CMP, LIPID, URIC, T7 #### [facility] [address] [place] [address] Dr. Lukas Nino Albumin/Globulin [Mass ratio] 1.0 {ratio} Normal [facility] Comment on above: Performed By: #### T SH, CMP, LIPID, URIC, T7 #### [facility] [address] [place] [address] Dr. Lukas Nino ALP [Catalytic activity/Vol] 86 U/L Normal 38-126 [facility] Comment on above: Performed By: #### T SH, CMP, LIPID, URIC, T7 #### [facility] [address] [place] [address] Dr. Lukas Nino ALT [Catalytic activity/Vol] 18 U/L Critically low 21-72 [facility] Comment on above: Performed By: #### T SH, CMP, LIPID, URIC, T7 #### [facility] [address] [place] [address] Dr. Lukas Nino Anion gap [Moles/Vol] 9.5 mmol/L Normal [facility] Comment on above: Performed By: #### T SH, CMP, LIPID, URIC, T7 #### [facility] [address] [place] [address] Dr. Lukas Nino AST [Catalytic activity/Vol] 18 U/L Normal 17-59 [facility] Comment on above: Performed By: #### T SH, CMP, LIPID, URIC, T7 #### [facility] [address] [place] [address] Dr. Lukas Nino Bilirubin [Mass/Vol] 0.8 mg/dL Normal 0.2-1.3 [facility] Comment on above: Performed By: #### T SH, CMP, LIPID, URIC, T7 #### [facility] [address] [address] [address] Lukas Nino Calcium [Mass/Vol] 8.9 mg/dL Normal 8.4-10.2 [facility] Comment on above: Performed By: #### T SH, CMP, LIPID, URIC, T7 #### [facility] [address] [place] [address] Dr. Lukas Nino Chloride [Moles/Vol] 106 mmol/L Normal 98-107 [facility] Comment on above: Performed By: #### T SH, CMP, LIPID, URIC, T7 #### [facility] [address] [place] [address] Dr. Lukas Nino CO2 [Moles/Vol] 28.2 mmol/L Normal 22.0-30.0 [facility] Comment on above: Performed By: #### T SH, CMP, LIPID, URIC, T7 #### [facility] [address] [place] [address] Dr. Lukas Nion Creatinine [Mass/Vol] 1.26 mg/dL Critically high 0.66-1.25 [facility] Comment on above: Performed By: #### T SH, CMP, LIPID, URIC, T7 #### [facility] [address] [place] [address] Dr. Lukas Nino EGFR-AF AUSTRALIAN >60 Normal >=60 [facility] Comment on above: Performed By: #### T SH, CMP, LIPID, URIC, T7 #### [facility] [address] [place] [address] Dr. Lukas Nino EGFR-NON AF AUSTRALIAN 55 mL/min/1.73m2 Critically low >=60 [facility] Comment on above: Performed By: #### T SH, CMP, LIPID, URIC, T7 #### [facility] [address] [place] [address] Dr. Lukas Nino Globulin (S) [Mass/Vol] 3.7 g/dL Normal [facility] Comment on above: Performed By: #### T SH, CMP, LIPID, URIC, T7 #### [facility] [address] [place] [address] Dr. Lukas Nino Glucose [Mass/Vol] 76 mg/dL Normal 74-106 [facility] Comment on above: Performed By: #### T SH, CMP, LIPID, URIC, T7 #### [facility] [address] [address] [address] Lukas Nino Potassium [Moles/Vol] 3.7 mmol/L Normal 3.4-5.0 [facility] Comment on above: Performed By: #### T SH, CMP, LIPID, URIC, T7 #### [facility] [address] [place] [address] Dr. Lukas Nino Protein [Mass/Vol] 7.4 g/dL Normal 6.1-8.2 [facility] Comment on above: Performed By: #### T SH, CMP, LIPID, URIC, T7 #### [facility] [address] [place] [address] Dr. Lukas Nino Sodium [Moles/Vol] 140 mmol/L Normal 137-145 [facility] Comment on above: Performed By: #### T SH, CMP, LIPID, URIC, T7 #### [facility] [address] [place] [address] Dr. Lukas Nino Urea nitrogen [Mass/Vol] 15.0 mg/dL Normal 9.0-20.0 [facility] Comment on above: Performed By: #### T SH, CMP, LIPID, URIC, T7 #### [facility] [address] [address] [address] Lukas Nino Urea nitrogen/Creatinine [Mass ratio] 11.9 mg/mg Normal [facility] Comment on above: Performed By: #### T SH, CMP, LIPID, URIC, T7 #### [facility] [address] [address] [address] Lukas Nino TSHon 03-21-2021 TSH 2.594 uIU/mL Normal 0.470-4.680 [facility] Comment on above: Performed By: #### T SH, CMP, LIPID, URIC, T7 #### [facility] [address] [place] [address] Dr. Lukas Nino TSH RANGE SEE BELOW Normal [facility] Comment on above: Result Comment: <0.3 4 UIU/ml HYPERTHYROID 0.34-5.60 UIU/ml EUTHYROID >5.60 UIU/ml HYPOTHYROID Performed By: #### T SH, CMP, LIPID, URIC, T7 #### [facility] [address] [place], [place] [address] Dr. Lukas Nino URIC ACID SERUMon 03-21-2021 Urate [Mass/Vol] 6.5 mg/dL Normal 3.5-8.5 [facility] Comment on above: Performed By: #### T SH, CMP, LIPID, URIC, T7 #### [facility] [address] [address] [address] Lukas Nino Encounters Encounter Date Encounter Type Care Provider Facility Start: 01-07-2024 End: 01-07-2024 ambulatory [facility] Start: 12-08-2023 End: 12-08-2023 ambulatory [facility] Start: 11-25-2023 Evaluation and management of inpatient FLORENTIN [facility] Start: 11-25-2023 [facility]: 11-25-2023 Evaluation and management of inpatient [facility] Start: 11-24-2023 Evaluation and management of inpatient [facility] Start: 11-24-2023 ambulatory [facility] Start: 11-24-2023 End: 11-26-2023 Evaluation and management of inpatient [facility] Start: 04-29-2021 End: 04-30-2021 ambulatory TRAMAINE GOLDEN Facility:[facility] Start: 03-21-2021 End: 03-21-[address] JAKE CHOWDHURY Facility:[facility] Start: 08-27-2020 End: 08-28-[address] ROA LISTED REQUEST Facility:[facility] Start: 08-05-2020 End: 08-06-[address] JAKE CHOWDHURY Facility:[facility] Procedures Date Procedure Procedure Detail Performing Clinician Start: 03-21-[address] ROA L ISTED REQUEST Comment on above: Performed By: #### P [facility] #### [facility] [address] [address] [address] Lukas Nino Payers Date Payer Category Payer Medicare [id number] 1958 Self-pay [id number] 1940 Unknown [id number] [id number] [id number] Unknown [id number] 2.16.84 [id number] Unknown [id number] 2.16.84 [id number] Unknown [id number] [id number] [id number] Clinical Notes 11-24-2023 to 01-07-2024 Note Date & Type Note Facility 01-07-2024 Note [facility]- currently e uvolemic without exacerbation. Continue GDMT- Lasix 40 mg daily- Diuretic therapy Renal function remains normal- CR 1.11 Monitor daily weights, I&O, fluid restriction 1.5-2L/day, renal function and electrolytes- *Continue heart healthy diet and low sodium diet. *Monitor daily weights, fluid restriction 1.5-2Liters/day, lab work to check kidney/renal function and electrolytes *Call office for weight gain of 2 pounds in 1 day or 5 pounds in 1 week, increased leg swelling, shortness of breath or shortness of breath at night and having to sleep sitting up taller/more pillows than normal or in recliner. [facility] 01-07-2024 Note Coronary artery dise ase is unchanged. Overall pt is doing well s/p recent NSTEMI and PCI to LAD. Will remain on DAPT- ASA and plavix x1 year, monitor for bleeding tendencies and he voiced understanding Continue GDMT- ASA, plavix, lipitor, toprol Continue current treatment regimen. Regular aerobic exercise. Continue current medications. Cardiac status will be reassessed in [address] [facility] 01-07-2024 Note Coronary artery dise ase is unchanged. Tolerating Cardiac rehab 3 days a week well Denied any activity limiting symptoms, just states he wishes strength would get better faster. Continue current treatment regimen. Regular aerobic exercise. Continue current medications. Cardiac status will be reassessed in [address] [facility] 01-07-2024 Note Hypertension is unch anged. Currently well controlled 130/76 Continue toprol and lasix Continue current treatment regimen. Regular aerobic exercise. Continue current medications. Blood pressure will be reassessed in [address] [facility] 01-07-2024 Note Patient here for 1 m o follow up NSTEMI, hypertension, and hyperlipidemia. Doing well at cardiac rehab he says. Still trying to regain his strength. Denies chest pain, SOB, palpitations, and lightheadedness/syncope. Had BMP last week. Review of Systems Constitutional: Positive for malaise/fatigue. Cardiovascular: Positive for leg swelling. Musculoskeletal: Positive for muscle weakness. Neurological: Positive for focal weakness and weakness. All other systems reviewed and are negative. [facility] 01-07-2024 Note [facility] CARDIOLOGY PROGR ESS NOTE HPI: Jorgito Mayorga is a 83 y.o. male here for routine 1 month f/U after recent NSTEMI- card cath with PCI to LAD HPI 83 yo male presents today for f/U 1 month post NSTEM and PCI to LAD. Recent hospitalization with transfer to [facility] for CT and cardiac cath with PCI to LAD. He presented initially to [facility] with chest pain and was noted to have very elevated troponin levels and then transferred to [facility]. Known past medical history of hypertension, hyperlipidemia, hypothyroidism, CVA Doing well at cardiac rehab he says. Still trying to regain his strength. Denies chest pain, SOB, palpitations, and lightheadedness/syncope. Had BMP last week. Review of Systems All other systems reviewed and are negative. Review of Systems Constitutional: Positive for malaise/fatigue. Cardiovascular: Positive for leg swelling. Musculoskeletal: Positive for muscle weakness. Neurological: Positive for focal weakness and weakness. All other systems reviewed and are negative. Visit Vitals BP 130/76 (BP Location: Left arm, Patient Position: Sitting) Pulse 73 Ht 1.753 m (5' 9 ) Wt 83.5 kg (184 lb) SpO2 97% BMI 27.17 kg/m??? Smoking Status Never BSA 2.02 m??? No Known Allergies Medications: Current Outpatient [...] before November 27, 2023. 30 tablet 0 furosemide (Lasix) 40 mg tablet Take 1 tablet (40 mg) by mouth in the morning. 30 tablet 11 levothyroxine (Synthroid, Levoxyl) 50 mcg tablet Take 50 mcg by mouth before breakfast. metoprolol succinate XL (Toprol-XL) 25 mg 24 hr tablet Take 0.5 tablets (12.5 mg) by mouth in the evening. Do not crush or chew. 15 tablet 0 pantoprazole (ProtoNix) 40 mg EC tablet Take 40 mg by mouth before breakfast. potassium chloride CR (Klor-Con M10) 10 mEq ER tablet Take 1 tablet (10 mEq) by mouth in the morning. Do not crush or chew. 30 tablet 11 QUEtiapine (SEROquel) 50 mg tablet Take 50 mg by mouth at bedtime. tamsulosin (Flomax) 0.4 mg 24 hr capsule Take 0.4 mg by mouth in the morning. No current facility-administered medications on file prior to visit. Physical Exam: Constitutional: Appearance: Normal appearance. Without apparent distress, chronically ill HENT: Head: Normocephalic and atraumatic. Nose: Nose normal. Mouth/Throat: Mouth: Mucous membranes are moist. Eyes: Extraocular Movements: Extraocular movements intact. Conjunctiva/sclera: Conjunctivae normal. Neck: Vascular: No JVD. Cardiovascular: Rate and Rhythm: Normal rate and regular rhythm. Pulses: Dorsalis pedis pulses are 3 on the right side and 3on the left side. Posterior tibial pulses are 3 on the right side and 3 on the left side. Heart sounds: Normal heart sounds, S1 normal and S2 normal. Pulmonary: Effort: Pulmonary effort is normal. Breath sounds: Normal breath sounds. Abdominal: General: Bowel sounds are normal. Palpations: Abdomen is soft. Musculoskeletal: General: Normal range of motion. Cervical back: Normal range of motion. Right lower leg: No edema. Left lower leg: No edema. Skin: General: Skin is warm and dry. Capillary Refill: Capillary refill takes less than 2 seconds. Neurological: General: No focal deficit present. Mental Status: he is alert and oriented to person, place, and time. Psychiatric: Mood and Affect: Mood normal. Behavior: Behavior normal. Thought Content: Thought content normal. Judgment: Judgment normal. Labs: 12/30/23 - reviewed with pt - no acute concerns K+ 3.6 normal NA 139- Normal BUN 19, CR 1.11- normal 12/12/23 Liver function normal 11/24/23 Lipids well controlled Component Ref Range & Units 1 mo ago Triglycerides 40 - 149 mg/dL 146 Comment: TRIGLYCERIDE REFERENCE RANGE: 20 YEARS AND OLDER CARDIOVASCULAR RISK LESS THAN 150 mg/dL LOW RISK 150 TO 199 mg/dL BORDERLINE RISK 200 mg/dL AND GREATER HIGH RISK Cholesterol 120 - 200 mg/dL 71 Low LDL Calculated 0 - 160 mg/dL 21 HDL 23 - 92 mg/dL 21 Low Non HDL Cholesterol 50 Total VLDL-C 0 - 40 mg/dL 29 Cholesterol/HDL Ratio mg/dL 3.4 Last lab values have been reviewed CV Testing: Cardiac cath 11/25/23 Conclusion PROCEDURE PHYSICIAN: Florentin Christie MD Clinical Presentation: 83 y.o. Male with history of anginal chest pain and a non-ST elevation myocardial infarction Final Impression: 1) successful PCI of the mid-left anterior descending from 70 to 0% with a single drug-eluting stent Recommendation: 1) optimal med therapy for CAD 2) Aspirin and plavix DAPT for 1-year 3) high intensity statin therapy Coronary Angiogram: Left main: Normal LAD: Prior to the procedure there was a proximal (more content not included)... [facility] 12-30-2023 Note Starting diuresis to day in light of fluid overload and edema noted in cardiac rehab Scripts sent [facility] 12-30-2023 Note Coronary artery disease is uncha nged. [facility] 12-30-2023 Note Pt is in cardiac jacob ab today and provider called regarding BLE edema/swelling noted Ordered BMP to check renal function and electrolytes today and again next week before our appt Start lasix 40 mg daily and potassium daily RTC next Wednesday as scheduled [facility] 12-30-2023 Note Diagnoses and all or ders for this visit: Coronary artery disease involving reno-sparks coronary artery of reno-sparks heart without angina pectoris - Basic metabolic panel; Future - potassium chloride CR (Klor-Con M10) 10 mEq ER tablet; Take 1 tablet (10 mEq) by mouth in the morning. Do not crush or chew. Enlarged RV (right ventricle) - furosemide (Lasix) 40 mg tablet; Take 1 tablet (40 mg) by mouth in the morning. - potassium chloride CR (Klor-Con M10) 10 mEq ER tablet; Take 1 tablet (10 mEq) by mouth in the morning. Do not crush or chew. - Basic metabolic panel; Future Chronic diastolic congestive heart failure (CMS/HCC) - furosemide (Lasix) 40 mg tablet; Take 1 tablet (40 mg) by mouth in the morning. - potassium chloride CR (Klor-Con M10) 10 mEq ER tablet; Take 1 tablet (10 mEq) by mouth in the morning. Do not crush or chew. - Basic metabolic panel; Future Maria Teresaadam Fowler [facility] Available 7a-5pm via [employer] Chat Pager [phone] [facility] 12-08-2023 Note Will monitor with Ec hocardiogram and symptoms No fluid overload symptoms noted today [facility] 12-08-2023 Note Will repeat lipid le nalini and LFT in 2-3 months since starting lipitor as inpt from simvastatin. Of Note as inpt at [facility] Chol was 71 and LDL was 21 [facility] 12-08-2023 Note No c/o chest pain/SO B but he remains fatigued s/p NSTEMI May be r/t hypotension- will hold lisinopril [facility] 12-08-2023 Note Currently b/p is lab ile today with noted fatigue s/p hospitalization Will stop lisinopril, instructed pt and to monitor b/p at home and if > 130/80 may need lisinopril 2.5 mg added- they voiced understanding Continue toprol [facility] 12-08-2023 Note Patient here for [facility] for NSTEMI. Still weak and [...] other systems reviewed and are negative. [facility] 12-08-2023 Note [facility]TP CARDIOLOGY PROGR ESS NOTE HPI: Jorgito Mayorga is a 83 y.o. male here for hospital f/U HPI 83 yo male presents today for f/U after recent hospitalization with transfer to [facility] for CT and cardiac cath with PCI to LAD. He presented initially to [facility] with chest pain and was noted to have very elevated troponin levels and then transferred to [facility]. Known past medical history of hypertension, hyperlipidemia, [...] of hypertension, hyperlipidemia, hypothyroidism, CVA presents to [facility] as a direct admission from [facility] with a chief complaint of chest [...] the emergency department for further evaluation. At [facility], initial labs were completed showing WBC [...] elevated at 950.4. Patient was transferred to [facility] for further cardiac workup. Patient's baseline kidney [...] bedtime. t (more content not included)... [facility] 12-08-2023 Note Continue GDMT- DAPT x1 year, continue plavix x 1 year, ASA and statin lifelong- lipitor, toprol and lisinopril. continue risk factor modifications- heart healthy diet, regular exercise as tolerated and continue all medications. [facility] 11-26-2023 Note Hospital Medicine Discharge Summary [...] of hypertension, hyperlipidemia, hypothyroidism, CVA presents to [facility] as a direct admission from [facility] with a chief complaint of chest [...] the emergency department for further evaluation. At [facility], initial labs were completed showing WBC [...] elevated at 950.4. Patient was transferred to [facility] for further cardiac workup. Patient's baseline kidney [...] Department Center 12/08/2023 9:20 AM Maria Teresa Fowler NP [facility] Your medication [...] Your Medications (more content not included)... [facility] 11-26-2023 Note Final AVS completed, and uploaded to [employer]. Port Surveyor sent final AVS to [facility]. [facility] 11-26-2023 Note Hospital Medicine Daily Progress Note - 11/26/2023 1:03 PM; Room: [address] [place] [address] Admission: 11/24/2023 1:04 AM; Length of stay: 2 days THE HOSPITALIST TEAM PREFERS TO USE [employer] CHAT FOR COMMUNICATION 7AM-7PM. IF I DO NOT RESPOND WITHIN 15 MINUTES, PLEASE PAGE ME/CALL THROUGH THE INSTRUCTIONAL SUPPORT SERVICES DIRECTOR. FROM 7PM-7AM, PLEASE PAGE [phone](COVR) Code Status: Full Code Barriers to Discharge: PT/OT eval Expected Discharge Date: Pending discharge location, patient cleared to discharge by cardiology team Discharge Destination: home vs snf Overview Patient is seen for evaluation and management of nstemi, cp Jorgito Mayorga is an 83 y.o. male who came from home with past medical history of hypertension, hyperlipidemia, hypothyroidism, CVA presents to [facility] as a direct admission from [facility] with a chief complaint of chest [...] days Lab (more content not included)... [facility] 11-26-2023 Note Cardiology Progress Note REASON [...] hypertension, hyperlipidemia, hypothyroidism, CVA who presented from [facility] with chief complains of central chest pain, [...] x 4 with mild slurred speech. At [facility], initial labs were completed showing WBC [...] tablet 500 mg, 500 mg, oral, Daily, [facility], 500 mg at 11/25/23 0941 cefTRIAXone (Rocephin) IVPB 2 g in NS 50 mL (Mini-Bag Plus), 2 g, intravenous, q24h, [facility], Stopped at 11/25/23 1423 clopidogrel (Plavix) tablet 75 mg, 75 mg, oral, Daily, Florentin Christie MD levothyroxine (Synthroid, Levoxyl) tablet 50 mcg, 50 mcg, oral, Daily before breakfast, Leslee Bansal NP, 50 mcg at 11/26/23 0537 magnesium nursing electrolyte replacement placeholder 1 each, 1 each, Does not apply, RX Placeholder, [facility] magnesium sulfate in D5W IVPB [...] NP Oxygen Therapy, , inhalation, Continuous PRN, [facility], Given at 11/24/23 1000 pantoprazole (ProtoNix) EC tablet 40 mg, 40 mg, oral, Daily before breakfast, Leslee Bansal NP, 40 mg at 11/26/23 0536 potassium nursing electrolyte replacement placeholder, 1 each, Does not apply, RX Placeholder, Erin Saravia, ROLANDO QUEtiapine (SEROquel) tablet 50 mg, 50 mg, oral, Nightly, Leslee Pirkl, LIEUTENANT COLONEL, 50 mg at 11/25/232117 tamsulosin (Flomax) 24 hr capsule 0.4 mg, 0.4 mg, oral, Daily, Leslee Pirkl, LIEUTENANT COLONEL, 0.4 mg at 11/25/23 0941 Relevant Lab Results: Encounter Date: 11/24/23 ECG 12 lead Result Value Ventricular Rate 57 Atri (more content not included)... [facility] 11-25-2023 Note 11/25/23 1425 Referral Data [...] Feeding Independent Behavior Oriented Communication Talks;Understands speaking;Understands [place] Income Information Income Source Unemployed (Retired, states [...] return home and would be open to [facility] for home therapy. Family requested either [facility] or [facility]. Referrals sent. Will follow up after therapy sees pt. [facility] 11-25-2023 Note Patient: Jorgito starr Procedure Information Date/Time: 11/25/23 1210 Procedure: Coronary angiography Location: [facility] FILM LIBRARIAN 3 / [facility] VASCULAR LAB (Cath) Providers: Florentin Christie MD [...] 4 (Moderate sedation) Additional Equipment Requests [facility] 11-25-2023 Note ------ Attestation signed by [...] hypertension, hyperlipidemia, hypothyroidism, CVA who presented from [facility] with chief complains of central chest pain, [...] x 4 with mild slurred speech. At [facility], initial labs were completed showing WBC [...] tablet 500 mg, 500 mg, oral, Daily, [facility], 500 mg at 11/25/23 0941 cefTRIAXone (Rocephin) IVPB 2 g in NS 50 mL (Mini-Bag Plus), 2 g, intravenous, q24h, [facility], Stopped at 11/24/23 1530 heparin infusion 100 units/mL in D5W, 0-28 Units/kg/hr, intravenous, Continuous, Leslee Bansal NP, Last Rate: 13.2 mL/hr at 11/24/23 2350, 16 Units/kg/hr at 11/24/23 2350 levothyroxine (Synthroid, Levoxyl) tablet 50 mcg, 50 mcg, oral, Daily before breakfast, Leslee Bansal NP, 50 mcg at 11/25/23 0530 magnesium nursing electrolyte replacement placeholder 1 each, 1 each, Does not apply, RX Placeholder, [facility] magnesium oxide (Mag-Ox) tablet 400 mg, 400 [...] NP Oxygen Therapy, , inhalation, Continuous PRN, [facility], Given at 11/24/23 1000 pantoprazole (ProtoNix) EC tablet 40 mg, 40 mg, oral, Daily before breakfast, Leslee Bansal NP, 40 mg at 11/25/23 0530 potassium nursing electrolyte replacement placeholder, 1 each, Does not apply, RX Placeholder, Erin Saravia, ROLANDO QUEtiapine (SEROquel) tablet 50 mg, 50 mg, oral, Nightly, Leslee Bansal NP, 50 mg a (more content not included)... [facility] 11-25-2023 Note 11/25/23 0835 Admission Assessment [...] Status Interested Does the patient have a special education case manager assigned to them through their [...] to send link and activate MyChart? Yes [facility] 11-25-2023 Note Hospital Medicine Daily Progress Note - 11/25/2023 7:23 AM; Room: [address] [place] [address] Admission: 11/24/2023 1:04 AM; Length of stay: 1 days THE HOSPITALIST TEAM PREFERS TO USE [employer] CHAT FOR COMMUNICATION 7AM-7PM. IF I DO NOT RESPOND WITHIN 15 MINUTES, PLEASE PAGE ME/CALL THROUGH THE INSTRUCTIONAL SUPPORT SERVICES DIRECTOR. FROM 7PM-7AM, PLEASE PAGE [phone](COVR) Code Status: Full Code Barriers to Discharge: cath 11/24 Expected Discharge Date:pending cardio workup Discharge Destination: home Overview Patient is seen for evaluation and management of nstemi, cp Jorgito Mayorga is an 83 y.o. male who came from home with past medical history of hypertension, hyperlipidemia, hypothyroidism, CVA presents to [facility] as a direct admission from [facility] with a chief complaint of chest [...] PHOSPHORUS mg/dL (more content not included)... [facility] 11-24-2023 Note Hospital Medicine Daily Progress Note - 11/24/2023 7:59 AM; Room: 3185/3185-01 Admission: 11/24/2023 1:04 AM; Length of stay: 0 days THE HOSPITALIST TEAM PREFERS TO USE [employer] CHAT FOR COMMUNICATION 7AM-7PM. IF I DO NOT RESPOND WITHIN 15 MINUTES, PLEASE PAGE ME/CALL THROUGH THE INSTRUCTIONAL SUPPORT SERVICES DIRECTOR. FROM 7PM-7AM, PLEASE PAGE [phone](COVR) Code Status: Full Code Barriers to Discharge: cath 11/24 Expected Discharge Date:pending cardio workup Discharge Destination: home Overview Patient is seen for evaluation and management of nstemi, cp Jorgito Mayorga is an 83 y.o. male who came from home with past medical history of hypertension, hyperlipidemia, hypothyroidism, CVA presents to [facility] as a direct admission from [facility] with a chief complaint of chest [...] , FREET4 , CORTISOL , FEV1 , VUB9EHG , DLCO , RVSP , HDL , LDL No results found for: LSLTSMYH12 , IRON , TIBC , C3 , C4 , RUBI , CANCA , ASO , PSA , CEA , CA125 , CA199 , AFP , CA153 Imaging (more content not included)... [facility] 11-24-2023 Note Hospital Medicine History and Physical 11/24/2023 2:05 AM THE HOSPITALIST TEAM PREFERS TO USE [employer] CHAT FOR COMMUNICATION 7AM-7PM. IF I DO NOT RESPOND WITHIN 15 MINUTES, PLEASE PAGE ME/CALL THROUGH THE INSTRUCTIONAL SUPPORT SERVICES DIRECTOR. FROM 7PM-7AM, PLEASE PAGE [phone](COVR) Chief Complaint Direct admit from [facility] with elevated troponin and chest pain History of Present Illness Jorgito Mayorga is an 83 y.o. male who came from home with past medical history of hypertension, hyperlipidemia, hypothyroidism, CVA presents to [facility] as a direct admission from [facility] with a chief complaint of chest [...] the emergency department for further evaluation. At [facility], initial labs were completed showing WBC [...] of hypertension, hyperlipidemia, hypothyroidism, CVA presents to [facility] as a direct admission from [facility] with a chief complaint of chest pain and elevated troponin. #Elevated troponin #Chest pain -Troponin 1042.4->950.4 at OSH, repeat pending -EKG showed normal sinus rhythm -CXR showed moderate left basilar infiltrates, consider repeat CXR t (more content not included)... [facility] Summary Purpose Family History No Family History Records FoundNo Family History Records FoundNo Family History Records Found Advance Directives No Advanced Directives Records FoundNo Advanced Directives Records FoundNo Advanced Directives Records Found Additional Source Comments (unrecognized sect ion and content) No Status Records FoundNo Status Records FoundNo Status Records Found INFORMATION SOURCE (unrecogn ized section and content) DATE CREATED AUTHOR 05/23/2021 [facility] DATE CREATED AUTHOR AUTHOR'S ORGANIZ ATION 11/25/2023 [facility] DATE CREATED AUTHOR AUTHOR'S ORGANIZ ATION 01/09/2024 [facility] FOR RECORDS PERTAINING TO PATIENTS WHO [...] BE BASED ON THE PRIMARY CLINICAL RECORDS. [employer] [facility]. provides no warranty or guarantee of the accuracy or completeness of information in this document.
[2024-05-09 16:35] LABS: Anion Gap 11.7; BUN Creatinine Ratio 10.2; Calcium 8.4 mg/dL (8.5-10.1); Carbon Dioxide 29.3 mmol/L (21.0-32.0); Chloride 109 mmol/L (98-107); Chol HDL Ratio 3.3; Cholesterol 140 mg/dL (<=200); Estimated GFR (African America 55 (>=60 mL/min/1.73m^2); Estimated GFR (Non-African Ame 46 (>=60 mL/min/1.73m^2); Glucose 91 mg/dL (74-106); HDL Cholesterol 43 mg/dL (40-60); LDL Cholesterol Calculated 70.8 mg/dL; Sodium 146 mmol/L (136-145); Triglycerides 131 mg/dL (<=150); VLDL CHOLESTEROL 26.2 mg/dL
== END 2024-05-09 15:57 | disposition home or self-care (01) ==
LOC: LAB 15:57
PROVIDERS: PCP Family Medicine; Visit Provider Internal Medicine Cardiovascular Disease
DX: I25.10 Atherosclerotic heart disease of native coronary artery without angina pectoris (principal); I50.41 Acute combined systolic (congestive) and diastolic (congestive) heart failure; I11.0 Hypertensive heart disease with heart failure
CPT/HCPCS: 36415; 80048; 80061

== ENCOUNTER 2024-05-15 13:41 | Emergency (ER) | payer MEDICARE, SELFPAY ==
[2024-05-15] VITALS (74 sets, daily range): BP systolic 135–202; BP diastolic 79–111; PULSE 62–95; TEMP 37.3; O2SAT 93–99; BMI 29.1
--- NOTE | 2024-05-15 13:51 | CT_ITS ---
[address] [address] Patient Name: KAEL PULIDO MRN: [id number] date: 1940 Sex: M Assigned Patient Location: ER Current Patient Location: Accession/Order Number: [id number] Exam Date: 05/15/2024 13:58 Report Date: 05/15/2024 15:06 At the request of: MARQUES HAMILTON Procedure: CT angio head EXAMINATION: CT angio neck, CT angio head HISTORY: cva/JAQUEZ COMPARISON: CT head 05/15/2024 TECHNIQUE: Axial, Coronal, and Sagittal CT images with IV contrast. Multi-planar/3-D imaging to optimize visualization of vascular anatomy. Percent stenosis is based on NASCET criteria. Dose reduction techniques were achieved by using automated exposure control and/or adjustment of mA and/or kV according to patient size and/or use of iterative reconstruction technique. FINDINGS: HEAD: VASCULATURE: No significant stenosis. No visible aneurysm or vascular malformation. VENTRICLES: No abnormal enlargement or displacement. CEREBRUM: No excessive atrophy for patient age, mass, or hemorrhage, or abnormal enhancement. CEREBELLUM: No excessive atrophy for patient age, mass, or hemorrhage, or abnormal enhancement. BRAINSTEM: No excessive atrophy for patient age, mass, or hemorrhage, or abnormal enhancement. BASAL CISTERNS: No subarachnoid hemorrhage or effacement. SKULL: Negative. NECK: RIGHT INTERNAL CAROTID: No hemodynamically significant stenosis or dissection. EXTERNAL CAROTID: No hemodynamically significant stenosis or dissection. COMMON CAROTID: No hemodynamically significant stenosis or dissection. VERTEBRAL: No hemodynamically significant stenosis or dissection. LEFT INTERNAL CAROTID: No hemodynamically significant stenosis or dissection. EXTERNAL CAROTID: No hemodynamically significant stenosis or dissection. COMMON CAROTID: No hemodynamically significant stenosis or dissection. VERTEBRAL: Very diminutive throughout its length with occlusion versus below level of detectability at the skull base. OTHER: Multilevel moderate-marked degenerative changes of cervical spine. CT/CT angio head IMPRESSION: 1. 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 Basilar artery is fed by the right vertebral artery. 2. Normal CT angiography of the brain. 3. Age-related atrophy and chronic changes of the brain. Electronically authenticated by: SHWETHA MARIE Date: 05/15/2024 15:06
--- NOTE | 2024-05-15 13:51 | CT_ITS ---
[address] [address] Patient Name: KAEL PULIDO MRN: [id number] date: 1940 Sex: M Assigned Patient Location: ER Current Patient Location: Accession/Order Number: [id number] Exam Date: 05/15/2024 13:58 Report Date: 05/15/2024 15:06 At the request of: MARQUES HAMILTON Procedure: CT angio neck EXAMINATION: CT angio neck, CT angio head HISTORY: cva/JAQUEZ COMPARISON: CT head 05/15/2024 TECHNIQUE: Axial, Coronal, and Sagittal CT images with IV contrast. Multi-planar/3-D imaging to optimize visualization of vascular anatomy. Percent stenosis is based on NASCET criteria. Dose reduction techniques were achieved by using automated exposure control and/or adjustment of mA and/or kV according to patient size and/or use of iterative reconstruction technique. FINDINGS: HEAD: VASCULATURE: No significant stenosis. No visible aneurysm or vascular malformation. VENTRICLES: No abnormal enlargement or displacement. CEREBRUM: No excessive atrophy for patient age, mass, or hemorrhage, or abnormal enhancement. CEREBELLUM: No excessive atrophy for patient age, mass, or hemorrhage, or abnormal enhancement. BRAINSTEM: No excessive atrophy for patient age, mass, or hemorrhage, or abnormal enhancement. BASAL CISTERNS: No subarachnoid hemorrhage or effacement. SKULL: Negative. NECK: RIGHT INTERNAL CAROTID: No hemodynamically significant stenosis or dissection. EXTERNAL CAROTID: No hemodynamically significant stenosis or dissection. COMMON CAROTID: No hemodynamically significant stenosis or dissection. VERTEBRAL: No hemodynamically significant stenosis or dissection. LEFT INTERNAL CAROTID: No hemodynamically significant stenosis or dissection. EXTERNAL CAROTID: No hemodynamically significant stenosis or dissection. COMMON CAROTID: No hemodynamically significant stenosis or dissection. VERTEBRAL: Very diminutive throughout its length with occlusion versus below level of detectability at the skull base. OTHER: Multilevel moderate-marked degenerative changes of cervical spine. CT/CT angio neck IMPRESSION: 1. 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 Basilar artery is fed by the right vertebral artery. 2. Normal CT angiography of the brain. 3. Age-related atrophy and chronic changes of the brain. Electronically authenticated by: SHWETHA MARIE Date: 05/15/2024 15:06
--- NOTE | 2024-05-15 13:51 | XR_ITS ---
The [address] [address] Patient Name: KAEL PULIDO MRN: [id number] date: 1940 Sex: M Assigned Patient Location: ED.MAIN Current Patient Location: ER Accession/Order Number: [id number] Exam Date: 05/15/2024 13:58 Report Date: 05/15/2024 14:24 At the request of: MARQUES HAMILTON Procedure: XR chest 1V EXAMINATION: XR chest 1V HISTORY: CVA COMPARISON: XR chest 11/24/2023 FINDINGS: LUNGS: Underexpanded lungs with mild patchy and confluent opacities within left lung base. VASCULATURE: No increased pulmonary vasculature. PLEURA: No pneumothorax, effusion, or pleural thickening. CARDIAC: No cardiomegaly or cardiac silhouette abnormality. MEDIASTINUM: No visible mass or adenopathy. BONES: No fracture or visible bone lesion. OTHER: Negative. XR/XR chest 1V IMPRESSION: 1. Low lung volume examination with mild-moderate left basilar infiltrates versus atelectasis. The appearance favors infiltrates, orbits, this was also seen on the 11/24/2023 study. No other comparison studies. Electronically authenticated by: SHWETHA MARIE Date: 05/15/2024 14:24
--- NOTE | 2024-05-15 13:52 | CT_ITS ---
The [address] [address] Patient Name: KAEL PULIDO MRN: [id number] date: 1940 Sex: M Assigned Patient Location: ED.MAIN Current Patient Location: Accession/Order Number: [id number] Exam Date: 05/15/2024 13:58 Report Date: 05/15/2024 14:27 At the request of: MARQUES HAMILTON Procedure: CT stroke head/brain wo con EXAM: CT stroke head/brain wo con HISTORY: stroke protocol COMPARISON: 11/23/2023 TECHNIQUE: Axial unenhanced CT images were obtained through the brain. Individualized dose optimization technique was used for the performed procedure by employing the following: Automated exposure control, adjustment of the mA and/or kV according to patient's size, and/or the use of the iterative construction technique. Coronal and sagittal reformats were performed. FINDINGS: No acute intracranial abnormality. No acute infarct, hemorrhage or mass. No midline shift. Murray-white matter differentiation is preserved. Chronic bilateral lacunar infarcts. Moderate cerebral volume loss. Periventricular white matter hypodensity, likely chronic white matter ischemic disease. No acute osseous abnormality. Paranasal sinuses are clear. Mastoid air cells are open. Orbits are normal. Chronic deformity of the medial wall of the right orbit, consistent with old trauma. CT/CT stroke head/brain wo con IMPRESSION: 1. No acute intracranial abnormality. No acute intracranial infarct visualized by this modality. (MRI is more sensitive). No acute intracranial hemorrhage Electronically authenticated by: ALONZO JAIMES Date: 05/15/2024 14:27
--- NOTE | 2024-05-15 13:53 | ED.GENADUL1 ---
HPI HPI - General Adult General Chief complaint: Neuro Symptoms/Deficit Stated complaint: ALTERED MENTAL STATUS Time Seen by Provider: 05/15/24 13:45 History of Present Illness HPI narrative: Patient presenting to the emergency department for evaluation of altered mental status, headache. According to patient, he woke up this morning with the worst headache he has ever had in his life. States it is currently frontal headache, 9 out of 10, is not sure if he is on blood thinners or not. Denies trauma, slips, trips, falls or any injuries. States he is not having any blurry vision, double vision. Patients son states that he seems more confused this morning than normal. They went over to his PCP office and they were told to come to the emergency department. Related Data Home Medications ?Medication ?Instructions ?Recorded ?Confirmed levothyroxine 50 mcg tablet 50 mcg PO DAILY 06/21/23 12/12/23 lisinopril 40 mg tablet 40 mg PO DAILY 06/21/23 12/12/23 pravastatin 40 mg tablet 40 mg PO DAILY 06/21/23 12/12/23 quetiapine 50 mg tablet 50 mg PO DAILY 06/21/23 12/12/23 tamsulosin 0.4 mg capsule 0.4 mg PO DAILY 11/23/23 12/12/23 clopidogrel 75 mg tablet 75 mg PO DAILY 12/12/23 12/12/23 metoprolol succinate 25 mg 25 mg PO DAILY 12/12/23 12/12/23 tablet,extended release 24 hr Previous Rx's ?Medication ?Instructions ?Recorded acetaminophen 650 mg 650 mg PO Q8H PRN pain #20 tabs 12/12/23 tablet,extended release (Tylenol 8 Hour) prednisone 20 mg tablet 40 mg (2 x 20 mg) PO DAILY 3 days 12/12/23 #6 tabs Allergies Allergy/AdvReac Type Severity Reaction Status Date / Time No Known Drug Allergies Allergy Verified 12/12/23 13:34 Opioid HPI Opioid Management Most Recent Opioid Data: Last Pain Scale 10 05/15/24 14:25 05/15/24 Review of Systems ROS Narrative Negative unless otherwise stated in the HPI PFSH PFSH Social History Little interest or pleasure in doing things: not at all Feeling down, depressed, or hopeless: not at all Exam Narrative Exam Narrative: General: NAD, AAOx3, no distress Neck: Supple, no LAD, negative Kernig/Brudzinski, non meningeal Respiratory: respiratory effort normal, speaks in full sentences, no tripod position, no accessory muscle use. Lungs clear to auscultation without rhonchi, wheezes, rales Cardiac: Regular rate and rhythm, no edema, regular s1/s2, no m/g/r Abdomen: Soft, ND/NT. No evidence of fluid wave. No pulsatile masses on exam, rebound tenderness, Montaño sign or pain over Mcburney's point. Neuro: Speech is clear and appropriate. Normal level of consciousness. Gait and coordination are normal. NIH stroke scale of 2, 1 for left upper extremity, 1 for left lower extremity weakness, drift. Constitutional Vital Signs, click to edit/add: Last Vital Signs Temp 99.1 F 05/15/24 15:00 Pulse 66 05/15/24 14:50 Resp 20 05/15/24 14:50 BP 181/107 H 05/15/24 14:46 Pulse Ox 95 05/15/24 14:50 O2 Del Method Room Air 05/15/24 14:27 Course Vital Signs Vital signs: Vital Signs Pulse Rate 65 05/15/24 13:49 Respiratory Rate 18 05/15/24 13:49 Blood Pressure 198/111 H 05/15/24 13:49 Pulse Oximetry 95 05/15/24 13:49 Oxygen Delivery Method Room Air 05/15/24 13:49 Temperature 99.1 F 05/15/24 15:00 Pulse Rate 66 05/15/24 14:50 Respiratory Rate 20 05/15/24 14:50 Blood Pressure 181/107 H 05/15/24 14:46 Pulse Oximetry 95 05/15/24 14:50 Oxygen Delivery Method Room Air 05/15/24 14:27 Medical Decision Making MDM Narrative Medical decision making narrative: [facility] Patient with history as above presented with headache, weakness. History obtained from patient, patient's PCP office called and gave report prior, patient's son. Patient was nontoxic, stable. Ambulatory. Exam as above. EKG reviewed. Labs reviewed. Independently reviewed imaging. Reviewed external records. Differential diagnosis considered. Overall presentation is consistent with CVA, headache blood sugar 120, stroke order set initiated 1522 D/w [facility] at [facility]. labs, imaging, case discussed,current BP load with aspirin 325, 300 mg plavix, xfer to step down. morrow inpatient, Dr. Bocanegra for ischemic stroke 1529 I d/w pt and , she states he already took 2 baby asa and 75 plavix. will load with rest. accepted for xfer Lab Data Labs: Lab Results 05/15/24 05/15/24 Range/Units 13:49 14:05 WBC 8.2 (4.0-11.0) 10^3/uL RBC 5.09 (4.70-6.10) 10^6/uL Hgb 16.5 (14.0-18.0) g/dL Hct 47.5 (42.0-54.0) % MCV 93.3 (80.0-94.0) fL MCH 32.4 (25.9-34.0) pg MCHC 34.7 (29.9-35.2) g/dL RDW 13.1 (11.0-15.0) % Plt Count 136 L (150-450) 10^3/uL MPV 10.7 (9.5-13.5) fL Neut % (Auto) 71.9 (43.0-75.0) % Lymph % (Auto) 18.4 L (20.5-60.0) % Dubois % (Auto) 6.8 (1.7-12.0) % Eos % (Auto) 2.1 (0.9-7.0) % Baso % (Auto) 0.4 (0.2-2.0) % Neut # (Auto) 5.9 (1.4-6.5) 10^3/uL Lymph # (Auto) 1.5 (1.2-3.8) 10^3/uL Dubois # (Auto) 0.6 (0.3-0.8) 10^3/uL Eos # (Auto) 0.2 (0.0-0.7) 10^3/uL Baso # (Auto) 0.0 (0.0-0.1) 10^3/uL Abs Immat Gran (auto) 0.03 (0.00-0.03) 10^3/uL Imm/Tot Granulo (auto) 0.4 (0.0-0.5) % PT 10.5 (9.0-11.6) sec INR 0.99 APTT 23.1 (22.3-36.2) sec Sodium 141 (136-145) mmol/L Potassium 4.1 (3.5-5.1) mmol/L Chloride 105 (98-107) mmol/L Carbon Dioxide 28.9 (21.0-32.0) mmol/L Anion Gap 11.2 BUN 19.0 H (7.0-18.0) mg/dL Creatinine 1.42 H (0.70-1.30) mg/dL Est GFR ( Amer) 58 L (>=60 mL/min/1.73m^2) Est GFR (Non-Af Amer) 48 L (>=60 mL/min/1.73m^2) BUN/Creatinine Ratio 13.4 Glucose 127 H (74-106) mg/dL Calcium 8.7 (8.5-10.1) mg/dL Total Bilirubin 0.9 (0.2-1.0) mg/dL AST 32 (15-37) U/L ALT 23 (16-63) U/L Alkaline Phosphatase 103 (46-116) U/L Troponin I High Sens 16.3 (4.0-76.1) pg/mL Total Protein 7.4 (6.4-8.2) g/dL Albumin 3.6 (3.4-5.0) g/dL Globulin 3.8 g/dL Albumin/Globulin Ratio 0.9 POC Glucose 120 H (74-106) mg/dL Discharge Plan Discharge Chief Complaint: Neuro Symptoms/Deficit Clinical Impression: Acute CVA (cerebrovascular accident) Patient Disposition: [facility] Time of Disposition Decision: 15:29 Discharge Location: [facility] Discharge location: Dr. Daljit riggs
[2024-05-15 13:57] LABS: Glucometer 120 mg/dL (74-106)
[2024-05-15 14:23] LABS: Basophils Percent Auto 0.4 % (0.2-2.0); Eosinophils Absolute Auto 0.2 10^3/uL (0.0-0.7); Eosinophils Percent Auto 2.1 % (0.9-7.0); Hematocrit 47.5 % (42.0-54.0); Hemoglobin 16.5 g/dL (14.0-18.0); Immature Granulocytes Abs Auto 0.03 10^3/uL (0.00-0.03); Immature Granulocytes Pct Auto 0.4 % (0.0-0.5); Lymphocytes Absolute Auto 1.5 10^3/uL (1.2-3.8); Lymphocytes Percent Auto 18.4 % (20.5-60.0); Mean Corpuscular HGB Conc 34.7 g/dL (29.9-35.2); Mean Corpuscular Hemoglobin 32.4 pg (25.9-34.0); Mean Corpuscular Volume 93.3 fL (80.0-94.0); Mean Platelet Volume 10.7 fL (9.5-13.5); Monocytes Absolute Auto 0.6 10^3/uL (0.3-0.8); Monocytes Percent Auto 6.8 % (1.7-12.0); Neutrophils Absolute Auto 5.9 10^3/uL (1.4-6.5); Neutrophils Percent Auto 71.9 % (43.0-75.0); Platelet Count 136 10^3/uL (150-450); Red Blood Count 5.09 10^6/uL (4.70-6.10); Red Cell Distribution Width 13.1 % (11.0-15.0); White Blood Count 8.2 10^3/uL (4.0-11.0)
[2024-05-15 14:36] LABS: INR 0.99; Partial Thromboplastin Time 23.1 sec (22.3-36.2); Prothrombin Time 10.5 sec (9.0-11.6)
[2024-05-15 14:38] LABS: Anion Gap 11.2
[2024-05-15 14:41] LABS: Alanine Aminotransferase 23 U/L (16-63); Albumin Globulin Ratio 0.9; Albumin Level 3.6 g/dL (3.4-5.0); Alkaline Phosphatase 103 U/L (46-116); Aspartate Amino Transferase 32 U/L (15-37); BUN Creatinine Ratio 13.4; Bilirubin Total 0.9 mg/dL (0.2-1.0); Calcium 8.7 mg/dL (8.5-10.1); Carbon Dioxide 28.9 mmol/L (21.0-32.0); Chloride 105 mmol/L (98-107); Estimated GFR (African America 58 (>=60 mL/min/1.73m^2); Estimated GFR (Non-African Ame 48 (>=60 mL/min/1.73m^2); Globulin 3.8 g/dL; Glucose 127 mg/dL (74-106); Potassium 4.1 mmol/L (3.5-5.1); Sodium 141 mmol/L (136-145); Total Protein 7.4 g/dL (6.4-8.2); Troponin I High Sensitivity 16.3 pg/mL (4.0-76.1)
--- NOTE | 2024-05-15 15:15 | ECG_ITS ---
The [facility] Test Date: 2024-05-15 Pat Name: KAEL PULIDO Department: Room: - Gender: Male Publications Manager: : 1940 Requested By: [id number] Order Number: [id number] Reading MD: JAKE VAUGHAN Measurements Intervals [place] Rate: 67 P: -34 RI: 160 QRS: 30 QRSD: 94 T: 75 QT: 408 QTc: 423 Interpretive Statements 1200 Atrial rhythm 4068 Nonspecific [place] abnormality 9140 abnormal rhythm ECG Compared to ECG 12/12/2023 14:46:24 Sinus bradycardia no longer present Electronically Signed On 05-16-2024 5:29:54 EST by JAKE VAUGHAN
[2024-05-15] MEDS: ASPIRIN 81 MG TAB.CHEW 162 MG PO (15:38)
[2024-05-15] MEDS: CLOPIDOGREL BISULFATE 75 MG TABLET 225 MG PO (15:38)
[2024-05-15 15:39] LABS: Bilirubin Urine NEGATIVE (NEGATIVE); Blood Urine TRACE-I (NEGATIVE); Clarity Urine CLEAR (CLEAR); Color Urine LT. YELLOW (YELLOW); Glucose Urine UA NEGATIVE (NEGATIVE); Ketones Urine NEGATIVE (NEGATIVE); Leukocyte Esterase Urine NEGATIVE (NEGATIVE); Nitrite Urine NEGATIVE (NEGATIVE); Protein Urine NEGATIVE (NEG/TRACE); Urobilinogen Urine 0.2 EU/dL (0.2-1.0); pH Urine 7.5 (5.0-9.0)
[2024-05-15 15:50] LABS: Bacteria Urine TRACE #/HPF (NONE SEEN); Cast Seen? NONE SEEN #/LPF (NONE SEEN); Crystals Seen? None Seen #/HPF (None Seen); Mucus Urine NONE SEEN (NONE SEEN); RBC Urine 0-2 #/HPF (0-2); Squamous Epithelial Cell Urine RARE #/LPF (NONE/RARE); Urine Culture Indicated NO; WBC Urine NONE SEEN #/HPF (NONE SEEN)
[2024-05-15] MEDS: MORPHINE SULFATE 4 MG/ML VIAL IV (17:57)
[2024-05-15] MEDS: ONDANSETRON PF 4 MG/2 ML VIAL IV (22:06)
[2024-05-15] MEDS: ACETAMINOPHEN 500 MG TABLET 1000 MG PO (22:11)
== END 2024-05-15 22:20 | disposition short-term general hospital (02) ==
PROVIDERS: Emergency Provider Emergency Medicine; PCP Family Medicine
DX: I63.9 Cerebral infarction, unspecified (principal); R51.9 Headache, unspecified
CPT/HCPCS: 36415; 70450; 70496; 70498; 71045; 80053; 81001; 84484; 85025; 85610; 85730; 93005; 96374; 96375; 99285; J2270; J2405; Q9967

== ENCOUNTER 2024-05-25 07:13 | Outpatient (RCR) | payer MEDICARE, SELFPAY ==
--- NOTE | 2023-12-30 15:12 | CR1_ITS ---
The [facility] Test Date: 2023-12-31 Pat Name: KAEL PULIDO Department: Room: - Gender: Male Information Security Officer: : 1940 Requested By: Joleen Guallpa Order Number: [id number] Reading MD: BINDU ARAUJO Interpretive Statements Session Date: Electronically Signed On 12-31-2023 18:25:30 EDT by BINDU ARAUJO
--- NOTE | 2024-01-28 13:31 | CR1_ITS ---
The [facility] Test Date: 2024-01-28 Pat Name: KAEL PULIDO Department: Room: - Gender: Male Director Digital Analytics: : 1940 Requested By: Joleen Guallpa Order Number: [id number] Reading MD: BINDU ARAUJO Interpretive Statements Session Date: Electronically Signed On 01-28-2024 18:11:33 EDT by BINDU ARAUJO
--- NOTE | 2024-03-03 07:47 | CR1_ITS ---
The [facility] Test Date: 2024-03-03 Pat Name: KAEL PULIDO Department: Room: - Gender: Male Bookbinder Chief: : 1940 Requested By: Joleen Guallpa Order Number: [id number] Reading MD: BINDU ARAUJO Interpretive Statements Session Date: Electronically Signed On 03-03-2024 19:02:23 EDT by BINDU ARAUJO
--- NOTE | 2024-04-03 14:09 | CR1_ITS ---
The [facility] Test Date: 2024-04-03 Pat Name: KAEL PULIDO Department: Room: - Gender: Male Animal Nutrition Teacher: : 1940 Requested By: Joleen Guallpa Order Number: [id number] Reading MD: BINDU ARAUJO Interpretive Statements Session Date: Electronically Signed On 04-03-2024 21:55:46 EDT by BINDU ARAUJO
--- NOTE | 2024-05-02 11:25 | CR1_ITS ---
The [facility] Test Date: 2024-05-02 Pat Name: KAEL PULIDO Department: Room: - Gender: Male It Architecture Analyst: : 1940 Requested By: Joleen Guallpa Order Number: [id number] Reading MD: BINDU ARAUJO Interpretive Statements Session Date: Electronically Signed On 05-02-2024 20:29:43 EST by BINDU ARAUJO
--- NOTE | 2024-05-30 08:13 | CR1_ITS ---
The 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
== END 2024-06-06 11:55 | disposition home or self-care (01) ==
LOC: CR 07:13
PROVIDERS: PCP Family Medicine; Visit Provider Internal Medicine Cardiovascular Disease
DX: Z95.5 Presence of coronary angioplasty implant and graft (principal)
CPT/HCPCS: 93798

== ENCOUNTER 2024-06-15 07:32 | Outpatient (RCR) | payer MEDICARE, SELFPAY ==
--- NOTE | 2024-06-27 11:05 | PC.NURSE ---
Called to outreach patient. His number listed is no longer in service. Outreach letter sent to his home address.
--- NOTE | 2024-07-03 13:54 | CR1_ITS ---
The [facility] Test Date: 2024-07-03 Pat Name: KAEL PULIDO Department: Room: - Gender: Male Director Of Marketing Operations: : 1940 Requested By: BINDU ARAUJO Order Number: [id number] Bert MD: BINDU ARAUJO Interpretive Statements Session Date: Electronically Signed On 07-03-2024 20:25:36 EST by BINDU ARAUJO
--- NOTE | 2024-07-19 11:47 | CR1_ITS ---
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
== END 2024-07-19 13:30 | disposition home health service, planned readmission (86) ==
LOC: CR 07:32
PROVIDERS: PCP Family Medicine; Visit Provider Internal Medicine Cardiovascular Disease
DX: Z98.61 Coronary angioplasty status (principal)

== ENCOUNTER 2025-02-16 09:29 | Outpatient (OUT) | payer MEDICARE, SELFPAY ==
--- OUTSIDE RECORDS SUMMARY | 2025-02-16 09:36 | XMS_ITS | Clinical Summary ---
Author Organization [employer] tem Address [id number] [address] [place] [address] Care Team Providers Care Counterperson Name Role Phone Piter Chowdhury MD Primary Care Provider [phone] Allergies No known active allergies Medications levothyroxine (SYNTHROID, LEVOTHROID) 50 MCG tablet Take 1 tablet (50 mcg total) by mouth in the morning. 04/03/2024 Active pravastatin (PRAVACHOL) 40 mg tablet Take 1 tablet (40 mg total) by mouth in the morning. 03/13/2024 Active QUEtiapine (SEROquel) 50 mg tablet Take 1 tablet (50 mg total) by mouth nightly. 04/03/2024 Active tamsulosin (FLOMAX) 0.4 mg capsule Take 1 capsule (0.4 mg total) by mouth nightly. 04/08/2024 Active clopidogreL (PLAVIX) 75 mg tablet Take 1 tablet (75 mg total) by mouth in the morning. 05/10/2024 Active amLODIPine (NORVASC) 10 mg tablet Take 1 tablet (10 mg total) by mouth in the morning. 05/09/2024 Active potassium chloride (KLOR-CON M 10) 10 MEQ CR tablet Take 1 tablet (10 mEq total) by mouth in the morning. 03/27/2024 Active aspirin 81 mg chewable tablet Chew 1 tablet (81 mg total) and swallow in the morning. 05/20/2024 Active lisinopriL (PRINIVIL,ZESTR IL) 2.5 mg tablet Take 1 tablet (2.5 mg total) by mouth in the morning. 05/20/2024 Active Active Problems Problem Noted Date Diagnosed Date Ischemic stroke 05/15/2024 Immunizations Immunization Administration Dates Next Due COVID-19, mRNA, LNP-S, PF, 30mcg/0.3mL Dose 04/08,08/27/2020,08/05/2020 Influenza High Dose Preservative Free IM 017 Influenza Vaccine, Quadrivalent, Adjuvanted 03/08 Influenza, Trivalent, Adjuvanted 02/28/2021,03/08 Pneumococcal Conjugate 13-Valent 04/15/2017 Pneumococcal Polysaccharide 07/26/2019 Family History Medical History Relation Name Comments Cancer Mother Relation Name Status Comments Mother Social History Tobacco Use Types Packs/Day Years Used Date Smoking Tobacco: Never Smokeless Tobacco: Never Tobacco Cessation:Counseling Given: Not Answered Alcohol Use Standard Drinks/Week Comments Not Currently 0 (1 standard drink = 0.6 oz pur e alcohol) Best Teacherities Answer Date Recorded In the past 12 months has e [employer], [employer], oil, or water [employer] threatened to shut off services in your home? No 05/16/2024 AUDIT-C Answer Date Recorded Q1: How often do you have a drink containing alcohol? Never 05/16/2024 Q2: How many drinks containi ng alcohol do you have on a typical day when you are drinking? Patient does not drink Q3: How often do you have si x or more drinks on one occasion? Never 05/16/2024 PHQ-2 Answer Date Recorded Total Score 0 05/16/2024 PRAPARE - Transportation Answer Date Re corded In the past 12 months, has l ack of transportation kept you from medical appointments or from getting medications? No 05/07 In the past 12 months, has l ack of transportation kept you from meetings, work, or from getting things needed for daily living? No 05/16/2024 Housing Instability Answer Date Recorde d Are you worried or concerned that in the next two months you may not have stable housing that you own, rent or stay in as a part of a household? No 05/16/2024 Childcare Answer Date Recorded Childcare Unknown 11/16/2018 Employment Answer Date Recorded Employment Unknown 11/16/2018 Hunger Screening Answer Date Recorded Within the past 12 months we worried whether our food would run out before we got money to buy more. Never True 05/16/2024 Within the past 12 months th e food we bought just didn't last and we didn't have money to get more. Never True 05/16/2024 Sex and Gender Information Value Date Recorded Sex Assigned at Not on file Legal Sex Male 11:59 AM EDT Gender Identity Not on file Sexual Orientation Not on file Last Filed Vital Signs Vital Sign Reading Time Taken Comments Blood Pressure 109/71 05/19/2024 4:03 PM EST Pulse 64 05/19/2024 4:03 PM EST Temperature 37 C (98.6 F) 05/19/2024 4:03 PM EST Respiratory Rate 21 05/18/2024 7:38 PM EST Oxygen Saturation 95% 05/19/2024 4:03 PM EST Inhaled Oxygen Concentration - - Weight 89.4 kg (197 lb) 05/16/2024 9:42 AM EST Height 175.3 cm (5' 9 ) 05/16/2024 9:42 AM EST Body Mass Index 29.09 05/16/2024 9:42 AM EST Plan of Treatment Health Maintenance Due Date Last Done Comments DTaP,Tdap and Td Vaccines (1 - Tdap) 1960 Zoster (Shingles) Vaccine (1 of 2) 1991 Fall Risk Screening 2006 COVID-19 Vaccine (4 - 2023-2 5 season) 2024 04/29/2021, 08/27/2020, 08/05/2020 Influenza Vaccine 02/05/2025 03/27/2022, , 04/01/2020, Additional history exists Depression Screening 05/16/2025 05/16/2024 Tobacco Screening 05/16/2025 05/16/2024 Goals Goal Patient Goal Type Associated Problems Recent Progress Patient-Stated? Author SNF General Yes Melba Begum, RN Note: Evaluation of progress towards goal: Patient and family discussed and agreed to recommendations for Short term rehab at SNF at discharge. Medical Devices Not on file Insurance [facility] MEDICARE Advance Directives * Full Code (Latest Code Status on File) Date Activated Date Inactivated Comments 05/16/2024 12:54 AM 05/19/2024 8:57 PM Care Teams Counterperson Relationship Specialty Start Date End Date Piter Chowdhury MD [address] [place] [address] PCP - General Family Medicine 05/16/24
--- OUTSIDE RECORDS SUMMARY | 2025-02-16 09:36 | XMS_ITS | Clinical Summary ---
Author Organization [facility] Healthcare Address [address] [place] [address] Care Team Providers Care Furnace Room Supervisor Name Role Phone Piter Chowdhury MD Primary Care Provider [phone] Karen Ring NP Unavailable Unavailable Allergies No known active allergies Medications amLODIPine (Norvasc) 10 MG tablet Take 10 mg by mouth in the morning. 05/09/2024 Active aspirin 81 MG chewable tablet Chew 81 mg in the morning. 05/20/2024 Active atorvastatin (Lipitor) 40 MG tablet Take 40 mg by mouth Daily Active furosemide (Lasix) 40 MG tablet Take 40 mg by mouth in the morning. 06/15/2024 6 Active levothyroxine (Synthroid, Levoxyl) 50 MCG tablet Take 50 mcg by mouth in the morning. 04/03/2024 Active pantoprazole (ProtoNix) 40 MG EC tablet Take 40 mg by mouth Daily Active potassium chloride CR (Klor-Con) 10 MEQ ER tablet Take 10 mEq by mouth Daily 07/04/2024 Active QUEtiapine (SEROquel) 50 MG tablet Take 50 mg by mouth at bedtime 04/03/2024 Active tamsulosin (Flomax) 0.4 MG 24 hr capsule Take 0.4 mg by mouth Daily Active carvedilol (Coreg) 3.125 MG tablet Take 3.125 mg by mouth in the morning and 3.125 mg in the evening. Take with meals. 05/09/2024 5 Active Social History Tobacco Use Types Packs/Day Years Used Date Smoking Tobacco: Never Smokeless Tobacco: Never Tobacco Cessation:Counseling Given: Not Answered Alcohol Use Standard Drinks/Week Comments Never 0 (1 standard drink = 0.6 oz pur e alcohol) Sex and Gender Information Value Date Recorded Sex Assigned at Not on file Legal Sex Male 6:49 PM EDT Gender Identity Male 06/07/2024 3:49 PM EST Sexual Orientation Straight 06/07/2024 3: 49 PM EST Last Filed Vital Signs Vital Sign Reading Time Taken Comments Blood Pressure 128/86 08/07/2024 9:15 AM EST Pulse - - Temperature - - Respiratory Rate - - Oxygen Saturation - - Inhaled Oxygen Concentration - - Weight 93 kg (205 lb) 08/07/2024 9:15 AM EST Height 175.3 cm (5' 9 ) 08/07/2024 9:15 AM EST Body Mass Index 30.27 08/07/2024 9:15 AM EST Plan of Treatment Health Maintenance Due Date Last Done Comments Influenza Vaccine (#1) 2025 2, 02/28/2021, 04/01/2020, Additional history exists Pneumococcal Vaccine: 65+ Years Completed 0, 04/15/[id number] MEDICARE ADVANTAGE Care Teams Furnace Room Supervisor Relationship Specialty Start Date End Date Piter Chowdhury MD PCP - General Family Medicine 08/07/24 Karen Ring NP Nurse Practitioner Neurology 08/07/24
--- OUTSIDE RECORDS SUMMARY | 2025-02-16 09:36 | XMS_ITS | Encounter Summary ---
Author Organization [facility] Address [id number] [address] [place] [address] Care Team Providers Care Solar Engineer Name Role Phone Piter Chowdhury MD Primary Care Provider [phone] Encounter Details Date Type Department Care Team (Late st Contact Info) Description 05/16/2024 Orders Only [facility] [place] [address] Transcribe, Orders Support User Pain (Primary Dx) Social History Tobacco Use Types Packs/Day Years Used Date Smoking Tobacco: Never Smokeless Tobacco: Never Alcohol Use Standard Drinks/Week Comments Not Currently 0 (1 standard drink = 0.6 oz pur e alcohol) [facility] Utilities Answer Date Recorded In the past 12 months has e [employer], gas, oil, or water company threatened to shut off services in your [...] on file Sexual Orientation Not on file documented as of this encounter Functional Status * Question Answer Date of Assessment Author Functional Status Assistive device 05/17/2024 8:02 AM Melba Jacob RN * Audit-C Score Answer Date of Assessment Author 0 05/16/2024 9:36 AM Serena Cobos RN * Question Answer Date of Assessment Author Q1: How often do you have a drink containing alcohol? Never 05/16/2024 9:36 AM Serena Cobos RN Q2: How many drinks containing alcohol do you have on a typical day when you are drinking? Patient does not drink 05/16/2024 9:36 AM Serena Cobos RN Q3: How often do you have six or more drinks on one occasion? Never 05/16/2024 9:36 AM Serena Cobos RN documented as of this encounter Mental Status * Question Answer Entry Date Author Overall Cognitive Status WFL 05/17/2024 3:22 PM Maximo Crocker PTA * Question Answer Entry Date Author Overall Cognitive Status X 05/16/2024 8:56 AM Joanna Santoro CCC-MARKET RESEARCH CONSULTANT documented in this encounter Plan of Treatment Not on file documented as of this encounter Goals Goal Patient Goal Type Associated Problems Recent Progress Patient-Stated? Author SNF General Yes Melba Begum, ANN Note: Evaluation of progress towards goal: Patient and family discussed and agreed to recommendations for Short term rehab at SNF at discharge. documented as of this encounter Results * CT angiogram head (05/15/2024 2:15 PM EST) us Scanning Provider External IMG CT ORDERABLES Fin al Result * CT angiogram carotid (05/15/2024 2:10 PM EST) us Scanning Provider External IMG CT ORDERABLES Fin al Result * CT brain without contrast (05/15/2024 2:00 PM EST) us Scanning Provider External IMG CT ORDERABLES Fin al Result * X-ray chest 1 view (05/15/2024 1:50 PM EST) us Scanning Provider External IMG DIAGNOSTIC IMAGIN G ORDERABLES Final Result documented in this encounter Visit Diagnoses Diagnosis Pain- Primary Generalized pain documented in this encounter Additional Health Concerns Assessment Noted Time PHQ-9 Depression Total Score: 0 05/16/20 24 9:42 AM EST documented as of this encounter Care Teams Solar Engineer Relationship Specialty Start Date End Date Piter Chowdhury MD [address] [place] [address] PCP - General Family Medicine 05/16/24 documented as of this encounter
--- OUTSIDE RECORDS SUMMARY | 2025-02-16 09:36 | XMS_ITS | Encounter Summary ---
Author Organization [facility] Address [facility] [id number] [address] [place] [address] Care Team Providers Care International Marketing Coordinator Name Role Phone Piter Chowdhury MD Primary Care Provider + Encounter Details Date Type Department Care Team (Late st Contact Info) Description 05/18/2024 Orders Only [facility] [place] [address] Transcribe, Orders Support User Social History Tobacco Use Types Packs/Day Years Used Date Smoking Tobacco: Never Smokeless Tobacco: Never Alcohol Use Standard Drinks/Week Comments Not Currently 0 (1 standard drink = 0.6 oz pur e alcohol) [facility] Utilities Answer Date Recorded In the past 12 months has [employer], gas, oil, or water company threatened to [...] on file documented as of this encounter Plan of Treatment Not on file documented as of this encounter Goals Goal Patient Goal Type Associated Problems Recent Progress Patient-Stated? Author SNF General Yes Melba Begum RN Note: Evaluation of progress towards goal: Patient and family discussed and agreed to recommendations for Short term rehab at SNF at discharge. documented as of this encounter Visit Diagnoses Not on filedocumented in this encounter Additional Health Concerns Assessment Noted Time PHQ-9 Depression Total Score: 0 05/16/20 24 9:42 AM EST documented as of this encounter Care Teams International Marketing Coordinator Relationship Specialty Start Date End Date Piter Chowdhury MD [address] [place] [address] PCP - General Family Medicine 05/16/24 documented as of this encounter
--- OUTSIDE RECORDS SUMMARY | 2025-02-16 09:37 | XMS_ITS | Clinical Summary ---
Author Organization [facility] Address [address] [place] [address] Care Team Providers Care Fisheries Technical Officer Name Role Phone Piter Chowdhury MD Primary Care Provider [phone] Allergies No known active allergies Medications aspirin 81 mg chewable tablet Chew 81 mg in the morning. Active levothyroxine (Synthroid, Levoxyl) 50 mcg tablet Take 50 mcg by mouth before breakfast. Active pantoprazole (ProtoNix) 40 mg EC tablet Take 40 mg by mouth before breakfast. Active QUEtiapine (SEROquel) 50 mg tablet Take 50 mg by mouth at bedtime. Active tamsulosin (Flomax) 0.4 mg 24 hr capsule Take 0.4 mg by mouth in the morning. 11/12/19 24 Active atorvastatin (Lipitor) 80 mg tabletIndications: Hyperlipidemia, unspecified hyperlipidemia type Take 1 tablet (80 mg) by mouth at bedtime. 30 tablet 11/26/19 24 Active Additional Information Patient taking differently: 40 mgoral Nightly, Reported on 07/19/2024 clopidogrel (Plavix) 75 mg tabletIndications: Coronary artery disease involving [place] coronary artery of [place] heart without angina pectoris Take 1 tablet (75 mg) by mouth in the morning. Do not start before November 27, 2023. 30 tablet 11/27/19 24 Active potassium chloride CR (Klor-Con M10) 10 mEq ER tabletIndications: Coronary artery disease involving [place] coronary artery of [place] heart without angina pectoris,Enlarged RV (right ventricle),Chronic diastolic congestive heart failure (CMS/HCC) Take 1 tablet (10 mEq) by mouth in the morning. Do not crush or chew. 90 tablet 3 03/27/20 24 025 Active amLODIPine (Norvasc) 10 mg tabletIndications: Benign hypertensive heart disease with heart failure (CMS/HCC) Take 1 tablet (10 mg) by mouth in the morning. 90 tablet 3 05/09/20 24 025 Active carvedilol (Coreg) 3.125 mg tabletIndications: Benign hypertensive heart disease with heart failure (CMS/HCC) Take 1 tablet (3.125 mg) by mouth with breakfast and with evening meal. 180 tablet 3 05/09/20 24 025 Active furosemide (Lasix) 40 mg tabletIndications: Enlarged RV (right ventricle),Chronic diastolic congestive heart failure (CMS/HCC) Take 1 tablet (40 mg) by mouth in the morning. 90 tablet 3 06/15/19 25 026 Active Active Problems Problem Noted Date Diagnosed Date TIA (transient ischemic attack) 10/13/2024 Coronary artery disease invo lving [place] coronary artery of [place] heart without angina pectoris 12/08/2023 Assessment & Plan (01/07/2024 10:16 AM EDT): Coronary artery disease is unchanged. Overall pt is doing well s/p recent NSTEMI and PCI to LAD. Will remain on DAPT- ASA and plavix x1 year, monitor for bleeding tendencies and he voiced understanding Continue GDMT- ASA, plavix, lipitor, toprol Continue current treatment regimen. Regular aerobic exercise. Continue current medications. Cardiac status will be reassessed in 3 months. Assessment & Plan (12/30/2023 12:18 PM EDT): Coronary artery disease is unchanged. Assessment & Plan (12/08/2023 6:31 AM EDT): Continue GDMT- DAPT x1 year, continue plavix x 1 year, ASA and statin lifelong- lipitor, toprol and lisinopril. continue risk factor modifications- heart healthy diet, regular exercise as tolerated and continue all medications. NSTEMI (non-ST elevated myocardial infarction) 0 12/08/2023 Assessment & Plan (01/07/2024 10:15 AM EDT): Coronary artery disease is unchanged. Tolerating Cardiac rehab 3 days a week well Denied any activity limiting symptoms, just states he wishes strength would get better faster. Continue current treatment regimen. Regular aerobic exercise. Continue current medications. Cardiac status will be reassessed in 3 months. Assessment & Plan (12/08/2023 12:05 PM EDT): No c/o chest pain/SOB but he remains fatigued s/p NSTEMI May be r/t hypotension- will hold lisinopril Enlarged RV (right ventricle) 12/08/2023 Assessment & Plan (12/30/2023 12:18 PM EDT): Starting diuresis today in light of fluid overload and edema noted in cardiac rehab Scripts sent Assessment & Plan (12/08/2023 12:07 PM EDT): Will monitor with Echocardiogram and symptoms No fluid overload symptoms noted today Acute embolism and thrombosi s of deep veins of right upper extremity 12/08/2023 Acute gastroenteritis 12/08/2023 Altered mental status 12/08/2023 At risk for falls 12/08/2023 Cellulitis 12/08/2023 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 12/08/2023 Coronary angioplasty status 12/08/2023 Edema 12/08/2023 Foot pain 12/08/2023 Gastroesophageal reflux disease 12/08/2023 Hyperkalemia 12/08/2023 Hypoglycemia 12/08/2023 Laceration without foreign b agustin of other finger with damage to nail, initial encounter 12/08/2023 Moderate left ventricular hypertrophy 12/08/2023 Other bursitis of elbow, left elbow 12/08/2023 Peripheral neuropathy 12/08/2023 Prostatitis 12/08/2023 Type 2 diabetes mellitus without complications 0 12/08/2023 Chronic diastolic congestive heart failure 12/07 Assessment & Plan (01/07/2024 10:17 AM EDT): NYHC II- currently euvolemic without exacerbation. Continue GDMT- Lasix 40 mg [...] taller/more pillows than normal or in recliner. Assessment & Plan (12/30/2023 12:18 PM EDT): Pt is in cardiac rehab today and provider called regarding BLE edema/swelling noted Ordered BMP to check renal function and electrolytes today and again next week before our appt Start lasix 40 mg daily and potassium daily RTC next Wednesday as scheduled Vascular dementia 12/08/2023 Elevated troponin 11/24/2023 Chest pain 11/24/2023 History of CVA (cerebrovascular accident) 2023 Primary hypertension 11/24/2023 Assessment & Plan (01/07/2024 10:13 AM EDT): Hypertension is unchanged. Currently well controlled 130/76 Continue toprol and lasix Continue current treatment regimen. Regular aerobic exercise. Continue current medications. Blood pressure will be reassessed in 3 months. Assessment & Plan (12/08/2023 12:04 PM EDT): Currently b/p is labile today with noted fatigue s/p hospitalization Will stop lisinopril, instructed pt and to monitor b/p at home and if > 130/80 may need lisinopril 2.5 mg added- they voiced understanding Continue toprol HLD (hyperlipidemia) 11/24/2023 Assessment & Plan (12/08/2023 12:11 PM EDT): Will repeat lipid level and LFT in 2-3 months since starting lipitor as inpt from simvastatin. Of Note as inpt at [facility] Chol was 71 and LDL was 21 Acquired hypothyroidism 11/24/2023 Family History Medical History Relation Name Comments No Known Problems Father No Known Problems Mother Relation Name Status Comments Father Mother Social History Tobacco Use Types Packs/Day Years Used Date Smoking Tobacco: Never Smokeless Tobacco: Never Tobacco Cessation:Counseling Given: Not Answered Alcohol Use Standard Drinks/Week Comments Not Currently 0 (1 standard drink = 0.6 oz pur e alcohol) [facility] Utilities Answer Date Recorded In the past 12 months has th e electric, gas, oil, or water company threatened to shut off services in your home? No 11/24/2023 Humiliation, Afraid, Rape, and Kick questionnair e Answer Date Recorded Within the last year, have y ou been afraid of your partner or ex-partner? No 11/24/2023 Emotionally Abused Not on file 11/24/2023 Physically Abused Not on file 11/24/2023 Sexually Abused Not on file 11/24/2023 Overall Financial Resource Strain (CARDIA) Answe r Date Recorded How hard is it for you to pa y for the very basics like food, housing, medical care, and heating? Not hard at all 11/24/2023 Transportation Answer Date Recorded In the past 12 months, has l ack of transportation kept you from medical appointments or from getting medications? No 11/24/2023 Lack of Transportation (Non-Medical) Not on file 11/24/2023 Housing Stability Vital Sign Answer Yves e Recorded Unable to Pay for Housing in the Last Year Not o n file 11/24/2023 Number of Places Lived in the Last Year Not on f ile 11/24/2023 In the last 12 months, was t here a time when you did not have a steady place to sleep or slept in a custodial (including now)? No 11/24/2023 Hunger Vital Sign Answer Date Recorded Within the past 12 months, y ou worried that your food would run out before you got the money to buy more. Never true 11/24/19 24 Ran Out of Food in the Last Year Not on file 11/24/2023 Sex and Gender Information Value Date Recorded Sex Assigned at Male 02/12/2025 2:25 PM EDT Legal Sex Male 10:42 PM EDT Gender Identity Male 02/12/2025 2:25 PM EDT Sexual Orientation Heterosexual or Straight 01/2025 2:25 PM EDT Last Filed Vital Signs Vital Sign Reading Time Taken Comments Blood Pressure 102/64 10/13/2024 11:04 AM EDT Pulse 73 10/13/2024 11:04 AM EDT Temperature 36.7 C (98.1 F) 11/26/2023 5:05 PM EDT Respiratory Rate 19 11/26/2023 5:05 PM EDT Oxygen Saturation 97% 10/13/2024 11:04 AM EDT Inhaled Oxygen Concentration - - Weight 91.2 kg (201 lb) 10/13/2024 11:04 AM EDT Height 175.3 cm (5' 9 ) 10/13/2024 11:04 AM EDT Body Mass Index 29.68 10/13/2024 11:04 AM EDT Plan of Treatment Upcoming Encounters Date Type Department Care Team (Late st Contact Info) Description 02/19/2025 1:20 PM EDT Office Visit [facility] [address] [place] [address] Trey Serrano, [employer]HOU[employer]ER [address] [id number] Health Maintenance Due Date Last Done Comments Medicare Annual Wellness (AWV) 1940 Diabetes: Retinopathy Screening 1951 Depression Screening 1953 Diabetes: Urine Protein Screening 1960 Adult Tetanus 1963 Zoster Vaccines (1 of 2) 1991 Fall Risk Screening 2006 Diabetes: Hemoglobin A1C 02/24/2024 11/24/2023 COVID-19 Vaccine ( season) 2025 04/29/2021, 08/27/2020, 08/05/2020 Influenza Vaccine (#1) 2025 2, 02/28/2021, 04/01/2020, Additional history exists Pneumococcal Vaccine: 50+ Years Completed 07/26/2019, 04/15/2017 HIB Vaccines Aged Out No longer eligi ble based on patient's age to complete this topic HPV Vaccines Aged Out No longer eligi ble based on patient's age to complete this topic IPV Vaccines Aged Out No longer eligi ble based on patient's age to complete this topic Meningococcal B Vaccine Aged Out No l onger eligible based on patient's age to complete this topic Meningococcal Vaccine Aged Out No roby omero eligible based on patient's age to complete this topic Rotavirus Vaccines Aged Out No longer eligible based on patient's age to complete this topic Medical Devices Implanted Type Area Window Glazier Device Identifier Shelf Expiration Date Model / Serial / Lot Stent,Kristyn Mr 2.50 X 24 - [id number] Implanted:Qty: 1 on 11/25/2023 by Jose Martin Christie MD at [facility] Eluting Stent [employer] [id number] 01/11/2025 [id number] / / [id number] Procedures Procedure Name Priority Date/Time Associated Diagnosis Comments HEMOGLOBIN A1C Add-On 11/24/2023 10:00 AM EDT from Last 3 Months or Most Recently Relevant to Health Maintenance Results * Hemoglobin A1c (11/24/2023 10:00 AM EDT) Hemoglobin A1C 5.6 4.0 - 6.0 % 11/24/2023 3:35 PM EDT [facility] ([facility]) Estimated Average Glucose 114 mg/dL 11/24/2023 3:35 PM EDT [facility] ([place]) Blood Venous blood specimen / Unknown Arterial Line / Unknown 11/24/2023 10:00 AM EDT 11/24/2023 10:47 AM EDT Johsua Brar MD LAB BLOOD ORDERABLES Final Resul t [facility] ([place]) [address] [place] [address] from Last 3 Months or Most Recently Relevant to Health Maintenance Insurance [employer] [address] Advance Directives * Full Code (Latest Code Status on File) Date Activated Date Inactivated Comments 11/24/2023 1:52 AM 11/26/2023 8:19 PM Care Teams Fisheries Technical Officer Relationship Specialty Start Date End Date Piter Chowdhury MD [address] [place] [address] PCP - General 11/25/23
--- OUTSIDE RECORDS SUMMARY | 2025-02-16 09:39 | XMS_ITS | CCD ---
Author Organization [facility] Care Team Providers Care Assembler Insulator Name Role Phone REQUEST, NONE LISTED Attending [...] Attending Unavailable HOY, DR JOSEPH Consulting Unavailable ROSSSAIRATRAMAINE Admitting Unavailable ROSSTRAMAINE Attending Unavailable ROSSTRAMAINE Consulting Unavailable HOY, DR JOSEPH Primary Care Unavailable MARIELLE FLORES Admitting Unavailable MARIELLE FLORES Attending Unavailable GOTLIB, MARQUES Referring Unavailable JAKE CHOWDHURY Referring Unavailable JAKE CHOWDHURY Primary Care Unavailable Unavailable Primary Care Provider UnavailJake Tim MD Primary Care Provider [phone] Jhonathan LAUNDRY FOLDER, Anahy Unavailable ANAHY TAVERA Attending Unavailable HORANI, JOSHUA Referring Unavailable JALYYNMAGAN Benoit Referring Unavailable HORANI, JOSHUA Admitting Unavailable YVROSE CATALAN Attending Unavailable HORANI, JOSHUA Referring Unavailable PIRKL, LESLEE Referring Unavailable JATINDERZULEYKAMARIA TERESA Attending Unavailable JATINDER, MARIA TERESA Attending Unavailable ALGHOTHANIZAIN Attending Unavailable ALGHOTHANI MOHJYOTSNA Attending Unavailable ARASH, SAMAR Attending Unavailable PIRKL, LESLEE Referring Unavailable FLORENTIN TAVARES Referring Unavailable HORANI, JOSHUA Referring Unavailable Allergies Allergy Classification Reported Allergen(s) Allergy Type Date of Onset Reaction(s) Facility (1 source) ALLERGIES NOT ON FILE; Translations: [ALLERGIES NOT ON FILE] Propensity to adverse reactions (disorder) [facility] Repository Medications Current Medications Medication Drug Class(es) Dates Sig (Normalized) Sig (Original) amLODIPine 10 mg oral tablet (2 sources) Dihydropyridine Calcium Channel Amadou Start: 05-09-2024 take 1 tablet by mouth in the morning amLODIPine (Norvasc) 10 MG tablet Take 10 mg by mouth in the morning. 05/09/2024 Active aspirin 81 mg chewable tablet (2 sources) Platelet Aggregation Inhibitor, Nonsteroidal Anti-inflammatory Drug Start: 05-20-2024 aspirin 81 MG chewable tablet Chew 81 mg in the morning. 05/20/2024 Active atorvastatin 40 mg oral tablet (2 sources) HMG-CoA Reductase Inhibitor take 1 tablet by mouth once daily atorvastatin (Lipitor) 40 MG tablet Take 40 mg by mouth Daily Active carvedilol 3.125 mg oral tablet (2 sources) alpha-Adrenergic Amadou, beta-Adrenergic Amadou Start: 05-09-2024 End: 05-09-2025 take 1 tablet by mouth in the morning carvedilol (Coreg) 3.125 MG tablet Take 3.125 mg by mouth in the morning and 3.125 mg in the evening. Take with meals. 05/09/2024 05/09/2025 Active furosemide 40 mg oral tablet (2 sources) Loop Diuretic Start: 06-15-2024 End: 06-15-2025 take 1 tablet by mouth in the morning furosemide (Lasix) 40 MG tablet Take 40 mg by mouth in the morning. 06/15/2024 06/15/2025 Active levothyroxine sodium 0.05 mg oral tablet (2 sources) l-Thyroxine Start: 04-03-2024 take 1 tablet by mouth in the morning levothyroxine (Synthroid, Levoxyl) 50 MCG tablet Take 50 mcg by mouth in the morning. 04/03/2024 Active pantoprazole 40 mg delayed release oral tablet (2 sources) Proton Pump Inhibitor take 1 tablet by mouth once daily pantoprazole (ProtoNix) 40 MG EC tablet Take 40 mg by mouth Daily Active potassium chloride 10 meq extended release oral tablet (2 sources) Start: 07-04-2024 take 1 tablet by mouth once daily potassium chloride CR (Klor-Con) 10 MEQ ER tablet Take 10 mEq by mouth Daily 07/04/2024 Active QUEtiapine 50 mg oral tablet (2 sources) Atypical Antipsychotic Start: 04-03-2024 take 1 tablet by mouth at bedtime QUEtiapine (SEROquel) 50 MG tablet Take 50 mg by mouth at bedtime 04/03/2024 Active tamsulosin hydrochloride 0.4 mg oral capsule (2 sources) alpha-Adrenergic Amadou take 1 capsule by mouth once daily tamsulosin (Flomax) 0.4 MG 24 hr capsule Take 0.4 mg by mouth Daily Active Problems Active Problems Problem Classification Problem Date Documented Date Episodic/Chronic Acute cerebrovascular disease (2 sources) Cerebral infarction, unspecified; Translations: [Ischemic stroke] Onset: 05-15-2024 Chronic Acute myocardial infarction (2 sources) Non-ST elevation (NSTEMI) myocardial infarction; Translations: [Non-ST elevation (NSTEMI) myocardial infarction] Onset: 12-08-2023 Chronic Congestive heart failure; nonhypertensive (2 sources) Acute combined systolic (congestive) and diastolic (congestive) heart failure; Translations: [Acute combined systolic (congestive) and diastolic (congestive) heart failure] Onset: 05-09-2024 Chronic Coronary atherosclerosis and other heart disease (2 sources) Atherosclerotic heart disease of [place] coronary artery without angina pectoris; Translations: [Atherosclerotic heart disease of [place] coronary artery without angina pectoris] Onset: 12-08-2023 Chronic Disorders of lipid metabolism (6 sources) Hyperlipidemia; Translations: [Hyperlipidemia, unspecified] Onset: 11-24-2023 08-07-2024 Chronic Essential hypertension (4 sources) Hypertensive disorder; Translations: [Essential (primary) hypertension] Onset: 11-24-2023 08-07-2024 Chronic Hypertension with complications and secondary hypertension (2 sources) Hypertensive heart disease with heart failure; Translations: [Hypertensive heart disease with heart failure] Onset: 05-09-2024 Chronic Immunizations and screening for infectious disease (4 sources) Encounter for immunization; Translations: [ENCOUNTER FOR IMMUNIZATION] Onset: 04-29-2021 Episodic Other and ill-defined heart disease (2 sources) Cardiomegaly; Translations: [Cardiomegaly] Onset: 12-08-2023 Chronic Other connective tissue disease (2 sources) Neurological symptom; Translations: [Unspecified symptoms and signs involving the nervous system] 08-07-2024 Episodic Past or Other Problems Problem Classification Problem Date Documented Da te Episodic/Chronic Nonspecific chest pain (2 sources) Chest pain, unspecified; Translations: [Chest pain, unspecified] Onset: 11-24-2023 Episodic Pneumonia (except that caused by tuberculosis or sexually transmitted disease) (2 sources) Pneumonia, unspecified organism; Translations: [Pneumonia, unspecified organism] Onset: 11-24-2023 Episodic Residual codes; unclassified (1 source) Pain, unspecified; Translations: [Pain, unspecified] Onset: 11-24-2023 Episodic Results Test Name Value Interpretation Reference Range Facility Office Visiton 10-13-2024 Follow-up visit [id number] Kamini Mayorga er T 1940 M Date Provider Department Center 10/13/2024 [id number] A EATON JANIE Rubio Family History Problem Relation Age of Onset No Known Problems Mother No Known Problems Father Family Status - Relation Status Age at Mother Father Level of Service:87280 NC OFFICE/OUTPATIENT ESTABLISHED MOD MDM 30 MIN Reason for Visit and Comments: Coronary Artery Disease [187] - Denies chest pain and SOB. Congestive Heart Failure [127] - Son states his sister told him his father had some LLE edema last week but it's improving. He says he hasn't had trouble getting his shoes on. Hypertension [786473] Hyperlipidemia [182] - Had lipid panel in May 2024. probable stroke [Other] - Recently wore event monitor. Normal [facility] Office Visiton 07-19-2024 Follow-up visit [id number] Kamini Mayorga T 1940 M Date Provider Department Center 07/19/2024 [id number] CALZADA JANIE Rubio Family History Problem Relation Age of Onset No Known Problems Mother No Known Problems Father Family Status - Relation Status Age at Mother Father Level of Service:67244 NC OFFICE/OUTPATIENT ESTABLISHED LOW MDM 20 MIN Normal [facility] AMMONIAon 05-19-2024 Ammonia (P) [Moles/Vol] 29 umol/L Normal 18-72 [facility] Comment on above: Result Comment: NEW REFERENCE RANGE Performed By: #### C BCA, CMP, 57303-7, HA1C #### [facility] ([id number]) [address], [address] [place] [address] CBC AND AUTO DIFFon 05-19-20 ABSOLUTE BASOPHIL 0.0 X10E9/L Normal 0.0-0.2 [facility] Comment on above: Performed By: #### C BCA, CMP, 13962-7, HA1C #### [facility] ([id number]) [address], [address] [place] [address] ABSOLUTE NEUTROPHIL 5.7 X10E9/L Normal 1.5-6.6 [facility] Comment on above: Performed By: #### C YECENIA, CMP, 66538-4, HA1C #### [facility] ([id number]) [address], [address] [place] [address] Basophils/100 WBC (Bld) 0.4 % Normal [facility] Comment on above: Performed By: #### Mayo BCA, CMP, 59163-2, HA1C #### [facility] ([id number]) [address], [address] [place] [address] Eosinophils (Bld) [#/Vol] 0.2 10*3/uL Normal 0.0-0.4 [facility] Comment on above: Performed By: #### Mayo BCA, CMP, 21654-0, HA1C #### [facility] ([id number]) [address], [address] [place] [address] Eosinophils/100 WBC (Bld) 2.3 % Normal [facility] Comment on above: Performed By: #### C BCA, CMP, 38093-1, HA1C #### [facility] ([id number]) [address], [address] [place] [address] Erythrocyte distribution width (RBC) [Ratio] 14.1 % Normal 11.5-15.0 [facility] Comment on above: Performed By: #### Mayo BCA, CMP, 38838-6, HA1C #### [facility] ([id number]) [address], [address] [place] [address] Hematocrit (Bld) [Volume fraction] 49.6 % High 39-49 [facility] Comment on above: Performed By: #### C YECENIA, CMP, 61042-9, HA1C #### [facility] ([id number]) [address], [address] [place] [address] Hemoglobin (Bld) [Mass/Vol] 17.3 g/dL High 13.0-17.0 [facility] Comment on above: Performed By: #### C YECENIA, CMP, 38169-7, HA1C #### [facility] ([id number]) [address], [address] [place] [address] Lymphocytes (Bld) [#/Vol] 1.3 10*3/uL Normal 1.0-3.5 [facility] Comment on above: Performed By: #### C BCA, CMP, 45863-2, HA1C #### [facility] ([id number]) [address], [address] [place] [address] Lymphocytes/100 WBC (Bld) 17.4 % Normal [facility] Comment on above: Performed By: #### C BCA, CMP, 42971-2, HA1C #### [facility] ([id number]) [address], [address] [place] [address] MCH (RBC) [Entitic mass] 33.3 pg Normal 27-34 [facility] Comment on above: Performed By: #### C BCA, CMP, 83198-8, HA1C #### [facility] ([id number]) [address], [address] [place] [address] MCHC (RBC) [Mass/Vol] 34.8 g/dL Normal 32-36 [facility] Comment on above: Performed By: #### C BCA, CMP, 65272-8, HA1C #### [facility] ([id number]) [address], [address] [place] [address] MCV (RBC) [Entitic vol] 96 fL Normal 80-100 [facility] Comment on above: Performed By: #### C YECENIA, CMP, 19035-8, HA1C #### [facility] ([id number]) [address], [address] [place] [address] Monocytes (Bld) [#/Vol] 0.5 10*3/uL Normal 0-0.9 [facility] Comment on above: Performed By: #### C YECENIA, CMP, 09722-8, HA1C #### [facility] ([id number]) [address], [address] [place] [address] Monocytes/100 WBC (Bld) 6.4 % Normal [facility] Comment on above: Performed By: #### Mayo KEENE, CMP, 59261-5, HA1C #### [facility] ([id number]) [address], [address] [place] [address] Neutrophils/100 WBC (Bld) 73.5 % Normal [facility] Comment on above: Performed By: #### Mayo KEENE, CMP, 06835-1, HA1C #### [facility] ([id number]) [address], [address] [place] [address] Platelet mean volume (Bld) [Entitic vol] 9.3 fL Normal 7-12 [facility] Comment on above: Performed By: #### C YECENIA, CMP, 84936-4, HA1C #### [facility] ([id number]) [address], [address] [place] [address] Platelets (Bld) [#/Vol] 112 10*3/uL Low 150-450 [facility] Comment on above: Performed By: #### Mayo BCA, CMP, 19594-9, HA1C #### [facility] ([id number]) [address], [address] [place] [address] RBC COUNT 5.19 X10E12/L Normal 4.10-5.70 [facility] Comment on above: Performed By: #### C BCA, CMP, 92297-3, HA1C #### [facility] ([id number]) [address], [address] [place] [address] WBC (Bld) [#/Vol] 7.7 10*3/uL Normal 4.0-11.0 [facility] Comment on above: Performed By: #### C BCA, CMP, 16207-2, HA1C #### [facility] ([id number]) [address], [address] [place] [address] COMPREHENSIVE METABOLIC PANE Chris 05-19-2024 Albumin [Mass/Vol] 4.0 g/dL Normal 3.2-5.3 [facility] Comment on above: Performed By: #### C BCA, CMP, 01935-2, HA1C #### [facility] ([id number]) [address], [address] [place] [address] ALP [Catalytic activity/Vol] 83 U/L Normal 39-130 [facility] Comment on above: Performed By: #### C BCA, CMP, 74523-1, HA1C #### [facility] ([id number]) [address], [address] [place] [address] ALT [Catalytic activity/Vol] 24 U/L Normal 0-40 [facility] Comment on above: Performed By: #### C BCA, CMP, 27257-7, HA1C #### [facility] ([id number]) [address], [address] [place] [address] Anion gap [Moles/Vol] 10 mmol/L Normal 5-15 [facility] Comment on above: Performed By: #### C BCA, CMP, 31753-8, HA1C #### [facility] ([id number]) [address], [address] [place] [address] AST [Catalytic activity/Vol] 48 U/L High 0-41 [facility] Comment on above: Performed By: #### C BCA, CMP, 15371-7, HA1C #### [facility] ([id number]) [address], [address] [place] [address] Bilirubin [Mass/Vol] 0.9 mg/dL Normal 0.3-1.2 [facility] Comment on above: Performed By: #### C BCA, CMP, 86002-4, HA1C #### [facility] ([id number]) [address], [address] [place] [address] Calcium [Mass/Vol] 9.2 mg/dL Normal 8.5-10.5 [facility] Comment on above: Performed By: #### C BCA, CMP, 64341-1, HA1C #### [facility] ([id number]) [address], [address] [place] [address] Chloride [Moles/Vol] 102 mmol/L Normal 98-109 [facility] Comment on above: Performed By: #### C BCA, CMP, 81509-0, HA1C #### [facility] ([id number]) [address], [address] [place] [address] CO2 [Moles/Vol] 24 mmol/L Normal 22-32 [facility] Comment on above: Performed By: #### C BCA, CMP, 51867-6, HA1C #### [facility] ([id number]) [address], [address] [place] [address] Creatinine [Mass/Vol] 1.30 mg/dL Normal 0.60-1.30 [facility] Comment on above: Result Comment: METH OD TRACEABLE TO IDMS STANDARD Performed By: #### C BCA, CMP, 31670-0, HA1C #### [facility] ([id number]) [address], [address] [place] [address] GFR/1.73 sq M.predicted among non-blacks MDRD (S/P/Bld) [Vol rate/Area] 55 mL/min/{1.73_m2} Low >59 [facility] Comment on above: Result Comment: Reported eGFR is based on the CKD-EPI 2020 equation that does not use a race coefficient. Performed By: #### C DORON KEENE, 31527-8, HA1C #### [facility] ([id number]) [address], [address] [place] [address] Glucose [Mass/Vol] 116 mg/dL High 65-99 [facility] Comment on above: Performed By: #### C DORON KEENE, 85806-6, HA1C #### [facility] ([id number]) [address], [address] [place] [address] Potassium [Moles/Vol] 4.0 mmol/L Normal 3.5-5.0 [facility] Comment on above: Performed By: #### C DORON KEENE, 60648-3, HA1C #### [facility] ([id number]) [address], [address] [place] [address] Protein [Mass/Vol] 7.3 g/dL Normal 6.0-8.0 [facility] Comment on above: Performed By: #### C DORON KEENE, 11088-2, HA1C #### [facility] ([id number]) [address], [address] [place] [address] Sodium [Moles/Vol] 136 mmol/L Normal 134-146 [facility] Comment on above: Performed By: #### C DORON KEENE, 11363-7, HA1C #### [facility] ([id number]) [address], [address] [place] [address] Urea nitrogen [Mass/Vol] 24 mg/dL Normal 5-27 [facility] Comment on above: Performed By: #### C YECENIA DORON, 42404-2, HA1C #### [facility] ([id number]) [address] [address] ESR Photometric method (Bld) [Velocity]on 05-19-2024 ESR, ERYTHROCYTE SEDIMENTATION RATE 17 mm/h Normal 0-20 [facility] Comment on above: Performed By: #### C DORON KEENE, 13596-1, HA1C #### [facility] ([id number]) [address], [address] [address] FREE T4on 05-19-2024 Free T4 [Mass/Vol] 0.76 ng/dL Normal 0.61-1.60 [facility] Comment on above: Result Comment: NEW REFERENCE RANGE FOR PEDIATRIC PATIENTS Performed By: #### Mayo KEENE CMP, 23404-5, HA1C #### [facility] ([id number]) [address], [address] [address] Laboratory comment García (Repo rt)on 05-19-2024 PLATELET INHIB,P2Y12 128 PRU Normal [facility] Comment on above: Result Comment: Decr eased platelet reactivity due to the effect of a P2Y12 inhibitor. The P2Y12 Test should be interpreted in conjunction with other clinical and lab data. Performed By: #### C DORON KEENE, 33212-4, HA1C #### [facility] ([id number]) [address] [address] TSH WITH REFLEXon 05-19-2024 TSH 7.31 uIU/mL High 0.49-4.67 [facility] Comment on above: Result Comment: NEW REFERENCE RANGE FOR PEDIATRIC PATIENTS Performed By: #### C DORON KEENE, 47233-6, HA1C #### [facility] ([id number]) [address] [address] CBC AND AUTO DIFFon 05-18-20 24 ABSOLUTE BASOPHIL 0.0 X10E9/L Normal 0.0-0.2 [facility] Comment on above: Performed By: #### C DORON KEENE, 35806-7, HA1C #### [facility] ([id number]) [address], [address] [place] [address] ABSOLUTE NEUTROPHIL 3.5 X10E9/L Normal 1.5-6.6 [facility] Comment on above: Performed By: #### C DORON KEENE, 31445-6, HA1C #### [facility] ([id number]) [address], [address] [place] [address] Basophils/100 WBC (Bld) 0.4 % Normal [facility] Comment on above: Performed By: #### C DORON KEENE, 77327-3, HA1C #### [facility] ([id number]) [address], [address] [place] [address] Eosinophils (Bld) [#/Vol] 0.4 10*3/uL Normal 0.0-0.4 [facility] Comment on above: Performed By: #### Mayo KEENE CMP, 37722-1, HA1C #### [facility] ([id number]) [address], [address] [place] [address] Eosinophils/100 WBC (Bld) 6.2 % Normal [facility] Comment on above: Performed By: #### Mayo KEENE CMP, 95106-2, HA1C #### [facility] ([id number]) [address], [address] [place] [address] Erythrocyte distribution width (RBC) [Ratio] 13.8 % Normal 11.5-15.0 [facility] Comment on above: Performed By: #### Mayo KEENE CMP, 41046-5, HA1C #### [facility] ([id number]) [address], [address] [place] [address] Hematocrit (Bld) [Volume fraction] 43.1 % Normal 39-49 [facility] Comment on above: Performed By: #### C YECENIA, CMP, 57890-2, HA1C #### [facility] ([id number]) [address], [address] [place] [address] Hemoglobin (Bld) [Mass/Vol] 15.0 g/dL Normal 13.0-17.0 [facility] Comment on above: Performed By: #### C YECENIA, CMP, 17700-9, HA1C #### [facility] ([id number]) [address], [address] [place] [address] Lymphocytes (Bld) [#/Vol] 1.7 10*3/uL Normal 1.0-3.5 [facility] Comment on above: Performed By: #### Mayo KEENE, CMP, 77813-8, HA1C #### [facility] ([id number]) [address], [address] [place] [address] Lymphocytes/100 WBC (Bld) 27.1 % Normal [facility] Comment on above: Performed By: #### Mayo KEENE, CMP, 51962-4, HA1C #### [facility] ([id number]) [address], [address] [place] [address] MCH (RBC) [Entitic mass] 33.2 pg Normal 27-34 [facility] Comment on above: Performed By: #### C BCA, CMP, 52928-4, HA1C #### [facility] ([id number]) [address] [place] [address] MCHC (RBC) [Mass/Vol] 34.7 g/dL Normal 32-36 [facility] Comment on above: Performed By: #### C BCA, CMP, 07090-2, HA1C #### [facility] ([id number]) [address], [address] [place] [address] MCV (RBC) [Entitic vol] 96 fL Normal 80-100 [facility] Comment on above: Performed By: #### C BCA, CMP, 64855-3, HA1C #### [facility] ([id number]) [address], [address] [place] [address] Monocytes (Bld) [#/Vol] 0.7 10*3/uL Normal 0-0.9 [facility] Comment on above: Performed By: #### C BCA, CMP, 89500-5, HA1C #### [facility] ([id number]) [address], [address] [place] [address] Monocytes/100 WBC (Bld) 10.7 % Normal [facility] Comment on above: Performed By: #### Mayo BCA, CMP, 36814-2, HA1C #### [facility] ([id number]) [address] [place] [address] Neutrophils/100 WBC (Bld) 55.6 % Normal [facility] Comment on above: Performed By: #### Maoy KEENE, CMP, 88394-3, HA1C #### [facility] ([id number]) [address] [place] [address] Platelet mean volume (Bld) [Entitic vol] 9.3 fL Normal 7-12 [facility] Comment on above: Performed By: #### Mayo BCA, CMP, 52179-3, HA1C #### [facility] ([id number]) [address], [address] [place] [address] Platelets (Bld) [#/Vol] 108 10*3/uL Low 150-450 [facility] Comment on above: Performed By: #### C BCA, CMP, 25042-6, HA1C #### [facility] ([id number]) [address], [address] [place] [address] RBC COUNT 4.51 X10E12/L Normal 4.10-5.70 [facility] Comment on above: Performed By: #### C BCA, CMP, 83667-2, HA1C #### [facility] ([id number]) [address], [address] [place] [address] WBC (Bld) [#/Vol] 6.3 10*3/uL Normal 4.0-11.0 [facility] Comment on above: Performed By: #### C BCA, CMP, 32421-3, HA1C #### [facility] ([id number]) [address], [address] [place] [address] COMPREHENSIVE METABOLIC PANE Chris 05-18-2024 Albumin [Mass/Vol] 3.4 g/dL Normal 3.2-5.3 [facility] Comment on above: Performed By: #### C BCA, CMP, 16769-9, HA1C #### [facility] ([id number]) [address], [address] [place] [address] ALP [Catalytic activity/Vol] 70 U/L Normal 39-130 [facility] Comment on above: Performed By: #### C BCA, CMP, 35383-1, HA1C #### [facility] ([id number]) [address], [address] [place] [address] ALT [Catalytic activity/Vol] 16 U/L Normal 0-40 [facility] Comment on above: Performed By: #### C BCA, CMP, 82461-8, HA1C #### [facility] ([id number]) [address], [address] [place] [address] Anion gap [Moles/Vol] 7 mmol/L Normal 5-15 [facility] [place] Comment on above: Performed By: #### C BCA, CMP, 18576-5, HA1C #### [facility] ([id number]) [address], [address] [place] [address] AST [Catalytic activity/Vol] 28 U/L Normal 0-41 [facility] [place] Comment on above: Performed By: #### C BCA, CMP, 08562-9, HA1C #### [facility] ([id number]) [address], [address] [place], [place] [address] Bilirubin [Mass/Vol] 1.0 mg/dL Normal 0.3-1.2 [facility] Comment on above: Performed By: #### C BCA, CMP, 29124-8, HA1C #### [facility] ([id number]) [address], [address] [place] [address] Calcium [Mass/Vol] 8.7 mg/dL Normal 8.5-10.5 [facility] Comment on above: Performed By: #### C BCA, CMP, 31168-5, HA1C #### [facility] ([id number]) [address] [place] [address] Chloride [Moles/Vol] 103 mmol/L Normal 98-109 [facility] Comment on above: Performed By: #### C BCA, CMP, 06311-1, HA1C #### [facility] ([id number]) [address] [place] [address] CO2 [Moles/Vol] 27 mmol/L Normal 22-32 [facility] Comment on above: Performed By: #### C BCA, CMP, 05490-1, HA1C #### [facility] ([id number]) [address], [address] [place] [address] Creatinine [Mass/Vol] 1.56 mg/dL High 0.60-1.30 [facility] Comment on above: Result Comment: METH OD TRACEABLE TO IDMS STANDARD Performed By: #### C BCA, CMP, 62841-7, HA1C #### [facility] ([id number]) [address], [address] [place] [address] GFR/1.73 sq M.predicted among non-blacks MDRD (S/P/Bld) [Vol rate/Area] 44 mL/min/{1.73_m2} Low >59 [facility] Comment on above: Result Comment: Reported eGFR is based on the CKD-EPI 2020 equation that does not use a race coefficient. Performed By: #### C BCA, CMP, 75921-6, HA1C #### [facility] ([id number]) [address], [address] [place] [address] Glucose [Mass/Vol] 114 mg/dL High 65-99 [facility] Comment on above: Performed By: #### C BCA, CMP, 69433-6, HA1C #### [facility] ([id number]) [address], [address] [place] [address] Potassium [Moles/Vol] 4.1 mmol/L Normal 3.5-5.0 [facility] Comment on above: Result Comment: SPEC IMEN HEMOLYZED, RESULTS INCREASED MODERATELY HEMOLYZED Performed By: #### C BCA, CMP, 52884-9, HA1C #### [facility] ([id number]) [address], [address] [place] [address] Protein [Mass/Vol] 6.1 g/dL Normal 6.0-8.0 [facility] Comment on above: Performed By: #### C BCA, CMP, 68302-9, HA1C #### [facility] ([id number]) [address], [address] [place] [address] Sodium [Moles/Vol] 137 mmol/L Normal 134-146 [facility] Comment on above: Performed By: #### C BCA, CMP, 59566-3, HA1C #### [facility] ([id number]) [address], [address] [place] [address] Urea nitrogen [Mass/Vol] 28 mg/dL High 5-27 [facility] Comment on above: Performed By: #### C BCA, CMP, 74194-1, HA1C #### [facility] ([id number]) [address], [address] [place] [address] CT BRAIN WO CONT STROKE ALER Ton 05-18-2024 CT BRAIN WO CONT STROKE ALERT CT BRAIN WO CONT STROKE ALERT CLINICAL INFORMATION: Neuro deficit, acute, stroke suspected TECHNIQUE: CT BRAIN WO CONT STROKE ALERT CT images of the brain were obtained. There is no acute hemorrhage or infarct. No mass is seen. No cisternal or sulcal effacement. Mild chronic ischemic changes noted. Sinuses appear clear. No calvarial abnormality. IMPRESSION: Chronic ischemic changes. All CT scans at this facility use dose modulation, iterative reconstruction, and/or weight based dosing when appropriate to reduce radiation dose to as low as reasonably achievable. Finalized by Phil Martinez MD on 05/18/2024 10:44 AM Normal [facility] CT CTA CAROTIDon 05-18-[address] CTA CAROTID History: Stroke alert. Exam/Technique: Contiguous axial images are obtained of the CT carotid angiogram 100ml Omnipaque 350 intravenous contrast. Coronal and sagittal reconstructions were performed and reviewed. CT angiogram protocol with 3-D and volumetric scans acquired. Automatic dose exposure reduction technique utilized. Comparison: 05/15/2024. Findings: Nonvascular findings: No acute nonvascular findings in the neck. Degenerative changes noted in the cervical spine with a scoliotic deformity convex to the right. Vascular findings: Atherosclerotic disease of the aortic arch and great vessels mild degree. Vascular tortuosity. Significant hypoplastic changes in the left vertebral artery which is previously documented and is visualized to approximately the lateral arch of C1. Right vertebral artery is patent. Tortuous carotid arteries bilaterally. Mild atherosclerotic disease of the right carotid bifurcation and proximal right internal carotid artery. No flow-limiting stenosis noted at bilateral internal carotid arteries to the level of the skull base. IMPRESSION: Left Vertebral artery appears hypoplastic. There is mild atherosclerotic disease at the right common carotid artery bifurcation. No evidence of flow-limiting stenosis noted bilaterally. Study interpreted with NASCET criteria. Distal ICA -Area of Stenosis/Max ICA diameter. All CT scans at this facility use dose modulation, iterative reconstruction, and/or weight based dosing when appropriate to reduce radiation dose to as low as reasonably achievable. Finalized by Stiven Washington MD on 05/18/2024 10:52 AM Normal [facility] CT CTA HEADon 05-18-[address]A HEAD CT angiogram head with contrast History: Stroke follow-up study. Comparison: 05/15/2024. Technique: CT angiogram of the head was performed following intravenous administration of 100 cc Omnipaque 350 nonionic intravenous contrast. 3-D maximum intensity projection images generated and reviewed under concurrent physician supervision. Automated exposure control was utilized. Arterial blood flow was measured to assist the stroke clinical team in the diagnosis of large vessel occlusion in patients undergoing screening for acute ischemic stroke using Rapid AI software when clinically indicated. All CT scans at this facility use dose modulation, iterative reconstruction, and/or weight based dosing when appropriate to reduce radiation dose to as low as reasonably achievable. Findings: Posterior circulation: Asymmetrical vertebral arteries with the left vertebral artery not visualized as previously noted. Basilar artery patent. Superior cerebellar arteries patent bilaterally. Within the tip of the basilar artery is attenuated similar to the prior study. The right posterior cerebral artery is attenuated similar to the prior study demonstrates mild patency of its attenuated proximal segment. The left posterior cerebral artery is dominant and close to a dominant left posterior communicating artery. Anterior circulation: There is marked tortuosity of the internal carotid artery with calcification within the carotid siphon. Both A1 segments are robust with similar robust A2 segments and filling of the anterior communicating artery. The M1 segment is robust anteriorly bilaterally with filling of the M1 segments bilaterally as well as normal division of the M1 segment into superior and inferior segments and patency of M2 M3 branches bilaterally. Impression: The anterior circulation appears dominant with a markedly attenuated posterior circulation including hypoplastic right posterior cerebral artery, distal basilar artery and left vertebral artery. Anterior circulation appears dominant with no evidence of aneurysm, occlusion or large vessel stenosis. Finalized by Stiven Washington MD on 05/18/2024 11:07 AM Normal [facility] Glucose Glucometer (BldC) [M ass/Vol]on 05-18-2024 Glucose [Mass/Vol] 143 mg/dL High 65-99 [facility] CBC AND AUTO DIFFon 05-17-20 ABSOLUTE BASOPHIL 0.0 X10E9/L Normal 0.0-0.2 [facility] Comment on above: Performed By: #### C BCA, CMP #### [facility] ([id number]) [address], [address] [place] [address] ABSOLUTE NEUTROPHIL 3.2 X10E9/L Normal 1.5-6.6 [facility] Comment on above: Performed By: #### C BCA, CMP #### [facility] ([id number]) [address], [address] [place] [address] Basophils/100 WBC (Bld) 0.6 % Normal [facility] Comment on above: Performed By: #### C BCA, CMP #### [facility] ([id number]) [address] [facility] [address] Eosinophils (Bld) [#/Vol] 0.4 10*3/uL Normal 0.0-0.4 [facility] Comment on above: Performed By: #### C BCA, CMP #### [facility] ([id number]) [address], [address] [place] [address] Eosinophils/100 WBC (Bld) 7.5 % Normal [facility] Comment on above: Performed By: #### C BCA, CMP #### [facility] ([id number]) [address], [address] [place] [address] Erythrocyte distribution width (RBC) [Ratio] 13.6 % Normal 11.5-15.0 [facility] Comment on above: Performed By: #### C BCA, CMP #### [facility] ([id number]) [address], [address] [place] [address] Hematocrit (Bld) [Volume fraction] 44.7 % Normal 39-49 [facility] Comment on above: Performed By: #### C BCA, CMP #### [facility] ([id number]) [address], [address] [place] [address] Hemoglobin (Bld) [Mass/Vol] 15.8 g/dL Normal 13.0-17.0 [facility] Comment on above: Performed By: #### C YECENIA, CMP #### [facility] ([id number]) [address], [address] [place] [address] Lymphocytes (Bld) [#/Vol] 1.6 10*3/uL Normal 1.0-3.5 [facility] Comment on above: Performed By: #### C BCA, CMP #### [facility] ([id number]) [address], [address] [place] [address] Lymphocytes/100 WBC (Bld) 26.6 % Normal [facility] Comment on above: Performed By: #### C BCA, CMP #### [facility] ([id number]) [address] [place] [address] MCH (RBC) [Entitic mass] 33.6 pg Normal 27-34 [facility] Comment on above: Performed By: #### C BCA, CMP #### [facility] ([id number]) [address] [place] [address] MCHC (RBC) [Mass/Vol] 35.4 g/dL Normal 32-36 [facility] Comment on above: Performed By: #### C BCA, CMP #### [facility] ([id number]) [address] [place] [address] MCV (RBC) [Entitic vol] 95 fL Normal 80-100 [facility] Comment on above: Performed By: #### C BCA, CMP #### [facility] ([id number]) [address], [address] [place] [address] Monocytes (Bld) [#/Vol] 0.7 10*3/uL Normal 0-0.9 [facility] Comment on above: Performed By: #### C BCA, CMP #### [facility] ([id number]) [address] [place] [address] Monocytes/100 WBC (Bld) 11.5 % Normal [facility] Comment on above: Performed By: #### C YECENIA, CMP #### [facility] ([id number]) [address] [place] [address] Neutrophils/100 WBC (Bld) 53.8 % Normal [facility] Comment on above: Performed By: #### C YECENIA, CMP #### [facility] ([id number]) [address] [place] [address] Platelet mean volume (Bld) [Entitic vol] 8.7 fL Normal 7-12 [facility] Comment on above: Performed By: #### C YECENIA, CMP #### [facility] ([id number]) [address] [place] [address] Platelets (Bld) [#/Vol] 108 10*3/uL Low 150-450 [facility] Comment on above: Performed By: #### C YECENIA, CMP #### [facility] ([id number]) [address] [place] [address] RBC COUNT 4.72 X10E12/L Normal 4.10-5.70 [facility] Comment on above: Performed By: #### C YECENIA, CMP #### [facility] ([id number]) [address], [address] [place] [address] WBC (Bld) [#/Vol] 5.9 10*3/uL Normal 4.0-11.0 [facility] Comment on above: Performed By: #### C YECENIA, CMP #### [facility] ([id number]) [address], [address] [place] [address] COMPREHENSIVE METABOLIC PANE Chris 05-17-2024 Albumin [Mass/Vol] 3.7 g/dL Normal 3.2-5.3 [facility] Comment on above: Performed By: #### C BCA, CMP #### [facility] ([id number]) [address], [address] [place] [address] ALP [Catalytic activity/Vol] 84 U/L Normal 39-130 [facility] Comment on above: Performed By: #### C BCA, CMP #### [facility] ([id number]) [address], [address] [place] [address] ALT [Catalytic activity/Vol] 19 U/L Normal 0-40 [facility] Comment on above: Performed By: #### C BCA, CMP #### [facility] ([id number]) [address], [address] [place] [address] Anion gap [Moles/Vol] 10 mmol/L Normal 5-15 [facility] Comment on above: Performed By: #### C BCA, CMP #### [facility] ([id number]) [address], [address] [place] [address] AST [Catalytic activity/Vol] 23 U/L Normal 0-41 [facility] Comment on above: Performed By: #### C BCA, CMP #### [facility] ([id number]) [address], [address] [place] [address] Bilirubin [Mass/Vol] 1.5 mg/dL High 0.3-1.2 [facility] Comment on above: Performed By: #### C BCA, CMP #### [facility] ([id number]) [address], [address] [place] [address] Calcium [Mass/Vol] 9.0 mg/dL Normal 8.5-10.5 [facility] Comment on above: Performed By: #### C BCA, CMP #### [facility] ([id number]) [address], [address] [place] [address] Chloride [Moles/Vol] 103 mmol/L Normal 98-109 [facility] Comment on above: Performed By: #### C BCA, CMP #### [facility] ([id number]) [address], [address] [place] [address] CO2 [Moles/Vol] 26 mmol/L Normal 22-32 [facility] Comment on above: Performed By: #### C BCA, CMP #### [facility] ([id number]) [address], [address] [place] [address] Creatinine [Mass/Vol] 1.20 mg/dL Normal 0.60-1.30 [facility] Comment on above: Result Comment: METH OD TRACEABLE TO IDMS STANDARD Performed By: #### C BCA, CMP #### [facility] ([id number]) [address] [place] [address] GFR/1.73 sq M.predicted among non-blacks MDRD (S/P/Bld) [Vol rate/Area] 60 mL/min/{1.73_m2} Normal >59 [facility] Comment on above: Result Comment: Reported eGFR is based on the CKD-EPI 2020 equation that does not use a race coefficient. Performed By: #### C BCA, CMP #### [facility] ([id number]) [address], [address] [place] [address] Glucose [Mass/Vol] 108 mg/dL High 65-99 [facility] Comment on above: Performed By: #### C BCA, CMP #### [facility] ([id number]) [address] [address] [place] [address] Potassium [Moles/Vol] 3.5 mmol/L Normal 3.5-5.0 [facility] Comment on above: Performed By: #### C BCA, CMP #### [facility] ([id number]) [address], [address] [place] [address] Protein [Mass/Vol] 6.5 g/dL Normal 6.0-8.0 [facility] Comment on above: Performed By: #### C BCA, CMP #### [facility] ([id number]) [address] [place] [address] Sodium [Moles/Vol] 139 mmol/L Normal 134-146 [facility] Comment on above: Performed By: #### C BCA, CMP #### [facility] ([id number]) [address], [address] [place] [address] Urea nitrogen [Mass/Vol] 23 mg/dL Normal 5-27 [facility] Comment on above: Performed By: #### C BCA, CMP #### [facility] ([id number]) [address], [address] [place] [address] CBC AND AUTO DIFFon 12-10-20 24 ABSOLUTE BASOPHIL 0.0 X10E9/L Normal 0.0-0.2 [facility] Comment on above: Performed By: #### C YECENIA, CMP, 65877-3, HA1C #### [facility] ([id number]) [address], [address] [place] [address] ABSOLUTE NEUTROPHIL 6.0 X10E9/L Normal 1.5-6.6 [facility] Comment on above: Performed By: #### C YECENIA, CMP, 50896-2, HA1C #### [facility] ([id number]) [address], [address] [place] [address] Basophils/100 WBC (Bld) 0.4 % Normal [facility] Comment on above: Performed By: #### C YECENIA, CMP, 02989-9, HA1C #### [facility] ([id number]) [address], [address] [place] [address] Eosinophils (Bld) [#/Vol] 0.2 10*3/uL Normal 0.0-0.4 [facility] Comment on above: Performed By: #### C YECENIA CMP, 71958-0, HA1C #### [facility] ([id number]) [address], [address] [place] [address] Eosinophils/100 WBC (Bld) 2.0 % Normal [facility] Comment on above: Performed By: #### C YECENIA CMP, 23858-6, HA1C #### [facility] ([id number]) [address] [place] [address] Erythrocyte distribution width (RBC) [Ratio] 13.9 % Normal 11.5-15.0 [facility] Comment on above: Performed By: #### C YECENIA CMP, 16088-4, HA1C #### [facility] ([id number]) [address] [place] [address] Hematocrit (Bld) [Volume fraction] 44.9 % Normal 39-49 [facility] Comment on above: Performed By: #### C YECENIA CMP, 41854-8, HA1C #### [facility] ([id number]) [address] [place] [address] Hemoglobin (Bld) [Mass/Vol] 15.7 g/dL Normal 13.0-17.0 [facility] Comment on above: Performed By: #### C YECENIA CMP, 91220-9, HA1C #### [facility] ([id number]) [address] [address] Lymphocytes (Bld) [#/Vol] 1.5 10*3/uL Normal 1.0-3.5 [facility] Comment on above: Performed By: #### C YECENIA, CMP, 22317-9, HA1C #### [facility] ([id number]) [address], [address] [place] [address] Lymphocytes/100 WBC (Bld) 17.4 % Normal [facility] Comment on above: Performed By: #### C YECENIA CMP, 87730-4, HA1C #### [facility] ([id number]) [address], [address] [place] [address] MCH (RBC) [Entitic mass] 33.1 pg Normal 27-34 [facility] Comment on above: Performed By: #### C YECENIA CMP, 90473-4, HA1C #### [facility] ([id number]) [address] [place] [address] MCHC (RBC) [Mass/Vol] 35.1 g/dL Normal 32-36 [facility] Comment on above: Performed By: #### C YECENIA CMP, 25504-8, HA1C #### [facility] ([id number]) [address], [address] [place] [address] MCV (RBC) [Entitic vol] 95 fL Normal 80-100 [facility] Comment on above: Performed By: #### Mayo BCA, CMP, 34337-8, HA1C #### [facility] ([id number]) [address], [address] [place] [address] Monocytes (Bld) [#/Vol] 0.9 10*3/uL Normal 0-0.9 [facility] Comment on above: Performed By: #### C YECENIA CMP, 68519-4, HA1C #### [facility] ([id number]) [address] [place] [address] Monocytes/100 WBC (Bld) 10.0 % Normal [facility] Comment on above: Performed By: #### C YECENIA, CMP, 22663-1, HA1C #### [facility] ([id number]) [address], [address] [place] [address] Neutrophils/100 WBC (Bld) 70.2 % Normal [facility] Comment on above: Performed By: #### Mayo BCA, CMP, 07897-0, HA1C #### [facility] ([id number]) [address], [address] [place] [address] Platelet mean volume (Bld) [Entitic vol] 8.6 fL Normal 7-12 [facility] Comment on above: Performed By: #### C BCA, CMP, 96934-9, HA1C #### [facility] ([id number]) [address], [address] [place] [address] Platelets (Bld) [#/Vol] 117 10*3/uL Low 150-450 [facility] Comment on above: Performed By: #### C BCA, CMP, 20100-1, HA1C #### [facility] ([id number]) [address] [place] [address] RBC COUNT 4.75 X10E12/L Normal 4.10-5.70 [facility] Comment on above: Performed By: #### C BCA, CMP, 25611-4, HA1C #### [facility] ([id number]) [address] [place] [address] WBC (Bld) [#/Vol] 8.6 10*3/uL Normal 4.0-11.0 [facility] Comment on above: Performed By: #### C BCA, CMP, 47092-4, HA1C #### [facility] ([id number]) [address] [place] [address] COMPREHENSIVE METABOLIC PANE Chris 05-16-2024 Albumin [Mass/Vol] 3.9 g/dL Normal 3.2-5.3 [facility] Comment on above: Performed By: #### C BCA, CMP, 23564-9, HA1C #### [facility] ([id number]) [address], [address] [place] [address] ALP [Catalytic activity/Vol] 87 U/L Normal 39-130 [facility] Comment on above: Performed By: #### C BCA, CMP, 71730-6, HA1C #### [facility] ([id number]) [address] [place] [address] ALT [Catalytic activity/Vol] 29 U/L Normal 0-40 [facility] Comment on above: Performed By: #### C BCA, CMP, 86333-5, HA1C #### [facility] ([id number]) [address] [place] [address] Anion gap [Moles/Vol] 9 mmol/L Normal 5-15 [facility] Comment on above: Performed By: #### C BCA, CMP, 61612-4, HA1C #### [facility] ([id number]) [address] [place] [address] AST [Catalytic activity/Vol] 40 U/L Normal 0-41 [facility] Comment on above: Performed By: #### C BCA, CMP, 03977-8, HA1C #### [facility] ([id number]) [address] [place] [address] Bilirubin [Mass/Vol] 1.9 mg/dL High 0.3-1.2 [facility] Comment on above: Performed By: #### C BCA, CMP, 49341-4, HA1C #### [facility] ([id number]) [address] [place] [address] Calcium [Mass/Vol] 8.8 mg/dL Normal 8.5-10.5 [facility] Comment on above: Performed By: #### C BCA, CMP, 95150-9, HA1C #### [facility] ([id number]) [address] [place] [address] Chloride [Moles/Vol] 104 mmol/L Normal 98-109 [facility] Comment on above: Performed By: #### C BCA, CMP, 82603-0, HA1C #### [facility] ([id number]) [address] [place] [address] CO2 [Moles/Vol] 27 mmol/L Normal 22-32 [facility] Comment on above: Performed By: #### C DORON KEENE, 71071-5, HA1C #### [facility] ([id number]) [address] [place] [address] Creatinine [Mass/Vol] 1.18 mg/dL Normal 0.60-1.30 [facility] Comment on above: Result Comment: METH OD TRACEABLE TO IDMS STANDARD Performed By: #### C DORON KEENE, 44519-5, HA1C #### [facility] ([id number]) [address] [place] [address] GFR/1.73 sq M.predicted among non-blacks MDRD (S/P/Bld) [Vol rate/Area] 61 mL/min/{1.73_m2} Normal >59 [facility] Comment on above: Result Comment: Reported eGFR is based on the CKD-EPI 2020 equation that does not use a race coefficient. Performed By: #### C DORON KEENE, 91975-6, HA1C #### [facility] ([id number]) [address] [place] [address] Glucose [Mass/Vol] 113 mg/dL High 65-99 [facility] Comment on above: Performed By: #### C DORON KEENE, 79421-7, HA1C #### [facility] ([id number]) [address] [place] [address] Potassium [Moles/Vol] 3.6 mmol/L Normal 3.5-5.0 [facility] Comment on above: Performed By: #### C DORON KEENE, 45228-4, HA1C #### [facility] ([id number]) [address] [place] [address] Protein [Mass/Vol] 6.7 g/dL Normal 6.0-8.0 [facility] Comment on above: Performed By: #### C BCA, CMP, 55628-4, HA1C #### [facility] ([id number]) [address], [address] [place] [address] Sodium [Moles/Vol] 140 mmol/L Normal 134-146 [facility] Comment on above: Performed By: #### C BCA, CMP, 61005-0, HA1C #### [facility] ([id number]) [address], [address] [place] [address] Urea nitrogen [Mass/Vol] 18 mg/dL Normal 5-27 [facility] Comment on above: Performed By: #### C BCA, CMP, 10442-3, HA1C #### [facility] ([id number]) [address], [address] [place] [address] CT BRAIN WO CONTon CT BRAIN WO CONT CT BRAIN WO CONT CT BRAIN WO CONT: 05/16/2024 PROVIDED HISTORY: * 84 years old Male * Stroke, follow up COMPARISON: CT brain 05/15/2024, CT brain 11/23/2023 TECHNIQUE: 1. CT of the Head without intravenous contrast. Sagittal and coronal reformats created and reviewed in brain, bone, and soft tissue windows. 2. All CT scans at this facility use dose modulation, iterative reconstruction, and/or weight based dosing when appropriate to reduce radiation dose to as low as reasonably achievable. ?? FINDINGS: No acute intracranial hemorrhage. No territorial loss of garcia-white differentiation. Likely remote lacunar infarcts involving the right greater than left basal ganglia and right thalamus. Asymmetric volume loss of the right mesencephalon and fiordaliza. Brain parenchymal volume loss. Dilated supratentorial ventricular system, though concordant with brain parenchymal volume and degree of sulcal prominence (likely ex vacuo). Periventricular, subcortical, and deep white matter hypodensities, nonspecific, though can be seen in the setting of chronic microangiopathy. Nonspecific flattening of the pituitary parenchyma along the floor of the sella. No shift of midline structures. No extra-axial fluid collections. Basal cisterns are patent. No displaced or depressed calvarial fracture. Intracranial atherosclerosis. Distortion of the right lamina papyracea, with associated fat extending to the defect and mild medialization of the right medial rectus musculature, may represent sequelae of remote trauma. Visualized orbits are unremarkable for technique. Visualized mastoid air cells are well aerated. Mild paranasal sinus mucosal thickening. Debris within bilateral external auditory canals. IMPRESSION: No acute intracranial abnormality. 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 Please note, MRI is more sensitive for the detection of acute/occult intracranial processes. Finalized by Felicita Ram MD on 05/16/2024 7:44 PM Normal [facility] Glucose Glucometer (BldC) [M ass/Vol]on 05-16-2024 Glucose [Mass/Vol] 100 mg/dL High 65-99 [facility] Glucose [Mass/Vol] 106 mg/dL High 65-99 [facility] Glucose [Mass/Vol] 112 mg/dL High 65-99 [facility] HGB A1C (GLYCO-HGB)on 2023 Glucose [Mass/Vol] 120 mg/dL Normal [facility] Comment on above: Performed By: #### C DORON KEENE, 52795-6, HA1C #### [facility] ([id number]) [address], [address] [place] [address] HbA1c (Bld) [Mass fraction] 5.8 % High 4.4-5.6 [facility] Comment on above: Result Comment: NOTE ADA Guidelines Result HgbA1c Normal : less than 5.7 % Prediabetes : 5.7 % to 6.4 % Diabetes : > 6.4 % Use with caution in patients with abnormal hemoglobin variants as the half-life of red blood cells and in vivo glycation rates are affected. Performed By: #### C DORON KEENE, 77986-7, HA1C #### [facility] ([id number]) [address], [address] [place] [address] Lipid 1996 panelon 4 Cholesterol [Mass/Vol] 123 mg/dL Low 150-200 [facility] Comment on above: Performed By: #### Mayo KEENE, CMP, 72635-4, HA1C #### [facility] ([id number]) [address], [address] [place] [address] Cholesterol in HDL [Mass/Vol] 39 mg/dL Low >39 [facility] Comment on above: Result Comment: HDL <40 mg/dL - High Risk HDL > or = 40mg/dL- Desirable HDL >60 mg/dL - Negative Risk Performed By: #### C YECENIA, CMP, 23870-5, HA1C #### [facility] ([id number]) [address], [address] [place] [address] Cholesterol in LDL [Mass/Vol] 66 mg/dL Normal <130 [facility] Comment on above: Result Comment: LDL <100 mg/dL - Desirable LDL >160 mg/dL - High Risk Performed By: #### C BCA, CMP, 22035-2, HA1C #### [facility] ([id number]) [address], [address] [place] [address] Cholesterol in VLDL [Mass/Vol] 18 mg/dL Normal 0-30 [facility] Comment on above: Performed By: #### Mayo KEENE, CMP, 33629-6, HA1C #### [facility] ([id number]) [address], [address] [place] [address] CHOLESTEROL:HDL 3.2 Normal 1.0-5.0 [facility] Comment on above: Performed By: #### C BCA, CMP, 75526-5, HA1C #### [facility] ([id number]) [address] [address] [facility], [address] [place] [address] Triglyceride [Mass/Vol] 92 mg/dL Normal 27-150 [facility] Comment on above: Performed By: #### C BCA, CMP, 81324-9, HA1C #### [facility] ([id number]) [address] [place] [address] Office Visiton 05-09-2024 Follow-up visit [id number] Kamini Mayorga er T 1940 [facility] Provider Department Center 05/09/2024 3848-ZAIN MCCRAY Family History Problem Relation Age of Onset No Known Problems Mother No Known Problems Father Family Status - Relation Status Age at Mother Father Level of Service:11425 NC OFFICE/OUTPATIENT ESTABLISHED LOW MDM 20 MIN Normal [facility] Office Visiton 01-07-2024 Follow-up visit [id number] Kamini Mayorga er T 1940 M Date Provider Department Center 01/07/2024 MARIA TERESA GOLDMAN Family History Problem Relation Age of Onset No Known Problems Mother No Known Problems Father Family Status - Relation Status Age at Mother Father Level of Service:47870 NC OFFICE/OUTPATIENT ESTABLISHED LOW MDM 20 MIN Normal [facility] Orders Onlyon 12-30-2023 Orders Only [id number] Kamini Mayorga er T 1940 M Date Provider Department Center 12/30/2023 MARIA TERESA GOLDMAN JANIE [place]. Family History Problem Relation Age of Onset No Known Problems Mother No Known Problems Father Family Status - Relation Status Age at Mother Father Normal [facility] 37on 12-08-2023 37 Stop lisinopril and monitor blood pressure 1-2 times a day, take 2 hours after morning medications Goal B/P is < 130/80 Call office for any concerns In 2-3 months (February or March have blood drawn to check liver function and cholesterol levels) must be fasting after midnight to get blood drawn [facility] Follow-Upon 12-08-2023 Follow-Up [id number] Kamini Mayorga er T 1940 M Date Provider Department Center 12/08/2023 MARIA TERESA GOLDMAN CARD [facility] Family History Problem Relation Age of Onset No Known Problems Mother No Known Problems Father Family Status - Relation Status Age at Mother Father Level of Service:72970 NC OFFICE/OUTPATIENT ESTABLISHED MOD MDM 30 MIN Normal [facility] 30on 11-26-2023 30 Daily Case Managemen t [...] for OT? Answer: Discharge recommendations 11/26/23 0936 [facility] 30 The patient is Moderately Stable - [...] fall injury Outcome: Progressing Flowsheets (Taken 11/26/2023 5389) Free from fall injury: Assess patient frequently for physical needs Normal [facility] APTTon 11-26-2023 ACTIVATED PARTIAL THROMBOPLASTIN TIME IN PPP BY COAGULATION ASSAY 31.6 Seconds Normal 25.0-35.0 [facility] Comment on above: Order Comment: Check aPTT every 6 hours while on heparin infusion, or per protocol. Result Comment: Clin ical significance of the APTT is questionable in the presence of heparin. Performed By: #### L [id number] #### [facility] ([facility]) [address] [place] [address] BASIC METABOLIC PANELon 11-06 Anion gap [Moles/Vol] 12 mmol/L Normal 7-20 [facility] Comment on above: Performed By: #### L [id number] #### [facility] ([facility]) [address] [place] [address] Calcium [Mass/Vol] 8.2 mg/dL Low 8.6-10.3 [facility] Comment on above: Performed By: #### L [id number] #### [facility] ([facility]) [address] [place] [address] Chloride [Moles/Vol] 107 mmol/L Normal 98-107 [facility] Comment on above: Performed By: #### L [id number] #### [facility] [address] [place] [address] CO2 [Moles/Vol] 24 mmol/L Normal 21-31 [facility] Comment on above: Performed By: #### L [id number] #### [facility] ([facility] [address] [place] [address] Creatinine [Mass/Vol] 1.24 mg/dL Normal 0.70-1.30 [facility] Comment on above: Performed By: #### L [id number] #### [facility] (BEAKER) [address] [place] [address] GLOMERULAR FILTRATION RATE ML/MIN/1.73 SQ M.PREDICTED 58.0 mL/min/1.73m*2 Low >60.0 [facility] Comment on above: Result Comment: The [facility]???s estimated glomerular filtration rate (eGFR) will no [...] group of individuals. Performed By: #### L [id number] #### [facility] ([facility]) [address] [place] [address] Glucose [Mass/Vol] 89 mg/dL Normal 70-100 [facility] Comment on above: Performed By: #### L [id number] #### [facility] ([facility]) [address] [place] [address] Potassium [Moles/Vol] 3.9 mmol/L Normal 3.5-5.1 [facility] Comment on above: Performed By: #### L [id number] #### [facility] ([facility]) [address] [facility] [address] Sodium [Moles/Vol] 139 mmol/L Normal 136-145 [facility] Comment on above: Performed By: #### L [id number] #### [facility] ([facility] [address] [place] [address] Urea nitrogen [Mass/Vol] 17 mg/dL Normal 7-25 [facility] Comment on above: Performed By: #### L [id number] #### [facility] ([facility]) [address] [facility] [address] UREA NITROGEN/CREATININE (MASS RATIO) IN SER/PLAS 13.7 Normal [facility] Comment on above: Performed By: #### L [id number] #### [facility] ([facility] [address] [place] [place] [address] CBC WITH AUTO DIFFERENTIALon 11-26-2023 Basophils (Bld) [#/Vol] 0.04 10*3/uL Normal 0.00-0.20 [facility] Comment on above: Performed By: #### L [id number] #### [facility] ([facility]) [address] [place] [place] [address] Basophils/100 WBC (Bld) 0.5 % Normal 0.0-1.0 [facility] Comment on above: Performed By: #### L [id number] #### [facility] ([facility]) [address] [place] [place] [address] Eosinophils (Bld) [#/Vol] 0.29 10*3/uL Normal 0.00-0.50 [facility] Comment on above: Performed By: #### L [id number] #### [facility] ([facility]) [address] [place] [place] [address] Eosinophils/100 WBC (Bld) 3.8 % Normal 0.0-6.0 [facility] Comment on above: Performed By: #### L [id number] #### [facility] ([facility]) [address] [place] [place] [address] Erythrocyte distribution width (RBC) [Ratio] 12.1 % Normal 11.5-15.0 [facility] Comment on above: Performed By: #### L [id number] #### [facility] ([facility]) [address] [place] [place] [address] ERYTHROCYTE MEAN CORPUSCULAR HEMOGLOBIN CONCENTRATION (G/DL) BY AUTOMATED 34.4 g/dL Normal 32.0-35.0 [facility] Comment on above: Performed By: #### L [id number] #### [facility] ([facility]) [address] [place] [place] [address] Hematocrit (Bld) [Volume fraction] 35.8 % Low 39.0-55.0 [facility] Comment on above: Performed By: #### L [id number] #### [facility] (BEAKER) [address] [place] [address] Hemoglobin (Bld) [Mass/Vol] 12.3 g/dL Low 13.0-17.0 [facility] Comment on above: Performed By: #### L [id number] #### [facility] ([facility]) [address] [place] [address] Immature granulocytes (Bld) [#/Vol] 0.20 10*3/uL Normal 0.00-0.20 [facility] Comment on above: Performed By: #### L [id number] #### [facility] ([facility]) [address] [place] [address] Immature granulocytes/100 WBC (Bld) 2.7 % High 0.0-1.0 [facility] Comment on above: Performed By: #### L [id number] #### [facility] ([facility]) [address] [place] [address] Lymphocytes (Bld) [#/Vol] 1.15 10*3/uL Low 1.20-4.00 [facility] Comment on above: Performed By: #### L [id number] #### [facility] ([facility]) [address] [place] [address] Lymphocytes/100 WBC (Bld) 15.3 % Low 20.0-45.0 [facility] Comment on above: Performed By: #### L [id number] #### [facility] ([facility]) [address] [place] [address] MCH (RBC) [Entitic mass] 32.3 pg Normal 27.0-33.0 [facility] Comment on above: Performed By: #### L [id number] #### [facility] (BEAKER) [address] [place] [address] MCV (RBC) [Entitic vol] 94.0 fL Normal 82.0-98.0 [facility] Comment on above: Performed By: #### L [id number] #### [facility] ([facility]) [address] [place] [address] Monocytes (Bld) [#/Vol] 0.56 10*3/uL Normal 0.10-1.00 [facility] Comment on above: Performed By: #### L [id number] #### [facility] ([facility]ER) [address] [place] [address] Monocytes/100 WBC (Bld) 7.4 % Normal 5.0-12.0 [facility] Comment on above: Performed By: #### L [id number] #### [facility] ([facility]) [address] [place] [address] Neutrophils (Bld) [#/Vol] 5.30 10*3/uL Normal 1.60-7.60 [facility] Comment on above: Performed By: #### L [id number] #### [facility] ([facility]) [address] [place] [place] [address] Neutrophils/100 WBC (Bld) 70.3 % Normal 40.0-72.0 [facility] Comment on above: Performed By: #### L [id number] #### [facility] ([facility]) [address] [place] [address] NRBC (PER 100 WBCS) BY AUTOMATED COUNT 0.0 % Normal 0 [facility] Comment on above: Performed By: #### L [id number] #### [facility] ([facility]) [address] [place] [address] PLATELETS (10*3/UL) IN BLOOD AUTOMATED COUNT 209 10*3/uL Normal 150-400 [facility] Comment on above: Performed By: #### L [id number] #### [facility] ([facility]) [address] [place] [address] RBC (Bld) [#/Vol] 3.81 10*6/uL Low 4.20-5.70 [facility] Comment on above: Performed By: #### L [id number] #### [facility] (BEAKER) [address] [place] [address] WBC (Bld) [#/Vol] 7.54 10*3/uL Normal 4.00-10.60 [facility] Comment on above: Performed By: #### L [id number] #### [facility] (BE[facility]ER) [address] [place] [address] MAGNESIUMon 11-26-2023 Magnesium [Mass/Vol] 1.8 mg/dL Low 1.9-2.7 [facility] Comment on above: Performed By: #### L [id number] #### [facility] (BEAKER) [address] [place] [address] NURSNOTEon 11-26-2023 NURSNOTE RN informed primary LAUNDRY FOLDER Erin that PT/OT was unable to see [...] Family and pt refused SNF option. Normal [facility] 30on 11-25-2023 30 The patient [...] for assistance before standing Outcome: Progressing Normal [facility] 30 The patient is Moderately Stable - [...] Assess patient frequently for physical needs Normal [facility] 30 Daily Case Managemen t Update Multidisciplinary rounds have been completed. Barriers to Discharge: Pending Clinical course. Direct admit from [facility] with elevated troponin and chest pain. [...] Select all services needed for the patient [facility] (30 day convalescent stay) Please indicate your approval for this care by adding your name here: ISABELL ELLISON 11/24/23 0115 Normal [facility] APTTon 11-25-2023 ACTIVATED PARTIAL THROMBOPLASTIN TIME IN PPP BY COAGULATION ASSAY 78.4 Seconds High 25.0-35.0 [facility] Comment on above: Order Comment: Check aPTT every 6 hours while on heparin infusion, or per protocol. Result Comment: Clin ical significance of the APTT is questionable in the presence of heparin. Performed By: #### L [id number] #### [facility] (BEAKER) [address] [place] [address] ACTIVATED PARTIAL THROMBOPLASTIN TIME IN PPP BY COAGULATION ASSAY 80.8 Seconds High 25.0-35.0 [facility] Comment on above: Order Comment: Check aPTT every 6 hours while on heparin infusion, or per protocol. Result Comment: Clin ical significance of the APTT is questionable in the presence of heparin. Performed By: #### L [id number] #### [facility] (BEAKER) [address] [place] [address] BASIC METABOLIC PANELon 11-06 Anion gap [Moles/Vol] 11 mmol/L Normal 7-20 [facility] Comment on above: Performed By: #### L [id number] #### [facility] ([facility]) [address] [place] [address] Calcium [Mass/Vol] 8.4 mg/dL Low 8.6-10.3 [facility] Comment on above: Performed By: #### L [id number] #### [facility] ([facility]) [address] [place] [address] Chloride [Moles/Vol] 107 mmol/L Normal 98-107 [facility] Comment on above: Performed By: #### L [id number] #### [facility] ([facility]) [address] [place] [address] CO2 [Moles/Vol] 24 mmol/L Normal 21-31 [facility] Comment on above: Performed By: #### L [id number] #### [facility] ([facility]) [address] [place] [address] Creatinine [Mass/Vol] 1.24 mg/dL Normal 0.70-1.30 [facility] Comment on above: Performed By: #### L [id number] #### [facility] ([facility]) [address] [place] [address] GLOMERULAR FILTRATION RATE ML/MIN/1.73 SQ M.PREDICTED 58.0 mL/min/1.73m*2 Low >60.0 [facility] Comment on above: Result Comment: The [facility]???s estimated glomerular filtration rate (eGFR) will no [...] group of individuals. Performed By: #### L [id number] #### [facility] ([facility]) [address] [place] [address] Glucose [Mass/Vol] 97 mg/dL Normal 70-100 [facility] Comment on above: Performed By: #### L [id number] #### [facility] ([facility]) [address] [place] [address] Potassium [Moles/Vol] 3.7 mmol/L Normal 3.5-5.1 [facility] Comment on above: Performed By: #### L [id number] #### [facility] ([facility]) [address] [place] [place] [address] Sodium [Moles/Vol] 138 mmol/L Normal 136-145 [facility] Comment on above: Performed By: #### L [id number] #### [facility] ([facility]) [address] [place] [address] Urea nitrogen [Mass/Vol] 23 mg/dL Normal 7-25 [facility] Comment on above: Performed By: #### L [id number] #### [facility] ([facility]) [address] [place] [address] UREA NITROGEN/CREATININE (MASS RATIO) IN SER/PLAS 18.5 Normal [facility] Comment on above: Performed By: #### L [id number] #### [facility] ([facility]) [address] [place] [place] [address] CBC WITH AUTO DIFFERENTIALon 11-25-2023 Basophils (Bld) [#/Vol] 0.02 10*3/uL Normal 0.00-0.20 [facility] Comment on above: Performed By: #### L [id number] #### [facility] ([facility]) [address] [place] [address] Basophils/100 WBC (Bld) 0.2 % Normal 0.0-1.0 [facility] Comment on above: Performed By: #### L [id number] #### [facility] ([facility]) [address] [place] [address] Eosinophils (Bld) [#/Vol] 0.28 10*3/uL Normal 0.00-0.50 [facility] Comment on above: Performed By: #### L [id number] #### [facility] (BEAKER) [address] [place] [place] [address] Eosinophils/100 WBC (Bld) 3.4 % Normal 0.0-6.0 [facility] Comment on above: Performed By: #### L [id number] #### [facility] ([facility] [address] [place] [place] [address] Erythrocyte distribution width (RBC) [Ratio] 12.5 % Normal 11.5-15.0 [facility] Comment on above: Performed By: #### L [id number] #### [facility] (BEAKER) [address] [place] [place] [address] ERYTHROCYTE MEAN CORPUSCULAR HEMOGLOBIN CONCENTRATION (G/DL) BY AUTOMATED 34.7 g/dL Normal 32.0-35.0 [facility] Comment on above: Performed By: #### L [id number] #### [facility] (BE[facility]ER) [address] [place] [place] [address] Hematocrit (Bld) [Volume fraction] 35.2 % Low 39.0-55.0 [facility] Comment on above: Performed By: #### L [id number] #### [facility] (BE[facility]ER) [address] [place] [address] Hemoglobin (Bld) [Mass/Vol] 12.2 g/dL Low 13.0-17.0 [facility] Comment on above: Performed By: #### L [id number] #### [facility] (BEAKER) [address] [place] [address] Immature granulocytes (Bld) [#/Vol] 0.10 10*3/uL Normal 0.00-0.20 [facility] Comment on above: Performed By: #### L [id number] #### [facility] (BEAKER) [address] [place] [address] Immature granulocytes/100 WBC (Bld) 1.2 % High 0.0-1.0 [facility] Comment on above: Performed By: #### L [id number] #### [facility] ([facility] [address] [place] [address] Lymphocytes (Bld) [#/Vol] 1.57 10*3/uL Normal 1.20-4.00 [facility] Comment on above: Performed By: #### L [id number] #### [facility] ([facility]) [address] [place] [place] [address] Lymphocytes/100 WBC (Bld) 18.9 % Low 20.0-45.0 [facility] Comment on above: Performed By: #### L [id number] #### [facility] ([facility]) [address] [facility] [place] [address] MCH (RBC) [Entitic mass] 32.7 pg Normal 27.0-33.0 [facility] Comment on above: Performed By: #### L [id number] #### [facility] ([facility]) [address] [place] [address] MCV (RBC) [Entitic vol] 94.4 fL Normal 82.0-98.0 [facility] Comment on above: Performed By: #### L [id number] #### [facility] ([facility]) [address] [place] [address] Monocytes (Bld) [#/Vol] 0.73 10*3/uL Normal 0.10-1.00 [facility] Comment on above: Performed By: #### L [id number] #### [facility] ([facility] [address] [place] [address] Monocytes/100 WBC (Bld) 8.8 % Normal 5.0-12.0 [facility] Comment on above: Performed By: #### L [id number] #### [facility] [facility] [address] [place] [address] Neutrophils (Bld) [#/Vol] 5.60 10*3/uL Normal 1.60-7.60 [facility] Comment on above: Performed By: #### L [id number] #### [facility] ([facility]) [address] [place] [address] Neutrophils/100 WBC (Bld) 67.5 % Normal 40.0-72.0 [facility] Comment on above: Performed By: #### L [id number] #### [facility] ([facility]) [address] [place] [address] NRBC (PER 100 WBCS) BY AUTOMATED COUNT 0.0 % Normal 0 [facility] Comment on above: Performed By: #### L [id number] #### [facility] ([facility]) [address] [place] [address] PLATELETS (10*3/UL) IN BLOOD AUTOMATED COUNT 209 10*3/uL Normal 150-400 [facility] Comment on above: Performed By: #### L [id number] #### [facility] ([facility]) [address] [place] [address] RBC (Bld) [#/Vol] 3.73 10*6/uL Low 4.20-5.70 [facility] Comment on above: Performed By: #### L [id number] #### [facility] ([facility]) [address] [place] [address] WBC (Bld) [#/Vol] 8.30 10*3/uL Normal 4.00-10.60 [facility] Comment on above: Performed By: #### L [id number] #### [facility] ([facility]) [address] [address] HPon 11-25-2023 HP H&P reviewed. The patient was examined and there are no changes to the H&P. Would add that L Uriah test is normal, and pulses in DP and PT are strong. We discussed expected risks and benefits, he understands and consents to proceed. Normal [facility] MAGNESIUMon 11-25-2023 Magnesium [Mass/Vol] 1.7 mg/dL Low 1.9-2.7 [facility] Comment on above: Performed By: #### L [id number] ####[facility] ([facility])[address] [place] [address] 30on 11-24-2023 30 The patient is Moderately [...] baseline comfort level Outcome: Progressing . Normal [facility] 30 The patient is Moderately Stable - [...] Free from fall injury Outcome: Progressing Normal [facility] 30 The patient is Moderately Stable - [...] acceptable level of pain Outcome: Progressing Normal [facility] 30 The patient is Moderately Stable - [...] and maintain environment to promote sleep. Normal [facility] 30 The patient is Moderately Stable - Low risk of patient condition declining or worsening The patient's goals for the shift include Go home The clinical goals for the shift include VSS Normal [facility] APTTon 11-24-2023 ACTIVATED PARTIAL THROMBOPLASTIN TIME IN PPP BY COAGULATION ASSAY 54.6 Seconds High 25.0-35.0 [facility] Comment on above: Order Comment: Check aPTT every 6 hours while on heparin infusion, or per protocol. Result Comment: Clin ical significance of the APTT is questionable in the presence of heparin. Performed By: #### L [id number] ####[facility] (AKER)[address] [place] [address] ACTIVATED PARTIAL THROMBOPLASTIN TIME IN PPP BY COAGULATION ASSAY 55.9 Seconds High 25.0-35.0 [facility] Comment on above: Order Comment: Check aPTT every 6 hours while on heparin infusion, or per protocol. Result Comment: Clin ical significance of the APTT is questionable in the presence of heparin. Performed By: #### L [id number] #### [facility] (BEAKER) [address] [place] [address] ACTIVATED PARTIAL THROMBOPLASTIN TIME IN PPP BY COAGULATION ASSAY 48.6 Seconds High 25.0-35.0 [facility] Comment on above: Result Comment: Clin ical significance of the APTT is questionable in the presence of heparin. Performed By: #### L [id number] #### [facility] ([facility]) [address] [place] [address] B-TYPE NATRIURETIC PEPTIDEon 11-24-2023 Natriuretic peptide B (Bld) [Mass/Vol] 284 pg/mL High 0-100 [facility] Comment on above: Performed By: #### L [id number] #### [facility] ([facility]) [address] [place] [address] Natriuretic peptide B (Bld) [Mass/Vol] 308 pg/mL High 0-100 [facility] Comment on above: Performed By: #### L [id number] ####[facility] ([facility])[address] [place] [address] CBC WITH AUTO DIFFERENTIALon 11-24-2023 Basophils (Bld) [#/Vol] 0.05 10*3/uL Normal 0.00-0.20 [facility] Comment on above: Performed By: #### L [id number] #### [facility] ([facility]) [address] [place] [address] Basophils/100 WBC (Bld) 0.6 % Normal 0.0-1.0 [facility] Comment on above: Performed By: #### L [id number] #### [facility] ([facility]) [address] [place] [address] Eosinophils (Bld) [#/Vol] 0.09 10*3/uL Normal 0.00-0.50 [facility] Comment on above: Performed By: #### L [id number] #### [facility] ([facility]) [address] [place] [address] Eosinophils/100 WBC (Bld) 1.1 % Normal 0.0-6.0 [facility] Comment on above: Performed By: #### L [id number] #### [facility] ([facility]) [address] [place] [address] Erythrocyte distribution width (RBC) [Ratio] 12.6 % Normal 11.5-15.0 [facility] Comment on above: Performed By: #### L [id number] #### [facility] ([facility]) [address] [place] [address] ERYTHROCYTE MEAN CORPUSCULAR HEMOGLOBIN CONCENTRATION (G/DL) BY AUTOMATED 33.3 g/dL Normal 32.0-35.0 [facility] Comment on above: Performed By: #### L [id number] #### [facility] ([facility]) [address] [place] [address] Hematocrit (Bld) [Volume fraction] 42.6 % Normal 39.0-55.0 [facility] Comment on above: Performed By: #### L [id number] #### [facility] ([facility]) [address] [place] [address] Hemoglobin (Bld) [Mass/Vol] 14.2 g/dL Normal 13.0-17.0 [facility] Comment on above: Performed By: #### L [id number] #### [facility] ([facility]) [address] [place] [address] Immature granulocytes (Bld) [#/Vol] 0.08 10*3/uL Normal 0.00-0.20 [facility] Comment on above: Performed By: #### L [id number] #### [facility] [address] [place] [address] Immature granulocytes/100 WBC (Bld) 0.9 % Normal 0.0-1.0 [facility] Comment on above: Performed By: #### L [id number] #### [facility] (BEAKER) [address] [place] [address] Lymphocytes (Bld) [#/Vol] 1.07 10*3/uL Low 1.20-4.00 [facility] Comment on above: Performed By: #### L [id number] #### [facility] (BEAKER) [address] [place], [place] [address] Lymphocytes/100 WBC (Bld) 12.7 % Low 20.0-45.0 [facility] Comment on above: Performed By: #### L [id number] #### [facility] ([facility]) [address] [place] [address] MCH (RBC) [Entitic mass] 32.4 pg Normal 27.0-33.0 [facility] Comment on above: Performed By: #### L [id number] #### [facility] ([facility]) [address] [place] [address] MCV (RBC) [Entitic vol] 97.3 fL Normal 82.0-98.0 [facility] Comment on above: Performed By: #### L [id number] #### [facility] ([facility]) [address] [place], [place] [address] Monocytes (Bld) [#/Vol] 0.54 10*3/uL Normal 0.10-1.00 [facility] Comment on above: Performed By: #### L [id number] #### [facility] ([facility]) [address] [place] [address] Monocytes/100 WBC (Bld) 6.4 % Normal 5.0-12.0 [facility] Comment on above: Performed By: #### L [id number] #### [facility] ([facility]) [address] [place] [address] Neutrophils (Bld) [#/Vol] 6.60 10*3/uL Normal 1.60-7.60 [facility] Comment on above: Performed By: #### L [id number] #### [facility] ([facility]) [address] [place] [address] Neutrophils/100 WBC (Bld) 78.3 % High 40.0-72.0 [facility] Comment on above: Performed By: #### L [id number] #### [facility] ([facility]) [address] [place] [address] NRBC (PER 100 WBCS) BY AUTOMATED COUNT 0.0 % Normal 0 [facility] Comment on above: Performed By: #### L [id number] #### [facility] ([facility]) [address] [place] [address] PLATELETS (10*3/UL) IN BLOOD AUTOMATED COUNT 159 10*3/uL Normal 150-400 [facility] Comment on above: Performed By: #### L [id number] #### [facility] ([facility]) [address] [place] [address] RBC (Bld) [#/Vol] 4.38 10*6/uL Normal 4.20-5.70 [facility] Comment on above: Performed By: #### L [id number] #### [facility] ([facility]) [address] [place] [address] WBC (Bld) [#/Vol] 8.43 10*3/uL Normal 4.00-10.60 [facility] Comment on above: Performed By: #### L [id number] #### [facility] ([facility]) [address] [place] [address] COMPREHENSIVE METABOLIC PANE Chris 11-24-2023 Albumin [Mass/Vol] 3.5 g/dL Normal 3.5-5.7 [facility] Comment on above: Performed By: #### L [id number] ####[facility] ([facility])[address] [place] [address] ALP [Catalytic activity/Vol] 87 U/L Normal 34-104 [facility] Comment on above: Performed By: #### L [id number] ####[facility] ([facility])[address] [place] [address] ALT [Catalytic activity/Vol] 16 U/L Normal 7-52 [facility] Comment on above: Performed By: #### L [id number] ####[facility] ([facility])[address] [place] [address] Anion gap [Moles/Vol] 18 mmol/L Normal 7-20 [facility] Comment on above: Performed By: #### L [id number] ####[facility] [place] [address] AST [Catalytic activity/Vol] 31 U/L Normal 13-39 [facility] Comment on above: Performed By: #### L [id number] ####[facility] [place] [address] Bilirubin [Mass/Vol] 0.6 mg/dL Normal 0.3-1.0 [facility] Comment on above: Performed By: #### L [id number] ####[facility] ([facility])[address] [place] [address] Calcium [Mass/Vol] 8.7 mg/dL Normal 8.6-10.3 [facility] Comment on above: Performed By: #### L [id number] ####[facility] [place] [address] Chloride [Moles/Vol] 108 mmol/L High 98-107 [facility] Comment on above: Performed By: #### L [id number] ####[facility] ([facility])[address] [place] [address] CO2 [Moles/Vol] 18 mmol/L Low 21-31 [facility] Comment on above: Performed By: #### L [id number] ####[facility] ([facility] [place] [address] Creatinine [Mass/Vol] 1.25 mg/dL Normal 0.70-1.30 [facility] Comment on above: Performed By: #### L [id number] ####[facility] ([facility])[address] [place] [address] GLOMERULAR FILTRATION RATE ML/MIN/1.73 SQ M.PREDICTED 57.5 mL/min/1.73m*2 Low >60.0 [facility] Comment on above: Result Comment: The [facility]???s estimated glomerular filtration rate (eGFR) will no [...] of individuals. Performed By: #### L [id number] ####[facility] ([facility])[address] [place] [address] Glucose [Mass/Vol] 97 mg/dL Normal 70-100 [facility] Comment on above: Performed By: #### L [id number] ####[facility] ([facility])[address] [place] [address] Potassium [Moles/Vol] 3.6 mmol/L Normal 3.5-5.1 [facility] Comment on above: Performed By: #### L [id number] ####[facility] ([facility])[address] [place] [address] Protein [Mass/Vol] 6.9 g/dL Normal 6.0-8.3 [facility] Comment on above: Performed By: #### L [id number] ####[facility] ([facility])[address] [place] [address] Sodium [Moles/Vol] 140 mmol/L Normal 136-145 [facility] Comment on above: Performed By: #### L [id number] ####[facility] ([facility])[address] [place] [address] Urea nitrogen [Mass/Vol] 28 mg/dL High 7-25 [facility] Comment on above: Performed By: #### L [id number] ####[facility] ([facility])[address] [place] [address] UREA NITROGEN/CREATININE (MASS RATIO) IN SER/PLAS 22.4 Normal [facility] Comment on above: Performed By: #### L [id number] ####[facility] ([facility])[address] [place] [address] CONSULTon 11-24-2023 CONSULT -- Attestation signed by [...] hyperlipidemia, hypothyroidism, CVA who presented from [facility] with chief complains of central chest [...] x 4 with mild slurred speech. At [facility], initial labs were completed showing WBC 10.7, [...] mg ca (more content not included)... Normal [facility] HEMOGLOBIN A1Con 11-24-2023 Glucose [Mass/Vol] 114 mg/dL Normal [facility] Comment on above: Performed By: #### L [id number] ####[facility] (BEAKER)[address] [place] [address] HbA1c (Bld) [Mass fraction] 5.6 % Normal 4.0-6.0 [facility] Comment on above: Performed By: #### L [id number] ####[facility] (BEAKER)[address] [place] [address] HPon 11-24-2023 HP -- Attestation signed by [...] hyperlipidemia, hypothyroidism, CVA who presented from [facility] with chief complains of central chest [...] x 4 with mild slurred speech. At [facility], initial labs were completed showing WBC 10.7, [...] mg ca (more content not included)... Normal [facility] LACTIC ACID, PLASMAon 06-19- 2024 LACTATE (MMOL/L) IN SER/PLAS 1.0 mmol/L Normal 0.5-2.2 [facility] Comment on above: Performed By: #### L [id number] #### [facility] (BEAKER) [address] [place], [place] [address] LIPID PANELon 11-24-2023 CHOL/HDL 3.4 mg/dL Normal [facility] Comment on above: Performed By: #### L [id number] ####[facility] (BEAKER)[address] [place] [address] Cholesterol [Mass/Vol] 71 mg/dL Low 120-200 [facility] Comment on above: Performed By: #### L [id number] ####[facility] ([facility] [place] [address] Magnesium [Mass/Vol] 146 mg/dL Normal 40-149 [facility] Comment on above: Result Comment: TRIG LYCERIDE REFERENCE RANGE: 20 YEARS AND OLDER CARDIOVASCULAR RISK LESS THAN 150 mg/dL LOW RISK 150 TO 199 mg/dL BORDERLINE RISK 200 mg/dL AND GREATER HIGH RISK Performed By: #### L [id number] ####[facility] ([facility] [place] [address] Magnesium [Mass/Vol] 21 mg/dL Low 23-92 [facility] Comment on above: Performed By: #### L [id number] ####[facility] (BEAKER)[address] [place] [address] NON HDL CHOL. (LDL+VLDL) 50 Normal [facility] Comment on above: Performed By: #### L [id number] ####[facility] ([facility]ER)[address] [place] [address] TOTAL VLDL-C 29 mg/dL Normal 0-40 [facility] Comment on above: Performed By: #### L [id number] ####[facility] (BEAKER)[address] [place] [address] MAGNESIUMon 11-24-2023 Magnesium [Mass/Vol] 1.8 mg/dL Low 1.9-2.7 [facility] Comment on above: Performed By: #### L [id number] ####[facility] ([employer])[address] [place] [address] Magnesium [Mass/Vol] 1.9 mg/dL Normal 1.9-2.7 [facility] Comment on above: Performed By: #### L [id number] ####[facility] ([employer])[address] [facility] [place] [address] PHOSPHORUSon 11-24-2023 Magnesium [Mass/Vol] 2.8 mg/dL Normal 2.5-5.0 [facility] Comment on above: Performed By: #### L [id number] ####[facility] ([employer])[address] [place] [address] PROTIME-INRon 11-24-2023 INR IN PPP BY COAGULATION ASSAY 1.29 High 0.90-1.10 [facility] Comment on above: Result Comment: ACCC P [...] CHEST 1995;[id number]. Performed By: #### L [id number] #### [facility] ([employer]) [address] [place] [address] PROTHROMBIN TIME (PT) IN PPP BY COAGULATION ASSAY 16.0 Seconds High 12.3-14.8 [facility] Comment on above: Performed By: #### L [id number] #### [facility] ([facility]) [address] [place] [address] TROPONIN Ion 11-24-2023 Troponin I.cardiac [Mass/Vol] 0.26 ng/mL Critically high 0.00-0.04 [facility] Comment on above: Result Comment: M-NC EVIOUS CRITICAL RESULT Previous result verified on 11/24/2023 06 on specimen/case [id number] called with component Troponin I for procedure Troponin I with value 0.35 ng/mL. Performed By: #### L [id number] #### [facility] ([facility]) [address] [place] [address] Result Comment: Prev ious result verified on 11/24/2023 06 on specimen/case [id number] called with component Troponin I for procedure Troponin I with value 0.35 ng/mL. Performed By: #### L [id number] #### [facility] ([facility]) [address] [place] [address] Troponin I.cardiac [Mass/Vol] 0.27 ng/mL Critically high 0.00-0.04 [facility] Comment on above: Result Comment: Prev ious result verified on 11/24/2023 0604 on specimen/case [id number] called with component Troponin I for procedure Troponin I with value 0.35 ng/mL. Performed By: #### L [id number] ####[facility] ([facility])[address] [place] [address] Troponin I.cardiac [Mass/Vol] 0.23 ng/mL Critically high 0.00-0.04 [facility] Comment on above: Result Comment: Prev ious result verified on 11/24/2023 06 on specimen/case [id number] called with component Troponin I for procedure Troponin I with value 0.35 ng/mL. Performed By: #### L [id number] ####[facility] ([facility])[address] [place] [address] Troponin I.cardiac [Mass/Vol] 0.35 ng/mL Critically high 0.00-0.04 [facility] Comment on above: Result Comment: RitaWILL ALINE INITIAL CRITICAL HIGH; RESPUN AND RETESTED Performed By: #### L [id number] ####[facility] (BEAKER)[address] [place] [address] CBC AUTO DIFFon 03-21-2021 BASO # 0.0 103/ul Normal 0.0-0.1 [facility] Comment on above: Performed By: #### C BC #### [facility] [address] [place] [address] Dr. Lukas Nino Basophils/100 WBC (Bld) 0.4 % Normal 0.2-2.0 [facility] Comment on above: Performed By: #### C BC #### [facility] [address] [place] [address] Dr. Lukas Nino EO # 0.1 103/ul Normal 0.0-0.7 [facility] Comment on above: Performed By: #### C BC #### [facility] [address] [address] [address] Lukas Nino Eosinophils/100 WBC (Bld) 1.4 % Normal 0.9-7.0 [facility] Comment on above: Performed By: #### C BC #### [facility] [address] [address] [address] Lukas Nino Erythrocyte distribution width (RBC) [Ratio] 13.0 % Normal 11.0-15.0 [facility] Comment on above: Performed By: #### C BC #### [facility] [address] [address] [address] Lukas Nino Hematocrit (Bld) [Volume fraction] 42.1 % Normal 42.0-54.0 [facility] Comment on above: Performed By: #### C BC #### [facility] [address] [address] [address] Lukas Nino Hemoglobin (Bld) [Mass/Vol] 14.5 g/dL Normal 14.0-18.0 [facility] Comment on above: Performed By: #### C BC #### [facility] [address] [place] [address] Dr. Lukas Nino IG # 0.03 10e3/ul Normal 0.00-0.03 [facility] Comment on above: Performed By: #### C BC #### [facility] [address] [place] [address] Dr. Lukas Nino IG % 0.4 % Normal 0.0-0.5 [facility] Comment on above: Performed By: #### C BC #### [facility] [address] [place] [address] Dr. Lukas Nino LYMPH # 1.7 103/ul Normal 1.2-3.8 [facility] Comment on above: Performed By: #### C BC #### [facility] [address] [place] [address] Dr. Lukas Nino Lymphocytes/100 WBC (Bld) 20.6 % Normal 20.5-60.0 [facility] Comment on above: Performed By: #### C BC #### [facility] [address] [place] [address] Dr. Lukas Nino MANUAL DIFF REQ NO Normal [facility] Comment on above: Performed By: #### C BC #### [facility] [address] [place] [address] Dr. Lukas Nino MCH (RBC) [Entitic mass] 33.0 pg Normal 25.9-34.0 [facility] Comment on above: Performed By: #### C BC #### [facility] [address] [place] [address] Dr. Lukas Nino MCHC (RBC) [Mass/Vol] 34.4 g/dL Normal 29.9-35.2 [facility] Comment on above: Performed By: #### C BC #### [facility] [address] [place] [address] Dr. Lukas Nino MCV (RBC) [Entitic vol] 95.9 fL Critically high 80.0-94.0 [facility] Comment on above: Performed By: #### C BC #### [facility] [address] [address] [address] Lukas Nino MONO # 0.6 103/ul Normal 0.3-0.8 [facility] Comment on above: Performed By: #### C BC #### [facility] [address] [address] [address] Lukas Nino Monocytes/100 WBC (Bld) 7.2 % Normal 1.7-12.0 [facility] Comment on above: Performed By: #### C BC #### [facility] [address] [address] [address] Lukas Nino NEUT # 5.6 103/ul Normal 1.4-6.5 [facility] Comment on above: Performed By: #### C BC #### [facility] [address] [address] [address] Lukas Nino Neutrophils/100 WBC (Bld) 70.0 % Normal 43.0-75.0 [facility] Comment on above: Performed By: #### C BC #### [facility] [address] [address] [address] Lukas Nino Platelet mean volume (Bld) [Entitic vol] 11.1 fL Normal 9.5-13.5 [facility] Comment on above: Performed By: #### C BC #### [facility] [address] [place] [address] Dr. Lukas Nino PLT 129 103/ul Critically low 150-450 [facility] Comment on above: Result Comment: few plt clumps Performed By: #### C BC #### [facility] [address] [place] [address] [address] Lukas Nino RBC 4.39 106/ul Critically low 4.70-6.10 [facility] Comment on above: Performed By: #### C BC #### [facility] [address] [place] [address] [address] Lukas Nino WBC 8.0 103/ul Normal 4.0-11.0 [facility] Comment on above: Performed By: #### C BC #### [facility] [address] [place] [address] [address] Lukas Nino FREE THYROXINE INDEX T7on FTI 2.05 Normal [facility] Comment on above: Performed By: #### T SH, CMP, LIPID, URIC, T7 #### [facility] [address] [place] [address] [address] Lukas Nino T3U 33.0 % Normal 23.5-40.5 [facility] Comment on above: Performed By: #### T SH, CMP, LIPID, URIC, T7 #### [facility] [address] [place] [address] [address] Lukas Nino T4 [Mass/Vol] 6.20 ug/dL Normal 5.53-11.00 [facility] Comment on above: Performed By: #### T SH, CMP, LIPID, URIC, T7 #### [facility] [address] [place] [address] Dr. Lukas Nino GLYCOHEMOGLOBIN A1Con 2020 ADA RECOMMENDATION ADA THERAPEUTIC TARG ET 6.0 - 7.0 ACTION SUGGESTED > 7.0 Normal [facility] Comment on above: Performed By: #### A 1C #### [facility] [address] [place] [address] Dr. Lukas Nino Glucose [Mass/Vol] 103 mg/dL Normal [facility] Comment on above: Performed By: #### A 1C #### [facility] [address] [place] [address] Dr. Lukas Nino HbA1c (Bld) [Mass fraction] 5.2 % Normal <=6.0 [facility] Comment on above: Performed By: #### A 1C #### [facility] [address] [place] [address] Dr. Lukas Nino LIPID PROFILEon 03-21-2021 CHOL-HDL RATIO NORM SEE BELOW Normal [facility] Comment on above: Result Comment: 3.3 - 4.4 LOW RISK 4.4 - 7.1 AVERAGE RISK 7.1 - 11.0 MODERATE RISK >11.0 HIGH RISK Performed By: #### T SH, CMP, LIPID, URIC, T7 #### [facility] [address] [address] [address] Lukas Nino Cholesterol [Mass/Vol] 121 mg/dL Normal <=200 [facility] Comment on above: Performed By: #### T SH, CMP, LIPID, URIC, T7 #### [facility] [id number] Lukas Nino Cholesterol in HDL [Mass/Vol] 38 mg/dL Normal [facility] Comment on above: Performed By: #### T SH, CMP, LIPID, URIC, T7 #### [facility] [address] [place] [address] [address] Lukas Nino Cholesterol in LDL [Mass/Vol] 66.4 mg/dL Normal [facility] Comment on above: Performed By: #### T SH, CMP, LIPID, URIC, T7 #### [facility] [address] [address] [address] Lukas Nino Cholesterol.total/Ch olesterol in HDL [Mass ratio] 3.2 {ratio} Normal [facility] Comment on above: Performed By: #### T SH, CMP, LIPID, URIC, T7 #### [facility] [address] [address] [address] Lukas Nino HDL NORMAL > or = 60 mg/dl - LO W CARDIOVASCULAR RISK <40 mg/dl - HIGH CARDIOVASCULAR RISK Normal [facility] Comment on above: Performed By: #### T SH, CMP, LIPID, URIC, T7 #### [facility] [address] [place] [address] [address] Lukas Nino LDL CALC NORMAL SEE BELOW Normal [facility] Comment on above: Result Comment: <100 mg/dl OPTIMAL 100 - 129 mg/dl NEAR OR ABOVE OPTIMAL 130 - 159 mg/dl BORDERLINE HIGH 160 - 189 mg/dl HIGH >190 mg/dl VERY HIGH Performed By: #### T SH, CMP, LIPID, URIC, T7 #### [facility] [id number] Lukas Nino Triglyceride [Mass/Vol] 83 mg/dL Normal <=150 [facility] Comment on above: Performed By: #### T SH, CMP, LIPID, URIC, T7 #### [facility] [address] [place] [address] Dr. Lukas Nino VLDL CALC 16.6 mg/dL Normal [facility] Comment on above: Performed By: #### T SH, CMP, LIPID, URIC, T7 #### [facility] [address] [place] [address] Dr. Lukas Nino PROF 14(COMP METB)on 021 Albumin [Mass/Vol] 3.7 g/dL Normal 3.5-5.0 [facility] Comment on above: Performed By: #### T SH, CMP, LIPID, URIC, T7 #### [facility] [address] [place] [address] Dr. Lukas Nino Albumin/Globulin [Mass ratio] 1.0 {ratio} Normal [facility] Comment on above: Performed By: #### T SH, CMP, LIPID, URIC, T7 #### [facility] [address] [place] [address] Dr. Lukas Nino ALP [Catalytic activity/Vol] 86 U/L Normal 38-126 [facility] Comment on above: Performed By: #### T SH, CMP, LIPID, URIC, T7 #### [facility] [address] [place] [address] Dr. Lukas Nino ALT [Catalytic activity/Vol] 18 U/L Critically low 21-72 [facility] Comment on above: Performed By: #### T SH, CMP, LIPID, URIC, T7 #### [facility] [address] [place] [address] Dr. Lukas Nino Anion gap [Moles/Vol] 9.5 mmol/L Normal [facility] Comment on above: Performed By: #### T SH, CMP, LIPID, URIC, T7 #### [facility] [address] [place] [address] Dr. Lukas Nino AST [Catalytic activity/Vol] 18 U/L Normal 17-59 [facility] Comment on above: Performed By: #### T SH, CMP, LIPID, URIC, T7 #### [facility] [address] [place] [address] Dr. Lukas Nino Bilirubin [Mass/Vol] 0.8 mg/dL Normal 0.2-1.3 [facility] Comment on above: Performed By: #### T SH, CMP, LIPID, URIC, T7 #### [facility] [address] [place] [address] Dr. Lukas Nino Calcium [Mass/Vol] 8.9 mg/dL Normal 8.4-10.2 [facility] Comment on above: Performed By: #### T SH, CMP, LIPID, URIC, T7 #### [facility] [address] [address] [address] Lukas Nino Chloride [Moles/Vol] 106 mmol/L Normal 98-107 [facility] Comment on above: Performed By: #### T SH, CMP, LIPID, URIC, T7 #### [facility] [address] [place] [address] Dr. Lukas Nino CO2 [Moles/Vol] 28.2 mmol/L Normal 22.0-30.0 [facility] Comment on above: Performed By: #### T SH, CMP, LIPID, URIC, T7 #### [facility] [address] [address] [address] Lukas Nino Creatinine [Mass/Vol] 1.26 mg/dL Critically high 0.66-1.25 [facility] Comment on above: Performed By: #### T SH, CMP, LIPID, URIC, T7 #### [facility] [address] [place] [address] Dr. Lukas Nino EGFR-AF MONTENEGRIN >60 Normal >=60 [facility] Comment on above: Performed By: #### T SH, CMP, LIPID, URIC, T7 #### [facility] [address] [address] [address] Lukas Nino EGFR-NON AF MONTENEGRIN 55 mL/min/1.73m2 Critically low >=60 [facility] Comment on above: Performed By: #### T SH, CMP, LIPID, URIC, T7 #### [facility] [address] [place] [address] Dr. Lukas Nino Globulin (S) [Mass/Vol] 3.7 g/dL Normal [facility] Comment on above: Performed By: #### T SH, CMP, LIPID, URIC, T7 #### [facility] [address] [place] [address] [address] Lukas Nino Glucose [Mass/Vol] 76 mg/dL Normal 74-106 [facility] Comment on above: Performed By: #### T SH, CMP, LIPID, URIC, T7 #### [facility] [address] [place] [address] Dr. Lukas Nino Potassium [Moles/Vol] 3.7 mmol/L Normal 3.4-5.0 [facility] Comment on above: Performed By: #### T SH, CMP, LIPID, URIC, T7 #### [facility] [address] [place] [address] Dr. Lukas Nino Protein [Mass/Vol] 7.4 g/dL Normal 6.1-8.2 [facility] Comment on above: Performed By: #### T SH, CMP, LIPID, URIC, T7 #### [facility] [address] [place] [address] Dr. Lukas Nino Sodium [Moles/Vol] 140 mmol/L Normal 137-145 [facility] Comment on above: Performed By: #### T SH, CMP, LIPID, URIC, T7 #### [facility] [address] [place] [address] Dr. Lukas Nino Urea nitrogen [Mass/Vol] 15.0 mg/dL Normal 9.0-20.0 [facility] Comment on above: Performed By: #### T SH, CMP, LIPID, URIC, T7 #### [facility] [address] [place] [address] Dr. Lukas Nino Urea nitrogen/Creatinine [Mass ratio] 11.9 mg/mg Normal [facility] Comment on above: Performed By: #### T SH, CMP, LIPID, URIC, T7 #### [facility] [address] [place] [address] Dr. Lukas Nino TSHon 03-21-2021 TSH 2.594 uIU/mL Normal 0.470-4.680 [facility] Comment on above: Performed By: #### T SH, CMP, LIPID, URIC, T7 #### [facility] [address] [place], [place] [address] Dr. Lukas Nino TSH RANGE SEE BELOW Normal [facility] Comment on above: Result Comment: <0.3 4 UIU/ml HYPERTHYROID 0.34-5.60 UIU/ml EUTHYROID >5.60 UIU/ml HYPOTHYROID Performed By: #### T SH, CMP, LIPID, URIC, T7 #### [facility] [address] [place] [address] [address] Lukas Nino URIC ACID SERUMon 03-21-2021 Urate [Mass/Vol] 6.5 mg/dL Normal 3.5-8.5 [facility] Comment on above: Performed By: #### T SH, CMP, LIPID, URIC, T7 #### [facility] [address] [address] [address] Lukas Nino Vital Signs Date Time Vital Sign Value Performing Clinician Faci lity 08-07-2024 09:15-0500 Body height 175.3 cm Anahy Tavera LAUNDRY FOLDER Work Phone: [facility] 08-07-2024 09:15-0500 Body mass index (BMI) [Ratio] 30.27 kg/m2 Anahy Tavera LAUNDRY FOLDER Work Phone: [facility] 08-07-2024 09:15-0500 Body weight 92.99 kg Anahy Tavera LAUNDRY FOLDER Work Phone: [facility] 08-07-2024 09:15-0500 Diastolic blood pressure 86 mm[Hg] Anahy Tavera LAUNDRY FOLDER Work Phone: [facility] 08-07-2024 09:15-0500 Systolic blood pressure 128 mm[Hg] Anahy Tavera LAUNDRY FOLDER Work Phone: [facility] Healthcare Encounters Encounter Date Encounter Type Care Provider Facility Start: 10-13-2024 End: 10-13-2024 ambulatory [facility] Start: 08-07-2024 End: 08-07-2024 Bamboo flowsheet Anahy Tavera LAUNDRY FOLDER Work Phone: [facility] Start: 08-07-2024 End: 08-07-2024 Bamboo flowsheet Anahy Vanessaoll LAUNDRY FOLDER Work Phone: [facility] Start: 08-07-2024 End: 08-07-2024 ambulatory ANAHY VANESSAOLL Not Available Start: 08-07-2024 End: 08-07-2024 Office outpatient visit 15 minutes Anahy Jhonathan LAUNDRY FOLDER Work Phone: [facility] Comment on above: Stroke-like symptoms (Primary Dx); Hypertension, unspecified type (CMS/HCC); Hyperlipidemia, unspecified hyperlipidemia type (CMS/HCC) Start: 07-19-2024 End: 07-19-2024 ambulatory [facility] Start: 06-12-2024 End: 06-12-2024 ambulatory JAKE [facility] Start: 05-16-2024 [facility] Start: 05-15-2024 End: 05-19-2024 [facility] Start: 05-09-2024 End: 05-09-2024 ambulatory [facility] Start: 01-07-2024 End: 01-07-2024 ambulatory [facility] [place] [facility] Start: 12-08-2023 End: 12-08-2023 ambulatory [facility] [place] [facility] Start: 11-25-2023 Evaluation and manag ement of inpatient FLORENTIN TAVARES [facility] Start: 11-25-2023 Evaluation and manag ement of inpatient LESLEE [facility] Start: 11-25-2023 Evaluation and manag ement of inpatient [facility] Start: 11-24-2023 Evaluation and manag ement of inpatient [facility] Start: 11-24-2023 [facility] Start: 11-24-2023 End: 11-26-2023 Evaluation and management of inpatient MAGAN Bradley [facility] Start: 04-29-2021 End: 04-30-2021 ambulatory TRAMAINE GOLDEN Facility:[facility] Start: 03-21-2021 End: 03-21-[address] JAKE CHOWDHURY Facility:[facility] Start: 08-27-2020 End: 08-28-[address] ROA LISTED REQUEST Facility:[facility] Start: 08-05-2020 End: 08-06-[address] JAKE CHOWDHURY Facility:[facility] Procedures Date Procedure Procedure Detail Performing Clinician Start: 03-21-[address] ORA L ISTED REQUEST Comment on above: Performed By: #### P [facility] #### [facility] [address] [place] [address] Dr. Lukas Nino Plan of Treatment Date Care Activity Detail Author Start: 12-18-2024 End: 12-18-2024 Patient encounter procedure 12/18/2024 1:20 PM EDT Office Visit RUBI ADRIANA [address] [place] [phone] Anahy Tavera NP [address] [place] [phone] [facility] Start: 02-06-2024 Influenza vaccination Influenza Vacc ine (#1) [facility] Immunizations Immunization Date Immunization Notes Care Provider Boris mary 03-27-2022 influenza virus vacc ine, unspecified formulation Anahy Tavera NP Work Phone: [facility] Payers Date Payer Category Payer Medicare (Managed Care) [employer] [id number] 1958 Medicare [id number] 1958 Self-pay [id number] 1940 Unknown [id number] [id number]. 2.593 1941 Unknown [id number] [id number]. 2.1286 1941 Unknown [id number] [id number]. 2.128 1941 Unknown [id number] [id number]. 2.1286 1941 Unknown [id number] [id number]. 2.1285 1941 Unknown [id number] [id number]. 2.1286 1941 Unknown [id number] [id number]. 2.1286 1941 Unknown [id number] [id number]. 2.1286 1941 Unknown [id number] [id number]. 2.1259 Unknown [id number] 2.16.840.1.052884.3.579. 2.593 Unknown [id number] 2.16.840.1.538562.3.579. 2.593 Unknown [id number] [id number]. 2.593 Social History Date Type Detail Facility [facility] Start: 1940 Sex assigned at Not on file [facility] Start: 06-07-2024 Gender identity Identifies as male gender (finding) [facility] Start: 06-07-2024 Sexual orientation Heterosexual (fin ding) [facility] Start: 08-07-2024 Tobacco smoking stat [facility] Never smoked tobacco [facility] Start: 08-07-2024 Tobacco use and exposure Smokeless t obacco non-user [facility] Start: 08-07-2024 Alcoholic beverage intake Life time non-drinker (finding) [facility] Start: 08-07-2024 History of Social function [facility] Start: 08-07-2024 Tobacco use panel [facility] Clinical Notes 11-24-2023 to 10-13-2024 Anahy Tavera NP - 08/07/2024 9:00 AM ESTPatient Instructions Note Date & Type Note Facility 10-13-2024 Note [facility] Tom Mayorga is a 84 y.o. year old male patient being seen for Coronary Artery Disease (Denies chest pain and SOB. ), Congestive Heart Failure (Son states his sister told him his father had some LLE edema last week but it's improving. He says he hasn't had trouble getting his shoes on. ), Hypertension, Hyperlipidemia (Had lipid panel in May 2024. ), and probable stroke (Recently wore event monitor.) Patient Active Problem List Diagnosis Elevated troponin Chest pain History of CVA (cerebrovascular accident) Primary hypertension HLD (hyperlipidemia) Acquired hypothyroidism Coronary artery disease involving pit river coronary artery of pit river heart without angina pectoris NSTEMI (non-ST elevated myocardial infarction) (CMS/HCC) Enlarged RV (right ventricle) Acute embolism and thrombosis of deep veins of right upper extremity (CMS/HCC) Acute gastroenteritis Altered mental status At risk for falls Cellulitis Cerebral infarction due to carotid artery occlusion (CMS/HCC) Coronary angioplasty status Edema Foot pain Gastroesophageal reflux disease Hyperkalemia Hypoglycemia Laceration without foreign body of other finger with damage to nail, initial encounter Moderate left ventricular hypertrophy Other bursitis of elbow, left elbow Peripheral neuropathy Prostatitis Type 2 diabetes mellitus without complications (CMS/HCC) Chronic diastolic congestive heart failure (CMS/HCC) Vascular dementia (CMS/HCC) HPI The patient is a 84-year-old male who used to follow with Dr Clarke. He has history of coronary artery disease and prior angioplasty, chronic diastolic heart failure, prior stroke, hyper tension, hyperlipidemia and hypothyroidism. On 05/16/2024 he was admitted to [facility] with headache associated with numbness and weakness of the left arm and left leg. CT angio of the head and carotid showed diminutive left vertebral artery but no significant stenosis or occlusions. He did not have MRI because he could not tolerate that but he had a repeat CT of the brain which did not show significant area of ischemia. His echo showed normal left ventricular systolic function. During hospitalization he had a recurrent episode of transient neurologic symptoms including expressive aphasia lasted for short duration and he had headache associated with that. And repeat CT and CT angiogram was negative. EEG was negative for epileptiform activity The conclusion was that the patient may have sleep-related disorder because both episodes of neurologic symptoms occurred upon waking up from sleep and he had persistent headache. It was felt that he might have had a small ischemic stroke not visible on CT scan. It was recommended to continue aspirin and Plavix and follow-up with neurology as outpatient. Sleep study and event monitor were recommended. He is following with neurology as outpatient who did not recommend at this point any further evaluation The patient is here today for follow-up visit with his son. He states that he has been doing very well. No recurrence of neurological symptoms. He denies any chest pain or shortness of breath at rest or with exertion. Denies orthopnea or paroxysmal nocturnal dyspnea or dizziness or palpitations. He is daughter noted that he had some legs edema particularly of the left lower extremity and it is usually around the feet, better after he started taking small dose of Lasix. He denies any leg discomfort with exertion next line patient and his son denies that he snores. He denies being sleepy or tired during the daytime. No reported stopping breathing during the night. ROS All systems were reviewed and they were negative except for the positive findings noted above in the history Past Medical History: Diagnosis Date Acquired hypothyroidism 11/24/2023 CHF (congestive heart failure) ([facility]) Coronary artery disease History of CVA (cerebrovascular accident) 11/24/2023 HLD (hyperlipidemia) 11/24/2023 Myocardial infarction ([facility]) Primary hypertension 11/24/2023 Stroke ([facility]) Past Surgical History: Procedure Laterality Date CARDIAC CATHETERIZATION Family History Problem Relation Name Age of Onset No Known Problems Mother No Known Problems Father Social History Tobacco Use Smoking status: Never Smokeless tobacco: Never Substance Use Topics Alcohol use: Not Currently Allergies No Known Allergies Medications Current Outpatient Medications: amLODIPine (Norvasc) 10 mg tablet, Take 1 tablet (10 mg) by mouth in the morning., Disp: 90 tablet, Rfl: 3 aspirin 81 mg chewable tablet, Chew 81 mg in the morning., Disp: , Rfl: atorvastatin (Lipitor) 80 mg tablet, Take 1 tablet (80 mg) by mouth at bedtime. (Patient taking differently: Take 40 mg by mouth at bedtime.), Disp: 30 tablet, Rfl: 0 carvedilol (Coreg) 3.125 mg tablet, Take 1 tablet (3.125 mg) by (more content not included)... [facility] 08-07-2024 History of Present illness Narrative Images from the original note were not included. Chief Complaint Patient presents with Hospital Follow-up Subjective Jorgito Mayorga is a 84 y.o. male. History of Present Illness The patient presents today for a post-hospital follow-up appointment. He is accompanied by his stepsonCalvin. He was hospitalized at [facility] from 05/15/2024 to 05/19/2024. The patient initially presented to [facility] on 05/15/2024 due to altered mental status, left-sided weakness, left upper extremity numbness, and severe, sudden onset headache. Calvin states the patient could not feel his left arm or hand at the time and had increased forgetfulness and confusion. His NIH stroke scale score in the ED was 2. His blood pressure was 198/111 per documentation. He was administered aspirin and Plavix and transferred to [facility] due to concern for acute CVA. While in the hospital, the patient had a CT of the brain completed which did not identify any acute intracranial process and EEG which did not identify seizure or epileptiform activity. He was unable to tolerate an MRI, so this was not completed. The patient states, I hate them things, in regard to MRIs. All of the patient's presenting symptoms have resolved. He resided at the [facility] for 2 weeks following hospital discharge for physical therapy and occupational therapy but denies any current therapy. He denies confusion, numbness, paresthesias, or weakness. He denies any recent headaches. He denies loss of consciousness, alteration of awareness, involuntary movements, or tonic-clonic activity. Review of Systems Constitutional: Positive for fatigue. Negative for appetite change, chills, fever and unexpected weight change. HENT: Negative for trouble swallowing and voice change. Eyes: Negative for visual change, double vision or loss of vision Respiratory: Negative for cough, shortness of breath and wheezing. Cardiovascular: Negative for chest pain and palpitations. Gastrointestinal: Negative for abdominal pain, blood in stool, nausea and vomiting. Musculoskeletal: Positive for arthralgias. Negative for gait problem and myalgias. Neurological: Negative for dizziness, tremors, seizures, syncope, facial asymmetry, speech difficulty, weakness, light-headedness, numbness and headaches. Psychiatric/Behavioral: Negative for confusion, hallucinations and suicidal ideas. The patient is not nervous/anxious. Home Medication List amLODIPine 10 MG tablet; Commonly known as: Norvasc aspirin 81 MG chewable tablet atorvastatin 40 MG tablet; Commonly known as: Lipitor carvedilol 3.125 MG tablet; Commonly known as: Coreg furosemide 40 MG tablet; Commonly known as: Lasix levothyroxine 50 MCG tablet; Commonly known as: Synthroid, Levoxyl pantoprazole 40 MG EC tablet; Commonly known as: ProtoNix potassium chloride CR 10 MEQ ER tablet; Commonly known as: Klor-Con QUEtiapine 50 MG tablet; Commonly known as: SEROquel tamsulosin 0.4 MG 24 hr capsule; Commonly known as: Flomax Past Medical History: Diagnosis Date Hyperlipidemia (CMS/HCC) Hypertension (CMS/HCC) Ischemic stroke (CMS/HCC) Myocardial infarction (CMS/HCC) 12/2023 Past Surgical History: Procedure Laterality Date CHOLECYSTECTOMY CORONARY ANGIOPLASTY WITH STENT PLACEMENT 12/2023 CT GUIDED TRANSVAGINAL TRANSRECTAL FLUID DRAIN 05/18/2024 CT GUIDED TRANSVAGINAL TRANSRECTAL FLUID DRAIN 05/18/2024 No family history on file. Social History Tobacco Use Smoking status: Never Smokeless tobacco: Never Substance Use Topics Alcohol use: Never Allergies: Patient has no known allergies. Vitals: 08/07/24 0915 BP: 128/86 Body mass index is 30.27 kg/m . weight: 205 lb Neurologic exam: Mental status and general appearance: Awake and alert with unlabored respirations. Oriented to person, place, and time. Recent and remote memory are primarily intact. Speech is clear and fluent without aphasia. Speech is non-dysarthric. Attention and concentration are normal. Fund of knowledge is appropriate for level of education. Pleasant. Cranial nerves: CN II: Visual acuity is normal. Visual walters full to confrontation. CN III, IV, : Pupils are equal, round, and reactive to light. Extraocular movements intact. No ptosis present. CN V: Facial sensation is normal. CN VII: Full and symmetric facial movement. CN VIII: Hearing is normal to finger rub bilaterally. CN IX and X: Palate elevates symmetrically. CN XI: Shoulder shrug is normal bilaterally. CN XII: Tongue is midline without atrophy or fasciculation. Motor: RUE strength deltoid , biceps , triceps , wrist extensors , wrist flexor , and parcel post weigher strength 5/5. LUE strength deltoid , biceps , triceps , wrist extensors , wrist flexor , and parcel post weigher strength 5/5. RLE strength iliopsoas, quadriceps, tibialis anterior, and plantar flexion strength 5/5. LLE strength iliopsoas, quadriceps, tibialis anterior, and plantar flexion strength 5/5. Tone and bulk are normal. Sensory: Sensation is intact to light touch throughout all four extremities. Reflexes: RUE biceps reflex 2+ , brachioradialis reflex 2+. LUE biceps reflex 2+ , brachioradialis reflex 2+. RLE knee reflex 1+. LLE knee reflex 1+. Coordination: Qezgdy-at-vboe testing normal. Rapid alternating movements are normal. Gait: Steady with use of cane. Review and summary of old records: Video EEG monitoring on 05/19/2024: Abnormal due to the presence of mild generalized background slowing and intermittent left temporal slowing, consistent with encephalopathy of nonspecific etiology. No epileptiform activities are noted, and no electrographic seizures are recorded. Echocardiogram to the 05/17/2024: Ejection fraction of 60-65%. No mention of mass, vegetation, or thrombus. CTA of the head and neck on 05/15/2024: Markedly diminutive left vertebral artery with occlusion versus below level of the detectability of the skull base. Basilar artery is fed by the right vertebral artery. Normal CT angiogram of the brain. Age-related atrophy and chronic changes of the brain. CT of the brain on 05/15/2024: No acute intracranial abnormality. No acute intracranial infarct visualized by this modality. No acute intracranial hemorrhage. Chronic deformity of the medial wall of the right orbit, consistent with old trauma. Moderate cerebral volume loss and periventricular white matter hypodensity, likely chronic white matter ischemic disease. ECG on 05/15/2024: Atrial rhythm. Nonspecific T-wave abnormality. Labs on 05/19/2024: ESR 17 (WNL). Platelet inhibition P2Y12 128. TSH 7.31 (high) and free T4 0.76 (WNL) - patient to follow up with primary care provider to address. Ammonia level 29. Labs on 05/16/2024: Total cholesterol 123, triglycerides 92, HDL 39, LDL 66. Hemoglobin A1c 5.8%. Labs on 05/15/2024: CBC unremarkable aside from platelet 136,000. CMP with BUN 19 (high), creatinine 1.42 (high), GFR 58 (low); otherwise unremarkable. Assessment/Plan Diagnoses and all orders for this visit: Stroke-like symptoms Hypertension (CMS/HCC) Hyperlipidemia (CMS/HCC) The patient was evaluated at [facility] in mid May 2024 for stroke-like symptoms. He initially presented to [facility] ED on 05/15/2024 due to altered mental status, left-sided weakness, left upper extremity numbness, and severe, sudden onset headache and was subsequently transferred to [facility]. CT of the brain on 05/15/2024 identified no acute intracranial abnormality to explain his symptoms. CTA of the head and neck identified markedly diminutive left vertebral artery with occlusion versus below level of the detectability of the skull base; otherwise generally unremarkable. LDL was 66, and hemoglobin A1c was 5.8%. The patient did have a recurrent episode of transient neurologic symptoms during his hospitalization at which time he had headache and short-lasting expressive aphasia. Repeat CT brain and CTAs were negative per discharge documentation. Video EEG on 05/19/2024 revealed no seizure or epileptiform activity. While etiology for the patient's symptoms is ultimately unclear, consideration is given to small subcortical stroke not visible on CT. He could not tolerate an MRI for more detailed evaluation. The patient reports resolution of all presenting symptoms and denies recurrence of stroke-like symptoms since hospital discharge. He completed PT and OT at [facility] and has since returned home. PLAN: - Continue aspirin 81 mg by mouth once a day and Plavix 75 mg by mouth once a day for secondary stroke prevention - Continue statin (management per primary care provider; goal LDL < 70) - I counseled the patient on lifestyle interventions including healthy diet and regular physical activity - I recommended NO tobacco use and limited alcohol intake - I advised the patient to follow up closely with his primary care provider for close management of blood pressure, cholesterol levels, and blood glucose to help reduce the risk of future stroke - I counseled the patient on signs and symptoms of stroke and educated the patient to seek emergent care in the emergency department if he develops any of these in the future. He verbalizes understanding - Could consider MRI of the brain and/or longer-term EEG monitoring if symptoms recur in the future Diagnosis and treatment options discussed in detail. All questions answered. The patient and his stepson verbalize understanding and are agreeable to the plan. Discussion in layman's terms. Follow up in the office within 2 months; sooner if needed for new or worsening symptoms. Anahy Tavera NP [facility] Advanced Neurology documented in this encounter [facility] 08-07-2024 Instructions Anahy Tavera NP - 08/07/2024 9:00 AM EST - Continue aspirin 81 mg by mouth once a day and Plavix 75 mg by mouth once a day for secondary stroke prevention - Continue statin documented in this encounter [facility] 07-19-2024 Note [facility] CARDIOLOGY PROGR ESS NOTE HPI: Jorgito Mayorga is a 84 y.o. male here for routine f/U after recent NSTEMI- card cath with PCI to LAD HPI 83 yo male presents today for f/U Known past medical history of hypertension, hyperlipidemia, hypothyroidism, CVA, CAD s/p PCI Patient here for follow up probable ischemic stroke in May 2024. He has home health care coming to his house once a week. Patient feels well, as he denies chest pain, SOB, palpitations, and lightheadedness/syncope. Patient adamantly denies any cardiac complaints or concerns. Patient denies any chest pain or shortness of breath. Patient denies any lower extremity edema, orthopnea, or proximal nocturnal dyspnea. No near-syncope or syncope. No dizziness or lightheadedness. Review of Systems All other systems reviewed and are negative. Cardiology ROS: 10 point ROS is performed and is negative unless otherwise specified in HPI. Visit Vitals Ht 1.753 m (5' 9 ) Wt 93 kg (205 lb) BMI 30.27 kg/m??? Smoking Status Never BSA 2.13 m??? No Known Allergies Medications: Current Outpatient Medications on File Prior to Visit Medication Sig Dispense Refill amLODIPine (Norvasc) 10 mg tablet Take 1 tablet (10 mg) by mouth in the morning. 90 tablet 3 aspirin 81 mg chewable tablet Chew 81 mg in the morning. atorvastatin (Lipitor) 80 mg tablet Take 1 tablet (80 mg) by mouth at bedtime. (Patient taking differently: Take 40 mg by mouth at bedtime.) 30 tablet 0 carvedilol (Coreg) 3.125 mg tablet Take 1 tablet (3.125 mg) by mouth with breakfast and with evening meal. 180 tablet 3 clopidogrel (Plavix) 75 mg tablet Take 1 tablet (75 mg) by mouth once daily as directed. 90 tablet 3 furosemide (Lasix) 40 mg tablet Take 1 tablet (40 mg) by mouth in the morning. 90 tablet 3 levothyroxine (Synthroid, Levoxyl) 50 mcg tablet Take 50 mcg by mouth before breakfast. pantoprazole (ProtoNix) 40 mg EC tablet Take 40 mg by mouth before breakfast. potassium chloride CR (Klor-Con M10) 10 mEq ER tablet Take 1 tablet (10 mEq) by mouth in the morning. Do not crush or chew. 90 tablet 3 QUEtiapine (SEROquel) 50 mg tablet Take 50 mg by mouth at bedtime. tamsulosin (Flomax) 0.4 mg 24 hr capsule Take 0.4 mg by mouth in the morning. blood pressure test kit-large kit 1 kit if needed (take BP 2 hours AFTER AM meds and PM meds). 1 kit 0 clopidogrel (Plavix) 75 mg tablet Take 1 tablet (75 mg) by mouth in the morning. Do not start before November 27, 2023. 30 tablet 0 metoprolol succinate XL (Toprol-XL) 25 mg 24 hr tablet Take 0.5 tablets (12.5 mg) by mouth in the evening. Do not crush or chew. (Patient not taking: Reported on 05/09/2024) 15 tablet 0 pravastatin (Pravachol) 40 mg tablet Take 40 mg by mouth in the morning. [DISCONTINUED] amLODIPine (Norvasc) 5 mg tablet Take 5 mg by mouth in the morning and at bedtime. No current facility-administered medications on file prior [...] have been reviewed CV Testing: Cardiac cath (more content not included)... [facility] 05-09-2024 Note UTP CARDIOLOGY PROGR ESS NOTE HPI: Jorgito Mayorga is a 84 y.o. male here for routine f/U after recent NSTEMI- card cath with PCI to LAD HPI 83 yo male presents today for f/U Known past medical history of hypertension, hyperlipidemia, hypothyroidism, CVA, CAD s/p PCI Patient here for 4 mo follow up CAD, hypertension, and chronic diastolic heart failure. Doing well but isn't sure he's taking his medications. Denies chest pain, SOB, and palpitations. Does not keep track of his weight at home, as he does not own a scale. He will resume cardiac rehab once his is healed from recent surgery. Review of Systems All other systems reviewed and are negative. Cardiology ROS: 10 point ROS is performed and is negative unless otherwise specified in HPI. Visit Vitals BP (!) 184/102 (BP Location: Right arm, Patient Position: Sitting) Pulse 65 Ht 1.753 m (5' 9 ) Wt 91.2 kg (201 lb) SpO2 98% BMI 29.68 kg/m??? Smoking Status Never BSA 2.11 m??? No Known Allergies Medications: Current Outpatient Medications on File Prior to Visit Medication Sig Dispense Refill aspirin 81 mg chewable tablet Chew 81 mg in the morning. clopidogrel (Plavix) 75 mg tablet Take 1 tablet (75 mg) by mouth in the morning. Do not start before November 27, 2023. 30 tablet 0 levothyroxine (Synthroid, Levoxyl) 50 mcg tablet Take 50 mcg by mouth before breakfast. pantoprazole (ProtoNix) 40 mg EC tablet Take 40 mg by mouth before breakfast. potassium chloride CR (Klor-Con M10) 10 mEq ER tablet Take 1 tablet (10 mEq) by mouth in the morning. Do not crush or chew. 90 tablet 3 pravastatin (Pravachol) 40 mg tablet Take 40 mg by mouth in the morning. QUEtiapine (SEROquel) 50 mg tablet Take 50 mg by mouth at bedtime. tamsulosin (Flomax) 0.4 mg 24 hr capsule Take 0.4 mg by mouth in the morning. amLODIPine (Norvasc) 5 mg tablet Take 5 mg by mouth in the morning and at bedtime. atorvastatin (Lipitor) 80 mg tablet Take 1 tablet (80 mg) by mouth at bedtime. 30 tablet 0 furosemide (Lasix) 40 mg tablet Take 1 tablet (40 mg) by mouth in the morning. 30 tablet 11 metoprolol succinate XL (Toprol-XL) 25 mg 24 hr tablet Take 0.5 tablets (12.5 mg) by mouth in the evening. Do not crush or chew. (Patient not taking: Reported on 05/09/2024) 15 tablet 0 No current facility-administered medications on file prior [...] Cardiac cath 11/25/23 Conclusion PROCEDURE PHYSICIAN: Florentin Tavares MD Clinical Presentation: 83 y.o. Male with [...] to the procedure there was a proximal 30% narrowing and a long mid (more content not included)... [facility] 01-07-2024 Note [facility] II- currently e uvolemic without exacerbation. Continue [...] taller/more pillows than normal or in recliner. [facility] 01-07-2024 Note Coronary artery dise ase is unchanged. Overall pt is doing well s/p recent NSTEMI and PCI to LAD. Will remain on DAPT- ASA and plavix x1 year, monitor for bleeding tendencies and he voiced understanding Continue GDMT- ASA, plavix, lipitor, toprol Continue current treatment regimen. Regular aerobic exercise. Continue current medications. Cardiac status will be reassessed in 3 months. [facility] 01-07-2024 Note Coronary artery dise ase is unchanged. Tolerating Cardiac rehab 3 days a week well Denied any activity limiting symptoms, just states he wishes strength would get better faster. Continue current treatment regimen. Regular aerobic exercise. Continue current medications. Cardiac status will be reassessed in 3 months. [facility] 01-07-2024 Note Hypertension is unch anged. Currently well controlled 130/76 Continue toprol and lasix Continue current treatment regimen. Regular aerobic exercise. Continue current medications. Blood pressure will be reassessed in 3 months. [facility] 01-07-2024 Note [facility]TP CARDIOLOGY PROGR ESS NOTE HPI: Jorgito Mayorga is a 83 y.o. male here for routine 1 month f/U after recent NSTEMI- card cath with PCI to LAD HPI 83 yo male presents today for f/U 1 month post NSTEM and PCI to LAD. Recent hospitalization with transfer to [facility] for SC and cardiac cath with PCI to LAD. He presented initially to [facility] with chest pain and was noted to have very elevated troponin levels and then transferred to [facility]. Known past medical history of [...] Cardiac cath 11/25/23 Conclusion PROCEDURE PHYSICIAN: Florentin Tavares MD Clinical Presentation: 83 y.o. Male with [...] was a proximal (more content not included)... [facility] 01-07-2024 Note Patient here for 1 m [...] All other systems reviewed and are negative. [facility] 12-30-2023 Note Starting diuresis to day in light of fluid overload and edema noted in cardiac rehab Scripts sent [facility] 12-30-2023 Note Coronary artery dise ase is unchanged. [facility] 12-30-2023 Note Pt is in cardiac jacob ab today and provider called regarding BLE edema/swelling noted Ordered BMP to check renal function and electrolytes today and again next week before our appt Start lasix 40 mg daily and potassium daily RTC next Wednesday as scheduled [facility] 12-30-2023 Note Diagnoses and all or ders for this visit: Coronary artery disease involving pit river coronary artery of pit river heart without angina pectoris - Basic metabolic [...] chew. - Basic metabolic panel; Future Maria Teresa Fowler [facility] Cardiology Available 7a-5pm via [employer] Chat Pager [phone] [facility] 12-08-2023 Note Will monitor with Echocardiogram and symptoms No fluid overload symptoms noted today [facility] 12-08-2023 Note Will repeat lipid le nalini and LFT in 2-3 months since starting lipitor as inpt from simvastatin. Of Note as inpt at [facility] Chol was 71 and LDL was 21 [facility] 12-08-2023 Note No c/o chest pain/SO B but he remains fatigued s/p NSTEMI May be r/t hypotension- will hold lisinopril [facility] 12-08-2023 Note Currently b/p is lab ile today with noted fatigue s/p hospitalization Will stop lisinopril, instructed pt and to monitor b/p at home and if > 130/80 may need lisinopril 2.5 mg added- they voiced understanding Continue toprol [facility] 12-08-2023 Note Patient here for [facility] for NSTEMI. Still weak and tired [...] All other systems reviewed and are negative. [facility] 12-08-2023 Note UTP CARDIOLOGY PROGR ESS NOTE HPI: Jorgito Mayorga is a 83 y.o. male here for hospital f/U HPI 83 yo male presents today for f/U after recent hospitalization with transfer to [facility] for SC and cardiac cath with PCI to LAD. He presented initially to [facility] with chest pain and was noted to have very elevated troponin levels and then transferred to [facility]. Known past medical history of [...] of hypertension, hyperlipidemia, hypothyroidism, CVA presents to [facility] as a direct admission from [facility] with a chief complaint of chest pain [...] the emergency department for further evaluation. At [facility], initial labs were completed showing WBC 10.7, [...] elevated at 950.4. Patient was transferred to [facility] for further cardiac workup. Patient's [...] PT/OT. Patient was also started on low-dose beta-amadou metoprolol succinate 12.5 mg daily provided his [...] at bedtime. t (more content not included)... [facility] 12-08-2023 Note Continue GDMT- DAPT x1 year, continue plavix x 1 year, ASA and statin lifelong- lipitor, toprol and lisinopril. continue risk factor modifications- heart healthy diet, regular exercise as tolerated and continue all medications. [facility] 11-26-2023 Note Hospital Medicine Discharge Summary Final [...] of hypertension, hyperlipidemia, hypothyroidism, CVA presents to [facility] as a direct admission from [facility] with a chief complaint of chest pain [...] the emergency department for further evaluation. At [facility], initial labs were completed showing WBC 10.7, [...] elevated at 950.4. Patient was transferred to [facility] for further cardiac workup. Patient's [...] PT/OT. Patient was also started on low-dose beta-amadou metoprolol succinate 12.5 mg daily provided his [...] Get Your Medications (more content not included)... [facility] 11-26-2023 Note Final AVS completed, and uploaded to [employer]. Spotlight Operator sent final AVS to [facility]. [facility] 11-26-2023 Note Hospital Medicine Daily Progress Note - 11/26/2023 1:03 PM; Room: [address] [place] [address] Admission: 11/24/2023 1:04 AM; Length of stay: 2 days THE HOSPITALIST TEAM PREFERS TO USE [employer] CHAT FOR COMMUNICATION 7AM-7PM. IF I DO NOT RESPOND WITHIN 15 MINUTES, PLEASE PAGE ME/CALL THROUGH THE DIESEL BUS MECHANIC. FROM 7PM-7AM, PLEASE PAGE [phone](COVR) Code Status: Full Code Barriers to Discharge: PT/OT romeroal Expected Discharge Date: Pending discharge location, patient cleared to discharge by cardiology team Discharge Destination: home vs snf Overview Patient is seen for evaluation and management of nstemi, cp Jorgito Mayorga is an 83 y.o. male who came from home with past medical history of hypertension, hyperlipidemia, hypothyroidism, CVA presents to [facility] as a direct admission from [facility] with a chief complaint of chest pain [...] on aspirin and Plavix, started on low-dose beta-amadou metoprolol succinate 12.5 mg daily ZAK Unclear [...] 7 days Lab (more content not included)... [facility] 11-26-2023 Note Cardiology Progress Note REASON FOR [...] hyperlipidemia, hypothyroidism, CVA who presented from [facility] with chief complains of central chest [...] x 4 with mild slurred speech. At [facility], initial labs were completed showing WBC 10.7, [...] tablet 500 mg, 500 mg, oral, Daily, [facility], 500 mg at 11/25/23 0941 cefTRIAXone (Rocephin) IVPB 2 g in NS 50 mL (Mini-Bag Plus), 2 g, intravenous, q24h, [facility], Stopped at 11/25/23 1423 clopidogrel (Plavix) tablet 75 mg, 75 mg, oral, Daily, Florentin Tavares MD levothyroxine (Synthroid, Levoxyl) tablet 50 mcg, 50 mcg, oral, Daily before breakfast, Leslee Bansal, LAUNDRY FOLDER, 50 mcg at 11/26/23 0537 magnesium nursing electrolyte replacement placeholder 1 each, 1 each, Does not apply, RX Placeholder, [facility] magnesium sulfate in D5W IVPB 1 g, [...] mg, 4 mg, intravenous, q6h PRN, Leslee Bansla NP Oxygen Therapy, , inhalation, Continuous PRN, Erin Jimenez [facility], Given at 11/24/23 1000 pantoprazole (ProtoNix) EC tablet 40 mg, 40 mg, oral, Daily before breakfast, Leslee Bansal, LAUNDRY FOLDER, 40 mg at 11/26/23 0536 potassium nursing electrolyte replacement placeholder, 1 each, Does not apply, RX Placeholder, [facility] QUEtiapine (SEROquel) tablet 50 mg, 50 mg, oral, Nightly, Leslee Bansal, LAUNDRY FOLDER, 50 mg at 11/25/238 tamsulosin (Flomax) 24 hr capsule 0.4 mg, 0.4 mg, oral, Daily, Leslee Bansal NP, 0.4 mg at 11/25/23 0941 Relevant Lab Results: Encounter Date: 11/24/23 ECG 12 lead Result Value Ventricular Rate 57 Atri (more content not included)... [facility] 11-25-2023 Note 11/25/23 1425 Referral Data Referral [...] Feeding Independent Behavior Oriented Communication Talks;Understands speaking;Understands [employer] Income Information Income Source Unemployed (Retired, states [...] return home and would be open to [facility] for home therapy. Family requested either [facility] or [facility]. Referrals sent. Will follow up after therapy sees pt. [facility] 11-25-2023 Note Patient: Jorgito Bhandari on Procedure Information Date/Time: 11/25/23 1210 Procedure: Coronary angiography Location: [facility] PICKLING OPERATOR 3 / [facility] (Cath) Providers: Florentin Tavares [...] ASA 4 (Moderate sedation) Additional Equipment Requests [facility] 11-25-2023 Note Attestation signed by Magan Bowles MD at 11/25/2023 2:45 PM I personally saw and examined the patient on the same date of service as resident/fellow Dr. Vasquez. I discussed the findings and therapeutic plan with the resident/fellow Dr. Vasquez. I agree with the documentation, except for any edits/updates below. Teaching Physician's Revisions: None Cardiology Progress Note REASON FOR CONSULT Reason [...] hyperlipidemia, hypothyroidism, CVA who presented from [facility] with chief complains of central chest [...] x 4 with mild slurred speech. At [facility], initial labs were completed showing WBC 10.7, [...] Tessa Benavides MD, 80 mg at 11/24/23 4487 azithromycin (Zithromax) tablet 500 mg, 500 mg, [...] 50 mg a (more content not included)... [facility] 11-25-2023 Note 11/25/23 0835 Admission Assessment Questions [...] Interested Does the patient have a case manager specialist assigned to them through their insurance? [...] to send link and activate MyChart? Yes [facility] 11-25-2023 Note Hospital Medicine Daily Progress Note - 11/25/2023 7:23 AM; Room: [address] [place] [address] Admission: 11/24/2023 1:04 AM; Length of stay: 1 days THE HOSPITALIST TEAM PREFERS TO USE [employer] CHAT FOR COMMUNICATION 7AM-7PM. IF I DO NOT RESPOND WITHIN 15 MINUTES, PLEASE PAGE ME/CALL THROUGH THE DIESEL BUS MECHANIC. FROM 7PM-7AM, PLEASE PAGE [phone](COVR) Code Status: Full Code Barriers to Discharge: cath 11/24 Expected Discharge Date:pending cardio workup Discharge Destination: home Overview Patient is seen for evaluation and management of nstemi, cp Jorgito Mayorga is an 83 y.o. male who came from home with past medical history of hypertension, hyperlipidemia, hypothyroidism, CVA presents to [facility] as a direct admission from [facility] with a chief complaint of chest pain [...] 8.7 PHOSPHORUS mg/dL (more content not included)... [facility] 11-24-2023 Note Hospital Medicine Daily Progress Note - 11/24/2023 7:59 AM; Room: [address] [place] [address] Admission: 11/24/2023 1:04 AM; Length of stay: 0 days THE HOSPITALIST TEAM PREFERS TO USE [employer] CHAT FOR COMMUNICATION 7AM-7PM. IF I DO NOT RESPOND WITHIN 15 MINUTES, PLEASE PAGE ME/CALL THROUGH THE [employer]IESEL BUS MECHANIC. FROM 7PM-7AM, PLEASE PAGE [phone](COVR) Code Status: Full Code Barriers to Discharge: cath 11/24 Expected Discharge Date:pending cardio workup Discharge Destination: home Overview Patient is seen for evaluation and management of nstemi, cp Jorgito Mayorga is an 83 y.o. male who came from home with past medical history of hypertension, hyperlipidemia, hypothyroidism, CVA presents to [facility] as a direct admission from [facility] with a chief complaint of chest pain [...] , FREET4 , CORTISOL , FEV1 , TYZ6GEI , DLCO , RVSP , HDL , LDL No results found for: [id number] , IRON , TIBC , C3 , C4 , RUBI , CANCA , ASO , PSA , CEA , CA125 , CA199 , AFP , CA153 Imaging (more content not included)... [facility] 11-24-2023 Note Hospital Medicine History and Physical 11/24/2023 2:05 AM THE HOSPITALIST TEAM PREFERS TO USE [employer] FOR COMMUNICATION 7AM-7PM. IF I DO NOT RESPOND WITHIN 15 MINUTES, PLEASE PAGE ME/CALL THROUGH THE DIESEL BUS MECHANIC. FROM 7PM-7AM, PLEASE PAGE [phone](COVR) Chief Complaint Direct admit from [facility] with elevated troponin and chest pain History of Present Illness Jorgito Mayorga is an 83 y.o. male who came from home with past medical history of hypertension, hyperlipidemia, hypothyroidism, CVA presents to [facility] as a direct admission from [facility] with a chief complaint of chest pain [...] the emergency department for further evaluation. At [facility], initial labs were completed showing WBC 10.7, [...] of hypertension, hyperlipidemia, hypothyroidism, CVA presents to [facility] as a direct admission from [facility] with a chief complaint of chest pain and elevated troponin. #Elevated troponin #Chest pain -Troponin 1042.4->950.4 at OSH, repeat pending -EKG showed normal sinus rhythm -CXR showed moderate left basilar infiltrates, consider repeat CXR t (more content not included)... [facility] Evaluation note Diagnosis Stroke-like symptoms- Primary Hypertension, unspecified type (CMS/HCC) Hyperlipidemia, unspecified hyperlipidemia type (CMS/HCC) documented in this encounter [facility] Summary Purpose Family History No Family History [...] Records FoundNo Status Records FoundNo Status Records FoundNo Status Records FoundNo Status Records Found INFORMATION SOURCE (unrecogn ized section and content) DATE CREATED AUTHOR 05/23/2021 [facility] DATE CREATED AUTHOR AUTHOR'S ORGANIZ ATION 06/18/2024 [facility] DATE CREATED AUTHOR AUTHOR'S ORGANIZ ATION 06/18/2024 [facility] DATE CREATED AUTHOR AUTHOR'S ORGANIZ ATION 08/08/2024 [facility] DATE CREATED AUTHOR AUTHOR'S ORGANIZ ATION 10/15/2024 [facility] Reason for Visit (unrecogniz ed section and content) Reason Comments Hospital Follow-up Care Teams (unrecognized sec tion and content) [employer] Relationship Specialty Start Date End Date Jake Chowdhury MD [address] [place] [id number] PCP - General Family Medicine 08/07/24 Anahy Tavera NP [address] [phone] Nurse Practitioner Neurology 08/07/24 FOR RECORDS PERTAINING TO PATIENTS WHO ARE [...] BE BASED ON THE PRIMARY CLINICAL RECORDS. [facility] [employer] provides no warranty or guarantee of the accuracy or completeness of information in this document.
[2025-02-16 10:52] LABS: Alanine Aminotransferase 40 U/L (16-63); Albumin Globulin Ratio 0.9; Albumin Level 4.1 g/dL (3.4-5.0); Alkaline Phosphatase 173 U/L (46-116); Anion Gap 13.8; Aspartate Amino Transferase 31 U/L (15-37); Blood Urea Nitrogen 13.0 mg/dL (7.0-18.0); Calcium 9.3 mg/dL (8.5-10.1); Carbon Dioxide 31.9 mmol/L (21.0-32.0); Chloride 95 mmol/L (98-107); Cholesterol 106 mg/dL (<=200); Estimated GFR (African America >60 (>=60 mL/min/1.73m^2); Estimated GFR (Non-African Ame 54 (>=60 mL/min/1.73m^2); Globulin 4.6 g/dL; Glucose 441 mg/dL (74-106); HDL Cholesterol 40 mg/dL (40-60); Potassium 3.7 mmol/L (3.5-5.1); Sodium 137 mmol/L (136-145); Total Protein 8.7 g/dL (6.4-8.2); Triglycerides 200 mg/dL (<=150); VLDL CHOLESTEROL 40.0 mg/dL
[2025-02-16 11:50] LABS: Hematocrit 50.5 % (42.0-54.0); Hemoglobin 18.3 g/dL (14.0-18.0); Immature Granulocytes Abs Auto 0.03 10^3/uL (0.00-0.03); Immature Granulocytes Pct Auto 0.4 % (0.0-0.5); Lymphocytes Absolute Auto 2.2 10^3/uL (1.2-3.8); Mean Corpuscular HGB Conc 36.2 g/dL (29.9-35.2); Mean Corpuscular Hemoglobin 32.9 pg (25.9-34.0); Mean Corpuscular Volume 90.7 fL (80.0-94.0); Platelet Count 119 10^3/uL (150-450); Red Blood Count 5.57 10^6/uL (4.70-6.10); White Blood Count 7.9 10^3/uL (4.0-11.0)
== END 2025-02-16 09:30 | disposition home or self-care (01) ==
PROVIDERS: PCP Family Medicine; Visit Provider Internal Medicine Cardiovascular Disease
DX: E78.2 Mixed hyperlipidemia (principal); I50.32 Chronic diastolic (congestive) heart failure
CPT/HCPCS: 36415; 80053; 80061; 85025

== ENCOUNTER 2025-03-01 15:45 | Emergency (ER) | payer MEDICARE, SELFPAY ==
[2025-03-01 15:53] VITALS: BP 138/87; PULSE 65; TEMP 36.7; O2SAT 95; BMI 27.0
--- OUTSIDE RECORDS SUMMARY | 2025-03-01 15:59 | XMS_ITS | CCD ---
Author Organization [facility] Care Team Providers Care Gas Plant Technician Name Role Phone REQUEST, DR ROA LISTED [...] DR JOSEPH Consulting Unavailable ROSSTRAMAINE Admitting Unavailable ROSSTRAMAINE Attending Unavailable TRAMAINE GOLDEN Consulting Unavailable MALLORYY, DR JOSEPH Primary Care Unavailable MARIELLE FLORES Admitting Unavailable MARIELLE FLORES Attending Unavailable MARQUES HAMILTON Referring Unavailable JAKE CHOWDHURY Referring Unavailable JAKE CHOWDHURY Primary Care Unavailable Unavailable Primary Care Provider UnavailJake Tim MD Primary Care Provider [phone] Jhonathan BUSINESS OPERATIONS DIRECTOR, Anahy Unavailable ANAHY TAVERA Attending Unavailable ZAIN MCCRAY Attending Unavailable JORGE A ANTOINE Attending Unavailable TAMMY PRESLEY Attending Unavailable ZAIN MCCRAY Attending Unavailable Medications Current Medications Medication Drug Class(es) Dates [...] unspecified; Translations: [Ischemic stroke] Onset: 05-15-2024 Chronic Congestive heart failure; nonhypertensive (4 sources) Chronic diastolic (congestive) heart failure; Translations: [Acute combined systolic (congestive) and diastolic (congestive) heart failure] Onset: 12-30-2023 Chronic Coronary atherosclerosis and other heart disease (2 sources) 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; Translations: [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] Onset: 12-08-2023 Chronic Disorders of lipid metabolism (4 sources) Hyperlipidemia; Translations: [Hyperlipidemia, unspecified] Onset: 11-24-2023 08-07-2024 Chronic Essential hypertension (2 sources) Hypertensive disorder; Translations: [Essential (primary) hypertension] 08-07-2024 Chronic Hypertension with complications and secondary hypertension (2 sources) Hypertensive heart disease with heart failure; Translations: [Hypertensive heart disease with heart failure] Onset: 02-19-2025 Chronic Immunizations and screening for infectious disease (4 sources) Encounter for immunization; Translations: [ENCOUNTER FOR IMMUNIZATION] Onset: 04-29-2021 Episodic Other connective tissue disease (2 sources) Neurological symptom; Translations: [Unspecified symptoms and signs involving the nervous system] 08-07-2024 Episodic Transient cerebral ischemia (2 sources) Transient cerebral ischemic attack, unspecified; Translations: [Transient cerebral ischemic attack, unspecified] Onset: 10-13-2024 Chronic Past or Other Problems Problem Classification Problem Date Documented Da te Episodic/Chronic Residual codes; unclassified (1 source) Pain, unspecified; Translations: [Pain, unspecified] Onset: 11-24-2023 Episodic Results Test Name Value Interpretation Reference Range Facility Office Visiton 02-19-2025 Follow-up visit [id number] Jorgito Mayorga 1940 M Date Provider Department Center 02/19/2025 30070-ITQAZETAMMY PRESLEY Family History Problem Relation Age of Onset No Known Problems Mother No Known Problems Father Family Status - Relation Status Age at Mother Father Level of Service:25821 OR OFFICE/OUTPATIENT ESTABLISHED MOD MDM 30 MIN Reason for Visit and Comments: Follow-up [187806] - requesting an early appointment due to increased fatigue Hypertension [682578] Hyperlipidemia [182] Coronary Artery Disease [187] Previous NSTEMI [Other] Enlarged right ventricle [Other] Acute embolism and thrombosis of deep veins of right upper [Other] Moderate left ventricular hpertroph [Other] Transient Ischemic Attack [983355] Normal [facility] Office Visiton 10-13-2024 Follow-up visit [id number] Jorgito Mayorga T 1940 M Date Provider Department Center 10/13/2024 50335-NXTORGJORGE A ANTOINE JANIE Rubio Family History Problem Relation Age of Onset No Known Problems Mother No Known Problems Father Family Status - Relation Status Age at Mother Father Level of Service:01982 OR OFFICE/OUTPATIENT ESTABLISHED MOD MDM 30 MIN Reason for Visit and Comments: Coronary Artery Disease [187] - Denies chest pain and SOB. Congestive Heart Failure [127] - Son states his sister told him his father had some LLE edema last week but it's improving. He says he hasn't had trouble getting his shoes on. Hypertension [337450] Hyperlipidemia [182] - Had lipid panel in May 2024. probable stroke [Other] - Recently wore event monitor. Normal [facility] Office Visiton 07-19-2024 Follow-up visit [id number] Jorgito Mayorga T 1940 M Date Provider Department Center 07/19/2024 3848-ZAIN MCCRAY JANIE Rubio Family History Problem Relation Age of Onset No Known Problems Mother No Known Problems Father Family Status - Relation Status Age at Mother Father Level of Service:06752 OR OFFICE/OUTPATIENT ESTABLISHED LOW MDM 20 MIN Normal [facility] AMMONIAon 05-19-2024 Ammonia (P) [Moles/Vol] 29 umol/L Normal 18-72 [facility] Comment on above: Result Comment: NEW REFERENCE RANGE Performed By: #### C BCA, CMP, 41053-1, HA1C #### [facility] ([id number]) [address], [address] [place] [address] CBC AND AUTO DIFFon 05-19-20 24 ABSOLUTE BASOPHIL 0.0 X10E9/L Normal 0.0-0.2 [facility] Comment on above: Performed By: #### C BCA, CMP, 09481-0, HA1C #### [facility] ([id number]) [address], [address] [place] [address] ABSOLUTE NEUTROPHIL 5.7 X10E9/L Normal 1.5-6.6 [facility] Comment on above: Performed By: #### C YECENIA, CMP, 00587-2, HA1C #### [facility] ([id number]) [address], [address] [place] [address] Basophils/100 WBC (Bld) 0.4 % Normal [facility] Comment on above: Performed By: #### C YECENIA, CMP, 38354-5, HA1C #### [facility] ([id number]) [address], [address] [place] [address] Eosinophils (Bld) [#/Vol] 0.2 10*3/uL Normal 0.0-0.4 [facility] Comment on above: Performed By: #### C YECENIA, CMP, 79272-9, HA1C #### [facility] ([id number]) [address], [address] [place] [address] Eosinophils/100 WBC (Bld) 2.3 % Normal [facility] Comment on above: Performed By: #### C YECENIA, CMP, 67030-8, HA1C #### [facility] ([id number]) [address], [address] [place] [address] Erythrocyte distribution width (RBC) [Ratio] 14.1 % Normal 11.5-15.0 [facility] Comment on above: Performed By: #### C YECENIA, CMP, 83202-8, HA1C #### [facility] ([id number]) [address], [address] [place] [address] Hematocrit (Bld) [Volume fraction] 49.6 % High 39-49 [facility] Comment on above: Performed By: #### C YECENIA, CMP, 78187-9, HA1C #### [facility] ([id number]) [address], [address] [place] [address] Hemoglobin (Bld) [Mass/Vol] 17.3 g/dL High 13.0-17.0 [facility] Comment on above: Performed By: #### C YECENIA CMP, 28148-7, HA1C #### [facility] ([id number]) [address], [address] [place] [address] Lymphocytes (Bld) [#/Vol] 1.3 10*3/uL Normal 1.0-3.5 [facility] Comment on above: Performed By: #### Mayo KEENE CMP, 07321-4, HA1C #### [facility] ([id number]) [address], [address] [place] [address] Lymphocytes/100 WBC (Bld) 17.4 % Normal [facility] Comment on above: Performed By: #### Mayo KEENE, CMP, 25717-7, HA1C #### [facility] ([id number]) [address], [address] [place] [address] MCH (RBC) [Entitic mass] 33.3 pg Normal 27-34 [facility] Comment on above: Performed By: #### Mayo KEENE CMP, 07470-5, HA1C #### [facility] ([id number]) [address], [address] [place] [address] MCHC (RBC) [Mass/Vol] 34.8 g/dL Normal 32-36 [facility] Comment on above: Performed By: #### C BCA, CMP, 35901-5, HA1C #### [facility] ([id number]) [address], [address] [place] [address] MCV (RBC) [Entitic vol] 96 fL Normal 80-100 [facility] Comment on above: Performed By: #### Mayo KEENE CMP, 39823-3, HA1C #### [facility] ([id number]) [address], [address] [place] [address] Monocytes (Bld) [#/Vol] 0.5 10*3/uL Normal 0-0.9 [facility] Comment on above: Performed By: #### C BCA, CMP, 55837-4, HA1C #### [facility] ([id number]) [address], [address] [place] [address] Monocytes/100 WBC (Bld) 6.4 % Normal [facility] Comment on above: Performed By: #### C BCA, CMP, 90341-8, HA1C #### [facility] ([id number]) [address], [address] [place] [address] Neutrophils/100 WBC (Bld) 73.5 % Normal [facility] Comment on above: Performed By: #### C BCA, CMP, 32623-0, HA1C #### [facility] ([id number]) [address], [address] [place] [address] Platelet mean volume (Bld) [Entitic vol] 9.3 fL Normal 7-12 [facility] Comment on above: Performed By: #### C BCA, CMP, 64996-3, HA1C #### [facility] ([id number]) [address], [address] [place] [address] Platelets (Bld) [#/Vol] 112 10*3/uL Low 150-450 [facility] Comment on above: Performed By: #### C BCA, CMP, 10272-5, HA1C #### [facility] ([id number]) [address], [address] [place] [address] RBC COUNT 5.19 X10E12/L Normal 4.10-5.70 [facility] Comment on above: Performed By: #### C BCA, CMP, 59454-3, HA1C #### [facility] ([id number]) [address], [address] [place] [address] WBC (Bld) [#/Vol] 7.7 10*3/uL Normal 4.0-11.0 [facility] Comment on above: Performed By: #### C BCA, CMP, 12735-9, HA1C #### [facility] ([id number]) [address], [address] [place] [address] COMPREHENSIVE METABOLIC PANE Chris 05-19-2024 Albumin [Mass/Vol] 4.0 g/dL Normal 3.2-5.3 [facility] Comment on above: Performed By: #### C BCA, CMP, 69529-5, HA1C #### [facility] ([id number]) [address], [address] [place] [address] ALP [Catalytic activity/Vol] 83 U/L Normal 39-130 [facility] Comment on above: Performed By: #### C BCA, CMP, 51251-7, HA1C #### [facility] ([id number]) [address], [address] [place] [address] ALT [Catalytic activity/Vol] 24 U/L Normal 0-40 [facility] Comment on above: Performed By: #### C BCA, CMP, 15511-2, HA1C #### [facility] ([id number]) [address], [address] [place] [address] Anion gap [Moles/Vol] 10 mmol/L Normal 5-15 [facility] Comment on above: Performed By: #### C BCA, CMP, 89901-8, HA1C #### [facility] ([id number]) [address], [address] [place] [address] AST [Catalytic activity/Vol] 48 U/L High 0-41 [facility] Comment on above: Performed By: #### C BCA, CMP, 43273-1, HA1C #### [facility] ([id number]) [address], [address] [place] [address] Bilirubin [Mass/Vol] 0.9 mg/dL Normal 0.3-1.2 [facility] Comment on above: Performed By: #### C BCA, CMP, 38695-9, HA1C #### [facility] ([id number]) [address], [address] [place] [address] Calcium [Mass/Vol] 9.2 mg/dL Normal 8.5-10.5 [facility] Comment on above: Performed By: #### C BCA, CMP, 87788-9, HA1C #### [facility] ([id number]) [address], [address] [place] [address] Chloride [Moles/Vol] 102 mmol/L Normal 98-109 [facility] Comment on above: Performed By: #### C BCA, CMP, 77750-0, HA1C #### [facility] ([id number]) [address], [address] [place] [address] CO2 [Moles/Vol] 24 mmol/L Normal 22-32 [facility] Comment on above: Performed By: #### C BCA, CMP, 01193-1, HA1C #### [facility] ([id number]) [address], [address] [place] [address] Creatinine [Mass/Vol] 1.30 mg/dL Normal 0.60-1.30 [facility] Comment on above: Result Comment: METH OD TRACEABLE TO IDMS STANDARD Performed By: #### C BCA, CMP, 76808-4, HA1C #### [facility] ([id number]) [address], [address] [place] [address] GFR/1.73 sq M.predicted among non-blacks MDRD (S/P/Bld) [Vol rate/Area] 55 mL/min/{1.73_m2} Low >59 [facility] Comment on above: Result Comment: Reported eGFR is based on the CKD-EPI 2020 equation that does not use a race coefficient. Performed By: #### C DORON KEENE, 28283-3, HA1C #### [facility] ([id number]) [address], [address] [place] [address] Glucose [Mass/Vol] 116 mg/dL High 65-99 [facility] Comment on above: Performed By: #### C DORON KEENE, 91271-6, HA1C #### [facility] ([id number]) [address], [address] [place] [address] Potassium [Moles/Vol] 4.0 mmol/L Normal 3.5-5.0 [facility] Comment on above: Performed By: #### C DORON KEENE, 40178-5, HA1C #### [facility] ([id number]) [address], [address] [place] [address] Protein [Mass/Vol] 7.3 g/dL Normal 6.0-8.0 [facility] Comment on above: Performed By: #### C DORON KEENE, 69286-5, HA1C #### [facility] ([id number]) [address], [address] [place] [address] Sodium [Moles/Vol] 136 mmol/L Normal 134-146 [facility] Comment on above: Performed By: #### C DORON KEENE, 78546-0, HA1C #### [facility] ([id number]) [address], [address] [place] [address] Urea nitrogen [Mass/Vol] 24 mg/dL Normal 5-27 [facility] Comment on above: Performed By: #### C DORON KEENE, 63634-5, HA1C #### [facility] ([id number]) [address], [address] [place] [address] ESR Photometric method (Bld) [Velocity]on 05-19-2024 ESR, ERYTHROCYTE SEDIMENTATION RATE 17 mm/h Normal 0-20 [facility] Comment on above: Performed By: #### C BCA, CMP, 69808-2, HA1C #### [facility] ([id number]) [address], [address] [place] [address] FREE T4on 05-19-2024 Free T4 [Mass/Vol] 0.76 ng/dL Normal 0.61-1.60 [facility] Comment on above: Result Comment: NEW REFERENCE RANGE FOR PEDIATRIC PATIENTS Performed By: #### C BCA, CMP, 75315-1, HA1C #### [facility] ([id number]) [address], [address] [address] Laboratory comment García (Repo rt)on 05-19-2024 PLATELET INHIB,P2Y12 128 PRU Normal [facility] Comment on above: Result Comment: Decr eased platelet reactivity due to the effect of a P2Y12 inhibitor. The P2Y12 Test should be interpreted in conjunction with other clinical and lab data. Performed By: #### C YECENIA, CMP, 67477-4, HA1C #### [facility] ([id number]) [address], [address] [address] TSH WITH REFLEXon 05-19-2024 TSH 7.31 uIU/mL High 0.49-4.67 [facility] Comment on above: Result Comment: NEW REFERENCE RANGE FOR PEDIATRIC PATIENTS Performed By: #### C BCA, CMP, 94351-4, HA1C #### [facility] ([id number]) [address], [address] [address] CBC AND AUTO DIFFon 05-18-20 24 ABSOLUTE BASOPHIL 0.0 X10E9/L Normal 0.0-0.2 [facility] Comment on above: Performed By: #### C BCA, CMP, 01661-5, HA1C #### [facility] ([id number]) [address], [address] [address] ABSOLUTE NEUTROPHIL 3.5 X10E9/L Normal 1.5-6.6 [facility] Comment on above: Performed By: #### C DORON KEENE, 83429-2, HA1C #### [facility] ([id number]) [address], [address] [place] [address] Basophils/100 WBC (Bld) 0.4 % Normal [facility] Comment on above: Performed By: #### C DORON KEENE, 31226-2, HA1C #### [facility] ([id number]) [address], [facility] [address] [place] [address] Eosinophils (Bld) [#/Vol] 0.4 10*3/uL Normal 0.0-0.4 [facility] Comment on above: Performed By: #### Mayo KEENE CMP, 14297-7, HA1C #### [facility] ([id number]) [address], [address] [place] [address] Eosinophils/100 WBC (Bld) 6.2 % Normal [facility] Comment on above: Performed By: #### Mayo KEENE CMP, 02947-1, HA1C #### [facility] ([id number]) [address] [place] [address] Erythrocyte distribution width (RBC) [Ratio] 13.8 % Normal 11.5-15.0 [facility] Comment on above: Performed By: #### Mayo KEENE CMP, 94529-9, HA1C #### [facility] ([id number]) [address], [address] [place] [address] Hematocrit (Bld) [Volume fraction] 43.1 % Normal 39-49 [facility] Comment on above: Performed By: #### Mayo KEENE CMP, 59576-6, HA1C #### [facility] ([id number]) [address], [address] [place] [address] Hemoglobin (Bld) [Mass/Vol] 15.0 g/dL Normal 13.0-17.0 [facility] Comment on above: Performed By: #### C DORON KEENE, 77917-4, HA1C #### [facility] ([id number]) [address], [address] [place] [address] Lymphocytes (Bld) [#/Vol] 1.7 10*3/uL Normal 1.0-3.5 [facility] Comment on above: Performed By: #### C YECENIA, CMP, 95111-7, HA1C #### [facility] ([id number]) [address], [facility] [address] [place] [address] Lymphocytes/100 WBC (Bld) 27.1 % Normal [facility] Comment on above: Performed By: #### Mayo KEENE CMP, 81632-4, HA1C #### [facility] ([id number]) [address], [address] [place] [address] MCH (RBC) [Entitic mass] 33.2 pg Normal 27-34 [facility] Comment on above: Performed By: #### Mayo KEENE CMP, 47719-2, HA1C #### [facility] ([id number]) [address], [address] [place] [address] MCHC (RBC) [Mass/Vol] 34.7 g/dL Normal 32-36 [facility] Comment on above: Performed By: #### Mayo KEENE CMP, 04347-2, HA1C #### [facility] ([id number]) [address], [address] [place] [address] MCV (RBC) [Entitic vol] 96 fL Normal 80-100 [facility] Comment on above: Performed By: #### Mayo KEENE CMP, 62075-5, HA1C #### [facility] ([id number]) [address], [address] [place] [address] Monocytes (Bld) [#/Vol] 0.7 10*3/uL Normal 0-0.9 [facility] Comment on above: Performed By: #### C DORON EKENE, 00745-6, HA1C #### [facility] ([id number]) [address], [address] [place] [address] Monocytes/100 WBC (Bld) 10.7 % Normal [facility] Comment on above: Performed By: #### C DORON KEENE, 88739-9, HA1C #### [facility] ([id number]) [address], [address] [place] [address] Neutrophils/100 WBC (Bld) 55.6 % Normal [facility] Comment on above: Performed By: #### Mayo KEENE CMP, 60213-8, HA1C #### [facility] ([id number]) [address], [address] [place] [address] Platelet mean volume (Bld) [Entitic vol] 9.3 fL Normal 7-12 [facility] Comment on above: Performed By: #### Mayo KEENE CMP, 62378-6, HA1C #### [facility] ([id number]) [address], [address] [place] [address] Platelets (Bld) [#/Vol] 108 10*3/uL Low 150-450 [facility] Comment on above: Performed By: #### Mayo KEENE CMP, 91320-9, HA1C #### [facility] ([id number]) [address], [address] [place] [address] RBC COUNT 4.51 X10E12/L Normal 4.10-5.70 [facility] Comment on above: Performed By: #### Mayo KEENE, CMP, 77118-9, HA1C #### [facility] ([id number]) [address], [address] [place] [address] WBC (Bld) [#/Vol] 6.3 10*3/uL Normal 4.0-11.0 [facility] Comment on above: Performed By: #### C BCA, CMP, 72955-6, HA1C #### [facility] ([id number]) [address], [address] [place] [address] COMPREHENSIVE METABOLIC PANE Chris 05-18-2024 Albumin [Mass/Vol] 3.4 g/dL Normal 3.2-5.3 [facility] Comment on above: Performed By: #### C BCA, CMP, 03465-0, HA1C #### [facility] ([id number]) [address], [address] [place] [address] ALP [Catalytic activity/Vol] 70 U/L Normal 39-130 [facility] Comment on above: Performed By: #### C BCA, CMP, 01123-0, HA1C #### [facility] ([id number]) [address], [address] [place] [address] ALT [Catalytic activity/Vol] 16 U/L Normal 0-40 [facility] Comment on above: Performed By: #### C BCA, CMP, 37127-0, HA1C #### [facility] ([id number]) [address], [address] [place] [address] Anion gap [Moles/Vol] 7 mmol/L Normal 5-15 [facility] Comment on above: Performed By: #### C BCA, CMP, 75122-8, HA1C #### [facility] ([id number]) [address], [address] [place] [address] AST [Catalytic activity/Vol] 28 U/L Normal 0-41 [facility] Comment on above: Performed By: #### C BCA, CMP, 38058-2, HA1C #### [facility] ([id number]) [address], [address] [place] [address] Bilirubin [Mass/Vol] 1.0 mg/dL Normal 0.3-1.2 [facility] Comment on above: Performed By: #### C BCA, CMP, 88449-7, HA1C #### [facility] ([id number]) [address], [address] [place] [address] Calcium [Mass/Vol] 8.7 mg/dL Normal 8.5-10.5 [facility] Comment on above: Performed By: #### C BCA, CMP, 79903-5, HA1C #### [facility] ([id number]) [address], [address] [place] [address] Chloride [Moles/Vol] 103 mmol/L Normal 98-109 [facility] Comment on above: Performed By: #### C BCA, CMP, 00765-4, HA1C #### [facility] ([id number]) [address], [address] [place] [address] CO2 [Moles/Vol] 27 mmol/L Normal 22-32 [facility] Comment on above: Performed By: #### C BCA, CMP, 49778-2, HA1C #### [facility] ([id number]) [address], [address] [place] [address] Creatinine [Mass/Vol] 1.56 mg/dL High 0.60-1.30 [facility] Comment on above: Result Comment: METH OD TRACEABLE TO IDMS STANDARD Performed By: #### C BCA, CMP, 67353-5, HA1C #### [facility] ([id number]) [address], [address] [place] [address] GFR/1.73 sq M.predicted among non-blacks MDRD (S/P/Bld) [Vol rate/Area] 44 mL/min/{1.73_m2} Low >59 [facility] Comment on above: Result Comment: Reported eGFR is based on the CKD-EPI 2020 equation that does not use a race coefficient. Performed By: #### C BCA, CMP, 01736-9, HA1C #### [facility] ([id number]) [address], [address] [place] [address] Glucose [Mass/Vol] 114 mg/dL High 65-99 [facility] Comment on above: Performed By: #### C BCA, CMP, 83232-1, HA1C #### [facility] ([id number]) [address], [address] [place] [place] [address] Potassium [Moles/Vol] 4.1 mmol/L Normal 3.5-5.0 [facility] Comment on above: Result Comment: SPEC IMEN HEMOLYZED, RESULTS INCREASED MODERATELY HEMOLYZED Performed By: #### C YECENIA, CMP, 87098-5, HA1C #### [facility] ([id number]) [address], [address] [place] [address] Protein [Mass/Vol] 6.1 g/dL Normal 6.0-8.0 [facility] Comment on above: Performed By: #### C YECENIA, CMP, 12863-7, HA1C #### [facility] ([id number]) [address], [address] [place] [address] Sodium [Moles/Vol] 137 mmol/L Normal 134-146 [facility] Comment on above: Performed By: #### C BCA, CMP, 09662-0, HA1C #### [facility] ([id number]) [address], [address] [place] [address] Urea nitrogen [Mass/Vol] 28 mg/dL High 5-27 [facility] Comment on above: Performed By: #### C BCA, CMP, 42606-4, HA1C #### [facility] ([id number]) [address], [address] [place] [address] CT BRAIN WO CONT STROKE ALER Kye 05-18-2024 CT BRAIN WO CONT STROKE ALERT [...] Martinez MD on 05/18/2024 10:44 AM Normal [facility] CT CTA CAROTIDon 05-18-2024 CT CTA CAROTID [...] [place] MD on 05/18/2024 10:52 AM Normal [facility] CT CTA HEADon 05-18-2024 CT CTA HEAD [...] [place] MD on 05/18/2024 11:07 AM Normal [facility] Glucose Glucometer (BldC) [M ass/Vol]on 05-18-2024 Glucose [Mass/Vol] 143 mg/dL High 65-99 [facility] CBC AND AUTO DIFFon 05-17-20 24 ABSOLUTE BASOPHIL 0.0 X10E9/L Normal 0.0-0.2 [facility] Comment on above: Performed By: #### C BCA, CMP #### [facility] ([id number]) [address], [address] [place] [address] ABSOLUTE NEUTROPHIL 3.2 X10E9/L Normal 1.5-6.6 [facility] Comment on above: Performed By: #### C YECENIA, CMP #### [facility] ([id number]) [address], [address] [place] [address] Basophils/100 WBC (Bld) 0.6 % Normal [facility] Comment on above: Performed By: #### C YECENIA, CMP #### [facility] ([id number]) [address], [address] [place] [address] Eosinophils (Bld) [#/Vol] 0.4 10*3/uL Normal 0.0-0.4 [facility] Comment on above: Performed By: #### C YECENIA, CMP #### [facility] ([id number]) [address] [place] [address] Eosinophils/100 WBC (Bld) 7.5 % Normal [facility] Comment on above: Performed By: #### C YECENIA, CMP #### [facility] ([id number]) [address] [place] [address] Erythrocyte distribution width (RBC) [Ratio] 13.6 % Normal 11.5-15.0 [facility] Comment on above: Performed By: #### C YECENAI, CMP #### [facility] ([id number]) [address], [address] [place] [address] Hematocrit (Bld) [Volume fraction] 44.7 % Normal 39-49 [facility] Comment on above: Performed By: #### C YECENIA, CMP #### [facility] ([id number]) [address], [address] [place] [address] Hemoglobin (Bld) [Mass/Vol] 15.8 g/dL Normal 13.0-17.0 [facility] Comment on above: Performed By: #### C YECENIA, CMP #### [facility] ([id number]) [address], [address] [place] [address] Lymphocytes (Bld) [#/Vol] 1.6 10*3/uL Normal 1.0-3.5 [facility] Comment on above: Performed By: #### C YECENIA, CMP #### [facility] ([id number]) [address], [address] [place] [address] Lymphocytes/100 WBC (Bld) 26.6 % Normal [facility] Comment on above: Performed By: #### C BCA, CMP #### [facility] ([id number]) [address], [address] [place] [address] MCH (RBC) [Entitic mass] 33.6 pg Normal 27-34 [facility] Comment on above: Performed By: #### C BCA, CMP #### [facility] ([id number]) [address], [address] [place] [address] MCHC (RBC) [Mass/Vol] 35.4 g/dL Normal 32-36 [facility] Comment on above: Performed By: #### C BCA, CMP #### [facility] ([id number]) [address], [address] [place] [address] MCV (RBC) [Entitic vol] 95 fL Normal 80-100 [facility] Comment on above: Performed By: #### C BCA, CMP #### [facility] ([id number]) [address], [address] [place] [address] Monocytes (Bld) [#/Vol] 0.7 10*3/uL Normal 0-0.9 [facility] Comment on above: Performed By: #### C BCA, CMP #### [facility] ([id number]) [address] [place] [address] Monocytes/100 WBC (Bld) 11.5 % Normal [facility] Comment on above: Performed By: #### C BCA, CMP #### [facility] ([id number]) [address], [address] [place] [address] Neutrophils/100 WBC (Bld) 53.8 % Normal [facility] Comment on above: Performed By: #### C BCA, CMP #### [facility] ([id number]) [address], [address] [place] [address] Platelet mean volume (Bld) [Entitic vol] 8.7 fL Normal 7-12 [facility] Comment on above: Performed By: #### C BCA, CMP #### [facility] ([id number]) [address], [facility] [address] [place] [address] Platelets (Bld) [#/Vol] 108 10*3/uL Low 150-450 [facility] Comment on above: Performed By: #### C BCA, CMP #### [facility] ([id number]) [address], [address] [place] [address] RBC COUNT 4.72 X10E12/L Normal 4.10-5.70 [facility] Comment on above: Performed By: #### C BCA, CMP #### [facility] ([id number]) [address], [facility] [address] [place] [address] WBC (Bld) [#/Vol] 5.9 10*3/uL Normal 4.0-11.0 [facility] Comment on above: Performed By: #### C BCA, CMP #### [facility] ([id number]) [address], [address] [place] [address] COMPREHENSIVE METABOLIC PANE Chris 05-17-2024 Albumin [Mass/Vol] 3.7 g/dL Normal 3.2-5.3 [facility] Comment on above: Performed By: #### C BCA, CMP #### [facility] ([id number]) [address], [address] [place] [address] ALP [Catalytic activity/Vol] 84 U/L Normal 39-130 [facility] Comment on above: Performed By: #### C BCA, CMP #### [facility] ([id number]) [address], [address] [place] [address] ALT [Catalytic activity/Vol] 19 U/L Normal 0-40 [facility] Comment on above: Performed By: #### C BCA, CMP #### [facility] ([id number]) [address], [address] [place] [address] Anion gap [Moles/Vol] 10 mmol/L Normal 5-15 [facility] Comment on above: Performed By: #### C BCA, CMP #### [facility] ([id number]) [address] [place] [address] AST [Catalytic activity/Vol] 23 U/L Normal 0-41 [facility] Comment on above: Performed By: #### C BCA, CMP #### [facility] ([id number]) [address] [place] [address] Bilirubin [Mass/Vol] 1.5 mg/dL High 0.3-1.2 [facility] Comment on above: Performed By: #### C BCA, CMP #### [facility] ([id number]) [address] [place] [address] Calcium [Mass/Vol] 9.0 mg/dL Normal 8.5-10.5 [facility] Comment on above: Performed By: #### C BCA, CMP #### [facility] ([id number]) [address], [address] [place] [address] Chloride [Moles/Vol] 103 mmol/L Normal 98-109 [facility] Comment on above: Performed By: #### C BCA, CMP #### [facility] ([id number]) [address], [address] [place] [address] CO2 [Moles/Vol] 26 mmol/L Normal 22-32 [facility] Comment on above: Performed By: #### C BCA, CMP #### [facility] ([id number]) [address] [address] [place] [address] Creatinine [Mass/Vol] 1.20 mg/dL Normal 0.60-1.30 [facility] Comment on above: Result Comment: METH OD TRACEABLE TO IDMS STANDARD Performed By: #### C BCA, CMP #### [facility] ([id number]) [address] [address] GFR/1.73 sq M.predicted among non-blacks MDRD (S/P/Bld) [Vol rate/Area] 60 mL/min/{1.73_m2} Normal >59 [facility] Comment on above: Result Comment: Reported eGFR is based on the CKD-EPI 2020 equation that does not use a race coefficient. Performed By: #### C BCA, CMP #### [facility] ([id number]) [address] [address] [place] [address] Glucose [Mass/Vol] 108 mg/dL High 65-99 [facility] Comment on above: Performed By: #### C BCA, CMP #### [facility] ([id number]) [address] [address] [address] [place] [address] Potassium [Moles/Vol] 3.5 mmol/L Normal 3.5-5.0 [facility] Comment on above: Performed By: #### C BCA, CMP #### [facility] ([id number]) [address] [address] [address] [place] [address] Protein [Mass/Vol] 6.5 g/dL Normal 6.0-8.0 [facility] Comment on above: Performed By: #### C BCA, CMP #### [facility] ([id number]) [address] [address] [place] [address] Sodium [Moles/Vol] 139 mmol/L Normal 134-146 [facility] Comment on above: Performed By: #### C BCA, CMP #### [facility] ([id number]) [address] [place] [address] Urea nitrogen [Mass/Vol] 23 mg/dL Normal 5-27 [facility] Comment on above: Performed By: #### C BCA, CMP #### [facility] ([id number]) [address] [place] [address] CBC AND AUTO DIFFon 12-20 24 ABSOLUTE BASOPHIL 0.0 X10E9/L Normal 0.0-0.2 [facility] Comment on above: Performed By: #### C BCA, CMP, 26902-1, HA1C #### [facility] ([id number]) [address] [place] [address] ABSOLUTE NEUTROPHIL 6.0 X10E9/L Normal 1.5-6.6 [facility] Comment on above: Performed By: #### C BCA, CMP, 76367-2, HA1C #### [facility] ([id number]) [address], [address] [place] [address] Basophils/100 WBC (Bld) 0.4 % Normal [facility] Comment on above: Performed By: #### C BCA, CMP, 90496-6, HA1C #### [facility] ([id number]) [address] [place] [address] Eosinophils (Bld) [#/Vol] 0.2 10*3/uL Normal 0.0-0.4 [facility] Comment on above: Performed By: #### C BCA, CMP, 04189-9, HA1C #### [facility] ([id number]) [address] [place] [address] Eosinophils/100 WBC (Bld) 2.0 % Normal [facility] Comment on above: Performed By: #### C DORON KEENE, 86461-0, HA1C #### [facility] ([id number]) [address], [address] [place] [address] Erythrocyte distribution width (RBC) [Ratio] 13.9 % Normal 11.5-15.0 [facility] Comment on above: Performed By: #### C DORON KEENE, 18183-9, HA1C #### [facility] ([id number]) [address], [address] [place] [address] Hematocrit (Bld) [Volume fraction] 44.9 % Normal 39-49 [facility] Comment on above: Performed By: #### Mayo KEENE CMP, 64274-4, HA1C #### [facility] ([id number]) [address], [address] [place] [address] Hemoglobin (Bld) [Mass/Vol] 15.7 g/dL Normal 13.0-17.0 [facility] Comment on above: Performed By: #### C DORON KEENE, 44395-4, HA1C #### [facility] ([id number]) [address] [place] [address] Lymphocytes (Bld) [#/Vol] 1.5 10*3/uL Normal 1.0-3.5 [facility] Comment on above: Performed By: #### Mayo KEENE CMP, 55316-3, HA1C #### [facility] ([id number]) [address], [address] [place] [address] Lymphocytes/100 WBC (Bld) 17.4 % Normal [facility] Comment on above: Performed By: #### Mayo KEENE CMP, 74058-9, HA1C #### [facility] ([id number]) [address], [address] [place] [address] MCH (RBC) [Entitic mass] 33.1 pg Normal 27-34 [facility] Comment on above: Performed By: #### C DORON KEENE, 28911-9, HA1C #### [facility] ([id number]) [address], [address] [place] [address] MCHC (RBC) [Mass/Vol] 35.1 g/dL Normal 32-36 [facility] Comment on above: Performed By: #### Mayo KEENE CMP, 27065-3, HA1C #### [facility] ([id number]) [address] [place] [address] MCV (RBC) [Entitic vol] 95 fL Normal 80-100 [facility] Comment on above: Performed By: #### Mayo KEENE CMP, 73799-3, HA1C #### [facility] ([id number]) [address], [address] [place] [address] Monocytes (Bld) [#/Vol] 0.9 10*3/uL Normal 0-0.9 [facility] Comment on above: Performed By: #### Mayo KEENE CMP, 69764-9, HA1C #### [facility] ([id number]) [address] [place] [address] Monocytes/100 WBC (Bld) 10.0 % Normal [facility] Comment on above: Performed By: #### Mayo KEENE CMP, 52880-0, HA1C #### [facility] ([id number]) [address] [place] [address] Neutrophils/100 WBC (Bld) 70.2 % Normal [facility] Comment on above: Performed By: #### Mayo KEENE CMP, 45564-9, HA1C #### [facility] ([id number]) [address] [place] [address] Platelet mean volume (Bld) [Entitic vol] 8.6 fL Normal 7-12 [facility] Comment on above: Performed By: #### Mayo KEENE CMP, 66524-4, HA1C #### [facility] ([id number]) [address], [address] [place] [address] Platelets (Bld) [#/Vol] 117 10*3/uL Low 150-450 [facility] Comment on above: Performed By: #### C BCA, CMP, 55206-5, HA1C #### [facility] ([id number]) [address], [address] [place] [address] RBC COUNT 4.75 X10E12/L Normal 4.10-5.70 [facility] Comment on above: Performed By: #### C BCA, CMP, 48182-3, HA1C #### [facility] ([id number]) [address] [place] [address] WBC (Bld) [#/Vol] 8.6 10*3/uL Normal 4.0-11.0 [facility] Comment on above: Performed By: #### C BCA, CMP, 20414-4, HA1C #### [facility] ([id number]) [address], [address] [place] [address] COMPREHENSIVE METABOLIC PANE [facility] 05-16-2024 Albumin [Mass/Vol] 3.9 g/dL Normal 3.2-5.3 [facility] Comment on above: Performed By: #### C BCA, CMP, 33663-5, HA1C #### [facility] ([id number]) [address], [address] [place] [address] ALP [Catalytic activity/Vol] 87 U/L Normal 39-130 [facility] Comment on above: Performed By: #### C BCA, CMP, 18524-6, HA1C #### [facility] ([id number]) [address], [address] [place] [address] ALT [Catalytic activity/Vol] 29 U/L Normal 0-40 [facility] Comment on above: Performed By: #### C BCA, CMP, 97038-1, HA1C #### [facility] ([id number]) [address] [place] [address] Anion gap [Moles/Vol] 9 mmol/L Normal 5-15 [facility] Comment on above: Performed By: #### C BCA, CMP, 91363-5, HA1C #### [facility] ([id number]) [address], [address] [place] [address] AST [Catalytic activity/Vol] 40 U/L Normal 0-41 [facility] Comment on above: Performed By: #### C BCA, CMP, 19348-1, HA1C #### [facility] ([id number]) [address] [place] [address] Bilirubin [Mass/Vol] 1.9 mg/dL High 0.3-1.2 [facility] Comment on above: Performed By: #### C BCA, CMP, 95151-5, HA1C #### [facility] ([id number]) [address] [place] [address] Calcium [Mass/Vol] 8.8 mg/dL Normal 8.5-10.5 [facility] Comment on above: Performed By: #### C BCA, CMP, 87048-1, HA1C #### [facility] ([id number]) [address] [place] [address] Chloride [Moles/Vol] 104 mmol/L Normal 98-109 [facility] Comment on above: Performed By: #### C BCA, CMP, 13024-7, HA1C #### [facility] ([id number]) [address] [place] [address] CO2 [Moles/Vol] 27 mmol/L Normal 22-32 [facility] Comment on above: Performed By: #### C BCA, CMP, 75190-0, HA1C #### [facility] ([id number]) [address] [address] [place] [address] Creatinine [Mass/Vol] 1.18 mg/dL Normal 0.60-1.30 [facility] Comment on above: Result Comment: METH OD TRACEABLE TO IDMS STANDARD Performed By: #### C DORON KEENE, 10210-8, HA1C #### [facility] ([id number]) [address] [address] GFR/1.73 sq M.predicted among non-blacks MDRD (S/P/Bld) [Vol rate/Area] 61 mL/min/{1.73_m2} Normal >59 [facility] Comment on above: Result Comment: Reported eGFR is based on the CKD-EPI 2020 equation that does not use a race coefficient. Performed By: #### C DORON KEENE, 71799-6, HA1C #### [facility] ([id number]) [address] [address] [place] [address] Glucose [Mass/Vol] 113 mg/dL High 65-99 [facility] Comment on above: Performed By: #### C DORON KEENE, 71037-7, HA1C #### [facility] ([id number]) [address] [address] Potassium [Moles/Vol] 3.6 mmol/L Normal 3.5-5.0 [facility] Comment on above: Performed By: #### C BCADORON, 67409-7, HA1C #### [facility] ([id number]) [address] [address] Protein [Mass/Vol] 6.7 g/dL Normal 6.0-8.0 [facility] Comment on above: Performed By: #### C BCA CMP, 44931-1, HA1C #### [facility] ([id number]) [address] [place] [address] Sodium [Moles/Vol] 140 mmol/L Normal 134-146 [facility] Comment on above: Performed By: #### C BCA, [facility], 24356-7, HA1C #### [facility] ([id number]) [address] [place] [address] Urea nitrogen [Mass/Vol] 18 mg/dL Normal 5-27 [facility] Comment on above: Performed By: #### C BCA, CMP, 05907-3, HA1C #### [facility] ([id number]) [address] [place] [address] CT [address]IN WO CONT[address] BRAIN WO [...] Ram MD on 05/16/2024 7:44 PM Normal [facility] Glucose Glucometer (BldC) [M ass/Vol]on 05-16-2024 Glucose [Mass/Vol] 100 mg/dL High 65-99 [facility] Glucose [Mass/Vol] 106 mg/dL High 65-99 [facility] Glucose [Mass/Vol] 112 mg/dL High 65-99 [facility] HGB A1C (GLYCO-HGB)on 2023 Glucose [Mass/Vol] 120 mg/dL Normal [facility] Comment on above: Performed By: #### C DORON KEENE, 12361-2, HA1C #### [facility] ([id number]) [address] [facility] [place] [address] HbA1c (Bld) [Mass fraction] 5.8 % High 4.4-5.6 [facility] Comment on above: Result Comment: NOTE ADA Guidelines Result HgbA1c Normal : less than 5.7 % Prediabetes : 5.7 % to 6.4 % Diabetes : > 6.4 % Use with caution in patients with abnormal hemoglobin variants as the half-life of red blood cells and in vivo glycation rates are affected. Performed By: #### C DORON KEENE, 35673-7, HA1C #### [facility] ([id number]) [address] [facility] [place] [address] Lipid 1996 panelon Cholesterol [Mass/Vol] 123 mg/dL Low 150-200 [facility] Comment on above: Performed By: #### C DORON KEENE, 41498-0, HA1C #### [facility] ([id number]) [address] [place] [address] Cholesterol in HDL [Mass/Vol] 39 mg/dL Low >39 [facility] Comment on above: Result Comment: HDL <40 mg/dL - High Risk HDL > or = 40mg/dL- Desirable HDL >60 mg/dL - Negative Risk Performed By: #### Mayo KEENE, DORON, 20996-7, HA1C #### [facility] ([id number]) [address] [place] [address] Cholesterol in LDL [Mass/Vol] 66 mg/dL Normal <130 [facility] Comment on above: Result Comment: LDL <100 mg/dL - Desirable LDL >160 mg/dL - High Risk Performed By: #### Mayo KEENE, DORON, 57311-5, HA1C #### [facility] ([id number]) [address] [place] [address] Cholesterol in VLDL [Mass/Vol] 18 mg/dL Normal 0-30 [facility] Comment on above: Performed By: #### Mayo KEENE, DORON, 51900-6, HA1C #### [facility] ([id number]) [address], [address] [place] [address] CHOLESTEROL:HDL 3.2 Normal 1.0-5.0 [facility] Comment on above: Performed By: #### Mayo KEENE, CMP, 95314-8, HA1C #### [facility] ([id number]) [address], [address] [place] [address] Triglyceride [Mass/Vol] 92 mg/dL Normal 27-150 [facility] Comment on above: Performed By: #### C BCA, CMP, 12749-2, HA1C #### [facility] ([id number]) [address] [address], [address] [place] [address] Office Visiton 05-09-2024 Follow-up visit [id number] MukeshJorgito Gold 1940 M Date Provider Department Center 05/09/2024 [facility] Family History Problem Relation Age of Onset No Known Problems Mother No Known Problems Father Family Status - Relation Status Age at Mother Father Level of Service:13431 OR OFFICE/OUTPATIENT ESTABLISHED LOW MDM 20 MIN Normal [facility] CBC AUTO DIFFon 03-21-2021 BASO # 0.0 103/ul Normal 0.0-0.1 [facility] Comment on above: Performed By: #### C BC #### [facility] [address] [place] [address] Dr. Lukas Nino Basophils/100 WBC (Bld) 0.4 % Normal 0.2-2.0 [facility] Comment on above: Performed By: #### C BC #### [facility] [address] [place] [address] Dr. Lukas Nino EO # 0.1 103/ul Normal 0.0-0.7 [facility] Comment on above: Performed By: #### C BC #### [facility] [address] [place] [address] Dr. Lukas Nino Eosinophils/100 WBC (Bld) 1.4 % Normal 0.9-7.0 [facility] Comment on above: Performed By: #### C BC #### [facility] [address] [place] [address] Dr. Lukas Nino Erythrocyte distribution width (RBC) [Ratio] 13.0 % Normal 11.0-15.0 [facility] Comment on above: Performed By: #### C BC #### [facility] [address] [place] [address] Dr. Lukas Nino Hematocrit (Bld) [Volume fraction] 42.1 % Normal 42.0-54.0 [facility] Comment on above: Performed By: #### C BC #### [facility] [address] [place] [address] Dr. Lukas Nino Hemoglobin (Bld) [Mass/Vol] 14.5 g/dL Normal 14.0-18.0 [facility] Comment on above: Performed By: #### C BC #### [facility] [address] [place] [address] Dr. Lukas Nino IG # 0.03 10e3/ul Normal 0.00-0.03 [facility] Comment on above: Performed By: #### C BC #### [facility] [address] [place] [address] Dr. Lukas Nino IG % 0.4 % Normal 0.0-0.5 [facility] Comment on above: Performed By: #### C BC #### [facility] [address] [place] [address] Dr. Lukas Nino LYMPH # 1.7 103/ul Normal 1.2-3.8 [facility] Comment on above: Performed By: #### C BC #### [facility] [address] [place] [address] Dr. Lukas Nino Lymphocytes/100 WBC (Bld) 20.6 % Normal 20.5-60.0 [facility] Comment on above: Performed By: #### C BC #### [facility] [address] [place] [address] Dr. Lukas Nino MANUAL DIFF REQ NO Normal [facility] Comment on above: Performed By: #### C BC #### [facility] [address] [place] [address] Dr. Lukas Nino MCH (RBC) [Entitic mass] 33.0 pg Normal 25.9-34.0 [facility] Comment on above: Performed By: #### C BC #### [facility] [address] [place] [address] Dr. Lukas Nino MCHC (RBC) [Mass/Vol] 34.4 g/dL Normal 29.9-35.2 [facility] Comment on above: Performed By: #### C BC #### [facility] [address] [address] [address] Lukas Nino MCV (RBC) [Entitic vol] 95.9 fL Critically high 80.0-94.0 [facility] Comment on above: Performed By: #### C BC #### [facility] [address] [address] [address] Lukas Nino MONO # 0.6 103/ul Normal 0.3-0.8 [facility] Comment on above: Performed By: #### C BC #### [facility] [address] [address] [address] Lkuas Nino Monocytes/100 WBC (Bld) 7.2 % Normal 1.7-12.0 [facility] Comment on above: Performed By: #### C BC #### [facility] [address] [address] [address] Lukas Nino NEUT # 5.6 103/ul Normal 1.4-6.5 [facility] Comment on above: Performed By: #### C BC #### [facility] [address] [address] [address] Lukas Nino Neutrophils/100 WBC (Bld) 70.0 % Normal 43.0-75.0 [facility] Comment on above: Performed By: #### C BC #### [facility] [address] [address] [address] Lukas Nino Platelet mean volume (Bld) [Entitic vol] 11.1 fL Normal 9.5-13.5 [facility] Comment on above: Performed By: #### C BC #### [facility] [address] [address] [address] Lukas Nino PLT 129 103/ul Critically low 150-450 [facility] Comment on above: Result Comment: few plt clumps Performed By: #### C BC #### [facility] [id number] Lukas Nino RBC 4.39 106/ul Critically low 4.70-6.10 [facility] Comment on above: Performed By: #### C BC #### [facility] [address] [address] [address] Lukas Nino WBC 8.0 103/ul Normal 4.0-11.0 [facility] Comment on above: Performed By: #### C BC #### [facility] [address] [place] [address] Dr. Lukas Nino FREE THYROXINE INDEX T7on FTI 2.05 Normal [facility] Comment on above: Performed By: #### T SH, CMP, LIPID, URIC, T7 #### [facility] [address] [address] [address] Lukas Nino T3U 33.0 % Normal 23.5-40.5 [facility] Comment on above: Performed By: #### T SH, CMP, LIPID, URIC, T7 #### [facility] [address] [place] [address] Dr. Lukas Nino T4 [Mass/Vol] 6.20 ug/dL Normal 5.53-11.00 [facility] Comment on above: Performed By: #### T SH, CMP, LIPID, URIC, T7 #### [facility] [address] [place] [address] Dr. Lukas Nino GLYCOHEMOGLOBIN A1Con 2020 ADA RECOMMENDATION ADA THERAPEUTIC TARGET 6.0 - 7.0 ACTION SUGGESTED > 7.0 Normal [facility] Comment on above: Performed By: #### A 1C #### [facility] [address] [place] [address] Dr. Lukas Nino Glucose [Mass/Vol] 103 mg/dL Normal [facility] Comment on above: Performed By: #### A 1C #### [facility] [address] [place] [address] Dr. Lukas Nino HbA1c (Bld) [Mass fraction] 5.2 % Normal <=6.0 [facility] Comment on above: Performed By: #### A 1C #### [facility] [address] [place] [address] Dr. Lukas Nino LIPID PROFILEon 03-21-2021 CHOL-HDL RATIO NORM SEE BELOW Normal [facility] Comment on above: Result Comment: 3.3 - 4.4 LOW RISK 4.4 - 7.1 AVERAGE RISK 7.1 - 11.0 MODERATE RISK >11.0 HIGH RISK Performed By: #### T SH, CMP, LIPID, URIC, T7 #### [facility] [address] [address] [address] Lukas Nino Cholesterol [Mass/Vol] 121 mg/dL Normal <=200 [facility] Comment on above: Performed By: #### T SH, CMP, LIPID, URIC, T7 #### [facility] [address] [address] [address] Lukas Nino Cholesterol in HDL [Mass/Vol] 38 mg/dL Normal [facility] Comment on above: Performed By: #### T SH, CMP, LIPID, URIC, T7 #### [facility] [address] [address] [address] Lukas Nino Cholesterol in LDL [Mass/Vol] 66.4 mg/dL Normal [facility] Comment on above: Performed By: #### T SH, CMP, LIPID, URIC, T7 #### [facility] [address] [address] [address] Lukas Nino Cholesterol.total/Ch olesterol in HDL [Mass ratio] 3.2 {ratio} Normal [facility] Comment on above: Performed By: #### T SH, CMP, LIPID, URIC, T7 #### [facility] [address] [address] [address] Lukas Nino HDL NORMAL > or = 60 mg/dl - LOW CARDIOVASCULAR RISK <40 mg/dl - HIGH CARDIOVASCULAR RISK Normal [facility] Comment on above: Performed By: #### T SH, CMP, LIPID, URIC, T7 #### [facility] [address] [place] [address] Dr. Lukas Nino LDL CALC NORMAL SEE BELOW Normal [facility] Comment on above: Result Comment: <100 mg/dl OPTIMAL 100 - 129 mg/dl NEAR OR ABOVE OPTIMAL 130 - 159 mg/dl BORDERLINE HIGH 160 - 189 mg/dl HIGH >190 mg/dl VERY HIGH Performed By: #### T SH, CMP, LIPID, URIC, T7 #### [facility] [address] [address] [address] Lukas Nino Triglyceride [Mass/Vol] 83 mg/dL Normal <=150 [facility] Comment on above: Performed By: #### T SH, CMP, LIPID, URIC, T7 #### [facility] [address] [address] [address] Lukas Nino VLDL CALC 16.6 mg/dL Normal [facility] Comment on above: Performed By: #### T SH, CMP, LIPID, URIC, T7 #### [facility] [address] [address] [address] Lukas Nino PROF 14(COMP METB)on 021 Albumin [Mass/Vol] 3.7 g/dL Normal 3.5-5.0 [facility] Comment on above: Performed By: #### T SH, CMP, LIPID, URIC, T7 #### [facility] [address] [address] [address] Lukas Nino Albumin/Globulin [Mass ratio] 1.0 {ratio} Normal [facility] Comment on above: Performed By: #### T SH, CMP, LIPID, URIC, T7 #### [facility] [address] [address] [address] Lukas Nino ALP [Catalytic activity/Vol] 86 U/L Normal 38-126 [facility] Comment on above: Performed By: #### T SH, CMP, LIPID, URIC, T7 #### [facility] [address] [address] [address] Lukas Nino ALT [Catalytic activity/Vol] 18 U/L Critically low 21-72 [facility] Comment on above: Performed By: #### T SH, CMP, LIPID, URIC, T7 #### [facility] [address] [place] [address] Dr. Lukas Nino Anion gap [Moles/Vol] 9.5 mmol/L Normal [facility] Comment on above: Performed By: #### T SH, CMP, LIPID, URIC, T7 #### [facility] [address] [address] [address] Lukas Nino AST [Catalytic activity/Vol] 18 U/L Normal 17-59 [facility] Comment on above: Performed By: #### T SH, CMP, LIPID, URIC, T7 #### [facility] [address] [address] [address] Lukas Nino Bilirubin [Mass/Vol] 0.8 mg/dL Normal 0.2-1.3 [facility] Comment on above: Performed By: #### T SH, CMP, LIPID, URIC, T7 #### [facility] [address] [place] [address] Dr. Lukas Nino Calcium [Mass/Vol] 8.9 mg/dL Normal 8.4-10.2 [facility] Comment on above: Performed By: #### T SH, CMP, LIPID, URIC, T7 #### [facility] [address] [place] [address] Dr. Lukas Nino Chloride [Moles/Vol] 106 mmol/L Normal 98-107 [facility] Comment on above: Performed By: #### T SH, CMP, LIPID, URIC, T7 #### [facility] [address] [address] [address] Lukas Nino CO2 [Moles/Vol] 28.2 mmol/L Normal 22.0-30.0 [facility] Comment on above: Performed By: #### T SH, CMP, LIPID, URIC, T7 #### [facility] [address] [place] [address] Dr. Lukas Nino Creatinine [Mass/Vol] 1.26 mg/dL Critically high 0.66-1.25 [facility] Comment on above: Performed By: #### T SH, CMP, LIPID, URIC, T7 #### [facility] [address] [place] [address] Dr. Lukas Nino EGFR-AF CYPRIOT >60 Normal >=60 [facility] Comment on above: Performed By: #### T SH, CMP, LIPID, URIC, T7 #### [facility] [address] [place] [address] Dr. Lukas Nino EGFR-NON AF CYPRIOT 55 mL/min/1.73m2 Critically low >=60 [facility] Comment on above: Performed By: #### T SH, CMP, LIPID, URIC, T7 #### [facility] [address] [address] [address] Lukas Nino Globulin (S) [Mass/Vol] 3.7 g/dL Normal [facility] Comment on above: Performed By: #### T SH, CMP, LIPID, URIC, T7 #### [facility] [address] [address] [address] Lukas Nino Glucose [Mass/Vol] 76 mg/dL Normal 74-106 [facility] Comment on above: Performed By: #### T SH, CMP, LIPID, URIC, T7 #### [facility] [address] [place] [address] Dr. Lukas Nino Potassium [Moles/Vol] 3.7 mmol/L Normal 3.4-5.0 [facility] Comment on above: Performed By: #### T SH, CMP, LIPID, URIC, T7 #### [facility] [address] [address] [address] Lukas Nino Protein [Mass/Vol] 7.4 g/dL Normal 6.1-8.2 [facility] Comment on above: Performed By: #### T SH, CMP, LIPID, URIC, T7 #### [facility] [address] [address] [address] Lukas Nino Sodium [Moles/Vol] 140 mmol/L Normal 137-145 [facility] Comment on above: Performed By: #### T SH, CMP, LIPID, URIC, T7 #### [facility] [address] [address] [address] Lukas Nino Urea nitrogen [Mass/Vol] 15.0 mg/dL Normal 9.0-20.0 [facility] Comment on above: Performed By: #### T SH, CMP, LIPID, URIC, T7 #### [facility] [address] [address] [address] Lukas Nino Urea nitrogen/Creatinine [Mass ratio] 11.9 mg/mg Normal [facility] Comment on above: Performed By: #### T SH, CMP, LIPID, URIC, T7 #### [facility] [address] [address] [address] Lukas Nino TSHon 03-21-2021 TSH 2.594 uIU/mL Normal 0.470-4.680 [facility] Comment on above: Performed By: #### T SH, CMP, LIPID, URIC, T7 #### [facility] [address] [address] [address] Lukas Nino TSH RANGE SEE BELOW Normal [facility] Comment on above: Result Comment: <0.3 4 UIU/ml HYPERTHYROID 0.34-5.60 UIU/ml EUTHYROID >5.60 UIU/ml HYPOTHYROID Performed By: #### T SH, CMP, LIPID, URIC, T7 #### [facility] [address] [place] [address] Dr. Lukas Nino URIC ACID SERUMon 03-21-2021 Urate [Mass/Vol] 6.5 mg/dL Normal 3.5-8.5 [facility] Comment on above: Performed By: #### T SH, CMP, LIPID, URIC, T7 #### [facility] [address] [place] [address] Dr. Lukas Nino Vital Signs Date Time Vital Sign Value Performing Clinician Faci lity 08-07-2024 09:15-0500 Body height 175.3 cm Anahy Jhonathan BUSINESS OPERATIONS DIRECTOR Work Phone: [facility] 08-07-2024 09:15-0500 Body mass index (BMI) [Ratio] 30.27 kg/m2 Anahy Vanessaoll BUSINESS OPERATIONS DIRECTOR Work Phone: [facility] 08-07-2024 09:15-0500 Body weight 92.99 kg Anahy Jhonathan BUSINESS OPERATIONS DIRECTOR Work Phone: [facility] 08-07-2024 09:15-0500 Diastolic blood pressure 86 mm[Hg] Anahy Vanessaoll BUSINESS OPERATIONS DIRECTOR Work Phone: [facility] 08-07-2024 09:15-0500 Systolic blood pressure 128 mm[Hg] Anahy Tavera BUSINESS OPERATIONS DIRECTOR Work Phone: [facility] Encounters Encounter Date Encounter Type Care Provider Facility Start: 02-19-2025 End: 02-19-2025 ambulatory TAMMY PRESLEY [facility] Start: 10-13-2024 End: [facility] Start: 08-07-2024 End: 08-07-2024 Bamboo flowsheet Anahy Tavera BUSINESS OPERATIONS DIRECTOR Work Phone: [facility] Start: 08-07-2024 End: 08-07-2024 Bamboo flowsheet Anahy Tavera BUSINESS OPERATIONS DIRECTOR Work Phone: [facility] Start: 08-07-2024 End: 08-07-2024 ambulatory ANAHY TAVERA Not Available Start: 08-07-2024 End: 08-07-2024 Office outpatient visit 15 minutes Anahy Tavera BUSINESS OPERATIONS DIRECTOR Work Phone: [facility] Comment on above: Stroke-like symptoms (Primary Dx); Hypertension, unspecified type (CMS/HCC); Hyperlipidemia, unspecified hyperlipidemia type (CMS/HCC) Start: 07-19-2024 End: 07-19-2024 ambulatory [facility] Start: 06-12-2024 End: 06-12-2024 ambulatory JAKE CHOWDHURY [facility] Start: 05-16-2024 ambulatory [facility] Start: 05-15-2024 End: 05-19-2024 Evaluation and management of inpatient MARIELLE FLORES [facility] Start: 05-09-2024 End: 05-09-2024 ambulatory [facility] Start: 11-24-2023 ambulatory [facility] Start: 04-29-2021 End: 04-30-2021 ambulatory TRAMAINE GOLDEN Facility:[facility] Start: 03-21-2021 End: 03-21-[address] JAKE CHOWDHURY Facility:[facility] Start: 08-27-2020 End: 08-28-[address] ROA LISTED REQUEST Facility:[facility] Start: 08-05-2020 End: 08-06-[address] JAKE CHOWDHURY Facility:[facility] Procedures Date Procedure Procedure Detail Performing Clinician Start: 03-21-[address] JANINA Grimm ISTED REQUEST Comment on above: Performed By: #### [facility] #### [facility] [address] [address] [address] Lukas Nino Plan of Treatment Date Care Activity Detail Author Start: 12-18-2024 End: 12-18-2024 Patient encounter procedure 12/18/2024 1:20 PM EDT Office Visit RUBI HARDY [address] [place] [address] Anahy Tavera NP [address] [place] [address] [facility] Start: 02-06-2024 Influenza vaccination Influenza Vacc ine (#1) [facility] Immunizations Immunization Date Immunization Notes Care Provider Fa [facility] 03-27-2022 influenza virus vacc ine, unspecified formulation Anahy Tavera BUSINESS OPERATIONS DIRECTOR Work Phone: [facility] Payers Date Payer Category Payer Medicare (Managed Care) [employer] [id number] 1958 Medicare [id number] 1958 Self-pay [id number] 1940 Unknown [id number]. 2.593 1941 Unknown [id number] [id number]. 2.1286 1941 Unknown [id number] [id number]. 2.1286 1941 Unknown [id number] [id number]. 2.1286 1941 Unknown [id number] [id number]. 2.1286 1941 Unknown [id number] [id number]. 2.1286 1941 Unknown [id number] [id number]. 2.1286 1941 Unknown [id number] [id number]. 2.1286 1941 Unknown [id number] [id number]. 2.1259 Unknown [id number] 2.16.840.1.794104.3.579. 2.593 Unknown [id number] 2.16.840.1.347465.3.579. 2.593 Unknown [id number] [id number]. 2.593 Social History Date Type Detail Facility Tobacco smoking stat [facility] Tobacco smoking consumption unknown [facility] Start: 1940 Sex assigned at Not on file [facility] Start: 06-07-2024 Gender identity Identifies as male gender (finding) [facility] Start: 06-07-2024 Sexual orientation Heterosexual (fin ding) [facility] Start: 08-07-2024 Tobacco smoking stat [facility] Never smoked tobacco [facility] Start: 08-07-2024 Tobacco use and exposure Smokeless t obacco non-user [facility] Start: 08-07-2024 Alcoholic beverage intake Life time non-drinker (finding) [facility] Start: 08-07-2024 History of Social function [facility] Start: 08-07-2024 Tobacco use panel [facility] Progress note 02-19-2025 Note Date & Type Note Facility 02-19-2025 Note SUBJECTIVE Reason for Visit: Jorgito Mayorga is a 84 y.o. year old male patient being seen for follow-up visit. HPI: Jorgito Mayorga is a 84 y.o. year old male with significant medical history of Coronary Artery Disease (Denies chest pain and SOB. ), Congestive Heart Failure (Son states his sister told him his father had some LLE edema last week but it's improving. He says he hasn't had trouble getting his shoes on. ), Hypertension, Hyperlipidemia (Had lipid panel in May 2024. ), hypothyroidism, and probable stroke (Recently wore event monitor.) 02/19/2025 office visit: Patient was seen and evaluated in the office today, accompanied by his family members. He reports no cardiac symptoms, confirmed with family members as well. He denies any chest pain, shortness of breath, palpitations, lightheadedness or dizziness, or lower extremity edema. On exam, he has no lower extremity edema. Patient family states that he has had increased fatigue over the last year and has lost quite a bit of weight recently. He reports going to bed at 6 PM and waking up at 5 AM. He has multiple awakenings due to going to the bathroom throughout the night. He takes frequent naps during the day. I strongly recommended that he follow through with a sleep study. He has an appointment with his primary care provider on 03/01/2025. If that is normal, other etiologies can be explored such as PFTs. His symptoms do not appear to be cardiac in nature. 10/13/2024 office visit (Dr. Antoine): The patient is here today for follow-up [...] No reported stopping breathing during the night. I discussed with patient the possibility of sleep disorder causing his TIA symptoms per neurology evaluation when he was in the hospital and I recommended sleep study but he declined that. Also we discussed loop recorder implant looking for paroxysmal A-fib but he declined that. He states that he has recurrent symptoms of TIAs he will consider that. Medical History[1] Surgical History[2] Problem List[3] family history includes No Known Problems in his father and mother. Social History[4] OBJECTIVE Visit Vitals Smoking Status Never Physical Exam Constitutional: General Appearance: well-developed, appears stated age. Level of Distress: no acute distress. Neck: Jugular Veins: normal jugular venous pressure. Lungs: Auscultation: no rales or rhonchi and normal breath sounds. Cardiovascular: Rate And Rhythm: regular Heart Sounds: normal S1 and s2; Systolic Murmur: not heard. Diastolic Murmur: not heard. Extremities: no edema Peripheral Pulses: Pulses: full and equal in all extremities except if noted. Abdomen: Inspection and Palpation: non distended or tender and soft. Musculoskeletal: Inspection: no joint tenderness or swelling. Neurologic: Gait: normal gait. Psychiatric: Mental Status: alert and normal affect. Skin: Inspection and Palpation: warm and dry. Allergies: Allergies[5] Outpatient Medications: Current Outpatient Medications Medication Instructions amLODIPine (NORVASC) 10 mg, oral, Daily aspirin 81 mg, oral, Daily atorvastatin (LIPITOR) 80 mg, oral, Nightly carvedilol (COREG) 3.125 mg, oral, 2 times daily with meals clopidogrel (PLAVIX) 75 mg, oral, Daily furosemide (LASIX) 40 mg, oral, Daily levothyroxine (SYNTHROID, LEVOXYL) 50 mcg, oral, Daily before breakfast pantoprazole (PROTONIX) 40 mg, oral, Daily before breakfast potassium chloride CR (Klor-Con M10) 10 mEq ER tablet 10 mEq, oral, Daily, Do not crush or chew. QUEtiapine (SEROQUEL) 50 mg, oral, Nightly tamsulosin (FLOMAX) 0.4 mg, oral, Daily Recent Labs: No visits with results within 2 Month(s) from this visit. Latest known visit with results is: Admission on 11/24/2023, Discharged on 11/26/2023 Component Date Value Sodium 11/24/2023 140 Potassium 11/24/2023 3.6 Chloride 11/24/2023 108 (H) CO2 11/24/2023 18 (L) Anion Gap 11/24/2023 18 BUN 11/24/2023 28 (H) Creatinine 11/24/2023 1.25 BUN/Creatinine Ratio 11/24/2023 22.4 Glucose 11/24/2023 97 Calcium 11/24/2023 8.7 AST 11/24/2023 31 ALT (SGPT) 11/24/2023 16 Alkaline Phosphatase 11/24/2023 87 Total Protein 11/24/2023 6.9 Albumin 11/24/2023 3.5 Total Bilirubin 11/24/2023 0.6 eGFR 11/24/2023 57.5 (L) Lactate 11/24/2023 1.0 Magnesium 11/24/2023 1.9 Phosphorus 11/24/2023 2.8 Troponin I more content not included)... [facility] Progress note 10-13-2024 Note Date & Type Note Facility 10-13-2024 Note DC Cardiology - [facility] Tom Mayorga is a 84 [...] (hyperlipidemia) Acquired hypothyroidism Coronary artery disease involving grindstone coronary artery of grindstone heart without angina pectoris NSTEMI (non-ST elevated [...] hypothyroidism. On 05/16/2024 he was admitted to [facility] with headache associated with numbness and weakness [...] Acquired hypothyroidism 11/24/2023 CHF (congestive heart failure) ([facility]) Coronary artery disease History of CVA (cerebrovascular accident) 11/24/2023 HLD (hyperlipidemia) 11/24/2023 Myocardial infarction ([facility]) Primary hypertension 11/24/2023 Stroke ([facility]) Past Surgical History: Procedure Laterality Date [...] (3.125 mg) by (more content not included)... [facility] History of Present illness Narrative 08-07-2024 Anahy Jhonathan, CANDIS - 08/07/2024 9:00 AM EST Note Date & Type Note Facility 08-07-2024 History of Presen t illness Narrative Images from the original note were not included. Chief Complaint Patient presents with Hospital Follow-up Subjective Jorgito Mayorga is a 84 y.o. male. History of Present Illness The patient presents today for a post-hospital follow-up appointment. He is accompanied by his stepsonCalvin. He was hospitalized at [facility] from 05/15/2024 to 05/19/2024. The patient initially presented to [facility] Emergency Department on 05/15/2024 due to altered [...] administered aspirin and Plavix and transferred to [facility] due to concern for acute CVA. While [...] symptoms have resolved. He resided at the [facility] for 2 weeks following hospital discharge for [...] wrist extensors , wrist flexor , and melt house centrifugal operator strength 5/5. LUE strength deltoid , biceps , triceps , wrist extensors , wrist flexor , and melt house centrifugal operator strength 5/5. RLE strength iliopsoas, quadriceps, tibialis [...] reflex 1+. LLE knee reflex 1+. Coordination: [id number] testing normal. Rapid alternating movements are normal. [...] Hyperlipidemia (CMS/HCC) The patient was evaluated at [facility] in mid May 2024 for stroke-like symptoms. He initially presented to [facility] ED on 05/15/2024 due to altered mental status, left-sided weakness, left upper extremity numbness, and severe, sudden onset headache and was subsequently transferred to [facility]. CT of the brain on 05/15/2024 identified [...] discharge. He completed PT and OT at [facility] and has since returned home. PLAN: - [...] new or worsening symptoms. Anahy Tavera NP [facility] documented in this encounter [facility] Instructions 08-07-2024 Patient Instructions Note Date & Type Note Facility 08-07-2024 Instructions Anahy Tavera NP - 08/07/2024 9:00 AM EST - Continue aspirin 81 mg by mouth once a day and Plavix 75 mg by mouth once a day for secondary stroke prevention - Continue statin documented in this encounter [facility] Progress note 07-19-2024 Note Date & Type Note Facility 07-19-2024 Note [facility] ESS NOTE [...] Testing: Cardiac cath (more content not included)... [facility] Progress note 05-09-2024 Note Date & Type Note Facility 05-09-2024 Note [facility] PROGR ESS NOTE [...] Testing: Cardiac cath 11/25/23 Conclusion PROCEDURE PHYSICIAN: Jose Martin Christie MD Clinical Presentation: 83 y.o. Male [...] a long mid (more content not included)... [facility] Evaluation note Note Date & Type Note Facility Evaluation note Diagnosis Stroke-like symptoms- Primary Hypertension, [...] section and content) DATE CREATED AUTHOR 05/23/2021 [facility] DATE CREATED AUTHOR AUTHOR'S ORGANIZ ATION 06/18/2024 [facility] DATE CREATED AUTHOR AUTHOR'S ORGANIZ ATION 06/18/2024 [facility] DATE CREATED AUTHOR AUTHOR'S ORGANIZ ATION 08/08/2024 [facility] EPIC DATE CREATED AUTHOR AUTHOR'S ORGANIZ ATION 02/20/2025 [facility] Reason for Visit (unrecogniz ed section and content) Reason Comments Hospital Follow-up Care Teams (unrecognized sec tion and content) [employer] Relationship Specialty Start Date End Date Jake Chowdhury MD [address] [place] [address] PCP - General Family Medicine 08/07/24 Anahy Tavera NP [address] [phone] Nurse Practitioner Neurology 08/07/24 FOR RECORDS PERTAINING [...] BE BASED ON THE PRIMARY CLINICAL RECORDS. [employer] [facility]. provides no warranty or guarantee of the accuracy or completeness of information in this document.
--- NOTE | 2025-03-01 16:15 | CT_ITS ---
The [address] [address] Patient Name: KEAL PULIDO MRN: [id number] date: 1940 Sex: M Assigned Patient Location: ER Current Patient Location: Accession/Order Number: [id number] Exam Date: 03/01/2025 16:50 Report Date: 03/01/2025 17:35 At the request of: GERSON GEORGE Procedure: CT cervical spine wo con CT CERVICAL SPINE WITHOUT CONTRAST WITH 3D RECONSTRUCTIONS: CLINICAL HISTORY: trauma COMPARISON: None TECHNIQUE: Spiral axial unenhanced images were obtained through the cervical spine. Sagittal, coronal and 3D volume-rendered reconstructions were also reviewed. This CT exam was performed using one or more following dose reduction techniques: Automated exposure control, adjustment of the mA and/or kV according to patient size, or use of iterative reconstruction technique. FINDINGS: Straightening normal lordosis. Overall moderate multilevel degenerative changes with multilevel disc space narrowing and osteophytosis C3-C7 greatest C5-C7. Facet arthropathy notably C3-C5. No fracture or malalignment. Prevertebral soft tissues unremarkable. CT/CT cervical spine wo con IMPRESSION: MULTILEVEL DEGENERATIVE CHANGES WITHOUT EVIDENCE ACUTE FRACTURE MALALIGNMENT. Impression dictated by: Vic Cain M.D. 03/01/2025 5:35 PM Dictation Location: [place] [address] Electronically authenticated by: [id number] Y Date: 03/01/2025 17:35
--- NOTE | 2025-03-01 16:15 | CT_ITS ---
The [address] [address] Patient Name: KAEL PULIDO MRN: [id number] date: 1940 Sex: M Assigned Patient Location: ER Current Patient Location: ER Accession/Order Number: [id number] Exam Date: 03/01/2025 16:50 Report Date: 03/01/2025 17:20 At the request of: GERSON GEORGE Procedure: CT head/brain wo con CT BRAIN WITHOUT CONTRAST: CLINICAL HISTORY: fall COMPARISON: CT angiogram 05/15/2024 TECHNIQUE: Contiguous axial unenhanced images were obtained through the brain. This CT exam was performed using one or more following dose reduction techniques: Automated exposure control, adjustment of the mA and/or kV according to patient size, or use of iterative reconstruction technique. FINDINGS: There is no evidence of midline shift, intra or extra-axial fluid collection, hemorrhage or CT evidence of acute large vascular distribution stroke. Central involutional changes and chronic small vessel ischemic disease. Evidence of remote lacunar strokes right thalamus and both anterior basal ganglia. There are vascular calcification. Visualized intraorbital contents appear unremarkable. Visualized paranasal sinuses are clear. Nasal bone bone fractures. No calvarial fracture. CT/CT head/brain wo con IMPRESSION: NO ACUTE INTRACRANIAL ABNORMALITY. CHRONIC SMALL VESSEL ISCHEMIC DISEASE AND CENTRAL INVOLUTIONAL CHANGES. NASAL BONE FRACTURES. Impression dictated by: Vic Cain M.D. 03/01/2025 5:20 PM Dictation Location: [employer] Electronically authenticated by: [id number] Y Date: 03/01/2025 17:20
--- NOTE | 2025-03-01 16:15 | CT_ITS ---
The [address] [address] Patient Name: KAEL PULIDO MRN: [id number] date: 1940 Sex: M Assigned Patient Location: ER Current Patient Location: ER Accession/Order Number: [id number] Exam Date: 03/01/2025 16:50 Report Date: 03/01/2025 17:42 At the request of: GERSON GEORGE Procedure: CT facial bones wo con MAXILLOFACIAL CT WITHOUT CONTRAST: CLINICAL HISTORY: fall COMPARISON: None TECHNIQUE: Spiral axial unenhanced images were obtained through the facial bones. Coronal and sagittal reconstructions were also reviewed. This CT exam was performed using one or more following dose reduction techniques: Automated exposure control, adjustment of the mA and/or kV according to patient size, or use of iterative reconstruction technique. FINDINGS: Mildly comminuted anterior nasal bone fractures. Findings most pronounced the left. Fracture involving the anterior maxillary spine. This anterior nasal soft tissue swelling. Dehiscent right lamina papyracea, Likely chronic. Mild to moderate sinus. CT/CT facial bones wo con IMPRESSION: Bilateral anterior nasal bone fractures. Impression dictated by: Vic Cain M.D. 03/01/2025 5:42 PM Dictation Location: [place] [address] Electronically authenticated by: [id number] Y Date: 03/01/2025 17:42
[2025-03-01 16:21] LABS: Hematocrit 43.2 % (42.0-54.0); Hemoglobin 15.6 g/dL (14.0-18.0); Immature Granulocytes Abs Auto 0.02 10^3/uL (0.00-0.03); Immature Granulocytes Pct Auto 0.3 % (0.0-0.5); Lymphocytes Absolute Auto 1.6 10^3/uL (1.2-3.8); Mean Corpuscular HGB Conc 36.1 g/dL (29.9-35.2); Mean Corpuscular Hemoglobin 33.1 pg (25.9-34.0); Mean Corpuscular Volume 91.7 fL (80.0-94.0); Platelet Count 143 10^3/uL (150-450); Red Blood Count 4.71 10^6/uL (4.70-6.10); White Blood Count 8.0 10^3/uL (4.0-11.0)
[2025-03-01 16:26] LABS: Anion Gap 13.0; Blood Urea Nitrogen 14.0 mg/dL (7.0-18.0); Calcium 9.0 mg/dL (8.5-10.1); Carbon Dioxide 29.3 mmol/L (21.0-32.0); Chloride 98 mmol/L (98-107); Estimated GFR (African America >60 (>=60 mL/min/1.73m^2); Estimated GFR (Non-African Ame 50 (>=60 mL/min/1.73m^2); Glucose 410 mg/dL (74-106); Potassium 3.3 mmol/L (3.5-5.1); Sodium 137 mmol/L (136-145)
[2025-03-01 17:07] LABS: INR 1.00; Prothrombin Time 10.6 sec (9.0-11.6)
[2025-03-01] MEDS: LIDOCAINE HCL 1% 100 MG/10 ML MDV INJ ×2 (17:35→17:36)
--- NOTE | 2025-03-01 18:43 | ED.FALL1 ---
HPI HPI - Fall General Chief Complaint: Fall Stated Complaint: FALL Time Seen by Provider: 03/01/25 16:11 Source: patient Mode of arrival: ambulance Limitations: no limitations History of Present Illness HPI Narrative: Patient presents to the ED after a fall. He reports that while leaving Dr. 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 He fell forward and struck his face on the ground. He denies loss of consciousness, headache, neck pain, visual changes, vomiting, chest pain, shortness of breath, abdominal pain, or extremity pain. No new neurological deficits reported. MD complaint: Reports fall Related Data Home Medications ?Medication ?Instructions ?Recorded ?Confirmed levothyroxine 50 mcg tablet 50 mcg PO DAILY 06/21/23 03/01/25 lisinopril 40 mg tablet 40 mg PO DAILY 06/21/23 12/12/23 quetiapine 50 mg tablet 50 mg PO DAILY 06/21/23 03/01/25 tamsulosin 0.4 mg capsule 0.4 mg PO DAILY 11/23/23 03/01/25 clopidogrel 75 mg tablet 75 mg PO DAILY 12/12/23 03/01/25 metoprolol succinate 25 mg 25 mg PO DAILY 12/12/23 12/12/23 tablet,extended release 24 hr amlodipine 10 mg tablet mg 03/01/25 atorvastatin 40 mg tablet mg 03/01/25 carvedilol 3.125 mg tablet mg 03/01/25 furosemide 40 mg tablet mg 03/01/25 metformin 1,000 mg tablet mg 03/01/25 metformin 500 mg tablet mg 03/01/25 pantoprazole 40 mg tablet,delayed mg PO 03/01/25 release potassium chloride 10 mEq meq PO 03/01/25 tablet,extended release Previous Rx's ?Medication ?Instructions ?Recorded cephalexin 500 mg capsule 500 mg PO TID 7 days #21 caps 03/01/25 Allergies Allergy/AdvReac Type Severity Reaction Status Date / Time No Known Drug Allergies Allergy Verified 03/01/25 15:53 Opioid HPI Opioid Management Most Recent Pain and Opioid Data: Last Pain Scale 8 05/15/24, 17:57 PFSH PFSH Social History Little interest or pleasure in doing things: not at all Feeling down, depressed, or hopeless: not at all Exam Narrative Exam Narrative: General: Alert, oriented ?3, no acute distress HEENT: Multiple abrasions and contusions on forehead and nose; 4 cm vertical laceration of forehead and 3 cm laceration of nasal area. No step-offs, normal jaw movement, normal TMs, edentulous at baseline Neuro: No new focal neurological deficits; normal sensation, strength unchanged from baseline stroke; normal speech Spine: No cervical, thoracic, or lumbar tenderness or step-off Chest/Abdomen: No chest wall tenderness or contusions; abdomen soft, non-tender Extremities: No pain, deformity, or tenderness; normal pulses and neurovascular status distally Pelvis: Stable Constitutional Vital Signs, click to edit/add: Last Vital Signs Temp 98.0 F 03/01/25 15:53 Pulse 65 03/01/25 15:53 Resp 18 03/01/25 15:53 BP 138/87 03/01/25 15:53 Pulse Ox 95 03/01/25 15:53 O2 Del Method Room Air 03/01/25 15:53 Course Vital Signs Vital signs: Vital Signs Temperature 98.0 F 03/01/25 15:53 Pulse Rate 65 03/01/25 15:53 Respiratory Rate 18 03/01/25 15:53 Blood Pressure 138/87 03/01/25 15:53 Pulse Oximetry 95 03/01/25 15:53 Oxygen Delivery Method Room Air 03/01/25 15:53 Temperature 98.0 F 03/01/25 15:53 Pulse Rate 65 03/01/25 15:53 Respiratory Rate 18 03/01/25 15:53 Blood Pressure 138/87 03/01/25 15:53 Pulse Oximetry 95 03/01/25 15:53 Oxygen Delivery Method Room Air 03/01/25 15:53 MDM - Fall MDM Narrative Medical decision making narrative: This is an elderly patient with known history of foot drop from prior stroke who experienced a mechanical fall resulting in facial trauma coming out of a check up with his PCP Dr. Chowdhury. Lacerations of forehead and nose were repaired successfully with good approximation. Keflex was prescribed due to the fracture of the nasal bone with laceration. Area was cleaned with chlorhexidine prior to closure. No evidence of additional traumatic injury. Neuro exam remains at baseline. Given stable imaging, baseline neuro status, and patient?s plan for outpatient follow-up with his PCP for glycemic control, he is appropriate for discharge with strict return precautions and wound care instructions. Labs notable for glucose 410; patient reports glucose has been in the 400s for several weeks and that his diabetes medication was adjusted earlier today by his PCP. Creatinine 1.3 (baseline), potassium mildly low at 3.3. No evidence of acute metabolic decompensation or DKA. . Differential diagnosis considered included intracranial hemorrhage, cervical spine fracture, facial fractures, and lacerations. CT head showed no acute intracranial pathology, with chronic small vessel ischemic changes noted. CT cervical spine showed multilevel degenerative changes but no acute fracture or malalignment. CT facial bones revealed bilateral anterior nasal bone fractures. Lab work showed glucose 410 (known history of diabetes), creatinine 1.3 (baseline), and mild hypokalemia (3.3). Patient was updated on his Teatnus vaccination. Lab Data Labs: Lab Results 03/01/25 03/01/25 Range/Units 15:57 16:25 WBC 8.0 (4.0-11.0) 10^3/uL RBC 4.71 (4.70-6.10) 10^6/uL Hgb 15.6 (14.0-18.0) g/dL Hct 43.2 (42.0-54.0) % MCV 91.7 (80.0-94.0) fL MCH 33.1 (25.9-34.0) pg MCHC 36.1 H (29.9-35.2) g/dL RDW 12.6 (11.0-15.0) % Plt Count 143 L (150-450) 10^3/uL MPV 11.5 (9.5-13.5) fL Neut % (Auto) 67.2 (43.0-75.0) % Lymph % (Auto) 20.6 (20.5-60.0) % Swain % (Auto) 7.3 (1.7-12.0) % Eos % (Auto) 4.0 (0.9-7.0) % Baso % (Auto) 0.6 (0.2-2.0) % Neut # (Auto) 5.4 (1.4-6.5) 10^3/uL Lymph # (Auto) 1.6 (1.2-3.8) 10^3/uL Swain # (Auto) 0.6 (0.3-0.8) 10^3/uL Eos # (Auto) 0.3 (0.0-0.7) 10^3/uL Baso # (Auto) 0.1 (0.0-0.1) 10^3/uL Abs Immat Gran (auto) 0.02 (0.00-0.03) 10^3/uL Imm/Tot Granulo (auto) 0.3 (0.0-0.5) % PT 10.6 (9.0-11.6) sec INR 1.00 Sodium 137 (136-145) mmol/L Potassium 3.3 L (3.5-5.1) mmol/L Chloride 98 (98-107) mmol/L Carbon Dioxide 29.3 (21.0-32.0) mmol/L Anion Gap 13.0 BUN 14.0 (7.0-18.0) mg/dL Creatinine 1.37 H (0.70-1.30) mg/dL Est GFR ( Amer) >60 (>=60 mL/min/1.73m^2) Est GFR (Non-Af Amer) 50 L (>=60 mL/min/1.73m^2) BUN/Creatinine Ratio 10.2 Glucose 410 H (74-106) mg/dL Calcium 9.0 (8.5-10.1) mg/dL Discharge Plan Discharge Chief Complaint: Fall Clinical Impression: Laceration of face, Laceration of nose, Fracture of nasal bone, Fall, Abrasion of face, Head injury, Hyperglycemia Patient Disposition: Home, Self-Care Time of Disposition Decision: 19:05 Prescriptions / Home Meds: New cephalexin 500 mg capsule 500 mg PO TID 7 Days Qty: 21 0RF No Action clopidogrel 75 mg tablet 75 mg PO DAILY metoprolol succinate 25 mg tablet extended release 24 hr 25 mg PO DAILY levothyroxine 50 mcg tablet 50 mcg PO DAILY lisinopril 40 mg tablet 40 mg PO DAILY quetiapine 50 mg tablet 50 mg PO DAILY tamsulosin 0.4 mg capsule 0.4 mg PO DAILY furosemide 40 mg tablet atorvastatin 40 mg tablet metformin 500 mg tablet potassium chloride 10 mEq tablet extended release PO carvedilol 3.125 mg tablet amlodipine 10 mg tablet pantoprazole 40 mg tablet,delayed release (DR/EC) PO metformin 1,000 mg tablet Print Language: Portuguese Instructions: Nasal Fracture (ED), Abrasion (ED) Referrals: Piter Chowdhury MD [Primary Care Provider, [facility]] - 1 week Referral Note: for suture removal Discharge Date/Time: 03/01/25 19:22 Procedures ED Procedure Instructions Procedures Procedures: Procedure Note (Laceration Repair): Laceration #1: 4 cm vertical forehead laceration Cleansed with saline, anesthetized with 1% lidocaine (no epi), hemostasis achieved Closed with 5 sutures of 5-0 Ethilon, good wound approximation Laceration #2: 3 cm nasal bridge laceration Cleansed with saline, anesthetized with 1% lidocaine (no epi), hemostasis achieved Closed with 3 sutures of 5-0 Ethilon, good wound approximation Patient tolerated procedure well; sterile dressing applied
[2025-03-01] MEDS: DIPHTH,PERTUSS(ACELL),TET VAC 0.5 ML SYRINGE IM (19:07)
== END 2025-03-01 19:22 | disposition home or self-care (01) ==
PROVIDERS: Physician Assistant; Emergency Provider Emergency Medicine; PCP Family Medicine
DX: S01.81XA Laceration without foreign body of other part of head, initial encounter (principal); S02.2XXA Fracture of nasal bones, initial encounter for closed fracture; S01.21XA Laceration without foreign body of nose, initial encounter; S00.81XA Abrasion of other part of head, initial encounter; W01.0XXA Fall on same level from slipping, tripping and stumbling without subsequent striking against object, initial encounter; M21.371 Foot drop, right foot; Z86.73 Personal history of transient ischemic attack (TIA), and cerebral infarction without residual deficits; E11.65 Type 2 diabetes mellitus with hyperglycemia; Z23 Encounter for immunization; S09.90XA Unspecified injury of head, initial encounter; Z79.84 Long term (current) use of oral hypoglycemic drugs
CPT/HCPCS: 12013; 36415; 70450; 70486; 72125; 76376; 80048; 85025; 85610; 90471; 90715; 99284

== ENCOUNTER 2025-04-17 13:06 | Outpatient (RCR) | payer MEDICARE, SELFPAY | END 2025-05-14 13:09 | disposition home or self-care (01) | LOC: PT 13:06 | PROVIDERS: PCP Family Medicine; Visit Provider Family Medicine | DX: R53.1 Weakness (principal) | CPT/HCPCS: 97110; 97112; 97163 ==